=== PATIENT | male | born 1975 | race Caucasian/White ===

== ENCOUNTER 2017-01-02 09:20 | Outpatient (RCR) | payer OTHER ==
[~2017-01-02 09:20] MED LIST changes: -CFTR1PB IV; -TURM538C PO
== END 2017-01-02 16:00 | disposition home or self-care (01) ==
LOC: WOUNDCARE 09:20
PROVIDERS: ATTEND Surgery
DX: E11.621 Type 2 diabetes mellitus with foot ulcer (principal); E11.42 Type 2 diabetes mellitus with diabetic polyneuropathy; E11.65 Type 2 diabetes mellitus with hyperglycemia; L97.512 Non-pressure chronic ulcer of other part of right foot with fat layer exposed
CPT/HCPCS: 11042

== ENCOUNTER → 2017-01-02 | Outpatient (CLI) | payer OTHER ==
[~2017-01-02] MED LIST: BACL10TA PO; BACL20TA PO; CANA300T PO; CFTR1PB IV; CITA20TA7 PO; GLIM4TAB PO; HYDR-3062 PO; HYDR-753 PO; IBUP-2055 PO; LISI10TA2 PO; MULT-406 PO; Prednisone PO; RED600CA2 PO; ROPI3TAB PO; SITA1TAB6 PO; SULF1TAB35 PO; TURM500C7 PO; TURM538C PO
--- NOTE | 2017-01-02 12:35 | Diagnostic Imaging Report ---
CLINICAL INDICATION: Patient has ulcer near fourth metatarsal and on medial aspect of the right foot. BBs are placed near the areas of concern. EXAM: X-ray of the right foot, 3 views. COMPARISON: X-ray of right foot dated 02/21/2015. FINDINGS: There is interval amputation of the previously seen distal and mid phalanges of the third digit which previously demonstrated findings of osteomyelitis. There is soft tissue swelling seen medial to the first MTP joint region in the region of the BB marker with no adjacent bony erosive or destructive changes seen. There is also mild soft tissue swelling seen adjacent to the fourth MTP joint region on the plantar aspect. There is no adjacent bony destructive or erosive process seen. Stable small spurs involving the first MTP joint. The remainder of this exam shows no significant interval change compared to the prior study of comparison. IMPRESSION: 1: There is no radiographic evidence of bony erosive or destructive changes to suggest osteomyelitis on this exam. 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 Dictated by: Dictated on workstation # [id number]
== END ==
LOC: RAD 11:09
PROVIDERS: ATTEND Surgery
DX: M19.071 Primary osteoarthritis, right ankle and foot (principal); Z89.421 Acquired absence of other right toe(s); E11.42 Type 2 diabetes mellitus with diabetic polyneuropathy; E11.65 Type 2 diabetes mellitus with hyperglycemia
CPT/HCPCS: 73630

== ENCOUNTER → 2017-01-09 | Outpatient (CLI) | payer OTHER | LOC: WOUNDCARE 10:13 | PROVIDERS: ATTEND Surgery | DX: E11.621 Type 2 diabetes mellitus with foot ulcer (principal); E11.42 Type 2 diabetes mellitus with diabetic polyneuropathy; L97.512 Non-pressure chronic ulcer of other part of right foot with fat layer exposed | CPT/HCPCS: 11042; 87070; 87075; 87186; 87205 ==

== ENCOUNTER → 2017-01-16 | Outpatient (CLI) | payer OTHER | LOC: WOUNDCARE 15:24 | PROVIDERS: ATTEND Surgery | DX: E11.621 Type 2 diabetes mellitus with foot ulcer (principal); L97.512 Non-pressure chronic ulcer of other part of right foot with fat layer exposed; E11.42 Type 2 diabetes mellitus with diabetic polyneuropathy | CPT/HCPCS: 11042 ==

== ENCOUNTER → 2017-01-30 | Outpatient (CLI) | payer OTHER | LOC: WOUNDCARE 15:28 | PROVIDERS: ATTEND Surgery | DX: E11.621 Type 2 diabetes mellitus with foot ulcer (principal); E11.42 Type 2 diabetes mellitus with diabetic polyneuropathy; L97.512 Non-pressure chronic ulcer of other part of right foot with fat layer exposed | CPT/HCPCS: 11042 ==

== ENCOUNTER → 2017-02-08 | Outpatient (CLI) | payer BC, OTHER ==
[~2017-02-08] MED LIST changes: +CFTR1PB IV; +TURM538C PO
== END ==
LOC: WOUNDCARE 15:29
PROVIDERS: ATTEND Surgery
DX: E11.621 Type 2 diabetes mellitus with foot ulcer (principal); E11.42 Type 2 diabetes mellitus with diabetic polyneuropathy; L97.512 Non-pressure chronic ulcer of other part of right foot with fat layer exposed
CPT/HCPCS: 11042; 87070; 87075; 87077; 87186; 87205

== ENCOUNTER → 2017-02-13 | Outpatient (CLI) | payer OTHER ==
[~2017-02-13] MED LIST changes: -CFTR1PB IV; -TURM538C PO
== END ==
LOC: WOUNDCARE 15:29
PROVIDERS: ATTEND Surgery
DX: E11.621 Type 2 diabetes mellitus with foot ulcer (principal); E11.42 Type 2 diabetes mellitus with diabetic polyneuropathy; L97.512 Non-pressure chronic ulcer of other part of right foot with fat layer exposed
CPT/HCPCS: 11042; 11043

== ENCOUNTER → 2017-02-20 | Outpatient (CLI) | payer BC, OTHER | LOC: WOUNDCARE 15:30 | PROVIDERS: ATTEND Surgery | DX: E11.621 Type 2 diabetes mellitus with foot ulcer (principal); L97.512 Non-pressure chronic ulcer of other part of right foot with fat layer exposed; E11.65 Type 2 diabetes mellitus with hyperglycemia; E11.42 Type 2 diabetes mellitus with diabetic polyneuropathy | CPT/HCPCS: 11042 ==

== ENCOUNTER → 2017-03-06 | Outpatient (CLI) | payer BC | LOC: WOUNDCARE 15:28 | PROVIDERS: ATTEND Surgery | DX: E11.621 Type 2 diabetes mellitus with foot ulcer (principal); L97.513 Non-pressure chronic ulcer of other part of right foot with necrosis of muscle; L97.512 Non-pressure chronic ulcer of other part of right foot with fat layer exposed; E11.42 Type 2 diabetes mellitus with diabetic polyneuropathy; E11.65 Type 2 diabetes mellitus with hyperglycemia | CPT/HCPCS: 11042 ==

== ENCOUNTER 2017-05-10 17:27 | Outpatient (RCR) | payer BC ==
[2017-04-11 12:36] VITALS: BP 127/82
[2017-04-11] MEDS: cefTRIAXone 1 GM/NS 50 ML IVPB IV SCH ×2 (13:00)
[2017-04-12 12:36] VITALS: BP 143/92
[2017-04-12] MEDS: cefTRIAXone 1 GM/NS 50 ML IVPB IV SCH ×2 (12:56)
[2017-04-13] MEDS: cefTRIAXone 1 GM/NS 50 ML IVPB IV SCH ×2 (09:34)
[2017-04-13 10:04] VITALS: BP 142/82
--- NOTE | 2017-04-13 11:10 | Physician Query-Final Dx ---
ALDAIR CHANDLER 04/13/17 1110: Clinic Account Progress/Dx Physician Query: Please give a diagnosis for the Ceftriaxone treatment thank you Date of Service Apr 13, 2017 at 09:27 ARIA GABRIEL MD 04/14/17 1344: Clinic Account Progress/Dx DIAGNOSIS: Diagnosis Osteomyelitis RAMESHALDAIR AGUAYO Apr 13, 2017 11:10 ARIA GABRIEL MD Apr 14, 2017 13:44
[2017-04-14] MEDS: cefTRIAXone 1 GM/NS 50 ML IVPB IV SCH ×2 (10:16)
[2017-04-14 11:04] VITALS: BP 144/100
[2017-04-15 10:30] VITALS: BP 154/89
[2017-04-15] MEDS: cefTRIAXone 1 GM/NS 50 ML IVPB IV SCH ×2 (10:40)
[2017-04-16 11:20] VITALS: BP 147/86
[2017-04-16] MEDS: cefTRIAXone 1 GM/NS 50 ML IVPB IV SCH ×2 (11:20)
[2017-04-17 16:15] VITALS: BP 148/81
[2017-04-17] MEDS: cefTRIAXone 1 GM/NS 50 ML IVPB IV SCH ×2 (16:18)
[2017-04-18 16:15] VITALS: BP 0/0
[2017-04-18] MEDS: cefTRIAXone 1 GM/NS 50 ML IVPB IV SCH ×2 (16:15)
[2017-04-19] MEDS: cefTRIAXone 1 GM/NS 50 ML IVPB IV SCH ×2 (16:40)
[2017-04-19 17:10] VITALS: BP 144/88
[2017-04-20] MEDS: cefTRIAXone 1 GM/NS 50 ML IVPB IV SCH ×2 (16:05)
[2017-04-20 17:00] VITALS: BP 146/89
[2017-04-21 16:10] VITALS: BP 133/80
[2017-04-21] MEDS: cefTRIAXone 1 GM/NS 50 ML IVPB IV SCH ×2 (16:18)
[2017-04-22 09:40] VITALS: BP 123/79
[2017-04-22] MEDS: cefTRIAXone 1 GM/NS 50 ML IVPB IV SCH ×2 (09:45)
[2017-04-23 10:00] VITALS: BP 140/88
[2017-04-23] MEDS: cefTRIAXone 1 GM/NS 50 ML IVPB IV SCH ×2 (10:08)
[2017-04-24] MEDS: cefTRIAXone 1 GM/NS 50 ML IVPB IV SCH ×2 (16:29)
[2017-04-24 17:00] VITALS: BP 134/82
[2017-04-25 17:15] VITALS: BP 0/0
[2017-04-25] MEDS: cefTRIAXone 1 GM/NS 50 ML IVPB IV SCH ×2 (17:55)
[2017-04-26] MEDS: cefTRIAXone 1 GM/NS 50 ML IVPB IV SCH ×2 (11:00)
[2017-04-26 11:42] VITALS: BP 130/80
[2017-04-27 11:20] VITALS: BP 125/81
[2017-04-27] MEDS: cefTRIAXone 1 GM/NS 50 ML IVPB IV SCH ×2 (11:25)
[2017-04-28] MEDS: cefTRIAXone 1 GM/NS 50 ML IVPB IV SCH ×2 (10:13)
[2017-04-28 11:25] VITALS: BP 138/87
[2017-04-29] MEDS: cefTRIAXone 1 GM/NS 50 ML IVPB IV SCH ×2 (09:09)
[2017-04-29 09:10] VITALS: BP 138/87
[2017-04-29 09:23] VITALS: BP 143/89
[2017-04-29 10:21] VITALS: BP 143/89
[2017-04-30 10:00] VITALS: BP 131/87
[2017-04-30] MEDS: cefTRIAXone 1 GM/NS 50 ML IVPB IV SCH ×2 (10:01)
[2017-05-01] MEDS: cefTRIAXone 1 GM/NS 50 ML IVPB IV SCH ×2 (16:29)
[2017-05-01 16:55] VITALS: BP 112/77
[2017-05-02 17:05] VITALS: BP 112/74
[2017-05-03] MEDS: cefTRIAXone 1 GM/NS 50 ML IVPB IV SCH ×2 (16:25)
[2017-05-03 17:05] VITALS: BP 0/0
[2017-05-04] MEDS: cefTRIAXone 1 GM/NS 50 ML IVPB IV SCH ×2 (17:22)
[2017-05-04 18:30] VITALS: BP 132/76
[2017-05-05] MEDS: cefTRIAXone 1 GM/NS 50 ML IVPB IV SCH ×2 (15:03)
[2017-05-05 15:40] VITALS: BP 134/69
[2017-05-06 09:25] VITALS: BP 131/82
[2017-05-06] MEDS: cefTRIAXone 1 GM/NS 50 ML IVPB IV SCH ×2 (09:33)
[2017-05-07] MEDS: cefTRIAXone 1 GM/NS 50 ML IVPB IV SCH ×2 (09:46)
[2017-05-07 10:20] VITALS: BP 128/78
[2017-05-08 16:15] VITALS: BP 121/73
[2017-05-08] MEDS: cefTRIAXone 1 GM/NS 50 ML IVPB IV SCH ×2 (16:15)
[2017-05-09] MEDS: cefTRIAXone 1 GM/NS 50 ML IVPB IV SCH ×2 (16:27)
[2017-05-09 17:00] VITALS: BP 0/0
[~2017-05-10] VITALS: Ht 177.8 cm; Wt 106.3 kg
[~2017-05-10 17:27] MED LIST changes: +CFTR1PB IV; +NS (IVPB) 50 ML ONE; +TURM538C PO; +cefTRIAXone 1 GM (ROCEPHIN) VIAL ONE
[2017-05-10] MEDS ORDERED: cefTRIAXone 1 GM (ROCEPHIN) VIAL ONE (17:28)
[2017-05-10] MEDS ORDERED: NS (IVPB) 50 ML ONE (17:28)
[2017-05-10 17:30] VITALS: BP 128/92
[2017-05-10] MEDS: cefTRIAXone 1 GM/NS 50 ML IVPB IV SCH ×2 (17:30)
== END 2017-07-10 | disposition home or self-care (01) ==
LOC: SDC 17:27
PROVIDERS: ATTEND Family Medicine
DX: L02.611 Cutaneous abscess of right foot (principal); M86.9 Osteomyelitis, unspecified; Z48.01 Encounter for change or removal of surgical wound dressing
CPT/HCPCS: 76937; 96365; 99211; 99212

== ENCOUNTER 2018-02-19 19:51 | Emergency (ER) | payer BC ==
[~2018-02-19] VITALS: Ht 180.3 cm; Wt 108.9 kg
[~2018-02-19 19:51] MED LIST changes: -CITA20TA7 PO; +CITA20TA9 PO; +HYDR-4196 PO; -HYDR-753 PO; -NS (IVPB) 50 ML ONE; -cefTRIAXone 1 GM (ROCEPHIN) VIAL ONE
--- OUTSIDE RECORDS SUMMARY | 2018-02-19 19:56 | XMS REPORT | Clinical Summary ---
Author Author [facility] Organization [facility] Address Unknown Phone Unavailable Care Team Providers Care Customer Advisor Name Role Phone Elfego Nguyen MD Unavailable Ida Sanabria APRN PCP Source Comments Some departments are not documenting in the electronic medical record. If you do not see the information that you expected, contact Release of Information in the Health Information Management department at [phone] for further assistance in locating additional records.[facility] Allergies No Known Allergies Current Medications Prescription Sig. Disp. Refills Start End Date Status Date citalopram (CELEXA) 20 mg Take 20 mg by mouth Active tablet daily. rOPINIRole (REQUIP) 1 mg Take 1 mg by mouth three Active tablet times daily. glimepiride (AMARYL) 4 mg Take 4 mg by mouth daily Active tablet with breakfast. lisinopril (PRINIVIL; Take 10 mg by mouth Active ZESTRIL) 10 mg tablet daily. HYDROcodone/acetaminophen Take 1 Tab by mouth every Active (NORCO; VICODIN) 5-325 mg 4 hours as needed. tablet tadalafil(+) (CIALIS) 5 Take 5 mg by mouth as Active mg tablet Needed. magnesium oxide (MAG-OX) Take 400 mg by mouth Active 400 mg tablet daily. GLUCOSAMINE HCL/CHONDR DSOUZA Take by mouth. Active A NA (OSTEO BI-FLEX PO) pioglitazone (ACTOS) 45 Take 45 mg by mouth Active mg tablet daily. sitagliptin-metformin Take by mouth. Active (JANUMET XR) 50-1,000 mg TM24 RED YEAST RICE PO Take by mouth. Active UBIDECARENONE/VITAMIN E Take by mouth. 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 He has a previous history of slowly decreasing seminal volume. He has a prior SA showing a volume of 1.4cc in 09/2011. Testosterone was 539 in 09/2011 and LH 10.4 L ast Assessment & Plan: Likely a combination of his SSRI use along with very poorly controlled Diabetes Mellitus II leading to retrograde ejaculation vs complete cessation of ejaculation. Although with his long history of SSRI use, it is unlikely that this is the complete reason. He had a near normal semen analysis in 09/2011 - Will obtain labs: LH, FSH, T, Prolactin, Estradiol, and TSH - Also send to [facility] office to obtain a post-climax urine sample to evaluate for presence of semen in urine - RTC in 2 weeks Family History Medical History Relation Name Comments Diabetes Father Cancer Maternal Grandmother Cancer Paternal Grandfather Hypertension Paternal Grandfather Neurologic Disorder Paternal Grandmother Relation Name Status Comments Father Maternal Grandmother Paternal Grandfather Paternal Grandmother Social History Tobacco Use Types Packs/Day Years Used Date Former Smoker Alcohol Use Drinks/Week oz/Week Comments Yes Sex Assigned at Date Recorded Not on file Last Filed Vital Signs Vital Sign Reading Time Taken Blood Pressure 120/60 02/10/2014 10:56 AM CDT Pulse 68 02/10/2014 10:56 AM CDT Temperature - - Respiratory Rate 20 02/10/2014 10:56 AM CDT Oxygen Saturation - - Inhaled Oxygen - - Concentration Weight 112 kg (247 lb) 02/10/2014 10:56 AM CDT Height 177.8 cm (5' 10") 02/10/2014 10:56 AM CDT Body Mass Index 35.44 02/10/2014 10:56 AM CDT Plan of Treatment Health Maintenance Due Date Last Done Comments PHYSICAL (COMPREHENSIVE) 1981 EXAM PERTUSSIS VACCINE 1985 HIV SCREENING 1989 TETANUS VACCINE 11/11/1991 INFLUENZA VACCINE 03/05/2018 Results Not on filefrom Last 3 Months
--- OUTSIDE RECORDS SUMMARY | 2018-02-19 19:59 | XMS REPORT | Continuity of Care Document ---
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 SURGI 04/17/2017 ARIA GABRIEL MD M Ot L02.611 CUTANEOUS ABSCESS OF RIGHT FOOT 04/17/2017 ARIA GABRIEL MD Ot M86.9 OSTEOMYELITIS, UNSPECIFIED 04/17/2017 ARIA GABRIEL MD Ot Z48.01 ENCOUNTER FOR CHANGE OR REMOVAL OF SURGI 04/18/2017 ARIA GABRIEL MD Ot L02.611 CUTANEOUS ABSCESS OF RIGHT FOOT 04/18/2017 ARIA GABRIEL MD Ot M86.9 OSTEOMYELITIS, UNSPECIFIED 04/18/2017 ARIA GABRIEL MD Ot Z48.01 ENCOUNTER FOR CHANGE OR REMOVAL OF SURGI 04/19/2017 ARIA GABRIEL MD M Ot L02.611 CUTANEOUS ABSCESS OF RIGHT FOOT 04/19/2017 ARIA GABRIEL MD Ot M86.9 OSTEOMYELITIS, UNSPECIFIED 04/19/2017 ARIA GABRIEL MD M Ot Z48.01 ENCOUNTER FOR CHANGE OR REMOVAL OF SURGI 04/20/2017 ARIA GABRIEL MD M Ot L02.611 CUTANEOUS ABSCESS OF RIGHT FOOT 04/20/2017 ARIA GABRIEL MD M Ot M86.9 OSTEOMYELITIS, UNSPECIFIED 04/20/2017 ARIA GABRIEL MD M Ot Z48.01 ENCOUNTER FOR CHANGE OR REMOVAL OF SURGI 04/21/2017 ARIA GABRIEL MD M Ot L02.611 CUTANEOUS ABSCESS OF RIGHT FOOT 04/21/2017 ARIA GABRIEL MD Ot M86.9 OSTEOMYELITIS, UNSPECIFIED 04/21/2017 ARIA GABRIEL MD M Ot Z48.01 ENCOUNTER FOR CHANGE OR REMOVAL OF SURGI 04/21/2017 ARIA GABRIEL MD M Ot L02.611 CUTANEOUS ABSCESS OF RIGHT FOOT 04/21/2017 ARIA GABRIEL MD Ot M86.9 OSTEOMYELITIS, UNSPECIFIED 04/21/2017 ARIA GABRIEL MD Ot Z48.01 ENCOUNTER FOR CHANGE OR REMOVAL OF SURGI 04/22/2017 ARIA GABRIEL MD Ot L02.611 CUTANEOUS ABSCESS OF RIGHT FOOT 04/22/2017 ARIA GABRIEL MD, Ot M86.9 OSTEOMYELITIS, UNSPECIFIED 04/22/2017 ARIA GABRIEL MD Ot Z48.01 ENCOUNTER FOR CHANGE OR REMOVAL OF SURGI 04/23/2017 ARIA GABRIEL MD Ot L02.611 CUTANEOUS ABSCESS OF RIGHT FOOT 04/23/2017 ARIA GABRIEL MD, Ot M86.9 OSTEOMYELITIS, UNSPECIFIED 04/23/2017 ARIA GABRIEL MD Ot Z48.01 ENCOUNTER FOR CHANGE OR REMOVAL OF SURGI 04/24/2017 ARIA GABRIEL MD Ot L02.611 CUTANEOUS ABSCESS OF RIGHT FOOT 04/24/2017 ARIA GABRIEL MD Ot M86.9 OSTEOMYELITIS, UNSPECIFIED 04/24/2017 ARIA GABRIEL MD Ot Z48.01 ENCOUNTER FOR CHANGE OR REMOVAL OF SURGI 04/25/2017 P E1142 Type 2 diabetes mellitus with diabetic polyneuropathy 04/25/2017 S [id number] Type 2 diabetes mellitus with foot ulcer 04/25/2017 S R16879 Nicotine dependence, cigarettes, with other nicotine-induced disorders 04/25/2017 S Q28798 Non-pressure chronic ulcer of other part of right foot with necrosis of muscle 04/25/2017 S 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 04/25/2017 S [id number] Disruption of external operation (surgical) wound, not elsewhere classified, initial encounter 04/25/2017 S Z7984 halfway ( current) use of oral hypoglycemic drugs 04/25/2017 ARIA GABRIEL MD Ot L02.611 CUTANEOUS ABSCESS OF RIGHT FOOT 04/25/2017 ARIA GABRIEL MD Ot M86.9 OSTEOMYELITIS, UNSPECIFIED 04/25/2017 ARIA GABRIEL MD Ot Z48.01 ENCOUNTER FOR CHANGE OR REMOVAL OF SURGI 04/26/2017 ARIA GABRIEL MD Ot L02.611 CUTANEOUS ABSCESS OF RIGHT FOOT 04/26/2017 ARIA GABRIEL MD Ot M86.9 OSTEOMYELITIS, UNSPECIFIED 04/26/2017 ARIA GABRIEL MD Ot Z48.01 ENCOUNTER FOR CHANGE OR REMOVAL OF SURGI 04/27/2017 ARIA GABRIEL MD Ot L02.611 CUTANEOUS ABSCESS OF RIGHT FOOT 04/27/2017 ARIA GABRIEL MD Ot M86.9 OSTEOMYELITIS, UNSPECIFIED 04/27/2017 ARIA GABRIEL MD Ot Z48.01 ENCOUNTER FOR CHANGE OR REMOVAL OF SURGI 04/27/2017 ARIA GABRIEL MD Ot L02.611 CUTANEOUS ABSCESS OF RIGHT FOOT 04/27/2017 ARIA GABRIEL MD Ot M86.9 OSTEOMYELITIS, UNSPECIFIED 04/27/2017 ARIA GABRIEL MD Ot Z48.01 ENCOUNTER FOR CHANGE OR REMOVAL OF SURGI 04/28/2017 ARIA GABRIEL MD Ot L02.611 CUTANEOUS ABSCESS OF RIGHT FOOT 04/28/2017 ARIA GABRIEL MD Ot M86.9 OSTEOMYELITIS, UNSPECIFIED 04/28/2017 ARIA GABRIEL MD Ot Z48.01 ENCOUNTER FOR CHANGE OR REMOVAL OF SURGI 04/29/2017 ARIA GABRIEL MD M Ot L02.611 CUTANEOUS ABSCESS OF RIGHT FOOT 04/29/2017 ARIA GABRIEL MD Ot M86.9 OSTEOMYELITIS, UNSPECIFIED 04/29/2017 ARIA GABRIEL MD Ot Z48.01 ENCOUNTER FOR CHANGE OR REMOVAL OF SURGI 04/29/2017 ARIA GABRIEL MD M Ot L02.611 CUTANEOUS ABSCESS OF RIGHT FOOT 04/29/2017 ARIA GABRIEL MD Ot M86.9 OSTEOMYELITIS, UNSPECIFIED 04/29/2017 ARIA GABRIEL MD Ot Z48.01 ENCOUNTER FOR CHANGE OR REMOVAL OF SURGI 04/29/2017 ARIA GABRIEL MD Ot L02.611 CUTANEOUS ABSCESS OF RIGHT FOOT 04/29/2017 ARIA GABRIEL MD Ot M86.9 OSTEOMYELITIS, UNSPECIFIED 04/29/2017 ARIA GABRIEL MD Ot Z48.01 ENCOUNTER FOR CHANGE OR REMOVAL OF SURGI 04/30/2017 ARIA GABRIEL MD Ot L02.611 CUTANEOUS ABSCESS OF RIGHT FOOT 04/30/2017 ARIA GABRIEL MD Ot M86.9 OSTEOMYELITIS, UNSPECIFIED 04/30/2017 ARIA GABRIEL MD Ot Z48.01 ENCOUNTER FOR CHANGE OR REMOVAL OF SURGI 05/01/2017 ARIA GABRIEL MD Ot L02.611 CUTANEOUS ABSCESS OF RIGHT FOOT 05/01/2017 ARIA GABRIEL MD Ot M86.9 OSTEOMYELITIS, UNSPECIFIED 05/01/2017 ARIA GABRIEL MD Ot Z48.01 ENCOUNTER FOR CHANGE OR REMOVAL OF SURGI 05/02/2017 ARIA GABRIEL MD Ot L02.611 CUTANEOUS ABSCESS OF RIGHT FOOT 05/02/2017 ARIA GABRIEL MD Ot M86.9 OSTEOMYELITIS, UNSPECIFIED 05/02/2017 ARIA GABRIEL MD Ot Z48.01 ENCOUNTER FOR CHANGE OR REMOVAL OF SURGI 05/03/2017 ARIA GABRIEL MD Ot L02.611 CUTANEOUS ABSCESS OF RIGHT FOOT 05/03/2017 ARIA GABRIEL MD Ot M86.9 OSTEOMYELITIS, UNSPECIFIED 05/03/2017 ARIA GABRIEL MD Ot Z48.01 ENCOUNTER FOR CHANGE OR REMOVAL OF SURGI 05/04/2017 P E1142 Type 2 diabetes mellitus with diabetic polyneuropathy 05/04/2017 S M46256 Type 2 diabetes mellitus with foot ulcer 05/04/2017 S D16763 Nicotine dependence, cigarettes, uncomplicated 05/04/2017 S C44459 Non-pressure chronic ulcer of other part of right foot limited to breakdown of skin 05/04/2017 S G35026 Non-pressure chronic ulcer of other part of right foot with necrosis of bone 05/04/2017 S Z7984 halfway ( current) use of oral hypoglycemic drugs 05/04/2017 S Z9119 Patient's noncompliance with other medical treatment and regimen 05/04/2017 ARIA GABRIEL MD Ot L02.611 CUTANEOUS ABSCESS OF RIGHT FOOT 05/04/2017 ARIA GABRIEL MD Ot M86.9 OSTEOMYELITIS, UNSPECIFIED 05/04/2017 ARIA GABRIEL MD Ot Z48.01 ENCOUNTER FOR CHANGE OR REMOVAL OF SURGI 05/05/2017 ARIA GABRIEL MD Ot L02.611 CUTANEOUS ABSCESS OF RIGHT FOOT 05/05/2017 ARIA GABRIEL MD Ot M86.9 OSTEOMYELITIS, UNSPECIFIED 05/05/2017 ARIA GABRIEL MD Ot Z48.01 ENCOUNTER FOR CHANGE OR REMOVAL OF SURGI 05/06/2017 ARIA GABRIEL MD Ot L02.611 CUTANEOUS ABSCESS OF RIGHT FOOT 05/06/2017 ARIA GABRIEL MD Ot M86.9 OSTEOMYELITIS, UNSPECIFIED 05/06/2017 ARIA GABRIEL MD Ot Z48.01 ENCOUNTER FOR CHANGE OR REMOVAL OF SURGI 05/07/2017 ARIA GABRIEL MD Ot L02.611 CUTANEOUS ABSCESS OF RIGHT FOOT 05/07/2017 ARIA GABRIEL MD Ot M86.9 OSTEOMYELITIS, UNSPECIFIED 05/07/2017 ARIA GABRIEL MD Ot Z48.01 ENCOUNTER FOR CHANGE OR REMOVAL OF SURGI 05/08/2017 ARIA GABRIEL MD Ot L02.611 CUTANEOUS ABSCESS OF RIGHT FOOT 05/08/2017 ARIA GABRIEL MD Ot M86.9 OSTEOMYELITIS, UNSPECIFIED 05/08/2017 ARIA GABRIEL MD Ot Z48.01 ENCOUNTER FOR CHANGE OR REMOVAL OF SURGI 05/09/2017 SCOOBY MONTGOMERY MD Ot E11.42 TYPE 2 DIABETES MELLITUS WITH DIABETIC P 05/09/2017 SCOOBY MONTGOMERY MD Ot E11.621 TYPE 2 DIABETES MELLITUS WITH FOOT ULCER 05/09/2017 SCOOBY MONTGOMERY MD Ot L97.512 NON-PRS CHRONIC ULCER OTH PRT RIGHT FOOT 05/09/2017 SCOOBY MONTGOMERY MD Ot E11.42 TYPE 2 DIABETES MELLITUS WITH DIABETIC P 05/09/2017 SCOOBY MONTGOMERY MD Ot E11.621 TYPE 2 DIABETES MELLITUS WITH FOOT ULCER 05/09/2017 SCOOBY MONTGOMERY MD Ot L97.512 NON-PRS CHRONIC ULCER OTH PRT RIGHT FOOT 05/09/2017 ARIA GABRIEL MD Ot L02.611 CUTANEOUS ABSCESS OF RIGHT FOOT 05/09/2017 ARIA GABRIEL MD Ot M86.9 OSTEOMYELITIS, UNSPECIFIED 05/09/2017 ARIA GABRIEL MD Ot Z48.01 ENCOUNTER FOR CHANGE OR REMOVAL OF SURGI 05/10/2017 P E1142 Type 2 diabetes mellitus with diabetic polyneuropathy 05/10/2017 S F69644 Type 2 diabetes mellitus with foot ulcer 05/10/2017 S H24007 Nicotine dependence, cigarettes, uncomplicated 05/10/2017 S B92206 Non-pressure chronic ulcer of other part of right foot limited to breakdown of skin 05/10/2017 S M76172 Non-pressure chronic ulcer of other part of right foot with necrosis of bone 05/10/2017 S Z7984 halfway ( current) use of oral hypoglycemic drugs 05/10/2017 S Z9119 Patient's noncompliance with other medical treatment and regimen 05/10/2017 ARIA GABRIEL MD Ot L02.611 CUTANEOUS ABSCESS OF RIGHT FOOT 05/10/2017 ARIA GABRIEL MD Ot M86.9 OSTEOMYELITIS, UNSPECIFIED 05/10/2017 ARIA GABRIEL MD Ot Z48.01 ENCOUNTER FOR CHANGE OR REMOVAL OF SURGI 05/10/2017 ARIA GABRIEL MD Ot L02.611 CUTANEOUS ABSCESS OF RIGHT FOOT 05/10/2017 ARIA GABRIEL MD Ot M86.9 OSTEOMYELITIS, UNSPECIFIED 05/10/2017 ARIA GABRIEL MD Ot Z48.01 ENCOUNTER FOR CHANGE OR REMOVAL OF SURGI 05/18/2017 P E1142 Type 2 diabetes mellitus with diabetic polyneuropathy 05/18/2017 S P96395 Type 2 diabetes mellitus with foot ulcer 05/18/2017 S I05046 Nicotine dependence, cigarettes, uncomplicated 05/18/2017 S P20540 Non-pressure chronic ulcer of other part of right foot with necrosis of bone 05/18/2017 S [id number] Disruption of external operation (surgical) wound, not elsewhere classified, subsequent encounter 05/18/2017 S Z7984 halfway ( current) use of oral hypoglycemic drugs 05/18/2017 S Z9119 Patient's noncompliance with other medical treatment and regimen 05/18/2017 ARIA GABRIEL MD Ot L02.611 CUTANEOUS ABSCESS OF RIGHT FOOT 05/18/2017 ARIA GABRIEL MD Ot M86.9 OSTEOMYELITIS, UNSPECIFIED 05/18/2017 ARIA GABRIEL MD Ot Z48.01 ENCOUNTER FOR CHANGE OR REMOVAL OF SURGI 05/25/2017 P E1142 Type 2 diabetes mellitus with diabetic polyneuropathy 05/25/2017 S J71852 Type 2 diabetes mellitus with foot ulcer 05/25/2017 S A53560 Nicotine dependence, cigarettes, uncomplicated 05/25/2017 S W81990 Non-pressure chronic ulcer of other part of right foot with necrosis of bone 05/25/2017 S 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 05/25/2017 S Z9119 Patient's noncompliance with other medical treatment and regimen 06/07/2017 S E1142 Type 2 diabetes mellitus with diabetic polyneuropathy 06/07/2017 P W55922 Type 2 diabetes mellitus with foot ulcer 06/07/2017 S V98920 Nicotine dependence, cigarettes, uncomplicated 06/07/2017 S Z37260 Non-pressure chronic ulcer of other part of right foot limited to breakdown of skin 06/07/2017 S 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 06/07/2017 S Z9119 Patient's noncompliance with other medical treatment and regimen 07/10/2017 ARIA GABRIEL MD Ot L02.611 CUTANEOUS ABSCESS OF RIGHT FOOT 07/10/2017 ARIA GABRIEL MD, Ot M86.9 OSTEOMYELITIS, UNSPECIFIED 07/10/2017 ARIA GABRIEL MD Ot Z48.01 ENCOUNTER FOR CHANGE OR REMOVAL OF SURGI 07/11/2017 ARIA GABRIEL MD Ot L02.611 CUTANEOUS ABSCESS OF RIGHT FOOT 07/11/2017 ARIA GABRIEL MD, Ot M86.9 OSTEOMYELITIS, UNSPECIFIED 07/11/2017 ARIA GABRIEL MD, Ot Z48.01 ENCOUNTER FOR CHANGE OR REMOVAL OF SURGI 11/13/2017 SCOOBY MONTGOMERY MD Ot E11.42 TYPE 2 DIABETES MELLITUS WITH DIABETIC P 11/13/2017 SCOOBY MONTGOMERY MD Ot E11.621 TYPE 2 DIABETES MELLITUS WITH FOOT ULCER 11/13/2017 SCOOBY MONTGOMERY MD, Ot L97.512 NON-PRS CHRONIC ULCER OTH PRT RIGHT FOOT 11/13/2017 SCOOBY MONTGOMERY MD Ot E11.42 TYPE 2 DIABETES MELLITUS WITH DIABETIC P 11/13/2017 SCOOBY MONTGOMERY MD Ot E11.621 TYPE 2 DIABETES MELLITUS WITH FOOT ULCER 11/13/2017 SCOOBY MONTGOMERY MD, Ot L97.512 NON-PRS CHRONIC ULCER OTH PRT RIGHT FOOT 01/26/2018 RACHEL PANIAGUA APRN Ot E11.42 TYPE 2 DIABETES MELLITUS WITH DIABETIC P 01/26/2018 RACHEL PANIAGUA APRN Ot E11.621 TYPE 2 DIABETES MELLITUS WITH FOOT ULCER 01/26/2018 RACHEL PANIAGUA APRN Ot F17.210 NICOTINE DEPENDENCE, CIGARETTES, UNCOMPL 01/26/2018 RACHEL PANIAGUA APRN Ot L97.519 NON-PRS CHRONIC ULCER OTH PRT RIGHT FOOT 01/26/2018 RACHEL PANIAGUA APRN Ot N28.9 DISORDER OF KIDNEY AND URETER, UNSPECIFI 01/26/2018 RACHEL PANIAGUA APRN Ot Z79.84 TAX PROFESSIONAL (CURRENT) USE OF ORAL HYPOGLYC 01/30/2018 RACHEL PANIAGUA APRN Ot E11.42 TYPE 2 DIABETES MELLITUS WITH DIABETIC P 01/30/2018 RACHEL PANIAGUA APRN Ot E11.621 TYPE 2 DIABETES MELLITUS WITH FOOT ULCER 01/30/2018 RACHEL PANIAGUA APRN Ot F17.210 NICOTINE DEPENDENCE, CIGARETTES, UNCOMPL 01/30/2018 RACHEL PANIAGUA APRN Ot L97.519 NON-PRS CHRONIC ULCER OTH PRT RIGHT FOOT 01/30/2018 RACHEL PANIAGUA APRN Ot N28.9 DISORDER OF KIDNEY AND URETER, UNSPECIFI 01/30/2018 RACHEL PANIAGUA APRN Ot Z79.84 FDC (CURRENT) USE OF ORAL HYPOGLYC Procedures Code Description Performed By Performed On 84.11 TOE AMPUTATION 02/23/2015 [id number] EXCISION OF RIGHT METATARSAL, OPEN APPRO 04/07/2017 [id number] DRAINAGE OF RIGHT FOOT, OPEN APPROACH 04/07/2017 Results Test Result Range Bacteria identification in isolate by anaerobe culture - 01/09/17 10:45 Bacteria identification in isolate by anaerobe culture NOANA NRG Gram stain microscopy - 01/09/17 10:45 Gram stain microscopy Occasional WBC, no bacteria NRG Bacteria identification in wound by culture - 01/09/17 10:45 Bacteria identification in wound by culture [id number] NR FREE TEXT EXTERNAL SENSITIVITY REPORTED 01/11/17 7:50 NRG QUANTITY OF GROWTH Abundant Growth NR Bacterial susceptibility panel - 01/09/17 10:45 Oxacillin susceptibility test by minimum inhibitory concentration > = NRG Gentamicin susceptibility test by minimum inhibitory concentration < = NRG Clindamycin susceptibility test by minimum inhibitory concentration <= NRG Erythromycin susceptibility test by minimum inhibitory concentration >= NRG Trimethoprim/sulfamethoxazole susceptibility test by minimum inhibitoryconcentration 160 NRG Vancomycin susceptibility test by minimum inhibitory concentration 2 NRG Levofloxacin susceptibility test by minimum inhibitory concentration <= NRG Rifampin susceptibility test by minimum inhibitory concentration <= NRG Tetracycline susceptibility test by minimum inhibitory concentration 2 NRG Bacteria identification in isolate by anaerobe culture - 02/08/17 16:48 Bacteria identification in isolate by anaerobe culture NOANA NRG Gram stain microscopy - 02/08/17 16:48 GRAM STAIN RESULT FEW WBC'S, NO BACTERIA OBSERVED NRG Bacteria identification in wound by culture - 02/08/17 16:48 Bacteria identification in wound by culture [id number] NR FREE TEXT EXTERNAL SENSITIVITY REPORTED 02/12 15:25 MONDAY NRG QUANTITY OF GROWTH Scant Growth [facility] Bacterial susceptibility panel - 02/08/17 16:48 Gentamicin susceptibility test by minimum inhibitory concentration < = NRG Trimethoprim/sulfamethoxazole susceptibility test by minimum inhibitoryconcentration <= NRG Ampicillin susceptibility test by minimum inhibitory concentration 8 NRG Tobramycin susceptibility test by minimum inhibitory concentration < = NRG Cefazolin susceptibility test by minimum inhibitory concentration < = NRG Ceftriaxone susceptibility test by minimum inhibitory concentration <= NRG Ampicillin/sulbactam susceptibility test by minimum inhibitory concentration 4 NRG Piperacillin/tazobactam susceptibility test by minimum inhibitory concentration <= NRG Ciprofloxacin susceptibility test by minimum inhibitory concentration <= NRG Meropenem susceptibility test by minimum inhibitory concentration < = NRG Aztreonam susceptibility test by minimum inhibitory concentration < = NRG Extended spectrum beta lactamase (ESBL) producing bacteria susceptibility test by minimum inhibitory concentration - [facility] Bacterial susceptibility panel - 02/08/17 16:48 Gentamicin susceptibility test by minimum inhibitory concentration S NRG Erythromycin susceptibility test by minimum inhibitory concentration 1 NRG Vancomycin susceptibility test by minimum inhibitory concentration 1 NRG Ampicillin susceptibility test by minimum inhibitory concentration < = NRG Linezolid susceptibility test by minimum inhibitory concentration 2 NRG Gram stain microscopy - 04/05/17 15:50 GRAM STAIN RESULT FEW GRAM POSITIVE COCCI NRG Bacteria identification in wound by culture - 04/05/17 15:50 Bacteria identification in wound by culture [id number] NR FREE TEXT EXTERNAL SENSITIVITY REPORTED AT 1751, 04-06-17 NRG QUANTITY OF GROWTH Moderate Growth NRG MRSA AGAR Screening test for MRSA is NEGATIVE (Final to follow) NRG Bacterial susceptibility panel - 04/05/17 15:50 Oxacillin susceptibility test by minimum inhibitory concentration < = NRG Gentamicin susceptibility test by minimum inhibitory concentration < = NRG Clindamycin susceptibility test by minimum inhibitory concentration <= NRG Erythromycin susceptibility test by minimum inhibitory concentration <= NRG Trimethoprim/sulfamethoxazole susceptibility test by minimum inhibitoryconcentration <= NRG Vancomycin susceptibility test by minimum inhibitory concentration < = NRG Levofloxacin susceptibility test by minimum inhibitory concentration <= NRG Rifampin susceptibility test by minimum inhibitory concentration <= NRG Tetracycline susceptibility test by minimum inhibitory concentration <= NRG Bacterial blood culture - 04/05/17 19:35 Bacterial blood culture NG NRG Complete blood count (CBC) with automated white blood cell (WBC) differential - 04/05/17 19:40 Blood leukocytes automated count (number/volume) 12.2 10*3/uL 4.3-11.0 Blood erythrocytes automated count (number/volume) 3.57 10*6/uL 4.35-5.85 Venous blood hemoglobin measurement (mass/volume) 11.0 g/dL 13.3-17.7 Blood hematocrit (volume fraction) 34 % 40-54 Automated erythrocyte mean corpuscular volume 94 [foz_us] 80-99 Automated erythrocyte mean corpuscular hemoglobin (mass per erythrocyte) 31 pg 25-34 Automated erythrocyte mean corpuscular hemoglobin concentration measurement ( mass/volume) 33 g/dL 32-36 Automated erythrocyte distribution width ratio 13.7 % 10.0-14.5 Automated blood platelet count (count/volume) 332 10*3/uL 130-400 Automated blood platelet mean volume measurement 9.6 [foz_us] 7.4-10.4 Automated blood neutrophils/100 leukocytes 80 % 42-75 Automated blood lymphocytes/100 leukocytes 8 % 12-44 Blood monocytes/100 leukocytes 9 % 0-12 Automated blood eosinophils/100 leukocytes 3 % 0-10 Automated blood basophils/100 leukocytes 0 % 0-10 Blood neutrophils automated count (number/volume) 9.8 10*3 1.8-7.8 Blood lymphocytes automated count (number/volume) 1.0 10*3 1.0-4.0 Blood monocytes automated count (number/volume) 1.1 10*3 0.0-1.0 Automated eosinophil count 0.3 10*3/uL 0.0-0.3 Automated blood basophil count (count/volume) 0.0 10*3/uL 0.0-0.1 Blood lactic acid measurement (moles/volume) - 04/05/17 19:40 Blood lactic acid measurement (moles/volume) 0.47 mmol/L 0.50-2.00 Erythrocyte sedimentation rate by westergren method - 04/05/17 19:40 Erythrocyte sedimentation rate by westergren method 127 mm 0-15 Comprehensive metabolic panel - 04/05/17 19:40 Serum or plasma sodium measurement (moles/volume) 136 mmol/L 135-145 Serum or plasma potassium measurement (moles/volume) 3.6 mmol/L 3.6-5.0 Serum or plasma chloride measurement (moles/volume) 99 mmol/L 98-107 Carbon dioxide 23 mmol/L 21-32 Serum or plasma anion gap determination (moles/volume) 14 mmol/L 5-14 Serum or plasma urea nitrogen measurement (mass/volume) 29 mg/dL 7-18 Serum or plasma creatinine measurement (mass/volume) 1.36 mg/dL 0.60-1.30 Serum or plasma urea nitrogen/creatinine mass ratio 21 NRG Serum or plasma creatinine measurement with calculation of estimated glomerular filtration rate 57 NRG Serum or plasma glucose measurement (mass/volume) 135 mg/dL 70-105 Serum or plasma calcium measurement (mass/volume) 9.5 mg/dL 8.5-10.1 Serum or plasma total bilirubin measurement (mass/volume) 0.5 mg/dL 0.1-1.0 Serum or plasma alkaline phosphatase measurement (enzymatic activity/volume) 148 U/L 40-136 Serum or plasma aspartate aminotransferase measurement (enzymatic activity/ volume) 34 U/L 5-34 Serum or plasma alanine aminotransferase measurement (enzymatic activity/volume ) 52 U/L 0-55 Serum or plasma protein measurement (mass/volume) 7.5 g/dL 6.4-8.2 Serum or plasma albumin measurement (mass/volume) 3.7 g/dL 3.2-4.5 Serum or plasma C reactive protein measurement (mass/volume) - 04/05/17 19:40 Serum or plasma C reactive protein measurement (mass/volume) 29.77 mg/dL 0.00-0.50 Hemoglobin A1c - 04/05/17 19:40 Hemoglobin A1c 9.4 % 4.5-6.2 Bacterial blood culture - 04/05/17 19:40 Bacterial blood culture NG NRG Capillary blood glucose measurement by glucometer (mass/volume) - 04/05/17 20: 53 Capillary blood glucose measurement by glucometer (mass/volume) 114 mg/dL 70-110 Capillary blood glucose measurement by glucometer (mass/volume) - 04/06/17 05: 45 Capillary blood glucose measurement by glucometer (mass/volume) 128 mg/dL 70-110 Complete blood count (CBC) with automated white blood cell (WBC) differential - 04/06/17 06:40 Blood leukocytes automated count (number/volume) 14.8 10*3/uL 4.3-11.0 Blood erythrocytes automated count (number/volume) 2.80 10*6/uL 4.35-5.85 Venous blood hemoglobin measurement (mass/volume) 8.7 g/dL 13.3-17.7 Blood hematocrit (volume fraction) 27 % 40-54 Automated erythrocyte mean corpuscular volume 96 [foz_us] 80-99 Automated erythrocyte mean corpuscular hemoglobin (mass per erythrocyte) 31 pg 25-34 Automated erythrocyte mean corpuscular hemoglobin concentration measurement ( mass/volume) 32 g/dL 32-36 Automated erythrocyte distribution width ratio 13.7 % 10.0-14.5 Automated blood platelet count (count/volume) 349 10*3/uL 130-400 Automated blood platelet mean volume measurement 9.5 [foz_us] 7.4-10.4 Automated blood neutrophils/100 leukocytes 78 % 42-75 Automated blood lymphocytes/100 leukocytes 10 % 12-44 Blood monocytes/100 leukocytes 9 % 0-12 Automated blood eosinophils/100 leukocytes 3 % 0-10 Automated blood basophils/100 leukocytes 0 % 0-10 Blood neutrophils automated count (number/volume) 11.5 10*3 1.8-7.8 Blood lymphocytes automated count (number/volume) 1.5 10*3 1.0-4.0 Blood monocytes automated count (number/volume) 1.3 10*3 0.0-1.0 Automated eosinophil count 0.4 10*3/uL 0.0-0.3 Automated blood basophil count (count/volume) 0.0 10*3/uL 0.0-0.1 Comprehensive metabolic panel - 04/06/17 06:40 Serum or plasma sodium measurement (moles/volume) 140 mmol/L 135-145 Serum or plasma potassium measurement (moles/volume) 3.9 mmol/L 3.6-5.0 Serum or plasma chloride measurement (moles/volume) 103 mmol/L 98-107 Carbon dioxide 25 mmol/L 21-32 Serum or plasma anion gap determination (moles/volume) 12 mmol/L 5-14 Serum or plasma urea nitrogen measurement (mass/volume) 32 mg/dL 7-18 Serum or plasma creatinine measurement (mass/volume) 1.23 mg/dL 0.60-1.30 Serum or plasma urea nitrogen/creatinine mass ratio 26 NRG Serum or plasma creatinine measurement with calculation of estimated glomerular filtration rate > NRG Serum or plasma glucose measurement (mass/volume) 125 mg/dL 70-105 Serum or plasma calcium measurement (mass/volume) 9.2 mg/dL 8.5-10.1 Serum or plasma total bilirubin measurement (mass/volume) 0.4 mg/dL 0.1-1.0 Serum or plasma alkaline phosphatase measurement (enzymatic activity/volume) 149 U/L 40-136 Serum or plasma aspartate aminotransferase measurement (enzymatic activity/ volume) 34 U/L 5-34 Serum or plasma alanine aminotransferase measurement (enzymatic activity/volume ) 49 U/L 0-55 Serum or plasma protein measurement (mass/volume) 6.8 g/dL 6.4-8.2 Serum or plasma albumin measurement (mass/volume) 3.2 g/dL 3.2-4.5 Blood manual differential performed detection - 04/06/17 06:40 Blood monocytes/100 leukocytes 7 % NRG Manual blood segmented neutrophils/100 leukocytes 82 % NRG Blood band neutrophils/100 leukocytes 0 % NRG Manual blood lymphocytes/100 leukocytes 7 % NRG Manual eosinophils/100 leukocytes in nose 4 % NRG Manual blood basophils/100 leukocytes 0 % NRG Blood erythrocyte morphology finding identification NORMAL NRG Capillary blood glucose measurement by glucometer (mass/volume) - 04/06/17 11: 59 Capillary blood glucose measurement by glucometer (mass/volume) 108 mg/dL 70-110 Capillary blood glucose measurement by glucometer (mass/volume) - 04/06/17 16: 06 Capillary blood glucose measurement by glucometer (mass/volume) 149 mg/dL 70-110 Methicillin resistant Staphylococcus aureus (MRSA) screening culture - 19:56 Methicillin resistant Staphylococcus aureus (MRSA) screening culture NEG NRG Capillary blood glucose measurement by glucometer (mass/volume) - 04/06/17 20: 44 Capillary blood glucose measurement by glucometer (mass/volume) 81 mg/dL 70-110 Capillary blood glucose measurement by glucometer (mass/volume) - 04/07/17 00: 24 Capillary blood glucose measurement by glucometer (mass/volume) 97 mg/dL 70-110 Capillary blood glucose measurement by glucometer (mass/volume) - 04/07/17 05: 20 Capillary blood glucose measurement by glucometer (mass/volume) 92 mg/dL 70-110 Complete blood count (CBC) with automated white blood cell (WBC) differential - 04/07/17 05:25 Blood leukocytes automated count (number/volume) 11.3 10*3/uL 4.3-11.0 Blood erythrocytes automated count (number/volume) 3.21 10*6/uL 4.35-5.85 Venous blood hemoglobin measurement (mass/volume) 9.8 g/dL 13.3-17.7 Blood hematocrit (volume fraction) 31 % 40-54 Automated erythrocyte mean corpuscular volume 96 [foz_us] 80-99 Automated erythrocyte mean corpuscular hemoglobin (mass per erythrocyte) 31 pg 25-34 Automated erythrocyte mean corpuscular hemoglobin concentration measurement ( mass/volume) 32 g/dL 32-36 Automated erythrocyte distribution width ratio 13.4 % 10.0-14.5 Automated blood platelet count (count/volume) 311 10*3/uL 130-400 Automated blood platelet mean volume measurement 9.0 [foz_us] 7.4-10.4 Automated blood neutrophils/100 leukocytes 81 % 42-75 Automated blood lymphocytes/100 leukocytes 8 % 12-44 Blood monocytes/100 leukocytes 8 % 0-12 Automated blood eosinophils/100 leukocytes 3 % 0-10 Automated blood basophils/100 leukocytes 0 % 0-10 Blood neutrophils automated count (number/volume) 9.1 10*3 1.8-7.8 Blood lymphocytes automated count (number/volume) 1.0 10*3 1.0-4.0 Blood monocytes automated count (number/volume) 0.9 10*3 0.0-1.0 Automated eosinophil count 0.3 10*3/uL 0.0-0.3 Automated blood basophil count (count/volume) 0.0 10*3/uL 0.0-0.1 Comprehensive metabolic panel - 04/07/17 05:25 Serum or plasma sodium measurement (moles/volume) 138 mmol/L 135-145 Serum or plasma potassium measurement (moles/volume) 3.8 mmol/L 3.6-5.0 Serum or plasma chloride measurement (moles/volume) 104 mmol/L 98-107 Carbon dioxide 22 mmol/L 21-32 Serum or plasma anion gap determination (moles/volume) 12 mmol/L 5-14 Serum or plasma urea nitrogen measurement (mass/volume) 15 mg/dL 7-18 Serum or plasma creatinine measurement (mass/volume) 0.91 mg/dL 0.60-1.30 Serum or plasma urea nitrogen/creatinine mass ratio 16 NRG Serum or plasma creatinine measurement with calculation of estimated glomerular filtration rate > NRG Serum or plasma glucose measurement (mass/volume) 92 mg/dL 70-105 Serum or plasma calcium measurement (mass/volume) 9.0 mg/dL 8.5-10.1 Serum or plasma total bilirubin measurement (mass/volume) 0.6 mg/dL 0.1-1.0 Serum or plasma alkaline phosphatase measurement (enzymatic activity/volume) 172 U/L 40-136 Serum or plasma aspartate aminotransferase measurement (enzymatic activity/ volume) 57 U/L 5-34 Serum or plasma alanine aminotransferase measurement (enzymatic activity/volume ) 67 U/L 0-55 Serum or plasma protein measurement (mass/volume) 7.0 g/dL 6.4-8.2 Serum or plasma albumin measurement (mass/volume) 3.3 g/dL 3.2-4.5 Bacteria identification in isolate by anaerobe culture - 04/07/17 08:43 Bacteria identification in isolate by anaerobe culture [facility] Gram stain microscopy - 04/07/17 08:43 GRAM STAIN RESULT FEW GRAM POSITIVE COCCI RESEMBLING STAPH NR Bacteria identification in wound by culture - 04/07/17 08:43 Bacteria identification in wound by culture [id number] [facility] FREE TEXT EXTERNAL SENSITIVITY REPORTED 04/09 06:45 NRG QUANTITY OF GROWTH Abundant Growth [facility] Bacterial susceptibility panel - 04/07/17 08:43 Oxacillin susceptibility test by minimum inhibitory concentration 0.5 NRG Gentamicin susceptibility test by minimum inhibitory concentration < = NRG Clindamycin susceptibility test by minimum inhibitory concentration <= NRG Erythromycin susceptibility test by minimum inhibitory concentration <= NRG Trimethoprim/sulfamethoxazole susceptibility test by minimum inhibitoryconcentration <= NRG Vancomycin susceptibility test by minimum inhibitory concentration 1 NRG Levofloxacin susceptibility test by minimum inhibitory concentration <= NRG Rifampin susceptibility test by minimum inhibitory concentration <= NRG Tetracycline susceptibility test by minimum inhibitory concentration <= NRG Capillary blood glucose measurement by glucometer (mass/volume) - 04/07/17 10: 54 Capillary blood glucose measurement by glucometer (mass/volume) 123 mg/dL 70-110 Capillary blood glucose measurement by glucometer (mass/volume) - 04/07/17 16: 04 Capillary blood glucose measurement by glucometer (mass/volume) 149 mg/dL 70-110 Capillary blood glucose measurement by glucometer (mass/volume) - 04/07/17 21: 26 Capillary blood glucose measurement by glucometer (mass/volume) 213 mg/dL 70-110 Complete blood count (CBC) with automated white blood cell (WBC) differential - 04/08/17 05:43 Blood leukocytes automated count (number/volume) 10.5 10*3/uL 4.3-11.0 Blood erythrocytes automated count (number/volume) 3.17 10*6/uL 4.35-5.85 Venous blood hemoglobin measurement (mass/volume) 9.6 g/dL 13.3-17.7 Blood hematocrit (volume fraction) 31 % 40-54 Automated erythrocyte mean corpuscular volume 97 [foz_us] 80-99 Automated erythrocyte mean corpuscular hemoglobin (mass per erythrocyte) 30 pg 25-34 Automated erythrocyte mean corpuscular hemoglobin concentration measurement ( mass/volume) 31 g/dL 32-36 Automated erythrocyte distribution width ratio 13.6 % 10.0-14.5 Automated blood platelet count (count/volume) 306 10*3/uL 130-400 Automated blood platelet mean volume measurement 9.2 [foz_us] 7.4-10.4 Automated blood neutrophils/100 leukocytes 71 % 42-75 Automated blood lymphocytes/100 leukocytes 15 % 12-44 Blood monocytes/100 leukocytes 9 % 0-12 Automated blood eosinophils/100 leukocytes 5 % 0-10 Automated blood basophils/100 leukocytes 0 % 0-10 Blood neutrophils automated count (number/volume) 7.5 10*3 1.8-7.8 Blood lymphocytes automated count (number/volume) 1.6 10*3 1.0-4.0 Blood monocytes automated count (number/volume) 0.9 10*3 0.0-1.0 Automated eosinophil count 0.5 10*3/uL 0.0-0.3 Automated blood basophil count (count/volume) 0.0 10*3/uL 0.0-0.1 Comprehensive metabolic panel - 04/08/17 05:43 Serum or plasma sodium measurement (moles/volume) 139 mmol/L 135-145 Serum or plasma potassium measurement (moles/volume) 4.2 mmol/L 3.6-5.0 Serum or plasma chloride measurement (moles/volume) 105 mmol/L 98-107 Carbon dioxide 26 mmol/L 21-32 Serum or plasma anion gap determination (moles/volume) 8 mmol/L 5-14 Serum or plasma urea nitrogen measurement (mass/volume) 13 mg/dL 7-18 Serum or plasma creatinine measurement (mass/volume) 0.91 mg/dL 0.60-1.30 Serum or plasma urea nitrogen/creatinine mass ratio 14 NRG Serum or plasma creatinine measurement with calculation of estimated glomerular filtration rate > NRG Serum or plasma glucose measurement (mass/volume) 107 mg/dL 70-105 Serum or plasma calcium measurement (mass/volume) 9.2 mg/dL 8.5-10.1 Serum or plasma total bilirubin measurement (mass/volume) 0.4 mg/dL 0.1-1.0 Serum or plasma alkaline phosphatase measurement (enzymatic activity/volume) 172 U/L 40-136 Serum or plasma aspartate aminotransferase measurement (enzymatic activity/ volume) 40 U/L 5-34 Serum or plasma alanine aminotransferase measurement (enzymatic activity/volume ) 54 U/L 0-55 Serum or plasma protein measurement (mass/volume) 6.7 g/dL 6.4-8.2 Serum or plasma albumin measurement (mass/volume) 3.2 g/dL 3.2-4.5 Capillary blood glucose measurement by glucometer (mass/volume) - 04/08/17 10: 54 Capillary blood glucose measurement by glucometer (mass/volume) 97 mg/dL 70-110 Capillary blood glucose measurement by glucometer (mass/volume) - 04/08/17 17: 31 Capillary blood glucose measurement by glucometer (mass/volume) 102 mg/dL 70-110 Capillary blood glucose measurement by glucometer (mass/volume) - 04/08/17 19: 49 Capillary blood glucose measurement by glucometer (mass/volume) 108 mg/dL 70-110 Capillary blood glucose measurement by glucometer (mass/volume) - 04/09/17 02: 45 Capillary blood glucose measurement by glucometer (mass/volume) 93 mg/dL 70-110 Capillary blood glucose measurement by glucometer (mass/volume) - 04/09/17 05: 31 Capillary blood glucose measurement by glucometer (mass/volume) 92 mg/dL 70-110 Complete blood count (CBC) with automated white blood cell (WBC) differential - 04/09/17 05:45 Blood leukocytes automated count (number/volume) 7.8 10*3/uL 4.3-11.0 Blood erythrocytes automated count (number/volume) 3.02 10*6/uL 4.35-5.85 Venous blood hemoglobin measurement (mass/volume) 9.1 g/dL 13.3-17.7 Blood hematocrit (volume fraction) 30 % 40-54 Automated erythrocyte mean corpuscular volume 98 [foz_us] 80-99 Automated erythrocyte mean corpuscular hemoglobin (mass per erythrocyte) 30 pg 25-34 Automated erythrocyte mean corpuscular hemoglobin concentration measurement ( mass/volume) 31 g/dL 32-36 Automated erythrocyte distribution width ratio 13.3 % 10.0-14.5 Automated blood platelet count (count/volume) 306 10*3/uL 130-400 Automated blood platelet mean volume measurement 9.0 [foz_us] 7.4-10.4 Automated blood neutrophils/100 leukocytes 68 % 42-75 Automated blood lymphocytes/100 leukocytes 17 % 12-44 Blood monocytes/100 leukocytes 8 % 0-12 Automated blood eosinophils/100 leukocytes 8 % 0-10 Automated blood basophils/100 leukocytes 1 % 0-10 Blood neutrophils automated count (number/volume) 5.2 10*3 1.8-7.8 Blood lymphocytes automated count (number/volume) 1.3 10*3 1.0-4.0 Blood monocytes automated count (number/volume) 0.6 10*3 0.0-1.0 Automated eosinophil count 0.6 10*3/uL 0.0-0.3 Automated blood basophil count (count/volume) 0.0 10*3/uL 0.0-0.1 Comprehensive metabolic panel - 04/09/17 05:45 Serum or plasma sodium measurement (moles/volume) 142 mmol/L 135-145 Serum or plasma potassium measurement (moles/volume) 3.9 mmol/L 3.6-5.0 Serum or plasma chloride measurement (moles/volume) 110 mmol/L 98-107 Carbon dioxide 23 mmol/L 21-32 Serum or plasma anion gap determination (moles/volume) 9 mmol/L 5-14 Serum or plasma urea nitrogen measurement (mass/volume) 14 mg/dL 7-18 Serum or plasma creatinine measurement (mass/volume) 0.81 mg/dL 0.60-1.30 Serum or plasma urea nitrogen/creatinine mass ratio 17 NRG Serum or plasma creatinine measurement with calculation of estimated glomerular filtration rate > NRG Serum or plasma glucose measurement (mass/volume) 77 mg/dL 70-105 Serum or plasma calcium measurement (mass/volume) 8.8 mg/dL 8.5-10.1 Serum or plasma total bilirubin measurement (mass/volume) 0.2 mg/dL 0.1-1.0 Serum or plasma alkaline phosphatase measurement (enzymatic activity/volume) 159 U/L 40-136 Serum or plasma aspartate aminotransferase measurement (enzymatic activity/ volume) 40 U/L 5-34 Serum or plasma alanine aminotransferase measurement (enzymatic activity/volume ) 52 U/L 0-55 Serum or plasma protein measurement (mass/volume) 6.2 g/dL 6.4-8.2 Serum or plasma albumin measurement (mass/volume) 2.8 g/dL 3.2-4.5 Capillary blood glucose measurement by glucometer (mass/volume) - 04/09/17 11: 11 Capillary blood glucose measurement by glucometer (mass/volume) 69 mg/dL 70-110 Capillary blood glucose measurement by glucometer (mass/volume) - 04/09/17 15: 33 Capillary blood glucose measurement by glucometer (mass/volume) 181 mg/dL 70-110 Capillary blood glucose measurement by glucometer (mass/volume) - 04/09/17 21: 05 Capillary blood glucose measurement by glucometer (mass/volume) 177 mg/dL 70-110 Capillary blood glucose measurement by glucometer (mass/volume) - 04/10/17 06: 02 Capillary blood glucose measurement by glucometer (mass/volume) 85 mg/dL 70-110 Complete blood count (CBC) with automated white blood cell (WBC) differential - 04/10/17 06:15 Blood leukocytes automated count (number/volume) 6.2 10*3/uL 4.3-11.0 Blood erythrocytes automated count (number/volume) 2.87 10*6/uL 4.35-5.85 Venous blood hemoglobin measurement (mass/volume) 9.0 g/dL 13.3-17.7 Blood hematocrit (volume fraction) 29 % 40-54 Automated erythrocyte mean corpuscular volume 102 [foz_us] 80-99 Automated erythrocyte mean corpuscular hemoglobin (mass per erythrocyte) 31 pg 25-34 Automated erythrocyte mean corpuscular hemoglobin concentration measurement ( mass/volume) 31 g/dL 32-36 Automated erythrocyte distribution width ratio 13.5 % 10.0-14.5 Automated blood platelet count (count/volume) 279 10*3/uL 130-400 Automated blood platelet mean volume measurement 9.4 [foz_us] 7.4-10.4 Automated blood neutrophils/100 leukocytes 66 % 42-75 Automated blood lymphocytes/100 leukocytes 20 % 12-44 Blood monocytes/100 leukocytes 6 % 0-12 Automated blood eosinophils/100 leukocytes 6 % 0-10 Automated blood basophils/100 leukocytes 1 % 0-10 Blood neutrophils automated count (number/volume) 4.1 10*3 1.8-7.8 Blood lymphocytes automated count (number/volume) 1.3 10*3 1.0-4.0 Blood monocytes automated count (number/volume) 0.4 10*3 0.0-1.0 Automated eosinophil count 0.4 10*3/uL 0.0-0.3 Automated blood basophil count (count/volume) 0.1 10*3/uL 0.0-0.1 Comprehensive metabolic panel - 04/10/17 06:15 Serum or plasma sodium measurement (moles/volume) 141 mmol/L 135-145 Serum or plasma potassium measurement (moles/volume) 4.1 mmol/L 3.6-5.0 Serum or plasma chloride measurement (moles/volume) 110 mmol/L 98-107 Carbon dioxide 22 mmol/L 21-32 Serum or plasma anion gap determination (moles/volume) 9 mmol/L 5-14 Serum or plasma urea nitrogen measurement (mass/volume) 11 mg/dL 7-18 Serum or plasma creatinine measurement (mass/volume) 0.77 mg/dL 0.60-1.30 Serum or plasma urea nitrogen/creatinine mass ratio 14 NRG Serum or plasma creatinine measurement with calculation of estimated glomerular filtration rate > NRG Serum or plasma glucose measurement (mass/volume) 83 mg/dL 70-105 Serum or plasma calcium measurement (mass/volume) 8.5 mg/dL 8.5-10.1 Serum or plasma total bilirubin measurement (mass/volume) 0.2 mg/dL 0.1-1.0 Serum or plasma alkaline phosphatase measurement (enzymatic activity/volume) 139 U/L 40-136 Serum or plasma aspartate aminotransferase measurement (enzymatic activity/ volume) 37 U/L 5-34 Serum or plasma alanine aminotransferase measurement (enzymatic activity/volume ) 45 U/L 0-55 Serum or plasma protein measurement (mass/volume) 5.9 g/dL 6.4-8.2 Serum or plasma albumin measurement (mass/volume) 2.7 g/dL 3.2-4.5 Capillary blood glucose measurement by glucometer (mass/volume) - 04/10/17 11: 06 Capillary blood glucose measurement by glucometer (mass/volume) 171 mg/dL 70-110 Capillary blood glucose measurement by glucometer (mass/volume) - 04/10/17 14: 38 Capillary blood glucose measurement by glucometer (mass/volume) 68 mg/dL 70-110 Complete blood count (CBC) with automated white blood cell (WBC) differential - 01/26/18 21:30 Blood leukocytes automated count (number/volume) 7.7 10*3/uL 4.3-11.0 Blood erythrocytes automated count (number/volume) 4.00 10*6/uL 4.35-5.85 Venous blood hemoglobin measurement (mass/volume) 12.8 g/dL 13.3-17.7 Blood hematocrit (volume fraction) 37 % 40-54 Automated erythrocyte mean corpuscular volume 92 [foz_us] 80-99 Automated erythrocyte mean corpuscular hemoglobin (mass per erythrocyte) 32 pg 25-34 Automated erythrocyte mean corpuscular hemoglobin concentration measurement ( mass/volume) 35 g/dL 32-36 Automated erythrocyte distribution width ratio 12.9 % 10.0-14.5 Automated blood platelet count (count/volume) 312 10*3/uL 130-400 Automated blood platelet mean volume measurement 9.9 [foz_us] 7.4-10.4 Automated blood neutrophils/100 leukocytes 66 % 42-75 Automated blood lymphocytes/100 leukocytes 21 % 12-44 Blood monocytes/100 leukocytes 7 % 0-12 Automated blood eosinophils/100 leukocytes 5 % 0-10 Automated blood basophils/100 leukocytes 1 % 0-10 Blood neutrophils automated count (number/volume) 5.1 10*3 1.8-7.8 Blood lymphocytes automated count (number/volume) 1.6 10*3 1.0-4.0 Blood monocytes automated count (number/volume) 0.5 10*3 0.0-1.0 Automated eosinophil count 0.4 10*3/uL 0.0-0.3 Automated blood basophil count (count/volume) 0.0 10*3/uL 0.0-0.1 Comprehensive metabolic panel - 01/26/18 21:30 Serum or plasma sodium measurement (moles/volume) 134 mmol/L 135-145 Serum or plasma potassium measurement (moles/volume) 4.0 mmol/L 3.6-5.0 Serum or plasma chloride measurement (moles/volume) 98 mmol/L 98-107 Carbon dioxide 25 mmol/L 21-32 Serum or plasma anion gap determination (moles/volume) 11 mmol/L 5-14 Serum or plasma urea nitrogen measurement (mass/volume) 20 mg/dL 7-18 Serum or plasma creatinine measurement (mass/volume) 1.33 mg/dL 0.60-1.30 Serum or plasma urea nitrogen/creatinine mass ratio 15 NRG Serum or plasma creatinine measurement with calculation of estimated glomerular filtration rate 59 NRG Serum or plasma glucose measurement (mass/volume) 375 mg/dL 70-105 Serum or plasma calcium measurement (mass/volume) 9.4 mg/dL 8.5-10.1 Serum or plasma total bilirubin measurement (mass/volume) 0.4 mg/dL 0.1-1.0 Serum or plasma alkaline phosphatase measurement (enzymatic activity/volume) 96 U/L 40-136 Serum or plasma aspartate aminotransferase measurement (enzymatic activity/ volume) 13 U/L 5-34 Serum or plasma alanine aminotransferase measurement (enzymatic activity/volume ) 11 U/L 0-55 Serum or plasma protein measurement (mass/volume) 7.2 g/dL 6.4-8.2 Serum or plasma albumin measurement (mass/volume) 4.1 g/dL 3.2-4.5 CALCIUM CORRECTED 9.3 mg/dL 8.5-10.1 Erythrocyte sedimentation rate by westergren method - 01/26/18 21:30 Erythrocyte sedimentation rate by westergren method 29 mm 0-15 Gram stain microscopy - 01/26/18 21:30 Gram stain microscopy Many Gram positive cocci in pairs and chains NRG Bacteria identification in wound by culture - 01/26/18 21:30 Bacteria identification in wound by culture SEE COMMEN NRG FREE TEXT EXTERNAL MANY NRG QUANTITY OF GROWTH . NRG Encounters ACCT No. Visit Date/Time Discharge Status Pt. Type Provider Facility Loc./Unit Complaint [id number] 01/26/2018 20:52:00 01/26/2018 22:42:00 DIS Emergency RACHEL PANIAGUA APRN [facility] ER WOUND POSS INFECTED [id number] 07/11/2017 00:18:00 07/11/2017 23:59:59 CLS Preadmit ARIA GABRIEL MD [facility] WOUND RIGHT LOWER LEG [id number] 05/10/2017 17:27:00 07/10/2017 00:01:00 DIS Outpatient ARIA GABRIEL MD [facility] WOUND RIGHT LOWER LEG [id number] 04/05/2017 18:31:00 04/10/2017 14:51:00 DIS Inpatient JOHN TUCKER DO [facility] 4TH ABCESS RIGHT FOOT [id number] 03/06/2017 15:28:00 03/06/2017 23:59:59 CLS Outpatient SCOOBY MONTGOMERY MD [facility] WOUNDCARE [id number] 02/20/2017 15:30:00 02/20/2017 23:59:59 CLS Outpatient SCOOBY MONTGOMERY MD [id number] 02/13/2017 15:29:00 02/13/2017 23:59:59 CLS Outpatient SCOOBY MONTGOMERY MD [facility] WOUNDCARE [id number] 02/08/2017 15:29:00 02/08/2017 23:59:59 CLS Outpatient SCOOBY MONTGOMERY MD [facility] WOUNDCARE [id number] 01/30/2017 15:28:00 01/30/2017 23:59:59 CLS Outpatient SCOOBY MONTGOMERY MD [facility] WOUNDCARE [id number] 01/16/2017 15:24:00 01/16/2017 23:59:59 CLS Outpatient SCOOBY MONTGOMERY MD [facility] WOUNDCARE [id number] 01/09/2017 10:13:00 01/09/2017 23:59:59 CLS Outpatient SCOOBY MONTGOMERY MD [facility] WOUNDCARE [id number] 01/02/2017 11:09:00 01/02/2017 23:59:59 CLS Outpatient SCOOBY MONTGOMERY MD [facility] RAD E11.621 [id number] 01/02/2017 09:20:00 01/02/2017 16:00:00 DIS Outpatient SCOOBY MONTGOMERY MD [facility] WOUNDCARE [id number] 12/11/2015 11:49:00 12/11/2015 23:59:59 CLS Outpatient LUIS FELIPE HAY [facility] RAD RIB PAIN [id number] 02/22/2015 00:02:00 02/23/2015 18:00:00 DIS Inpatient RASHAD HAY DO [facility] SURGICAL SEPSIS,RENAL INSUFFICIENCY,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 [id number] 02/06/2015 17:21:00 02/06/2015 18:15:00 DIS Emergency RACHEL PANIAGUA APRN [facility] ER R FOOT/TOE INFECTION/INJ [id number] 01/07/2015 23:21:00 01/08/2015 00:58:00 DIS Emergency BON DAVILA, JUAN JOSE Smith [facility] ER NECK PAIN [id number] 11/21/2014 07:43:00 11/21/2014 08:56:00 DIS Outpatient KD HELM MD [facility] CARD CERVICAL SPINAL STENOSIS [id number] 10/20/2014 13:23:00 10/20/2014 23:59:59 CLS Outpatient SCOOBY MORSE MD [facility] RAD C-6 RADICULOPATHY [id number] 07/31/2014 09:49:00 09/03/2014 12:02:00 DIS Outpatient HENRIETTA ALICEA [employer] [facility] REHAB S/P R SHOULDER SCOPE AND OPEN RCR [id number] 07/15/2014 09:48:00 07/15/2014 23:59:59 CLS Outpatient ALICEA, HENRIETTA D [employer] [facility] REHAB S/P R SHOULDER SCOPE AND OPEN RCR [id number] 03/27/2014 16:21:00 03/27/2014 23:59:59 CLS Outpatient SCOOBY MORSE MD [facility] RAD RTC [id number] 10/11/2013 09:10:00 10/11/2013 23:59:59 CLS Outpatient LUIS FELIPE HAY [employer] [facility] RAD + CERVICAL EMG, RADICULOPATHY,NECK/SHOUL PAIN [id number] 12/28/2012 10:34:00 12/28/2012 23:59:59 CLS Outpatient RASHAD HAY DO [facility] RAD RIB PAIN [id number] 02/19/2018 19:52:00 ACT Emergency HANNY GUZMAN MD [facility] ER TOE INFECTED RT FOOT [id number] 07/31/2012 11:53:00 Document Registration [id number] 06/07/2017 15:28:00 Document Registration [id number] 05/25/2017 08:28:00 Document Registration [id number] 05/18/2017 14:53:00 Document Registration [id number] 05/10/2017 15:44:00 Document Registration [id number] 05/04/2017 15:41:00 Document Registration [id number] 04/25/2017 15:35:00 Document Registration [id number] 04/05/2017 15:34:00 Document Registration [id number] 03/28/2017 15:40:00 Document Registration [id number] 03/16/2017 15:30:00 Document Registration
--- NOTE | 2018-02-19 22:01 | ED General ---
General Chief Complaint: Lower Extremity Stated Complaint: TOE INFECTED RT FOOT Nursing Triage Note: pt states approx 1 yr ago injury rt instep. states since area open/closed. now open x1 week, draining, denies pain. Nursing Sepsis Screen: No Definite Risk Source of Information: Patient Exam Limitations: No Limitations History of Present Illness Date Seen by Provider: Feb 19, 2018 Time Seen by Provider: 21:40 Initial Comments Here with report of wound to the MTP of the first toe on the right that has been going on for several weeks. Seen here about 3 weeks ago for the same and started on antibiotic. That did help for about a week and then started to get worse when antibiotics are completed. Returns for concerns about the wound. Has a point with his DrRosalba on Monday but was concerned due to the leakage of the wound. Currently not on antibiotics. States blood sugars are not doing well since his insurance won't pay for the meds that did work. The oral agents that is using now he states are not working well. Has previously been in wound care in [place] with Dr. Valentine. Timing/Duration: Getting Worse Severity: Mild, Moderate Associated Systoms: No Fever/Chills, No Nausea/Vomiting, No Shortness of Air, No Weakness Allergies and Home Medications Allergies Coded Allergies: No Known Drug Allergies (Unverified , 01/07/15) Home Medications Canagliflozin 300 Mg Tablet, 300 MG PO DAILY, (Reported) Ceftriaxone Sod 1 Gm/Vial Soln, 1 GM IV DAILY Prescribed by: ARIA GABRIEL on 04/10/17 1021 Citalopram Hydrobromide 20 Mg Tablet, 20 MG PO DAILY, (Reported) Glimepiride 4 Mg Tablet, 4 MG PO BID, (Reported) Hydrocodone/Acetaminophen 1 Each Tablet, 0.5-1 TAB PO Q4H PRN for PAIN-MILD TO MODERATE, (Reported) Ibuprofen 200 Mg Tablet, 800 MG PO Q8H PRN for PAIN-MILD, (Reported) TAKES 4 (200MG) TABLETS Lisinopril 10 Mg Tablet, 10 MG PO BID, (Reported) Multivitamin with Minerals 1 Each Tablet, 1 TAB PO DAILY, (Reported) Red Yeast Rice 600 Mg Capsule, 600 MG PO BID, (Reported) Ropinirole HCl 3 Mg Tablet, 3 MG PO HS, (Reported) Sitagliptin Phos/Metformin HCl 1 Each Tablet, 1 TAB PO BID, (Reported) Sulfamethoxazole/Trimethoprim 1 Each Tablet, 1 EACH PO BID Prescribed by: RACHEL PANIAGUA on 01/26/18 4398 Patient Home Medication List Home Medication List Reviewed: Yes Review of Systems Review of Systems Constitutional: No chills, No fever EENTM: no symptoms reported Respiratory: no symptoms reported Cardiovascular: no symptoms reported Gastrointestinal: no symptoms reported Musculoskeletal: see HPI, joint pain, muscle pain Skin: change in color, lesions Psychiatric/Neurological: No Symptoms Reported All Other Systems Reviewed Negative Unless Noted: Yes Past Etjhvfl-Tmhjpz-Beqdva Hx Past Med/Social Hx: Reviewed Nursing Past Med/Soc Hx Patient Social History Alcohol Use: Denies Use Recreational Drug Use: No Smoking Status: Current Everyday Smoker Type Used: Cigarettes Recent Foreign Travel: No Contact w/Someone Who Travel: No Recent Infectious Disease Expo: No Recent Hopitalizations: No Immunizations Up To Date Tetanus Booster (TDap): Less than 5yrs Seasonal Allergies Seasonal Allergies: No Past Medical History Surgeries: Yes Orthopedic Respiratory: No Cardiac: No Neurological: Yes Neuropathy Reproductive Disorders: No Sexually Transmitted Disease: No HIV/AIDS: No Genitourinary: No Gastrointestinal: No Musculoskeletal: No Endocrine: Yes Diabetes, Non-Insulin dep HEENT: No Cancer: No Psychosocial: No Integumentary: Yes Recent Skin Changes Blood Disorders: No Family Medical History Reviewed Nursing Family Hx No Pertinent Family Hx Physical Exam Vital Signs Vital Signs - First Documented 02/19/18 20:33 Temp 98.7 Pulse 107 Resp 18 Pulse Ox 98 O2 Delivery Room Air Capillary Refill : Less Than 3 Seconds Height, Weight, BMI Height: 5'11.00" Weight: 240lbs. 0oz. [id number]; 33.6 BMI Method:Stated General Appearance: No Apparent Distress, WD/WN Neck: Non Tender, Supple Respiratory: Lungs Clear, Normal Breath Sounds Cardiovascular: Regular Rate, Rhythm, No Murmur Gastrointestinal: Non Tender, Soft Extremity: Normal Range of Motion, Non Tender Neurologic/Psychiatric: Alert, Oriented x3 Skin: Warm/Dry, Other (1.5 cm ulcerated wound to the lateral aspect of the right MTP. Also has wound to the plantar surface at the area of the fifth MtP that is dry on top. Wound to the first is moist and has small amount of purulent drainage.) Progress/Results/Core Measures Suspected Sepsis Recent Fever Within 48 Hours: No Infection Criteria Present: None New/Unexplained Altered Menta: No Sepsis Screen: No Definite Risk SIRS Temperature:98.7 Pulse: 107 Respiratory Rate: 18 Laboratory Tests 02/19/18 22:10: White Blood Count 9.3 Blood Pressure / Mean: Laboratory Tests 02/19/18 22:10: Creatinine 1.12, Platelet Count 327, Total Bilirubin 0.3 Results/Orders Lab Results Laboratory Tests Test 02/19/18 22:10 Range/Units White Blood Count 9.3 4.3-11.0 10^3/uL Red Blood Count 3.63 L 4.35-5.85 10^6/uL Hemoglobin 11.6 L 13.3-17.7 G/DL Hematocrit 34 L 40-54 % Mean Corpuscular Volume 93 80-99 FL Mean Corpuscular Hemoglobin 32 25-34 PG Mean Corpuscular Hemoglobin Concent 35 32-36 G/DL Red Cell Distribution Width 13.0 10.0-14.5 % Platelet Count 327 130-400 10^3/uL Mean Platelet Volume 10.3 7.4-10.4 FL Neutrophils (%) (Auto) 69 42-75 % Lymphocytes (%) (Auto) 17 12-44 % Monocytes (%) (Auto) 8 0-12 % Eosinophils (%) (Auto) 6 0-10 % Basophils (%) (Auto) 0 0-10 % Neutrophils # (Auto) 6.4 1.8-7.8 X 10^3 Lymphocytes # (Auto) 1.6 1.0-4.0 X 10^3 Monocytes # (Auto) 0.7 0.0-1.0 X 10^3 Eosinophils # (Auto) 0.6 H 0.0-0.3 10^3/uL Basophils # (Auto) 0.0 0.0-0.1 10^3/uL Sodium Level 135 135-145 MMOL/L Potassium Level 3.6 3.6-5.0 MMOL/L Chloride Level 99 98-107 MMOL/L Carbon Dioxide Level 22 21-32 MMOL/L Anion Gap 14 5-14 MMOL/L Blood Urea Nitrogen 14 7-18 MG/DL Creatinine 1.12 0.60-1.30 MG/DL Estimat Glomerular Filtration Rate > 60 BUN/Creatinine Ratio 13 Glucose Level 368 H 70-105 MG/DL Calcium Level 9.6 8.5-10.1 MG/DL Corrected Calcium 9.8 8.5-10.1 MG/DL Total Bilirubin 0.3 0.1-1.0 MG/DL Aspartate Amino Transf (AST/SGOT) 12 5-34 U/L Alanine Aminotransferase (ALT/SGPT) 14 0-55 U/L Alkaline Phosphatase 91 40-136 U/L C-Reactive Protein High Sensitivity 6.19 H 0.00-0.50 MG/DL Total Protein 6.9 6.4-8.2 GM/DL Albumin 3.7 3.2-4.5 GM/DL My Orders Orders - HANNY GUZMAN MD Cbc With Automated Diff (02/19/18 21:58) Comprehensive Metabolic Panel (02/19/18 21:58) Hs C Reactive Protein (02/19/18 21:58) Wound Culture (02/19/18 21:58) Saline Lock/Iv-Start (02/19/18 21:58) Sulfamethoxazole/Trimet Ds Tab (Bactrim (02/19/18 22:45) Vital Signs/I&O 02/19/18 20:33 Temp 98.7 Pulse 107 Resp 18 B/P (MAP) Pulse Ox 98 O2 Delivery Room Air Capillary Refill : Less Than 3 Seconds Progress Note : Progress Note Seen and evaluated. IV, labs, wound culture ordered. Bactrim DS one tab by mouth given. Monitor patient. 2320: Discharge home with return precautions. Patient verbalize understanding instructions and agreement with plan. His sugars are elevated which is a known state for him. He will work with his DrRosalba on Monday regarding his blood sugars. Departure Impression Primary Impression: Abscess of right foot Disposition: HOME, SELF-CARE Condition: Stable Departure-Patient Inst. Decision time for Depature: 23:22 Referrals: RASHAD HAY DO (PCP) Primary Care Physician LUIS FELIPE HAY DNP (Family) Primary Care Physician Patient Instructions: Diabetic Foot Ulcer (DC) Add. Discharge Instructions: All discharge instructions reviewed with patient and/or family. Voiced understanding. Avoid sweets. It is very important that he follow-up with your DrRosalba on Monday for recheck and further evaluation and to discuss her blood sugars. You need to follow-up with wound care regarding the ulcerative wound on her foot. Take medications as directed. Return for worse pain, fever, vomiting, weakness, breathing problems, increasing redness, red streaks up the foot, foul- smelling drainage or other concerns as needed. Scripts Sulfamethoxazole/Trimethoprim (Sulfamethoxazole-Tmp Ds Tablet) 1 Each Tablet 1 EACH PO BID, #20 TAB 0 Refills Prov: HANNY GUZMAN MD 02/19/18 Copy Copies To 1: RASHAD HAY TIMOTHY D MD Feb 19, 2018 22:01
[2018-02-19 22:38] LABS: BASOPHILS % (AUTO) 0 % (0-10); EOSINOPHILS # (AUTO) 0.6 10^3/uL (0.0-0.3); EOSINOPHILS % (AUTO) 6 % (0-10); HEMATOCRIT 34 % (40-54); HEMOGLOBIN 11.6 G/DL (13.3-17.7); LYMPHOCYTES # (AUTO) 1.6 X 10^3 (1.0-4.0); LYMPHOCYTES % (AUTO) 17 % (12-44); MEAN CORPUSCULAR HEMOGLOBIN 32 PG (25-34); MEAN CORPUSCULAR HGB CONC 35 G/DL (32-36); MEAN CORPUSCULAR VOLUME 93 FL (80-99); MEAN PLATELET VOLUME 10.3 FL (7.4-10.4); MONOCYTES # (AUTO) 0.7 X 10^3 (0.0-1.0); MONOCYTES % (AUTO) 8 % (0-12); NEUTROPHILS # (AUTO) 6.4 X 10^3 (1.8-7.8); NEUTROPHILS % (AUTO) 69 % (42-75); PLATELET COUNT 327 10^3/uL (130-400); RED BLOOD COUNT 3.63 10^6/uL (4.35-5.85); WHITE BLOOD COUNT 9.3 10^3/uL (4.3-11.0)
[2018-02-19] MEDS ORDERED: TRIM/SULFAMETH 160/800 (SEPTRA DS) TAB PO STA (22:45)
[2018-02-19 22:59] LABS: ALANINE AMINOTRANSFERASE 14 U/L (0-55); ALBUMIN 3.7 GM/DL (3.2-4.5); ALKALINE PHOSPHATASE 91 U/L (40-136); BILIRUBIN,TOTAL 0.3 MG/DL (0.1-1.0); BUN/CREATININE RATIO 13; CALCIUM 9.6 MG/DL (8.5-10.1); CARBON DIOXIDE 22 MMOL/L (21-32); CHLORIDE 99 MMOL/L (98-107); CREATININE SERUM 1.12 MG/DL (0.60-1.30); GFR ESTIMATED > 60; GLUCOSE 368 MG/DL (70-105); POTASSIUM 3.6 MMOL/L (3.6-5.0); SODIUM 135 MMOL/L (135-145); TOTAL PROTEIN 6.9 GM/DL (6.4-8.2)
[2018-02-19] MEDS ORDERED: SULF-222 PO (23:24)
[2018-02-19 23:29] VITALS: BP 107/65
== END 2018-02-19 23:29 | disposition home or self-care (01) ==
LOC: EDUNIT# 19:51 → ER 19:52
DX: L02.611 Cutaneous abscess of right foot (principal); E11.9 Type 2 diabetes mellitus without complications; F17.210 Nicotine dependence, cigarettes, uncomplicated; Z79.84 Long term (current) use of oral hypoglycemic drugs
CPT/HCPCS: 36415; 80053; 85025; 86141; 87070; 87077; 87205

== ENCOUNTER 2018-03-08 16:30 | Inpatient (IN) | payer BC ==
[~2018-03-08] VITALS: Ht 180.3 cm; Wt 113.2 kg
[2018-03-08] VITALS (13 sets, daily range): BP systolic 81–112; BP diastolic 42–87
[~2018-03-08 16:30] MED LIST changes: +SULF-222 PO
[2018-03-08 17:19] LABS: BASOPHILS % (AUTO) 0 % (0-10); EOSINOPHILS # (AUTO) 0.1 10^3/uL (0.0-0.3); EOSINOPHILS % (AUTO) 1 % (0-10); HEMATOCRIT 32 % (40-54); HEMOGLOBIN 10.4 G/DL (13.3-17.7); LYMPHOCYTES # (AUTO) 0.4 X 10^3 (1.0-4.0); LYMPHOCYTES % (AUTO) 3 % (12-44); MEAN CORPUSCULAR HGB CONC 32 G/DL (32-36); MEAN CORPUSCULAR VOLUME 94 FL (80-99); MEAN PLATELET VOLUME 8.9 FL (7.4-10.4); MONOCYTES # (AUTO) 0.9 X 10^3 (0.0-1.0); MONOCYTES % (AUTO) 6 % (0-12); NEUTROPHILS # (AUTO) 13.7 X 10^3 (1.8-7.8); NEUTROPHILS % (AUTO) 91 % (42-75); PLATELET COUNT 473 10^3/uL (130-400); RED BLOOD COUNT 3.41 10^6/uL (4.35-5.85); RED CELL DISTRIBUTION WIDTH 13.1 % (10.0-14.5); WHITE BLOOD COUNT 15.2 10^3/uL (4.3-11.0)
[2018-03-08 17:20] LABS: MEAN CORPUSCULAR HEMOGLOBIN 30 PG (25-34)
--- NOTE | 2018-03-08 17:25 | ED Integumentary General ---
General Chief Complaint: Skin/Wound Problems Stated Complaint: R FOOT INFECTION,DEHYDRATED,SHAKY, N/V Source: patient History of Present Illness Date Seen by Provider: Mar 08, 2018 Time Seen by Provider: 17:20 Initial Comments The patient is a 42-year-old white male who has been seen multiple he at this institution. He has insulin-dependent diabetes mellitus. His troubles began in 2014 when he apparently dropped a transmission on his right foot causing injury to the third toe that toe ultimately developed osteomyelitis and he had a partial amputation. Over the past year he has had trouble at the right great toe it developed osteomyelitis and he has drainage from the area of the first IP joint on the right foot. He is seen in a [place] wound care program by Dr. Dorothea Valentine. 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 He began to feel so ill and driving home today that he felt that he must seek care. Timing/Duration: getting worse Location: feet Allergies and Home Medications Allergies Coded Allergies: No Known Drug Allergies (Unverified , 01/07/15) Home Medications Canagliflozin 300 Mg Tablet, 300 MG PO DAILY, (Reported) Ceftriaxone Sod 1 Gm/Vial Soln, 1 GM IV DAILY Prescribed by: ARIA GABRIEL on 04/10/17 1021 Citalopram Hydrobromide 20 Mg Tablet, 20 MG PO DAILY, (Reported) Glimepiride 4 Mg Tablet, 4 MG PO BID, (Reported) Hydrocodone/Acetaminophen 1 Each Tablet, 0.5-1 TAB PO Q4H PRN for PAIN-MILD TO MODERATE, (Reported) Ibuprofen 200 Mg Tablet, 800 MG PO Q8H PRN for PAIN-MILD, (Reported) TAKES 4 (200MG) TABLETS Lisinopril 10 Mg Tablet, 10 MG PO BID, (Reported) Multivitamin with Minerals 1 Each Tablet, 1 TAB PO DAILY, (Reported) Red Yeast Rice 600 Mg Capsule, 600 MG PO BID, (Reported) Ropinirole HCl 3 Mg Tablet, 3 MG PO HS, (Reported) Sitagliptin Phos/Metformin HCl 1 Each Tablet, 1 TAB PO BID, (Reported) Sulfamethoxazole/Trimethoprim 1 Each Tablet, 1 EACH PO BID Prescribed by: RACHEL PANIAGUA on 01/26/182205 Sulfamethoxazole/Trimethoprim 1 Each Tablet, 1 EACH PO BID Prescribed by: HANNY GUZMAN on 02/19/18 2324 Patient Home Medication List Home Medication List Reviewed: Yes Review of Systems Review of Systems Constitutional: see HPI EENTM: no symptoms reported Respiratory: no symptoms reported Cardiovascular: no symptoms reported Gastrointestinal: nausea Genitourinary: no symptoms reported Musculoskeletal: see HPI Skin: see HPI Endocrine: No Symptoms Reported Hematologic/Lymphatic: No Symptoms Reported Past Uzdkkcw-Fqytwh-Wotdho Hx Patient Social History Type Used: Cigarettes Recent Foreign Travel: No Contact w/Someone Who Travel: No Recent Hopitalizations: No Immunizations Up To Date Tetanus Booster (TDap): Less than 5yrs Seasonal Allergies Seasonal Allergies: No Past Medical History Surgeries: Yes Orthopedic Respiratory: No Cardiac: No Neurological: Yes Neuropathy Reproductive Disorders: No Sexually Transmitted Disease: No HIV/AIDS: No Genitourinary: No Gastrointestinal: No Musculoskeletal: No Endocrine: Yes Diabetes, Non-Insulin dep HEENT: No Cancer: No Psychosocial: No Integumentary: Yes Recent Skin Changes Blood Disorders: No Family Medical History No Pertinent Family Hx Physical Exam Vital Signs Vital Signs - First Documented 03/08/18 16:33 Temp 100.3 Pulse 139 Resp 20 B/P (MAP) 135/115 (122) Pulse Ox 97 O2 Delivery Room Air Capillary Refill : General Appearance: mild distress HEENT: normal ENT inspection Neck: full range of motion Cardiovascular: normal peripheral pulses, regular rate, rhythm, no edema, no gallop, no JVD, no murmur Respiratory: chest non-tender, lungs clear, normal breath sounds, no respiratory distress, no accessory muscle use Gastrointestinal: normal bowel sounds, non tender, soft, no organomegaly, no pulsatile mass Back: normal inspection Neurologic/Psychiatric: manager body II-XII nml as tested, no motor/sensory deficits, alert, normal mood/affect, oriented x 3, EOM palsy, depressed affect Skin: normal color, warm/dry Comments The right great toe is swollen without redness. A dressing is in place. There is tenderness over the medial aspect of the first MP joint. There is no erythema extending up over the foot. The patient is febrile with tachycardia. Progress/Results/Core Measures Results/Orders Lab Results Laboratory Tests Test 03/08/18 17:05 03/08/18 17:24 Range/Units White Blood Count 15.2 H 4.3-11.0 10^3/uL Red Blood Count 3.41 L 4.35-5.85 10^6/uL Hemoglobin 10.4 L 13.3-17.7 G/DL Hematocrit 32 L 40-54 % Mean Corpuscular Volume 94 80-99 FL Mean Corpuscular Hemoglobin 30 25-34 PG Mean Corpuscular Hemoglobin Concent 32 32-36 G/DL Red Cell Distribution Width 13.1 10.0-14.5 % Platelet Count 473 H 130-400 10^3/uL Mean Platelet Volume 8.9 7.4-10.4 FL Neutrophils (%) (Auto) 91 H 42-75 % Lymphocytes (%) (Auto) 3 L 12-44 % Monocytes (%) (Auto) 6 0-12 % Eosinophils (%) (Auto) 1 0-10 % Basophils (%) (Auto) 0 0-10 % Neutrophils # (Auto) 13.7 H 1.8-7.8 X 10^3 Lymphocytes # (Auto) 0.4 L 1.0-4.0 X 10^3 Monocytes # (Auto) 0.9 0.0-1.0 X 10^3 Eosinophils # (Auto) 0.1 0.0-0.3 10^3/uL Basophils # (Auto) 0.0 0.0-0.1 10^3/uL Neutrophils % (Manual) 74 % Lymphocytes % (Manual) 2 % Monocytes % (Manual) 3 % Eosinophils % (Manual) 2 % Basophils % (Manual) 0 % Band Neutrophils 19 % Blood Morphology Comment NORMAL Sodium Level 134 L 135-145 MMOL/L Potassium Level 3.9 3.6-5.0 MMOL/L Chloride Level 97 L 98-107 MMOL/L Carbon Dioxide Level 21 21-32 MMOL/L Anion Gap 16 H 5-14 MMOL/L Blood Urea Nitrogen 21 H 7-18 MG/DL Creatinine 1.29 0.60-1.30 MG/DL Estimat Glomerular Filtration Rate > 60 BUN/Creatinine Ratio 16 Glucose Level 158 H 70-105 MG/DL Lactic Acid Level 0.84 0.50-2.00 MMOL/L Calcium Level 9.7 8.5-10.1 MG/DL Corrected Calcium 9.9 8.5-10.1 MG/DL Total Bilirubin 0.6 0.1-1.0 MG/DL Aspartate Amino Transf (AST/SGOT) 9 5-34 U/L Alanine Aminotransferase (ALT/SGPT) 13 0-55 U/L Alkaline Phosphatase 63 40-136 U/L Total Protein 7.7 6.4-8.2 GM/DL Albumin 3.7 3.2-4.5 GM/DL Urine Color YELLOW Urine Clarity CLEAR Urine pH 5 5-9 Urine Specific [place] 1.015 L 1.016-1.022 Urine Protein 2+ H NEGATIVE Urine Glucose (UA) 4+ H NEGATIVE Urine Ketones 3+ H NEGATIVE Urine Nitrite NEGATIVE NEGATIVE Urine Bilirubin NEGATIVE NEGATIVE Urine Urobilinogen NORMAL NORMAL MG/DL Urine Leukocyte Esterase NEGATIVE NEGATIVE Urine RBC (Auto) NEGATIVE NEGATIVE Urine RBC NONE /HPF Urine WBC 0-2 /HPF Urine Squamous Epithelial Cells RARE /HPF Urine Crystals NONE /LPF Urine Bacteria NONE /HPF Urine Casts NONE /LPF Urine Mucus NEGATIVE /LPF Urine Culture Indicated NO My Orders Orders - YAYO MCMULLEN MD Cbc With Automated Diff (03/08/18 17:11) Comprehensive Metabolic Panel (03/08/18 17:11) Ua Culture If Indicated (03/08/18 17:11) Manual Differential (03/08/18 17:05) Blood Culture (03/08/18 17:25) Lactic Acid Analyzer (03/08/18 17:25) Lactated Ringers (Lr 1000 Ml Iv Solution (03/08/18 17:30) Wound Culture (03/08/18 17:25) Vital Signs/I&O 03/08/18 16:33 Temp 100.3 Pulse 139 Resp 20 B/P (MAP) 135/115 (122) Pulse Ox 97 O2 Delivery Room Air Departure Communication (Admissions) 1755: Spoke to Dr. Dodd hospitalist. The patient will be admitted for IV fluids and antibiotics. Impression Primary Impression: sepsis Additional Impression: osteomyelitis right great toe Disposition: ADMITTED INPATIENT Condition: Stable/Unchanged Admissions Decision to Admit Reason: Admit from ER (General) Decision to Admit/Date: Mar 08, 2018 Time/Decision to Admit Time: 17:56 Departure-Patient Inst. Referrals: RASHAD HAY DO (PCP) Primary Care Physician LUIS FELIPE HAY, DNP (Family) Primary Care Physician YAYO MCMULLEN MD Mar 08, 2018 17:25
[2018-03-08] MEDS ORDERED: LACTATED RINGERS 1,000 ML IV SCH (17:30)
[2018-03-08 17:37] LABS: ALANINE AMINOTRANSFERASE 13 U/L (0-55); ALBUMIN 3.7 GM/DL (3.2-4.5); ALKALINE PHOSPHATASE 63 U/L (40-136); BILIRUBIN,TOTAL 0.6 MG/DL (0.1-1.0); BUN/CREATININE RATIO 16; CALCIUM 9.7 MG/DL (8.5-10.1); CARBON DIOXIDE 21 MMOL/L (21-32); CHLORIDE 97 MMOL/L (98-107); CREATININE SERUM 1.29 MG/DL (0.60-1.30); GFR ESTIMATED > 60; GLUCOSE 158 MG/DL (70-105); POTASSIUM 3.9 MMOL/L (3.6-5.0); SODIUM 134 MMOL/L (135-145); TOTAL PROTEIN 7.7 GM/DL (6.4-8.2)
[2018-03-08 17:39] LABS: BILIRUBIN,URINE NEGATIVE (NEGATIVE); CLARITY,URINE CLEAR; COLOR,URINE YELLOW; GLUCOSE, URINE (UA) 4+ (NEGATIVE); KETONES,URINE 3+ (NEGATIVE); LEUKOCYTE ESTERASE ,URINE NEGATIVE (NEGATIVE); NITRITE,URINE NEGATIVE (NEGATIVE); PH,URINE 5 (5-9); PROTEIN,URINE 2+ (NEGATIVE); UROBILINOGEN,URINE NORMAL (NORMAL)
[2018-03-08 17:43] LABS: SQUAMOUS EPITHELIAL CELL,UR RARE /HPF; WBC,URINE 0-2 /HPF
[2018-03-08 17:43] LABS: BAND NEUTROPHILS 19 %; BASOPHILS % (MANUAL) 0 %; EOSINOPHILS % (MANUAL) 2 %; LYMPHOCYTES % (MANUAL) 2 %; MONOCYTES % (MANUAL) 3 %; NEUTROPHILS % (MANUAL) 74 %
[2018-03-08 17:44] LABS: RBC MORPH NORMAL
--- OUTSIDE RECORDS SUMMARY | 2018-03-08 18:09 | XMS REPORT | Clinical Summary ---
Author Author [facility] Organization [facility] Address Unknown Phone Unavailable Care Team Providers Care Ceo Na Name Role Phone Elfego Nguyen MD Unavailable Ida Sanabria APRN PCP Source Comments Some departments are not documenting in the electronic medical record. If you do not see the information that you expected, contact Release of Information in the Health Information Management department at [phone] for further assistance in locating additional records.[facility] Allergies No Known Allergies Current Medications Prescription [...] Estradiol, and TSH - Also send to [facility] office to obtain a post-climax [...] SCREENING 1989 TETANUS VACCINE 11/11/1991 INFLUENZA VACCINE 01/03/2018 Results Not on filefrom Last 3 Months
--- OUTSIDE RECORDS SUMMARY | 2018-03-08 18:10 | XMS REPORT | Continuity of Care Document ---
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 [id number] 07/11/2017 00:18:00 07/11/2017 23:59:59 CLS Preadmit ARIA GABRIEL MD [facility] WOUND RIGHT LOWER LEG [id number] 05/10/2017 17:27:00 07/10/2017 00:01:00 DIS Outpatient ARIA GABRIEL MD [facility] WOUND RIGHT LOWER LEG [id number] 04/05/2017 18:31:00 04/10/2017 14:51:00 DIS Inpatient JOHN TUCKER DO [facility] 4TH ABCESS RIGHT FOOT [id number] 03/06/2017 15:28:00 03/06/2017 23:59:59 CLS Outpatient SCOOBY MONTGOMERY MD [facility] WOUNDCARE [id number] 02/20/2017 15:30:00 02/20/2017 23:59:59 CLS Outpatient SCOOBY MONTGOMERY MD [facility] WOUNDCARE [id number] 02/13/2017 15:29:00 02/13/2017 23:59:59 CLS Outpatient SCOOBY MONTGOMERY MD [facility] WOUNDCARE [id number] 02/08/2017 15:29:00 02/08/2017 23:59:59 CLS Outpatient SCOOBY MONTGOMERY MD [facility] WOUNDCARE [id number] 01/30/2017 15:28:00 01/30/2017 23:59:59 CLS Outpatient SCOOBY MONTGOMERY MD [facility] WOUNDCARE [id number] 01/16/2017 15:24:00 01/16/2017 23:59:59 CLS Outpatient SCOOBY MONTGOMERY MD [facility] WOUNDCARE [id number] 01/09/2017 10:13:00 01/09/2017 23:59:59 CLS Outpatient SCOOBY MONTGOMERY MD [facility] WOUNDCARE [id number] 01/02/2017 11:09:00 01/02/2017 23:59:59 CLS Outpatient SCOOBY MONTGOMERY MD [facility] RAD E11.621 [id number] 01/02/2017 09:20:00 01/02/2017 16:00:00 DIS Outpatient SCOOBY MONTGOMERY MD [facility] WOUNDCARE [id number] 12/11/2015 11:49:00 12/11/2015 23:59:59 CLS Outpatient LUIS FELIPE HAY [facility] RAD RIB PAIN [id number] 02/22/2015 00:02:00 02/23/2015 18:00:00 DIS Inpatient RASHAD HAY DO [facility] SURGICAL SEPSIS,RENAL INSUFFICIENCY,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 [id number] 02/06/2015 17:21:00 02/06/2015 18:15:00 DIS Emergency RACHEL PANIAGUA APRN [facility] ER R FOOT/TOE INFECTION/INJ [id number] 01/07/2015 23:21:00 01/08/2015 00:58:00 DIS Emergency JUAN JOSE CROCKETT MD [facility] ER NECK PAIN [id number] 11/21/2014 07:43:00 11/21/2014 08:56:00 DIS Outpatient KD HELM MD [facility] CARD CERVICAL SPINAL STENOSIS [id number] 10/20/2014 13:23:00 10/20/2014 23:59:59 CLS Outpatient SCOOBY MORSE MD [facility] RAD C-6 RADICULOPATHY [id number] 07/31/2014 09:49:00 09/03/2014 12:02:00 DIS Outpatient HENRIETTA ALICEA [employer] CLERK [facility] REHAB S/P R SHOULDER SCOPE AND OPEN RCR [id number] 07/15/2014 09:48:00 07/15/2014 23:59:59 CLS Outpatient HENRIETTA ALICEA [employer]ERK [facility] REHAB S/P R SHOULDER SCOPE AND OPEN RCR [id number] 03/27/2014 16:21:00 03/27/2014 23:59:59 CLS Outpatient SCOOBY MORSE MD [facility] RAD RTC [id number] 10/11/2013 09:10:00 10/11/2013 23:59:59 CLS Outpatient LUIS FELIPE HAY [employer] CLERK [facility] RAD + CERVICAL EMG, RADICULOPATHY,NECK/SHOUL PAIN [id number] 12/28/2012 10:34:00 12/28/2012 23:59:59 CLS Outpatient RASHAD HAY DO [facility] RAD RIB PAIN [id number] 03/08/2018 17:21:00 Document Registration [id number] 07/31/2012 11:53:00 Document Registration [id number] 06/07/2017 15:28:00 Document Registration [id number] 05/25/2017 08:28:00 Document Registration [id number] 05/18/2017 14:53:00 Document Registration [id number] 05/10/2017 15:44:00 Document Registration [id number] 05/04/2017 15:41:00 Document Registration [id number] 04/25/2017 15:35:00 Document Registration [id number] 04/05/2017 15:34:00 Document Registration [id number] 03/28/2017 15:40:00 Document Registration [id number] 03/16/2017 15:30:00 Document Registration
[2018-03-08] MEDS ORDERED: PIPERACILLIN SODIUM/TAZOBACTAM 4.5 GM in NS (IVPB) 100 ML IV SCH (18:15)
--- OUTSIDE RECORDS SUMMARY | 2018-03-08 18:46 | XMS REPORT | Clinical Summary ---
Author Author [facility] Address Unknown Phone Unavailable Care Team Providers Care Director [employer] Name Role Phone Elfego Nguyen MD Unavailable Ida Sanabria APRN PCP Source Comments Some departments are not documenting in the electronic medical record. If you do not see the information that you expected, contact Release of Information in the Health Information Management department at [phone] for further assistance in locating additional records.[facility] Allergies No Known Allergies Current Medications Prescription [...] Estradiol, and TSH - Also send to [facility] office to obtain a post-climax urine sample [...]
--- OUTSIDE RECORDS SUMMARY | 2018-03-08 18:49 | XMS REPORT | Continuity of Care Document ---
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 23:59:59 CLS Outpatient RASHAD HAY DO [facility] RAD RIB PAIN [id number] 03/08/2018 17:21:00 Document Registration [id number] 07/31/2012 11:53:00 Document Registration [id number] 06/07/2017 15:28:00 Document Registration [id number] 05/25/2017 08:28:00 Document Registration [id number] 05/18/2017 14:53:00 Document Registration [id number] 05/10/2017 15:44:00 Document Registration [id number] 05/04/2017 15:41:00 Document Registration [id number] 04/25/2017 15:35:00 Document Registration [id number] 04/05/2017 15:34:00 Document Registration [id number] 03/28/2017 15:40:00 Document Registration [id number] 03/16/2017 15:30:00 Document Registration
[2018-03-08] MEDS ORDERED: VANCOMYCIN 2000 MG/NS 500 ML IVPB IV NR ×2 (19:45)
[2018-03-08] MEDS ORDERED: MELATONIN 3 MG TABLET PO PRN (20:15)
[2018-03-08] MEDS: HYDROcodone/APAP 5 MG/325 MG (LORTAB) TAB PO PRN (20:31)
[2018-03-08] MEDS: NS IV 1000 ML 1,000 ML IV SCH (20:31)
[2018-03-08] MEDS ORDERED: rOPINIRole 1 MG (REQUIP) TABLET PO SCH (21:00)
[2018-03-08] MEDS ORDERED: NS IV 1000 ML 1,000 ML IV ONE (21:15)
[2018-03-08] MEDS: lisINopril 10 MG (PRINIVIL) TABLET PO SCH (21:26)
[2018-03-08 21:57] LABS: ABG OXYGEN SATURATION 96 % (94-100); ABG PCO2 37 MMHG (35-45); ABG PH 7.43 (7.37-7.43); ABG PO2 69 MMHG (79-93); ABG TCO2 26.3 MMOL/L (21.0-31.0)
[2018-03-08 21:58] LABS: ALLENS TEST POSITIVE; INSPIRED O2 ROOM AIR; PATIENT TEMP 96.3; VENTILATOR NO
[2018-03-08] MEDS ORDERED: NOREPINEPHRINE 4 MG in NS (IVPB) 250 ML IV SCH (22:54)
[2018-03-08] MEDS ORDERED: NS IV ONE (23:00)
[2018-03-08 23:29] LABS: BASOPHILS % (AUTO) 0 % (0-10); EOSINOPHILS # (AUTO) 0.2 10^3/uL (0.0-0.3); EOSINOPHILS % (AUTO) 1 % (0-10); HEMATOCRIT 26 % (40-54); HEMOGLOBIN 8.6 G/DL (13.3-17.7); LYMPHOCYTES % (AUTO) 8 % (12-44); MEAN CORPUSCULAR HEMOGLOBIN 31 PG (25-34); MEAN CORPUSCULAR HGB CONC 33 G/DL (32-36); MEAN CORPUSCULAR VOLUME 94 FL (80-99); MEAN PLATELET VOLUME 8.8 FL (7.4-10.4); MONOCYTES % (AUTO) 7 % (0-12); NEUTROPHILS # (AUTO) 11.3 X 10^3 (1.8-7.8); NEUTROPHILS % (AUTO) 84 % (42-75); PLATELET COUNT 379 10^3/uL (130-400); RED BLOOD COUNT 2.76 10^6/uL (4.35-5.85); RED CELL DISTRIBUTION WIDTH 12.9 % (10.0-14.5); WHITE BLOOD COUNT 13.5 10^3/uL (4.3-11.0)
--- NOTE | 2018-03-08 23:56 | Consultation ---
History of Present Illness History of Present Illness Patient Consulted On(alyce/time) 03/08/18 23:49 Time Seen by Provider: 23:32 History of Present Illness Surgery asked to consult regarding diabetic foot ulcer, r/o gangrene; possible sepsis. HPI per ED: The patient is a 42-year-old white male who has been seen multiple he at this institution. He has insulin-dependent diabetes mellitus. His troubles began in 2014 when he apparently dropped a transmission on his right foot causing injury to the third toe that toe ultimately developed osteomyelitis and he had a partial amputation. Over the past year he has had trouble at the right great toe it developed osteomyelitis and he has drainage from the area of the first IP joint on the right foot. He is seen in a [place] wound care program by Dr. Dorothea Valentine. 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 He began to feel so ill and driving home today that he felt that he must seek care. When I spoke to pt he stated he is not sure why his BP dropped, but states his heart does occasionally beat fast. He has almost no pain in right foot, but thinks it is not really improving. He states he has been dealing with this for a year; had healed up, but then opened up again 2 months ago. He denies any red streaks going up his leg. Allergies and Home Medications Allergies Coded Allergies: No Known Drug Allergies (Unverified , 01/07/15) Home Medications Canagliflozin 300 Mg Tablet, 300 MG PO DAILY, (Reported) Ceftriaxone Sod 1 Gm/Vial Soln, 1 GM IV DAILY Prescribed by: ARIA GABRIEL on 04/10/17 1021 Citalopram Hydrobromide 20 Mg Tablet, 20 MG PO DAILY, (Reported) Glimepiride 4 Mg Tablet, 4 MG PO BID, (Reported) Hydrocodone/Acetaminophen 1 Each Tablet, 0.5-1 TAB PO Q4H PRN for PAIN-MILD TO MODERATE, (Reported) Ibuprofen 200 Mg Tablet, 800 MG PO Q8H PRN for PAIN-MILD, (Reported) TAKES 4 (200MG) TABLETS Lisinopril 10 Mg Tablet, 10 MG PO BID, (Reported) Multivitamin with Minerals 1 Each Tablet, 1 TAB PO DAILY, (Reported) Red Yeast Rice 600 Mg Capsule, 600 MG PO BID, (Reported) Ropinirole HCl 3 Mg Tablet, 3 MG PO HS, (Reported) Sitagliptin Phos/Metformin HCl 1 Each Tablet, 1 TAB PO BID, (Reported) Sulfamethoxazole/Trimethoprim 1 Each Tablet, 1 EACH PO BID Prescribed by: RACHEL PANIAGUA on 01/26/186 Sulfamethoxazole/Trimethoprim 1 Each Tablet, 1 EACH PO BID Prescribed by: HANNY GUZMAN on 02/19/18 2324 Patient Home Medication List Home Medication List Reviewed: Yes Past Ailtopo-Xhjmom-Uqmoft Hx Patient Social History Alcohol Use: Denies Use Recreational Drug Use: No Smoking Status: Current Everyday Smoker Type Used: Cigarettes 2nd Hand Smoke Exposure: Yes Recent Foreign Travel: No Contact w/Someone Who Travel: No Recent Infectious Disease Expo: No Recent Hopitalizations: No Immunizations Up To Date Tetanus Booster (TDap): Less than 5yrs Seasonal Allergies Seasonal Allergies: No Surgeries History of Surgeries: Yes Surgeries: Orthopedic Respiratory History of Respiratory Disorde: No Cardiovascular History of Cardiac Disorders: No Neurological History of Neurological Disord: Yes Neurological Disorders: Neuropathy Reproductive System Hx Reproductive Disorders: No Sexually Transmitted Disease: No HIV/AIDS: No Genitourinary History of Genitourinary Disor: No Gastrointestinal History of Gastrointestinal Di: No Musculoskeletal History of Musculoskeletal Dis: No Endocrine History of Endocrine Disorders: Yes Endocrine Disorders: Diabetes, Non-Insulin dep HEENT History of HEENT Disorders: No Cancer History of Cancer: No Psychosocial History of Psychiatric Problem: No Integumentary History of Skin or Integumenta: Yes Skin/Integumentary Disorders: Recent Skin Changes Blood Transfusions History of Blood Disorders: No Family Medical History Significant Family History: No Pertinent Family Hx, Cancer (uncle, but he is unsure what type), Diabetes ("all throughout my family") Review of Systems-General Constitutional: No chills, No diaphoresis; weakness EENTM: No blurred vision, No eye pain, No mouth pain, No mouth swelling, No epistaxis Respiratory: No cough, No dyspnea on exertion Cardiovascular: No chest pain, No edema Gastrointestinal: No abdominal pain, No constipation, No diarrhea, No hematemesis Genitourinary: No dysuria, No frequency, No hematuria Musculoskeletal: joint pain, joint swelling, muscle stiffness Skin: other (see HPI, nothing anywhere else) Psychiatric/Neurological: Denies Anxiety, Denies Depressed, Denies Seizure, Denies Tingling Other pt denies any abnormal bruising or bleeding Physical Exam-General Problems Physical Exam Vital Signs Vital Signs - First Documented 03/08/18 16:33 Temp 100.3 Pulse 139 Resp 20 B/P (MAP) 135/115 (122) Pulse Ox 97 O2 Delivery Room Air Capillary Refill : Less Than 3 Seconds General Appearance: WD/WN, no apparent distress Eyes: Bilateral Eye PERRL, Bilateral Eye EOMI HEENT: pharynx normal; No scleral icterus (R), No scleral icterus (L) Neck: non-tender, full range of motion, supple, normal inspection Respiratory: chest non-tender, lungs clear, normal breath sounds, no respiratory distress, no accessory muscle use Cardiovascular: no edema, no murmur, tachycardia Gastrointestinal: normal bowel sounds, non tender, soft, no organomegaly, no pulsatile mass Back: no CVA tenderness, no vertebral tenderness Extremities: no pedal edema (on left foot), no calf tenderness, slow capillary refill (right) Neurologic/Psychiatric: icebox man II-XII nml as tested, alert, normal mood/affect, oriented x 3 Skin: normal color, warm/dry Lymphatic: no adenopathy (neck, axilla or groin) Data Review Labs Laboratory Tests 03/08/18 17:05: White Blood Count 15.2H, Red Blood Count 3.41L, Hemoglobin 10.4L, Hematocrit 32L , Mean Corpuscular Volume 94, Mean Corpuscular Hemoglobin 30, Mean Corpuscular Hemoglobin Concent 32, Red Cell Distribution Width 13.1, Platelet Count 473H, Mean Platelet Volume 8.9, Neutrophils (%) (Auto) 91H, Lymphocytes (%) (Auto) 3L , Monocytes (%) (Auto) 6, Eosinophils (%) (Auto) 1, Basophils (%) (Auto) 0, Neutrophils # (Auto) 13.7H, Lymphocytes # (Auto) 0.4L, Monocytes # (Auto) 0.9, Eosinophils # (Auto) 0.1, Basophils # (Auto) 0.0, Neutrophils % (Manual) 74, Lymphocytes % (Manual) 2, Monocytes % (Manual) 3, Eosinophils % (Manual) 2, Basophils % (Manual) 0, Band Neutrophils 19, Blood Morphology Comment NORMAL, Sodium Level 134L, Potassium Level 3.9, Chloride Level 97L, Carbon Dioxide Level 21, Anion Gap 16H, Blood Urea Nitrogen 21H, Creatinine 1.29, Estimat Glomerular Filtration Rate > 60, BUN/Creatinine Ratio 16, Glucose Level 158H, Lactic Acid Level 0.84, Calcium Level 9.7, Corrected Calcium 9.9, Total Bilirubin 0.6, Aspartate Amino Transf (AST/SGOT) 9, Alanine Aminotransferase ( ALT/SGPT) 13, Alkaline Phosphatase 63, Total Protein 7.7, Albumin 3.7 03/08/18 17:24: Urine Color YELLOW, Urine Clarity CLEAR, Urine pH 5, Urine Specific [place] 1.015L, Urine Protein 2+H, Urine Glucose (UA) 4+H, Urine Ketones 3+H, Urine Nitrite NEGATIVE, Urine Bilirubin NEGATIVE, Urine Urobilinogen NORMAL, Urine Leukocyte Esterase NEGATIVE, Urine RBC (Auto) NEGATIVE, Urine RBC NONE, Urine WBC 0-2, Urine Squamous Epithelial Cells RARE, Urine Crystals NONE, Urine Bacteria NONE, Urine Casts NONE, Urine Mucus NEGATIVE, Urine Culture Indicated NO 03/08/18 20:48: Glucometer 157H 03/08/18 21:47: Blood Gas Puncture Site RIGHT RADIAL, Blood Gas Patient Temperature 96.3, Arterial Blood pH 7.43, Arterial Blood Partial Pressure CO2 37, Arterial Blood Partial Pressure O2 69L, Arterial Blood HCO3 25, Arterial Blood Total CO2 26.3, Arterial Blood Oxygen Saturation 96, Arterial Blood Base Excess 1.0, Jasen Test POSITIVE, Blood Gas Ventilator Setting NO, Blood Gas Inspired Oxygen ROOM AIR 03/08/18 23:20: White Blood Count 13.5H, Red Blood Count 2.76L, Hemoglobin 8.6L, Hematocrit 26L , Mean Corpuscular Volume 94, Mean Corpuscular Hemoglobin 31, Mean Corpuscular Hemoglobin Concent 33, Red Cell Distribution Width 12.9, Platelet Count 379, Mean Platelet Volume 8.8, Neutrophils (%) (Auto) 84H, Lymphocytes (%) (Auto) 8L , Monocytes (%) (Auto) 7, Eosinophils (%) (Auto) 1, Basophils (%) (Auto) 0, Neutrophils # (Auto) 11.3H, Lymphocytes # (Auto) 1.0, Monocytes # (Auto) 1.0, Eosinophils # (Auto) 0.2, Basophils # (Auto) 0.0 Assessment/Plan Assessment/Plan Assessment/Plan Right Diabetic Foot ulcer - non healing Hypotension R/O sepsis Hx of Osteomyeltis R/O gangrene Pt appears to be responding to IV crystalloids, would continue IV ABX and wound care. At this point if pt has looked into vascular causes or delay of healing ( either arterial or venous) and nothing seems to be helping; then unfortunately he may benefit (be heading towards) a forefoot amputation. He must also get his DM under strict control. I will follow along and recheck tomorrow, pt may need CT of foot to rule out gangrene. JAIRO HALL DO Mar 08, 2018 23:56
[2018-03-09] VITALS (14 sets, daily range): BP systolic 95–140; BP diastolic 60–83
[2018-03-09 00:01] LABS: ALANINE AMINOTRANSFERASE 10 U/L (0-55); ALKALINE PHOSPHATASE 57 U/L (40-136); BILIRUBIN,TOTAL 0.5 MG/DL (0.1-1.0); BUN/CREATININE RATIO 18; CALCIUM 8.7 MG/DL (8.5-10.1); CARBON DIOXIDE 22 MMOL/L (21-32); CHLORIDE 103 MMOL/L (98-107); CREATININE SERUM 1.08 MG/DL (0.60-1.30); GFR ESTIMATED > 60; GLUCOSE 146 MG/DL (70-105); POTASSIUM 3.5 MMOL/L (3.6-5.0); SODIUM 137 MMOL/L (135-145); TOTAL PROTEIN 6.2 GM/DL (6.4-8.2)
[2018-03-09] MEDS: NS IV 1000 ML 1,000 ML IV SCH ×7 (02:51→21:34)
[2018-03-09] MEDS: PIPERACILLIN/TAZO 4.5 GM/NS 100 ML IV SCH ×6 (02:51→17:16)
[2018-03-09 03:25] LABS: BASOPHILS % (AUTO) 0 % (0-10); EOSINOPHILS # (AUTO) 0.4 10^3/uL (0.0-0.3); EOSINOPHILS % (AUTO) 3 % (0-10); HEMATOCRIT 29 % (40-54); HEMOGLOBIN 9.2 G/DL (13.3-17.7); LYMPHOCYTES # (AUTO) 1.1 X 10^3 (1.0-4.0); LYMPHOCYTES % (AUTO) 9 % (12-44); MEAN CORPUSCULAR HEMOGLOBIN 30 PG (25-34); MEAN CORPUSCULAR HGB CONC 32 G/DL (32-36); MEAN CORPUSCULAR VOLUME 95 FL (80-99); MEAN PLATELET VOLUME 8.9 FL (7.4-10.4); MONOCYTES # (AUTO) 0.9 X 10^3 (0.0-1.0); MONOCYTES % (AUTO) 7 % (0-12); NEUTROPHILS # (AUTO) 10.2 X 10^3 (1.8-7.8); NEUTROPHILS % (AUTO) 81 % (42-75); PLATELET COUNT 406 10^3/uL (130-400); RED BLOOD COUNT 3.03 10^6/uL (4.35-5.85); RED CELL DISTRIBUTION WIDTH 13.2 % (10.0-14.5); WHITE BLOOD COUNT 12.6 10^3/uL (4.3-11.0)
[2018-03-09] MEDS: HYDROcodone/APAP 5 MG/325 MG (LORTAB) TAB PO PRN ×2 (03:36→17:03)
[2018-03-09 03:45] LABS: BUN/CREATININE RATIO 18; CALCIUM 8.8 MG/DL (8.5-10.1); CARBON DIOXIDE 22 MMOL/L (21-32); CHLORIDE 106 MMOL/L (98-107); CREATININE SERUM 0.93 MG/DL (0.60-1.30); GFR ESTIMATED > 60; GLUCOSE 119 MG/DL (70-105); MAGNESIUM 1.6 MG/DL (1.8-2.4); PHOSPHORUS 2.7 MG/DL (2.3-4.7); POTASSIUM 3.8 MMOL/L (3.6-5.0); SODIUM 139 MMOL/L (135-145)
[2018-03-09] MEDS ORDERED: MAGNESIUM 1 GM/100 ML IVPB 100 ML IV SCH (06:00)
[2018-03-09] MEDS ORDERED: POTASSIUM CL 10MEQ/50ML IVPB 50 ML IV SCH (06:00)
[2018-03-09] MEDS ORDERED: KCL 20 MEQ TAB (K-DUR) PO SCH (06:00)
[2018-03-09] MEDS: ONDANSETRON 4 MG/2 ML (SDV) Z0FRAN IVP PRN (06:10)
--- NOTE | 2018-03-09 07:06 | Diagnostic Imaging Report ---
INDICATION: Dyspnea COMPARISON: None FINDINGS: Single frontal view of the chest demonstrates normal heart size and pulmonary vascularity. The lungs show low inspiratory volumes, but are otherwise clear. No large pleural effusion or pneumothorax is seen. The visualized osseous structures show no acute abnormalities. IMPRESSION: 1. No acute cardiopulmonary process. Dictated by: Dictated on workstation # [id number]
[2018-03-09] MEDS: MAGNESIUM 1 GM/100 ML IVPB 100 ML IV SCH ×2 (07:27→08:24)
[2018-03-09] MEDS ORDERED: FLU QUADRIvalent (5+ YOA) 2018-2019 (AFLURIA) 0.5 ML IM ONE (07:30)
[2018-03-09] MEDS: lisINopril 10 MG (PRINIVIL) TABLET PO SCH ×3 (08:23→20:18)
[2018-03-09] MEDS: GLIMEPIRIDE 4 MG (AMARYL) TAB PO SCH ×2 (08:23→17:13)
[2018-03-09] MEDS: VANCOMYCIN 1250 MG/NS 250 ML IVPB IV SCH ×4 (08:24→20:18)
[2018-03-09] MEDS ORDERED: SEMA0.25 SQ (09:17)
[2018-03-09] MEDS ORDERED: BACL10TA PO (09:17)
[2018-03-09] MEDS ORDERED: ROPI4TAB5 PO (09:17)
[2018-03-09] MEDS ORDERED: DOXY25TA50 PO (09:21)
--- NOTE | 2018-03-09 10:38 | History & Physical-Hospitalist ---
CYNTHIA TUCKER DO 03/09/18 1038: History of Present Illness HPI/Chief Complaint CC: Right foot infection HPI: This is a 42yoWM clinic patient of DR Sanabria who I have seen before for the same ulcer on his right foot who presents to the ER w/drainage from his right great toe ulcer and felt badly enough he came to the ER before he passed out he stated. Pt was placed on board spectrum abx and fluids and was admitted to the floor but then had a hypotensive episode that required transfer to ICU. Pt was placed on aggressive IVF and now he is doing very well. Dr Lassiter will see the patient in consultation. Source: patient, RN/MD Exam Limitations: no limitations Date Seen 03/09/18 Time Seen by a Provider: 10:45 Attending Physician Cynthia Tucker DO PCP Saeed Sanabria DO Referring Physician Date of Admission Mar 08, 2018 at 18:25 Home Medications & Allergies Home Medications Reviewed patient Home Medication Reconciliation performed by pharmacy medication reconciliations product safety technician and/or nursing. Patients Allergies have been reviewed. Allergies Allergies Coded Allergies No Known Drug Allergies (Unverified01/07/15) Past Iznzzea-Qctuno-Ksmggb Hx Past Med/Social Hx: Reviewed Nursing Past Med/Soc Hx, Reviewed and Corrections made Patient Social History Marrital Status: Employed/Student: employed ([employer] ([employer] Alcohol Use: Denies Use Recreational Drug Use: No Smoking Status: Current Everyday Smoker Type Used: Cigarettes 2nd Hand Smoke Exposure: Yes Physical Abuse Screen: No Sexual Abuse: No Recent Foreign Travel: No Contact w/other who traveled: No Recent Hopitalizations: No Recent Infectious Disease Expo: No Immunizations Up To Date Tetanus Booster (TDap): Less than 5yrs Seasonal Allergies Seasonal Allergies: No Past Medical History Surgeries: Orthopedic Cardiac: Hypertension Neurological: Neuropathy Reproductive: No Sexually Transmitted Disease: No HIV/AIDS: No Endocrine: Diabetes, Non-Insulin dep Are Your Blood Sugars Over 250: No Psychosocial: Depression Skin/Integumentary: Recent Skin Changes History of Blood Disorders: No Adverse Reaction to Blood Lester: No Family History No Pertinent Family Hx, Cancer (uncle, but he is unsure what type), Diabetes ( "all throughout my family") Review of Systems Constitutional: see HPI, chills, diaphoresis, dizziness, malaise EENTM: no symptoms reported Respiratory: no symptoms reported Cardiovascular: no symptoms reported Gastrointestinal: no symptoms reported Genitourinary: no symptoms reported Musculoskeletal: other (right foot pain) Psychiatric/Neurological: See HPI All Other Systems Reviewed Negative Unless Noted: Yes Physical Exam Physical Exam Vital Signs Vital Signs - First Documented 03/08/18 16:33 Temp 100.3 Pulse 139 Resp 20 B/P (MAP) 135/115 (122) Pulse Ox 97 O2 Delivery Room Air Capillary Refill : Less Than 3 Seconds Height, Weight, BMI Height: 5'11.00" Weight: 230lbs. 0.0oz. [id number]; 31.4 BMI Method:Stated General Appearance: No Apparent Distress, WD/WN, Chronically ill Eyes: Bilateral Eye Normal Inspection, Bilateral Eye PERRL HEENT: PERRL/EOMI, TMs Normal, Normal ENT Inspection, Pharynx Normal Neck: Full Range of Motion, Normal Inspection, Non Tender, Supple, Carotid Bruit Respiratory: Chest Non Tender, Lungs Clear, Normal Breath Sounds, No Accessory Muscle Use, No Respiratory Distress Cardiovascular: Regular Rate, Rhythm, No Edema, No Gallop, No JVD, No Murmur, Normal Peripheral Pulses Gastrointestinal: Normal Bowel Sounds, No Organomegaly, No Pulsatile Mass, Non Tender, Soft Back: Normal Inspection, No CVA Tenderness, No Vertebral Tenderness Extremity: Normal Capillary Refill, Normal Inspection, Normal Range of Motion, Non Tender, No Calf Tenderness, No Pedal Edema, Other (R foot not inspected due to dressing; sensation intact on toes, odor noted) Neurologic/Psychiatric: Alert, Oriented x3, No Motor/Sensory Deficits, Normal Mood/Affect Skin: Normal Color, Warm/Dry Lymphatic: No Adenopathy Results Results/Procedures Labs Laboratory Tests 03/08/18 17:05 03/08/18 23:20 03/09/18 03:15 Patient resulted labs reviewed. 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 Diabetes mellitus complication status: with unspecified complications Qualified Codes: E11.8 - Type 2 diabetes mellitus with unspecified complications (4) Osteomyelitis due to secondary diabetes Status: Chronic (5) Cellulitis of right foot Status: Acute (6) Neuropathy Status: Chronic (7) Depression Status: Chronic (8) Non-healing ulcer Status: Chronic (9) Smoker Status: Chronic Clinical Quality Measures DVT/VTE Risk/Contraindication: Risk Factor Score Per Nursin RFS Level Per Nursing on Admit: 3=High NEDA MACIAS MEDICAL STUDENT 03/09/18 1054: History of Present Illness HPI/Chief Complaint CC: Chills/Diabetic foot ulcer PCP: Dr. Sanabria Wound Care: Dr. Valentine Pt is 42 yo WM who presented to the ED following a week of vomiting, fever and chills. The patient has a hx of T2DM with diabetic right foot ulcer and osteomyelitis requiring partial 3rd/4th toe amputations, which first became an issue for him 1 year ago. Recently he has developed infection of the right 1st IP joint, requiring ED visits in January and February for oral abx. He has been managed by Dr. Valentine for wound care, and had an appointment scheduled for 03/09 , but due to his condition worsening he opted to visit the ED on 03/08. In the ED the patient met criteria for sepsis, as well as having a concerning episode of hypotension. He was admitted to ICU for medical management and possibly additional surgery. Currently he is using 4x oral therapy to control his BS, and remarks that his sugars have been good. He has some diabetic neuropathy. Source: patient, family ( at bedside) Time Seen by a Provider: 10:50 Home Medications & Allergies Home Medications Active Scripts Medications Dose Route/Sig Max Daily Dose Days Date Category Dose Instructions Sleep Aid (Doxylamine Succinate) 25 Mg Tablet 25 Mg PO HS 03/09/18 Reported Ozempic (Semaglutide) 0.25 Mg/0.2 Ml Pen.injctr SQ MO 03/09/18 Reported Baclofen 10 Mg Tablet 10 Mg PO TID PRN 03/09/18 Reported Ropinirole HCl 4 Mg Tablet 4 Mg PO HS 03/09/18 Reported Red Yeast Rice 600 Mg Capsule 600 Mg PO BID 02/23/15 Reported Men's One Daily (Multivitamin with Minerals) 1 Each Tablet 1 Tab PO DAILY 02/23/15 Reported Janumet 50-1,000 mg Tablet (Sitagliptin Phos/Metformin HCl) 1 Each Tablet 1 Tab PO BID 02/22/15 Reported Citalopram HBr (Citalopram Hydrobromide) 20 Mg Tablet 20 Mg PO DAILY 02/22/15 Reported Lisinopril 10 Mg Tablet 10 Mg PO BID 02/22/15 Reported LAST FILLED #180 5-15-18 Glimepiride 4 Mg Tablet 4 Mg PO BID 02/22/15 Reported LAST FILLED #180 5-15-18 Past Bnnmqcu-Hlelxx-Mlfovf Hx Past Med/Social Hx: Reviewed Nursing Past Med/Soc Hx Patient Social History Marrital Status: Employed/Student: employed ([employer] Alcohol Use: Denies Use Recreational Drug Use: No Smoking Status: Current Everyday Smoker Type Used: Cigarettes 2nd Hand Smoke Exposure: Yes Physical Abuse Screen: No Sexual Abuse: No Recent Foreign Travel: No Contact w/other who traveled: No Recent Hopitalizations: No Recent Infectious Disease Expo: No Immunizations Up To Date Tetanus Booster (TDap): Less than 5yrs Past Medical History Surgeries: Orthopedic (Partial toe amputation 2ndary to osteo) Cardiac: Hypertension Neurological: Neuropathy Endocrine: Diabetes, Non-Insulin dep Are Your Blood Sugars Over 250: No Psychosocial: Depression Family History Cancer (uncle, but he is unsure what type), Diabetes ("all throughout my family ") Review of Systems Constitutional: chills; No fever EENTM: No throat pain Respiratory: No cough, No short of breath Cardiovascular: No chest pain Gastrointestinal: No abdominal pain, No constipation, No diarrhea; nausea; No vomiting Skin: No change in color (from baseline), No rash Psychiatric/Neurological: Tingling (diabetic neuropathy) Physical Exam Physical Exam General Appearance: No Apparent Distress, WD/WN HEENT: PERRL/EOMI, TMs Normal, Normal ENT Inspection, Pharynx Normal Neck: Full Range of Motion, Normal Inspection Respiratory: Chest Non Tender, Lungs Clear, Normal Breath Sounds, No Accessory Muscle Use, No Respiratory Distress Cardiovascular: Regular Rate, Rhythm, No Edema, No Gallop, No JVD, No Murmur, Normal Peripheral Pulses Gastrointestinal: No Organomegaly, Non Tender, Soft Back: Normal Inspection Extremity: Normal Capillary Refill, No Calf Tenderness, No Pedal Edema, Other ( R foot not inspected due to dressing; sensation intact on toes) Neurologic/Psychiatric: Alert, Oriented x3, Normal Mood/Affect Skin: Normal Color, Warm/Dry Results Results/Procedures Imaging: Reviewed Imaging Report Assessment/Plan Admission Diagnosis 1. Osteomyelitis 2. Sepsis 3. Hypotensive episode 4. T2DM 5. Depression 6. RLS Admission Status: Inpatient Order (span 2 midnights) Reason for Inpatient Admission: Osteomyelitis Sepsis T2DM Assessment and Plan 1. Osteomyelitis WBC improving X-ray today Consult wound control & podiatry Plan to admit over weekend, surgery Monday 2. Sepsis Vancomycin & Pip/Tazo 3. Hypotensive episode Hold lisinopril Rapid fluid resuscitation 4. T2DM Continue current management 5. Depression Continue current management 6. RLS Continue current management CYNTHIA TUCKER DO Mar 09, 2018 10:38 NEDA MACIAS MEDICAL STUDENT Mar 09, 2018 10:54
--- NOTE | 2018-03-09 10:59 | Diagnostic Imaging Report ---
INDICATION: Right foot ulcer AP and lateral views of the right foot are obtained. COMPARISON: 01/26/2018 FINDINGS: Absence of the distal aspect of the fourth metatarsal is again noted without change compared to the prior study. Absence of the third, middle and distal phalanges also noted, without change compared to the prior study. There is soft tissue swelling over the medial portion of the foot. There is some apparent soft tissue gas in the first MTP joint. There is some lucency in the distal aspect of the first metatarsal which was not present on the prior study may represent early osteomyelitis. IMPRESSION: Chronic changes in third digit and fourth metatarsal as above. Soft tissue gas is noted over the medial portion of the foot with some ill-defined lucency over the distal aspect of the first metatarsal which was not seen on the prior study. Early osteomyelitis cannot be excluded. Consider MRI, as clinically warranted. Dictated by: Dictated on workstation # [id number]
--- NOTE | 2018-03-09 11:22 | Progress Note ---
Subjective Time Seen by a Provider: 09:15 Subjective/Events-last exam Pt seen and examined, states he has no new complaints; foot not really bothering him. Nurse states he had no more episodes of hypotension overnight. Review of Systems General: No Chills, No Night Sweats Pulmonary: No Dyspnea, No Cough Cardiovascular: No: Chest Pain, Palpitations Gastrointestinal: No: Nausea, Vomiting, Abdominal Pain Focused Exam Lactate Level 03/08/18 17:05: Lactic Acid Level 0.84 03/08/18 23:20: Lactic Acid Level 0.39L Objective Exam Vital Signs Date Time Temp Pulse Resp B/P (MAP) Pulse Ox O2 Delivery O2 Flow Rate FiO2 03/09/18 09:00 92 19 114/73 (87) 98 Room Air 03/09/18 08:00 93 13 95/66 (76) 96 Room Air 03/09/18 08:00 97.8 03/09/18 08:00 99 Room Air 03/09/18 07:00 95 03/09/18 07:00 95 17 125/68 (87) 95 Room Air 03/09/18 06:00 108 12 140/83 (102) 97 Room Air 03/09/18 05:00 99 20 113/67 (82) 94 Room Air 03/09/18 04:00 98 23 109/63 (78) 97 Room Air 03/09/18 04:00 98.1 03/09/18 04:00 97 Room Air 03/09/18 03:00 100 19 113/66 (82) 98 Room Air 03/09/18 02:00 100 18 115/60 (78) 92 Room Air 03/09/18 01:00 100 03/09/18 01:00 101 25 110/65 (80) 95 Room Air 03/09/18 00:00 97 Room Air 03/09/18 00:00 98 24 108/63 (78) 93 Room Air 03/09/18 00:00 97.6 03/08/18 23:00 100 22 112/59 (76) 93 Room Air 03/08/18 22:45 98 20 103/63 (76) 95 Room Air 03/08/18 22:30 101 25 109/61 (77) 93 Room Air 03/08/18 22:15 100 25 103/60 (74) 94 Room Air 03/08/18 21:52 96.5 103 19 109/62 (78) 94 Room Air 03/08/18 21:48 103 03/08/18 21:42 96.5 104/56 (72) 03/08/18 21:30 101 81/42 (55) 03/08/18 21:30 81/45 (57) 03/08/18 21:15 108 93/52 (66) 03/08/18 21:00 98/58 (71) 03/08/18 21:00 101 101/58 (72) 03/08/18 20:45 107 98/57 (71) 03/08/18 20:30 111 101/55 (70) 03/08/18 20:23 107 105/55 (72) 03/08/18 19:33 98.2 116 18 102/52 (69) 96 Room Air 03/08/18 19:26 100.3 118 20 118/63 (122) 99 Room Air 03/08/18 16:33 100.3 139 20 135/115 (122) 97 Room Air I & O 03/09/18 07:00 Intake Total 1200 ml Output Total 1300 ml Balance -100 ml Capillary Refill : Less Than 3 Seconds General Appearance: No Apparent Distress, WD/WN HEENT: PERRL/EOMI, Pharynx Normal Respiratory: Chest Non Tender, Lungs Clear, Normal Breath Sounds, No Accessory Muscle Use, No Respiratory Distress Cardiovascular: Regular Rate, Rhythm, No Edema, Normal Peripheral Pulses Gastrointestinal: normal bowel sounds, non tender, soft, no organomegaly, no pulsatile mass Extremity: No Calf Tenderness, No Pedal Edema, Other (right foot had necrotic fat and small hard mass in open wound, foul odor. 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 Norm as Tested Skin: Normal Color, Warm/Dry Results Lab Laboratory Tests 03/08/18 17:05: White Blood Count 15.2H, Red Blood Count 3.41L, Hemoglobin 10.4L, Hematocrit 32L , Mean Corpuscular Volume 94, Mean Corpuscular Hemoglobin 30, Mean Corpuscular Hemoglobin Concent 32, Red Cell Distribution Width 13.1, Platelet Count 473H, Mean Platelet Volume 8.9, Neutrophils (%) (Auto) 91H, Lymphocytes (%) (Auto) 3L , Monocytes (%) (Auto) 6, Eosinophils (%) (Auto) 1, Basophils (%) (Auto) 0, Neutrophils # (Auto) 13.7H, Lymphocytes # (Auto) 0.4L, Monocytes # (Auto) 0.9, Eosinophils # (Auto) 0.1, Basophils # (Auto) 0.0, Neutrophils % (Manual) 74, Lymphocytes % (Manual) 2, Monocytes % (Manual) 3, Eosinophils % (Manual) 2, Basophils % (Manual) 0, Band Neutrophils 19, Blood Morphology Comment NORMAL, Sodium Level 134L, Potassium Level 3.9, Chloride Level 97L, Carbon Dioxide Level 21, Anion Gap 16H, Blood Urea Nitrogen 21H, Creatinine 1.29, Estimat Glomerular Filtration Rate > 60, BUN/Creatinine Ratio 16, Glucose Level 158H, Lactic Acid Level 0.84, Calcium Level 9.7, Corrected Calcium 9.9, Total Bilirubin 0.6, Aspartate Amino Transf (AST/SGOT) 9, Alanine Aminotransferase ( ALT/SGPT) 13, Alkaline Phosphatase 63, Total Protein 7.7, Albumin 3.7 03/08/18 17:24: Urine Color YELLOW, Urine Clarity CLEAR, Urine pH 5, Urine Specific Tad 1.015L, Urine Protein 2+H, Urine Glucose (UA) 4+H, Urine Ketones 3+H, Urine Nitrite NEGATIVE, Urine Bilirubin NEGATIVE, Urine Urobilinogen NORMAL, Urine Leukocyte Esterase NEGATIVE, Urine RBC (Auto) NEGATIVE, Urine RBC NONE, Urine WBC 0-2, Urine Squamous Epithelial Cells RARE, Urine Crystals NONE, Urine Bacteria NONE, Urine Casts NONE, Urine Mucus NEGATIVE, Urine Culture Indicated NO 03/08/18 20:48: Glucometer 157H 03/08/18 21:47: Blood Gas Puncture Site RIGHT RADIAL, Blood Gas Patient Temperature 96.3, Arterial Blood pH 7.43, Arterial Blood Partial Pressure CO2 37, Arterial Blood Partial Pressure O2 69L, Arterial Blood HCO3 25, Arterial Blood Total CO2 26.3, Arterial Blood Oxygen Saturation 96, Arterial Blood Base Excess 1.0, Jasen Test POSITIVE, Blood Gas Ventilator Setting NO, Blood Gas Inspired Oxygen ROOM AIR 03/08/18 23:20: White Blood Count 13.5H, Red Blood Count 2.76L, Hemoglobin 8.6L, Hematocrit 26L , Mean Corpuscular Volume 94, Mean Corpuscular Hemoglobin 31, Mean Corpuscular Hemoglobin Concent 33, Red Cell Distribution Width 12.9, Platelet Count 379, Mean Platelet Volume 8.8, Neutrophils (%) (Auto) 84H, Lymphocytes (%) (Auto) 8L , Monocytes (%) (Auto) 7, Eosinophils (%) (Auto) 1, Basophils (%) (Auto) 0, Neutrophils # (Auto) 11.3H, Lymphocytes # (Auto) 1.0, Monocytes # (Auto) 1.0, Eosinophils # (Auto) 0.2, Basophils # (Auto) 0.0, Sodium Level 137, Potassium Level 3.5L, Chloride Level 103, Carbon Dioxide Level 22, Anion Gap 12, Blood Urea Nitrogen 19H, Creatinine 1.08, Estimat Glomerular Filtration Rate > 60, BUN /Creatinine Ratio 18, Glucose Level 146H, Lactic Acid Level 0.39L, Calcium Level 8.7, Corrected Calcium 9.5, Total Bilirubin 0.5, Aspartate Amino Transf ( AST/SGOT) 11, Alanine Aminotransferase (ALT/SGPT) 10, Alkaline Phosphatase 57, Total Protein 6.2L, Albumin 3.0L 03/09/18 03:15: White Blood Count 12.6H, Red Blood Count 3.03L, Hemoglobin 9.2L, Hematocrit 29L , Mean Corpuscular Volume 95, Mean Corpuscular Hemoglobin 30, Mean Corpuscular Hemoglobin Concent 32, Red Cell Distribution Width 13.2, Platelet Count 406H, Mean Platelet Volume 8.9, Neutrophils (%) (Auto) 81H, Lymphocytes (%) (Auto) 9L , Monocytes (%) (Auto) 7, Eosinophils (%) (Auto) 3, Basophils (%) (Auto) 0, Neutrophils # (Auto) 10.2H, Lymphocytes # (Auto) 1.1, Monocytes # (Auto) 0.9, Eosinophils # (Auto) 0.4H, Basophils # (Auto) 0.0, Sodium Level 139, Potassium Level 3.8, Chloride Level 106, Carbon Dioxide Level 22, Anion Gap 11, Blood Urea Nitrogen 17, Creatinine 0.93, Estimat Glomerular Filtration Rate > 60, BUN/ Creatinine Ratio 18, Glucose Level 119H, Calcium Level 8.8, Phosphorus Level 2.7 , Magnesium Level 1.6L Assessment/Plan Assessment/Plan Assessment/Plan Right Diabetic Foot ulcer - non healing Hypotension R/O sepsis Hx of 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 My concern is if this is not taken care of he may wind up with BKA. I spoke with Dr. Dodd and recommended getting Podiatry involved to do this debridement; this is their area of speciality. Clinical Quality Measures DVT/VTE Risk/Contraindication: Risk Factor Score Per Nursin RFS Level Per Nursing on Admit: 3=High JAIRO HALL DO Mar 09, 2018 11:22
[2018-03-09] MEDS: ENOXAPARIN 40 MG/0.4 ML (LOVENOX) SYR SC SCH (11:48)
[2018-03-09] MEDS: fentaNYL INJECTION 100 MCG/2 ML AMP IVP PRN (11:52)
--- NOTE | 2018-03-09 12:39 | Diagnostic Imaging Report ---
PATIENT HISTORY: PICC placement. TECHNIQUE: Single frontal view of the chest COMPARISON: 03/09/2018 FINDINGS: Lung volumes are low. No focal consolidation is seen. The cardiac silhouette and the perihilar vasculature appears mildly prominent, but likely due to the low lung volume. There is no pleural effusion or pneumothorax. The left-sided PICC line tip is curved, and is thought to be in the azygos vein, but otherwise overlies the SVC. IMPRESSION: 1. The tip of the left PICC appears curved, likely in the azygos vein. 2. Low lung volumes. Dictated by: Dictated on workstation # [id number]
--- NOTE | 2018-03-09 15:39 | Diagnostic Imaging Report ---
INDICATION: PICC line reposition. TIME OF EXAM: 3:01 p.m. COMPARISON: Correlation is made with prior study earlier the same day. FINDINGS: The heart size is normal. PICC line continues to be somewhat curved with the tip slightly directed cephalad and again likely in the azygos vein. The lungs are clear. There is no effusion or pneumothorax. IMPRESSION: PICC line continues to be malpositioned, likely within the azygos vein. Dictated by: Dictated on workstation # [id number]
[2018-03-09] MEDS ORDERED: LORazepam INJ 2 MG/ML (ATIVAN) VIAL IVP ONE (17:15)
--- NOTE | 2018-03-09 17:20 | Diagnostic Imaging Report ---
INDICATION: PICC line reposition. COMPARISON: 03/09/2018 at 3:01 p.m. EXAMINATION: Single view of the chest was obtained. FINDINGS: Interval placement of the left entering PICC line within the SVC. There is no pneumothorax. Aeration is stable. IMPRESSION: Newly well-positioned PICC line. Dictated by: Dictated on workstation # [id number]
[2018-03-09] MEDS ORDERED: LORazepam INJ 2 MG/ML (ATIVAN) VIAL IVP NR (17:45)
[2018-03-09] MEDS ORDERED: GADOBUTROL 10 MMOL/10 ML (GADAVIST) VIAL IV ONE (18:15)
--- NOTE | 2018-03-09 18:52 | Diagnostic Imaging Report ---
PROCEDURE: MR imaging right lower extremity with and without contrast. TECHNIQUE: Multiplanar, multisequence pre and post contrast-enhanced MR imaging of the right lower extremity was accomplished. INDICATION: Foot pain and swelling. COMPARISON: None available. FINDINGS: There is a large dermal wound along the plantar and medial aspect of the forefoot at the level of the first metatarsal head. There is underlying T1 hypointense marrow replacement throughout the entire first metatarsal indicative of osteomyelitis. Osteomyelitis also involves the base of the great toe proximal phalanx. There is a plantar ulcer along the head of the fourth metatarsal. There has been partial amputation of the fourth ray. The base of the fourth ray does have osteomyelitis within it. There are also changes within the fourth toe that suggest osteomyelitis as well. Remainder of the osseous structures show no features of osteomyelitis. Fatty atrophy of the intrinsic muscular foot is compatible with diabetes. IMPRESSION: 1. MRI confirms osteomyelitis involving the entire first metatarsal and base of the first proximal phalanx. 2. Hypointense marrow signal throughout the residual base of the fourth metatarsal is concerning for osteomyelitis as well. Dictated by: Dictated on workstation # [id number]
[2018-03-09] MEDS: JANUMET PO SCH (19:50)
[2018-03-09] MEDS ORDERED: ACETAMINOPHEN 325 MG TABLET PO PRN (20:00)
[2018-03-09] MEDS: rOPINIRole 1 MG (REQUIP) TABLET PO SCH (20:18)
[2018-03-09] MEDS ORDERED: GLIMEPIRIDE 4 MG (AMARYL) TAB PO SCH (21:00)
[2018-03-09] MEDS ORDERED: lisINopril 10 MG (PRINIVIL) TABLET PO SCH (21:00)
[2018-03-10] VITALS (7 sets, daily range): BP systolic 116–143; BP diastolic 62–78
[2018-03-10] MEDS: PIPERACILLIN/TAZO 4.5 GM/NS 100 ML IV SCH ×6 (01:08→17:14)
[2018-03-10] MEDS: NS IV 1000 ML 1,000 ML IV SCH ×3 (02:14→17:12)
[2018-03-10] MEDS: HYDROcodone/APAP 5 MG/325 MG (LORTAB) TAB PO PRN ×5 (02:14→22:32)
[2018-03-10] MEDS: fentaNYL INJECTION 100 MCG/2 ML AMP IVP PRN ×2 (05:24→20:26)
[2018-03-10 07:00] LABS: BASOPHILS % (AUTO) 0 % (0-10); EOSINOPHILS # (AUTO) 0.2 10^3/uL (0.0-0.3); EOSINOPHILS % (AUTO) 2 % (0-10); HEMATOCRIT 25 % (40-54); HEMOGLOBIN 8.1 G/DL (13.3-17.7); LYMPHOCYTES # (AUTO) 1.4 X 10^3 (1.0-4.0); LYMPHOCYTES % (AUTO) 14 % (12-44); MEAN CORPUSCULAR HEMOGLOBIN 31 PG (25-34); MEAN CORPUSCULAR HGB CONC 32 G/DL (32-36); MEAN CORPUSCULAR VOLUME 96 FL (80-99); MEAN PLATELET VOLUME 8.8 FL (7.4-10.4); MONOCYTES # (AUTO) 0.8 X 10^3 (0.0-1.0); MONOCYTES % (AUTO) 8 % (0-12); NEUTROPHILS # (AUTO) 7.3 X 10^3 (1.8-7.8); NEUTROPHILS % (AUTO) 75 % (42-75); PLATELET COUNT 367 10^3/uL (130-400); RED BLOOD COUNT 2.62 10^6/uL (4.35-5.85); RED CELL DISTRIBUTION WIDTH 12.8 % (10.0-14.5); WHITE BLOOD COUNT 9.7 10^3/uL (4.3-11.0)
[2018-03-10] MEDS ORDERED: TROUGH ORDER-PHARMACY XX NR (07:00)
[2018-03-10 07:21] LABS: BUN/CREATININE RATIO 9; CALCIUM 8.4 MG/DL (8.5-10.1); CARBON DIOXIDE 21 MMOL/L (21-32); CHLORIDE 108 MMOL/L (98-107); CREATININE SERUM 0.75 MG/DL (0.60-1.30); GFR ESTIMATED > 60; POTASSIUM 3.5 MMOL/L (3.6-5.0); SODIUM 140 MMOL/L (135-145)
[2018-03-10 07:38] LABS: GLUCOSE 58 MG/DL (70-105)
[2018-03-10] MEDS: MULTIVIT W/MINERALS TAB (THERAGRAN M) PO SCH (07:48)
[2018-03-10] MEDS: VANCOMYCIN 1500 MG/NS 500 ML IVPB IV SCH ×4 (08:26→20:14)
[2018-03-10] MEDS: ONDANSETRON 4 MG/2 ML (SDV) Z0FRAN IVP PRN (08:26)
[2018-03-10] MEDS: lisINopril 10 MG (PRINIVIL) TABLET PO SCH ×2 (08:35→20:16)
[2018-03-10] MEDS: GLIMEPIRIDE 4 MG (AMARYL) TAB PO SCH ×2 (08:39→17:13)
[2018-03-10] MEDS: JANUMET PO SCH ×2 (08:39→17:13)
[2018-03-10] MEDS: ENOXAPARIN 40 MG/0.4 ML (LOVENOX) SYR SC SCH (10:13)
--- NOTE | 2018-03-10 12:13 | Progress Note ---
Subjective Date Seen by a Provider: Mar 10, 2018 Time Seen by a Provider: 12:07 Subjective/Events-last exam Patient still with some pain in the right foot. MRI demonstrating osteomyelitis. He does have some drainage from it. He states that he had the ulcer for about a year where he underwent wound care and the outer portion had healed but this reopened and he's been having some difficulties with his blood sugars. MRI demonstrating osteomyelitis of the entire first metatarsal and base of the first proximal phalanx. Focused Exam Lactate Level 03/08/18 17:05: Lactic Acid Level 0.84 03/08/18 23:20: Lactic Acid Level 0.39L Objective Exam Vital Signs Date Time Temp Pulse Resp B/P (MAP) Pulse Ox O2 Delivery O2 Flow Rate FiO2 03/10/18 09:16 Room Air 03/10/18 08:00 91 Room Air 03/10/18 08:00 97.9 97 22 138/74 (95) 94 Room Air 03/10/18 04:00 99.5 104 20 116/62 (80) 91 Room Air 03/10/18 00:00 99.3 110 20 118/64 (82) 91 Room Air 03/09/18 20:20 95 Room Air 03/09/18 20:10 99.5 115 20 128/62 (84) 95 Room Air 03/09/18 16:35 100.0 115 16 138/78 (98) 96 Room Air I & O 03/10/18 07:00 Intake Total 3342.5 ml Balance 3342.5 ml Capillary Refill : Less Than 3 Seconds General Appearance: No Apparent Distress, WD/WN, Chronically ill HEENT: PERRL/EOMI, Normal ENT Inspection, Pharynx Normal Neck: Full Range of Motion, Normal Inspection, Non Tender, Supple, Carotid Bruit Respiratory: Chest Non Tender, Lungs Clear, Normal Breath Sounds, No Accessory Muscle Use, No Respiratory Distress Cardiovascular: Regular Rate, Rhythm, Normal Peripheral Pulses Gastrointestinal: normal bowel sounds, non tender, soft, no organomegaly, no pulsatile mass Extremity: Normal Capillary Refill, Normal Inspection, Normal Range of Motion, Non Tender, No Calf Tenderness, No Pedal Edema, Other (Right foot with medial aspect quarter size wound that has some drainage that is slightly serous/ purulent, tender to touch plantar surface of right foot small superficial ulceration) Neurologic/Psychiatric: Alert, Oriented x3, No Motor/Sensory Deficits, Normal Mood/Affect Skin: Normal Color, Warm/Dry Lymphatic: No Adenopathy Results Lab Laboratory Tests 03/09/18 14:20: Glucometer 125H 03/09/18 16:37: Glucometer 129H 03/09/18 20:11: Glucometer 71 03/10/18 06:31: Glucometer 64L 03/10/18 06:54: White Blood Count 9.7, Red Blood Count 2.62L, Hemoglobin 8.1L, Hematocrit 25L, Mean Corpuscular Volume 96, Mean Corpuscular Hemoglobin 31, Mean Corpuscular Hemoglobin Concent 32, Red Cell Distribution Width 12.8, Platelet Count 367, Mean Platelet Volume 8.8, Neutrophils (%) (Auto) 75, Lymphocytes (%) (Auto) 14, Monocytes (%) (Auto) 8, Eosinophils (%) (Auto) 2, Basophils (%) (Auto) 0, Neutrophils # (Auto) 7.3, Lymphocytes # (Auto) 1.4, Monocytes # (Auto) 0.8, Eosinophils # (Auto) 0.2, Basophils # (Auto) 0.0, Sodium Level 140, Potassium Level 3.5L, Chloride Level 108H, Carbon Dioxide Level 21, Anion Gap 11, Blood Urea Nitrogen 7, Creatinine 0.75, Estimat Glomerular Filtration Rate > 60, BUN/ Creatinine Ratio 9, Glucose Level 58*L, Calcium Level 8.4L, Vancomycin Level Trough 9.3L 03/10/18 08:40: Glucometer 114H 03/10/18 11:29: Glucometer 125H Microbiology 03/08/18 Blood Culture - Preliminary, Resulted No growth 03/08/18 Gram Stain - Final, Resulted 03/08/18 Wound Culture - Preliminary, Resulted Assessment/Plan Assessment/Plan Assessment/Plan Right Diabetic Foot ulcer - non healing Hypotension R/O sepsis Osteomyeltis right first metatarsal and proximal phalanx Right foot looks like it needs surgical debridement of necrotic tissue, possible wound VAC. Nothing by mouth after midnight Consent for debridement of right foot wound all other indicated procedures Patient understands risk and benefits and wishes to proceed and understands he may need further surgical intervention. Clinical Quality Measures DVT/VTE Risk/Contraindication: Risk Factor Score Per Nursin RFS Level Per Nursing on Admit: 3=High LEORA HANEY DO Mar 10, 2018 12:13
--- NOTE | 2018-03-10 12:35 | Progress Note-Hospitalist ---
Progress Note Progress Notes/Assess & Plan Date Seen 03/10/18 Time Seen by Provider: 12:32 Assessment & Plan The patient is familiar to me as I had examined and admitted him from the emergency room on Monday. Later Monday night he became hypotensive and went to the ICU. Blood cultures have remained negative. The nurses report that the chronic wound at the right first IP joint is now draining a brownish material which is odiferous. Physical exam: He is sitting up and looks much better than he did Monday. Lungs are clear to auscultation. CV is regular without murmur. Abdomen is soft. Impression: Chronic infection right great toe/osteomyelitis. 2.diabetes mellitus. Plan: It is planned that Dr. Lewis is going to take him to the OR tomorrow for debride months of the toe. There is reason to be concerned about the viability of this toe. Blood sugars have been excellent on his present regimen. Focused Exam Lactate Level 03/08/18 17:05: Lactic Acid Level 0.84 03/08/18 23:20: Lactic Acid Level 0.39L YAYO MCMULLEN MD Mar 10, 2018 12:35
[2018-03-10] MEDS: LORazepam 1 MG (ATIVAN) TAB PO PRN ×2 (14:58→22:32)
[2018-03-10] MEDS: EQUATE SLEEP AID PO SCH ×2 (17:11→21:00)
[2018-03-10] MEDS: RED YEAST RICE PO SCH ×2 (17:11→20:17)
[2018-03-10] MEDS: rOPINIRole 1 MG (REQUIP) TABLET PO SCH (20:15)
[2018-03-11] VITALS: BP 123/73
[2018-03-11] MEDS: NS IV 1000 ML 1,000 ML IV SCH ×4 (01:09→21:46)
[2018-03-11] MEDS: PIPERACILLIN/TAZO 4.5 GM/NS 100 ML IV SCH ×6 (01:09→17:03)
[2018-03-11 04:00] VITALS: BP 135/81
[2018-03-11 05:19] LABS: BASOPHILS % (AUTO) 0 % (0-10); EOSINOPHILS # (AUTO) 0.2 10^3/uL (0.0-0.3); EOSINOPHILS % (AUTO) 2 % (0-10); HEMATOCRIT 25 % (40-54); HEMOGLOBIN 8.1 G/DL (13.3-17.7); LYMPHOCYTES % (AUTO) 10 % (12-44); MEAN CORPUSCULAR HEMOGLOBIN 31 PG (25-34); MEAN CORPUSCULAR HGB CONC 32 G/DL (32-36); MEAN CORPUSCULAR VOLUME 96 FL (80-99); MEAN PLATELET VOLUME 8.7 FL (7.4-10.4); MONOCYTES # (AUTO) 0.8 X 10^3 (0.0-1.0); MONOCYTES % (AUTO) 7 % (0-12); NEUTROPHILS # (AUTO) 8.4 X 10^3 (1.8-7.8); NEUTROPHILS % (AUTO) 81 % (42-75); PLATELET COUNT 374 10^3/uL (130-400); RED BLOOD COUNT 2.64 10^6/uL (4.35-5.85); RED CELL DISTRIBUTION WIDTH 12.8 % (10.0-14.5); WHITE BLOOD COUNT 10.4 10^3/uL (4.3-11.0)
[2018-03-11 05:35] LABS: BUN/CREATININE RATIO 7; CALCIUM 8.5 MG/DL (8.5-10.1); CARBON DIOXIDE 23 MMOL/L (21-32); CHLORIDE 108 MMOL/L (98-107); CREATININE SERUM 0.81 MG/DL (0.60-1.30); GFR ESTIMATED > 60; GLUCOSE 110 MG/DL (70-105); POTASSIUM 3.7 MMOL/L (3.6-5.0); SODIUM 139 MMOL/L (135-145)
[2018-03-11] MEDS: JANUMET PO SCH ×2 (07:06→17:03)
[2018-03-11] MEDS: GLIMEPIRIDE 4 MG (AMARYL) TAB PO SCH ×2 (07:06→17:03)
[2018-03-11] MEDS: MULTIVIT W/MINERALS TAB (THERAGRAN M) PO SCH (07:06)
[2018-03-11] MEDS ORDERED: ONDANSETRON 4 MG/2 ML (SDV) Z0FRAN ONE (07:18)
[2018-03-11] MEDS ORDERED: LIDOCAINE PF 2% 2 ML (XYLOCAINE) VIAL ONE ×2 (07:18→07:22)
[2018-03-11] MEDS ORDERED: proPOfol 200 MG/20 ML (DIPRIVAN) VIAL IV ONE (07:18)
[2018-03-11] MEDS ORDERED: MIDAZOLAM 2 MG/2 ML (VERSED) VIAL ONE (07:19)
[2018-03-11] MEDS ORDERED: fentaNYL INJECTION 100 MCG/2 ML AMP ONE (07:19)
[2018-03-11] MEDS ORDERED: SEVOFLURANE (ULTANE) 15 ML INHAL SOLN ONE ×5 (07:22→08:59)
[2018-03-11] MEDS: VANCOMYCIN 1500 MG/NS 500 ML IVPB IV SCH ×4 (07:27→20:01)
[2018-03-11] MEDS ORDERED: LACTATED RINGERS 1,000 ML IV PRN (08:00)
--- NOTE | 2018-03-11 08:03 | Progress Note-Pre Operative ---
Pre-Operative Progress Note H&P Reviewed The H&P was reviewed, patient examined and no changes noted. Date Seen by Provider: Mar 11, 2018 Time Seen by Provider: 07:49 Date H&P Reviewed: Mar 11, 2018 Time H&P Reviewed: 07:49 Pre-Operative Diagnosis: right foot wound LEORA HANEY DO Mar 11, 2018 08:03
[2018-03-11] MEDS ORDERED: morphine INJ 10 MG/ML 1ML (SYR OR VIAL) ONE (08:15)
[2018-03-11] MEDS ORDERED: PHENYLEPHRINE 100 MCG/ML 10 ML (ANESTHESIA) SYR ONE (08:39)
[2018-03-11] MEDS ORDERED: VANCOMYCIN 1000 MG/VIAL ONE (08:40)
[2018-03-11] MEDS ORDERED: morphine INJ 10 MG/ML 1ML (SYR OR VIAL) IVP ONE (09:45)
[2018-03-11] MEDS ORDERED: ONDANSETRON 4 MG/2 ML (SDV) Z0FRAN IVP PRN (09:45)
[2018-03-11] MEDS ORDERED: HYDROmorphone 2 MG/ML VIAL (DILAUDID) IV ONE (09:45)
[2018-03-11] MEDS ORDERED: MEPERIDINE (DEMEROL) INJ 50 MG/ML IVP ONE (09:45)
[2018-03-11] MEDS: RED YEAST RICE PO SCH ×2 (10:21→20:03)
[2018-03-11] MEDS: lisINopril 10 MG (PRINIVIL) TABLET PO SCH ×2 (10:22→20:02)
[2018-03-11] MEDS: ENOXAPARIN 40 MG/0.4 ML (LOVENOX) SYR SC SCH (10:22)
[2018-03-11] MEDS: HYDROcodone/APAP 5 MG/325 MG (LORTAB) TAB PO PRN ×3 (10:34→20:02)
[2018-03-11] MEDS: LORazepam 1 MG (ATIVAN) TAB PO PRN ×2 (10:34→21:51)
[2018-03-11] MEDS: BACLOFEN 10 MG (LIORESAL) TAB PO PRN ×2 (10:34→21:51)
--- NOTE | 2018-03-11 11:18 | Progress Note-Hospitalist ---
Progress Note Progress Notes/Assess & Plan Date Seen 03/11/18 Time Seen by Provider: 11:15 Assessment & Plan The patient had just returned to his room after debridement of his wound on the right great toe. He has no complaints but is rather groggy. Physical exam: Lungs are clear to auscultation. CV is regular without murmur. Abdomen is soft. The right foot has a fresh clean dressing. Impression: Severe sepsis, resolved. 2.osteomyelitis right great toe. 3.status post debridement of number 2. 4.diabetes mellitus Plan: Await findings and cultures from debridement specimen Focused Exam Lactate Level 03/08/18 17:05: Lactic Acid Level 0.84 03/08/18 23:20: Lactic Acid Level 0.39L YAYO MCMULLEN MD Mar 11, 2018 11:18
[2018-03-11 12:00] VITALS: BP 128/72
--- NOTE | 2018-03-11 13:10 | Progress Note-Post Operative ---
Post-Operative Progess Note Surgeon (s)/Housekeeping Assistant (s) Surgeon LEORA HANEY DO Housekeeping Assistant: Dr. Lassiter Pre-Operative Diagnosis right foot wound with osteomyelitis Post-Operative Diagnosis right foot wound, osteomyelitis Procedure & Operative Findings Date of Procedure 03/11/18 Procedure Performed/Findings debridement of right foot wound 5x3.5 cm removal of 1st metatarsal head placement of bone void filler removal of sesamoid bone Anesthesia Type general Estimated Blood Loss Estimated blood loss (mL): min Specimens/Packing Specimens Removed culture of wound, right 1st metatarsal head, right sesamoid bone Packing: LEORA Donnelly DO Mar 11, 2018 13:10
[2018-03-11] MEDS: fentaNYL INJECTION 100 MCG/2 ML AMP IVP PRN (14:29)
--- NOTE | 2018-03-11 15:07 | OPERATIVE REPORT ---
DATE OF SERVICE: 03/11/2018 PREOPERATIVE DIAGNOSIS: Right foot wound with osteomyelitis. POSTOPERATIVE DIAGNOSIS: Right foot wound with osteomyelitis. PROCEDURES: Debridement of right foot wound 5 x 3.5 cm, removal of the first metatarsal head, placement of bone void filler, removal of sesamoid bone. SURGEON: Hipolito Lewis DO MICROCOMPUTER SUPPORT SPECIALIST: Dr. Lassiter to assist in retraction, dissection and further decision making for other stage surgeries. ANESTHESIA: General. ESTIMATED BLOOD LOSS: Minimal. COMPLICATIONS: None. INDICATIONS: The patient is a 42-year-old male with right foot wound with MRI suggesting osteomyelitis. The patient has drainage from the wound and it was discussed need for the procedure above. The patient understands that will likely need further surgeries depending upon findings. He understands risks and benefits and wished to proceed. Consent signed and on the chart. DESCRIPTION OF PROCEDURE: The patient was taken to the operating suite. He was prepped and draped in sterile fashion. Surgical pause was performed. The wound of the medial aspect of the right foot along the medial aspect of the right first metatarsal was debrided and opened all the way down to the first metatarsal. There was some purulent material within this area. Cultures were obtained. The first metatarsal head was encountered and very soft bone present, which fractured just with touching the first metatarsal head. A McGlamry elevator was used to dissect around it and remove the first metatarsal head. There was some slight fragmentation, which a rongeur was used to take off the sharp edges. The first metatarsal had significant bone void present as well. The sesamoid bones were inspected. The medial sesamoid bone was soft, which then dissection both sharp and blunt dissection was used to get around the sesamoid bone until it was removed as well. Distally, there was evidence of some bone damage there, but however, this was firm at this time. Further pockets were encountered of purulent material. Copious amounts of irrigation was used to irrigate the wound. The overall wound size was 5 x 3.5 cm. The bone void was filled with Stimulan and the wound was also packed with Stimulan as well. A total of 5 mL was used. The surrounding tissues were then washed and dried and a sterile bandage was applied. The patient will need further surgical intervention. Job ID: [id number] DocumentID: [id number] Dictated Date: 03/11/2018 13:18:02 Shingle Bolt Cutter Date: 03/11/2018 15:06:04 Dictated By: DO ASAD SAMAYOA
[2018-03-11 15:30] VITALS: BP 136/75
[2018-03-11 19:35] VITALS: BP 136/84
[2018-03-11] MEDS: rOPINIRole 1 MG (REQUIP) TABLET PO SCH (20:01)
[2018-03-11] MEDS: ONDANSETRON 4 MG/2 ML (SDV) Z0FRAN IVP PRN (20:01)
[2018-03-11] MEDS: EQUATE SLEEP AID PO SCH (20:03)
[2018-03-12] MEDS: NS IV 1000 ML 1,000 ML IV SCH ×3 (00:18→18:30)
[2018-03-12] MEDS: PIPERACILLIN/TAZO 4.5 GM/NS 100 ML IV SCH ×6 (00:19→18:31)
[2018-03-12 00:52] VITALS: BP 126/70
[2018-03-12] MEDS: HYDROcodone/APAP 5 MG/325 MG (LORTAB) TAB PO PRN ×3 (04:12→20:45)
[2018-03-12 04:42] VITALS: BP 143/82
[2018-03-12] MEDS: MULTIVIT W/MINERALS TAB (THERAGRAN M) PO SCH (06:18)
[2018-03-12 06:40] LABS: BASOPHILS % (AUTO) 0 % (0-10); EOSINOPHILS # (AUTO) 0.3 10^3/uL (0.0-0.3); EOSINOPHILS % (AUTO) 3 % (0-10); HEMATOCRIT 24 % (40-54); HEMOGLOBIN 7.5 G/DL (13.3-17.7); LYMPHOCYTES % (AUTO) 12 % (12-44); MEAN CORPUSCULAR HEMOGLOBIN 31 PG (25-34); MEAN CORPUSCULAR HGB CONC 32 G/DL (32-36); MEAN CORPUSCULAR VOLUME 97 FL (80-99); MEAN PLATELET VOLUME 8.8 FL (7.4-10.4); MONOCYTES # (AUTO) 0.6 X 10^3 (0.0-1.0); MONOCYTES % (AUTO) 7 % (0-12); NEUTROPHILS # (AUTO) 6.8 X 10^3 (1.8-7.8); NEUTROPHILS % (AUTO) 78 % (42-75); PLATELET COUNT 363 10^3/uL (130-400); RED BLOOD COUNT 2.43 10^6/uL (4.35-5.85); RED CELL DISTRIBUTION WIDTH 12.9 % (10.0-14.5); WHITE BLOOD COUNT 8.7 10^3/uL (4.3-11.0)
[2018-03-12 06:57] LABS: BUN/CREATININE RATIO 7; CALCIUM 8.3 MG/DL (8.5-10.1); CARBON DIOXIDE 23 MMOL/L (21-32); CHLORIDE 108 MMOL/L (98-107); GFR ESTIMATED > 60; GLUCOSE 61 MG/DL (70-105); POTASSIUM 3.5 MMOL/L (3.6-5.0); SODIUM 140 MMOL/L (135-145)
[2018-03-12] MEDS ORDERED: TROUGH ORDER-PHARMACY XX NR (07:00)
[2018-03-12 08:00] VITALS: BP 131/74
[2018-03-12] MEDS: lisINopril 10 MG (PRINIVIL) TABLET PO SCH ×2 (09:22→19:40)
[2018-03-12] MEDS: ONDANSETRON 4 MG/2 ML (SDV) Z0FRAN IVP PRN (09:22)
[2018-03-12] MEDS: VANCOMYCIN 1500 MG/NS 500 ML IVPB IV SCH ×4 (09:23→19:40)
[2018-03-12] MEDS: fentaNYL INJECTION 100 MCG/2 ML AMP IVP PRN ×3 (09:33→21:30)
--- NOTE | 2018-03-12 09:35 | Anesthesia-General Post-Op ---
General Patient Condition Mental Status/LOC: Same as Preop Cardiovascular: Satisfactory Nausea/Vomiting: Absent Respiratory: Satisfactory Pain: Controlled Complications: Absent Post Op Complications Complications None Follow Up Care/Instructions Patient Instructions None needed. Anesthesia/Patient Condition Patient Condition Patient is doing well, no complaints, stable vital signs, no apparent adverse anesthesia problems. No complications reported per nursing. AMY GILMORE CRNA Mar 12, 2018 09:35
[2018-03-12] MEDS: RED YEAST RICE PO SCH ×2 (09:42→19:41)
[2018-03-12] MEDS: GLIMEPIRIDE 4 MG (AMARYL) TAB PO SCH ×2 (09:43→17:00)
[2018-03-12] MEDS: JANUMET PO SCH ×2 (09:44→17:00)
--- NOTE | 2018-03-12 10:43 | Progress Note-Hospitalist ---
Subjective HPI/CC On Admission Date Seen by Provider: Mar 12, 2018 Time Seen by Provider: 10:37 CC: Right foot infection Subjective/Events-last exam Pt reports feeling well and he is ready to go home. He does admit that he's not eating well either. Objective Exam Vital Signs Vital Signs Date Time Temp Pulse Resp B/P (MAP) Pulse Ox O2 Delivery O2 Flow Rate FiO2 03/12/18 08:00 97.1 91 20 131/74 (93) 95 Room Air Capillary Refill : Less Than 3 Seconds General Appearance: No Apparent Distress, Chronically ill Respiratory: Lungs Clear, No Respiratory Distress Cardiovascular: Regular Rate, Rhythm, No Murmur Extremity: Other (right foot wrapped in surgical dressing) Neurologic/Psychiatric: Alert, Oriented x3 Results/Procedures Lab Laboratory Tests 03/12/18 06:30 Patient resulted labs reviewed. 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 Status: Chronic Assessment & Plan: Abx as above Discussed with Dr Lewis and Dr Lassiter Plan for OR on Monday If cultures back before then may be able to DC home with IV abx until surgery (3) Diabetes mellitus Status: Chronic Assessment & Plan: ON and Amaryl Will hold for now Qualifiers: Diabetes mellitus type: type 2 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
[2018-03-12] MEDS: ENOXAPARIN 40 MG/0.4 ML (LOVENOX) SYR SC SCH (13:31)
--- NOTE | 2018-03-12 16:15 | Podiatry Progress Note ---
Standard Progress Note Progress Notes/Assess & Plan Date Seen by a Provider: Mar 12, 2018 Time Seen by a Provider: 16:10 Progress/Assessment & Plan Consult dictated. I&D performed yesterday. The patient is doing well. White count has dropped. Awaiting bone culture results to determine specifics for antibiotic therapy. Plan on final right foot procedure on Monday the . He will possibly be able to be treated outpatient at that point depending on antibiotic needs. Final Diagnosis Osteomyelitis right 1st metatarsal, Diabetic Neuropathy, Chronic Ulceration right foot STEFANY SANTORO DPM Mar 12, 2018 16:15
[2018-03-12 16:44] VITALS: BP 146/83
--- NOTE | 2018-03-12 17:13 | CONSULTATION REPORT ---
DATE OF SERVICE: 03/12/2018 REASON FOR CONSULTATION: Diabetic foot ulceration, right foot with osteomyelitis. HISTORY OF PRESENT ILLNESS: This 42-year-old was admitted through the ER with drainage of right great toe joint ulcer. The patient indicated he had systemic findings of fever, chills and generalized malaise. The patient was subsequently placed on broad spectrum antibiotics and fluid, and was admitted to the floor for hypotensive episode. The patient indicated that he was feeling much better after the IV antibiotics. Yesterday, the patient was taken to the OR where Dr. Lewis assisted by myself performed an incision and drainage to the right first metatarsophalangeal joint. The head of the first metatarsal was removed as the bone quality was extremely poor posterior to the head. This allowed access to the cancellous portion of the remaining first metatarsal, which was packed with antibiotic beads. Bone cultures were taken to dictate definitive antibiotic treatment for this patient. He remains nonweightbearing on the right lower extremity with a sterile dressing applied. He denies any significant discomfort at this time with the exception of frustration and not being able to get outside and move around. He denies any current fever, chills, nausea or vomiting. 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 He also has a history of hypertension. SOCIAL HISTORY: The patient is a current every day smoker with the exception of the last four days, as he has been admitted he has not utilized tobacco and has a desire to quit. 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 CURRENT MEDICATIONS: Listed on the patient's chart. ALLERGIES: He has no known drug allergies. PHYSICAL EXAMINATION: LOWER EXTREMITIES: Right lower extremity, he has 3/4 posterior tibial pulse on the right, 1/4 dorsalis pedis pulse on the right. Edema is noted, increase in calor, but significantly improved since yesterday. The patient has diminished light touch and sharp dull sensation on the right lower extremity. DERMATOLOGIC: The patient has an open wound to the medial aspect of the first metatarsal head area with the incision that extends distally and proximally approximately 2 cm in both directions. There is no active drainage. There is serosanguineous drainage to the dressing, which was moderate. No proximal streaking, no bogginess, no malodor noted. The patient has a partial thickness wound approximately 1 cm in diameter to the plantar aspect of the right fifth metatarsal head. There is a dorsal dislocated fourth digit on the right lower extremity. 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 MRI results indicate that there is osteomyelitis of the entire first metatarsal on the right lower extremity. ASSESSMENT: Sepsis, improved; type 2 diabetes with chronic ulceration; neuropathy, right foot; and osteomyelitis, right first metatarsal. PLAN: The patient is to be nonweightbearing right lower extremity as much as possible. Encouraged the patient to continue with his desire to be tobacco free. We are awaiting the definitive results on the cultures taken of the bone from yesterday's I and D. We anticipate that on next few days we should be able to go in and perform a more definitive procedure for the patient, which will be either a resection of the first ray or a transmetatarsal amputation. The risks and benefits of both procedures were discussed at length with the patient. He will continue with IV antibiotics in the meantime. Job ID: [id number] DocumentID: [id number] Dictated Date: 03/12/2018 16:25:16 Car Carder Date: 03/12/2018 17:12:31 Dictated By: LEANNE CLEMENTS
[2018-03-12] MEDS: rOPINIRole 1 MG (REQUIP) TABLET PO SCH (19:40)
[2018-03-12] MEDS: BACLOFEN 10 MG (LIORESAL) TAB PO PRN (19:44)
[2018-03-12] MEDS: LORazepam 1 MG (ATIVAN) TAB PO PRN (19:47)
[2018-03-12] MEDS: EQUATE SLEEP AID PO SCH (19:49)
--- NOTE | 2018-03-12 21:26 | Progress Note ---
Subjective Date Seen by a Provider: Mar 12, 2018 Time Seen by a Provider: 08:20 Subjective/Events-last exam Patient states having some nausea. His right foot is feeling somewhat better. He has pain that he expects. He has no new complaints. He denies any vomiting fever sweats chills shortness of breath or chest pain. Objective Exam Vital Signs Date Time Temp Pulse Resp B/P (MAP) Pulse Ox O2 Delivery O2 Flow Rate FiO2 03/12/18 20:22 Room Air 03/12/18 16:44 98.0 83 20 146/83 (104) 91 Room Air 03/12/18 08:00 97.1 91 20 131/74 (93) 95 Room Air 03/12/18 04:42 98.5 96 17 143/82 (102) 93 Room Air 03/12/18 00:52 98.5 97 17 126/70 (88) 95 Room Air I & O 03/12/18 07:00 Intake Total 3890 ml Balance 3890 ml Capillary Refill : Less Than 3 Seconds General Appearance: No Apparent Distress HEENT: PERRL/EOMI, Normal ENT Inspection, Pharynx Normal Neck: Full Range of Motion, Normal Inspection, Non Tender, Supple, Carotid Bruit Respiratory: Lungs Clear, No Respiratory Distress Cardiovascular: Regular Rate, Rhythm, No Murmur Gastrointestinal: normal bowel sounds, non tender, soft, no organomegaly, no pulsatile mass Extremity: Other (Regular extremities less edema. No malodor slight serosanguineous drainage) Neurologic/Psychiatric: Alert, Oriented x3 Skin: Normal Color, Warm/Dry Lymphatic: No Adenopathy Results Lab Laboratory Tests 03/12/18 05:32: Glucometer 90 03/12/18 06:30: White Blood Count 8.7, Red Blood Count 2.43L, Hemoglobin 7.5L, Hematocrit 24L, Mean Corpuscular Volume 97, Mean Corpuscular Hemoglobin 31, Mean Corpuscular Hemoglobin Concent 32, Red Cell Distribution Width 12.9, Platelet Count 363, Mean Platelet Volume 8.8, Neutrophils (%) (Auto) 78H, Lymphocytes (%) (Auto) 12 , Monocytes (%) (Auto) 7, Eosinophils (%) (Auto) 3, Basophils (%) (Auto) 0, Neutrophils # (Auto) 6.8, Lymphocytes # (Auto) 1.0, Monocytes # (Auto) 0.6, Eosinophils # (Auto) 0.3, Basophils # (Auto) 0.0, Sodium Level 140, Potassium Level 3.5L, Chloride Level 108H, Carbon Dioxide Level 23, Anion Gap 9, Blood Urea Nitrogen 5L, Creatinine 0.70, Estimat Glomerular Filtration Rate > 60, BUN/ Creatinine Ratio 7, Glucose Level 61L, Calcium Level 8.3L, Vancomycin Level Trough 11.6 03/12/18 09:19: Glucometer 58*L 03/12/18 10:49: Glucometer 93 03/12/18 16:48: Glucometer 114H 03/12/18 20:30: Glucometer 100 Microbiology 03/08/18 Blood Culture - Preliminary, Resulted Coryneform bacteria 03/11/18 Gram Stain - Final, Resulted 03/11/18 Anaerobic Culture, Resulted Pending 03/11/18 Surgical Culture - Preliminary, Resulted Culture In Progress Assessment/Plan Assessment/Plan Assessment/Plan Right Diabetic Foot ulcer - non healing Hypotension R/O sepsis Osteomyeltis right first metatarsal and proximal phalanx Status post debridement and removal of right first metatarsal head and sesamoid bone and packing of bone void with stimulon Patient activity is nonweightbearing to the right lower extremity as possible. Patient has Stimulon within wound. Patient to continue on IV antibiotics as well. Patient to have more definitive procedure likely Monday. Clinical Quality Measures DVT/VTE Risk/Contraindication: Risk Factor Score Per Nursin RFS Level Per Nursing on Admit: 3=High LEORA HANEY DO Mar 12, 2018 21:26
[2018-03-12] MEDS ORDERED: morphine INJ 10 MG/ML 1ML (SYR OR VIAL) IVP ONE (21:45)
[2018-03-13] MEDS: NS IV 1000 ML 1,000 ML IV SCH ×4 (00:24→23:52)
[2018-03-13] MEDS: PIPERACILLIN/TAZO 4.5 GM/NS 100 ML IV SCH ×6 (00:24→17:12)
[2018-03-13 00:55] VITALS: BP 137/81
[2018-03-13] MEDS: HYDROcodone/APAP 5 MG/325 MG (LORTAB) TAB PO PRN ×2 (04:24→10:02)
[2018-03-13] MEDS: fentaNYL INJECTION 100 MCG/2 ML AMP IVP PRN ×5 (05:40→23:59)
[2018-03-13 05:46] LABS: BASOPHILS % (AUTO) 0 % (0-10); EOSINOPHILS # (AUTO) 0.4 10^3/uL (0.0-0.3); EOSINOPHILS % (AUTO) 5 % (0-10); HEMATOCRIT 25 % (40-54); HEMOGLOBIN 7.7 G/DL (13.3-17.7); LYMPHOCYTES % (AUTO) 13 % (12-44); MEAN CORPUSCULAR HEMOGLOBIN 30 PG (25-34); MEAN CORPUSCULAR HGB CONC 31 G/DL (32-36); MEAN CORPUSCULAR VOLUME 97 FL (80-99); MEAN PLATELET VOLUME 8.7 FL (7.4-10.4); MONOCYTES # (AUTO) 0.6 X 10^3 (0.0-1.0); MONOCYTES % (AUTO) 7 % (0-12); NEUTROPHILS % (AUTO) 74 % (42-75); PLATELET COUNT 392 10^3/uL (130-400); RED BLOOD COUNT 2.57 10^6/uL (4.35-5.85); RED CELL DISTRIBUTION WIDTH 13.1 % (10.0-14.5)
[2018-03-13] MEDS: MULTIVIT W/MINERALS TAB (THERAGRAN M) PO SCH (05:48)
[2018-03-13] MEDS: GLIMEPIRIDE 4 MG (AMARYL) TAB PO SCH ×2 (05:49→17:12)
[2018-03-13] MEDS: JANUMET PO SCH ×2 (05:49→17:13)
[2018-03-13 06:11] LABS: BUN/CREATININE RATIO 8; CALCIUM 8.7 MG/DL (8.5-10.1); CARBON DIOXIDE 23 MMOL/L (21-32); CHLORIDE 108 MMOL/L (98-107); CREATININE SERUM 0.73 MG/DL (0.60-1.30); GFR ESTIMATED > 60; GLUCOSE 105 MG/DL (70-105); POTASSIUM 3.6 MMOL/L (3.6-5.0); SODIUM 140 MMOL/L (135-145)
[2018-03-13] MEDS: VANCOMYCIN 1500 MG/NS 500 ML IVPB IV SCH ×4 (07:47→20:44)
[2018-03-13] MEDS ORDERED: SEMAGLUTIDE 2 MG/1.5 ML SQ SCH (07:59)
[2018-03-13] MEDS: RED YEAST RICE PO SCH ×2 (07:59→20:47)
[2018-03-13] MEDS: lisINopril 10 MG (PRINIVIL) TABLET PO SCH ×2 (07:59→20:45)
[2018-03-13 08:00] VITALS: BP 138/77
[2018-03-13] MEDS: BACLOFEN 10 MG (LIORESAL) TAB PO PRN (10:02)
[2018-03-13] MEDS: ENOXAPARIN 40 MG/0.4 ML (LOVENOX) SYR SC SCH (10:03)
--- NOTE | 2018-03-13 11:16 | Progress Note-Hospitalist ---
Subjective HPI/CC On Admission Date Seen by Provider: Mar 13, 2018 Time Seen by Provider: 11:11 CC: Right foot infection Subjective/Events-last exam Pt reports feeling okay but having pain. Fentanyl helps but does not last long enough. Objective Exam Vital Signs Vital Signs Date Time Temp Pulse Resp B/P (MAP) Pulse Ox O2 Delivery O2 Flow Rate FiO2 03/14/18 08:00 97.6 69 18 140/81 (100) 94 Room Air Capillary Refill : Less Than 3 Seconds General Appearance: No Apparent Distress, Chronically ill Respiratory: Lungs Clear, No Respiratory Distress Cardiovascular: Regular Rate, Rhythm, No Murmur Gastrointestinal: Normal Bowel Sounds, Non Tender, Soft Neurologic/Psychiatric: Alert, Oriented x3 Results/Procedures Lab Patient resulted labs reviewed. Imaging: Reviewed Imaging Report Assessment/Plan Assessment and Plan Assess & Plan/Chief Complaint Severe Sepsis Diagnosis/Problems Diagnosis/Problems (1) Sepsis Status: Resolved Assessment & Plan: Now resolved Continue on Vanc and Zosyn Await cultures from OR still in progress Qualifiers: Sepsis type: sepsis due to unspecified organism Qualified Codes: A41.9 - Sepsis, unspecified organism (2) Osteomyelitis due to secondary diabetes Status: Chronic Assessment & Plan: Abx as above Discussed with Dr Lewis and Dr Lassiter Plan for OR on Monday Will likely not be able to DC before surgery as prelim ID not back yet on culture (3) Diabetes mellitus Status: Chronic Assessment & Plan: ON and Amaryl Will hold for now as running low Add sliding scale Qualifiers: Diabetes mellitus type: type 2 Diabetes mellitus terminologist insulin use: without usp use Diabetes mellitus complication status: with unspecified complications Qualified Codes: E11.8 - Type 2 diabetes mellitus with unspecified complications (4) Normocytic anemia Assessment & Plan: Hgb 7.7 Will check on May need transfusion preop Clinical Quality Measures DVT/VTE Risk/Contraindication: Risk Factor Score Per Nursin RFS Level Per Nursing on Admit: 3=ARIA Miller MD Mar 13, 2018 11:16 am
[2018-03-13] MEDS: HYDROcodone/APAP 10 MG/325 MG (LORTAB) TAB PO PRN ×2 (12:12→20:45)
[2018-03-13 16:00] VITALS: BP 149/81
--- NOTE | 2018-03-13 16:05 | Progress Note ---
Subjective Date Seen by a Provider: Mar 13, 2018 Time Seen by a Provider: 16:01 Subjective/Events-last exam patient doing okay. pain tolerable. no new issues. denies n/v fever sweats chills shortness of breath or chest pain. Objective Exam Vital Signs Date Time Temp Pulse Resp B/P (MAP) Pulse Ox O2 Delivery O2 Flow Rate FiO2 03/13/18 08:00 96.9 81 20 138/77 (97) 90 Room Air 03/13/18 00:55 97.7 78 18 137/81 (99) 96 Room Air 03/12/18 20:22 Room Air 03/12/18 16:44 98.0 83 20 146/83 (104) 91 Room Air I & O 03/13/18 07:00 Intake Total 3932.5 ml Balance 3932.5 ml Capillary Refill : Less Than 3 Seconds General Appearance: No Apparent Distress HEENT: PERRL/EOMI, Normal ENT Inspection, Pharynx Normal Neck: Full Range of Motion, Normal Inspection, Non Tender, Supple, Carotid Bruit Respiratory: Lungs Clear, No Respiratory Distress Cardiovascular: Regular Rate, Rhythm, No Murmur Gastrointestinal: normal bowel sounds, non tender, soft, no organomegaly, no pulsatile mass Extremity: Other (Regular extremities less edema. No malodor slight serosanguineous drainage, no surrounding erythema, beads in place) Neurologic/Psychiatric: Alert, Oriented x3 Skin: Normal Color, Warm/Dry Lymphatic: No Adenopathy Results Lab Laboratory Tests 03/12/18 16:48: Glucometer 114H 03/12/18 20:30: Glucometer 100 03/13/18 05:37: White Blood Count 8.0, Red Blood Count 2.57L, Hemoglobin 7.7L, Hematocrit 25L, Mean Corpuscular Volume 97, Mean Corpuscular Hemoglobin 30, Mean Corpuscular Hemoglobin Concent 31L, Red Cell Distribution Width 13.1, Platelet Count 392, Mean Platelet Volume 8.7, Neutrophils (%) (Auto) 74, Lymphocytes (%) (Auto) 13, Monocytes (%) (Auto) 7, Eosinophils (%) (Auto) 5, Basophils (%) (Auto) 0, Neutrophils # (Auto) 6.0, Lymphocytes # (Auto) 1.0, Monocytes # (Auto) 0.6, Eosinophils # (Auto) 0.4H, Basophils # (Auto) 0.0, Sodium Level 140, Potassium Level 3.6, Chloride Level 108H, Carbon Dioxide Level 23, Anion Gap 9, Blood Urea Nitrogen 6L, Creatinine 0.73, Estimat Glomerular Filtration Rate > 60, BUN/ Creatinine Ratio 8, Glucose Level 105, Calcium Level 8.7 03/13/18 05:39: Glucometer 107 03/13/18 10:59: Glucometer 150H 03/13/18 13:26: Glucometer 154H 03/13/18 15:39: Glucometer 144H Microbiology 03/08/18 Blood Culture - Preliminary, Resulted Coryneform bacteria 03/11/18 Gram Stain - Final, Resulted 03/11/18 Anaerobic Culture - Preliminary, Resulted No anaerobes isolated 03/11/18 Surgical Culture - Preliminary, Resulted See Comments Assessment/Plan Assessment/Plan Assessment/Plan Right Diabetic Foot ulcer - non healing Hypotension R/O sepsis Osteomyeltis right first metatarsal and proximal phalanx Status post debridement and removal of right first metatarsal head and sesamoid bone and packing of bone void with stimulon Patient activity is nonweightbearing to the right lower extremity as much as possible. Patient has Stimulon within wound. Patient to continue on IV antibiotics as well. Patient to have more definitive procedure likely Monday. Clinical Quality Measures DVT/VTE Risk/Contraindication: Risk Factor Score Per Nursin RFS Level Per Nursing on Admit: 3=High LEORA HANEY DO Mar 13, 2018 16:05
[2018-03-13] MEDS ORDERED: CALCIUM CARBONATE 500 MG (TUMS) TAB.CHEW PO PRN (18:30)
[2018-03-13] MEDS: LORazepam 1 MG (ATIVAN) TAB PO PRN (20:45)
[2018-03-13] MEDS: rOPINIRole 1 MG (REQUIP) TABLET PO SCH (20:45)
[2018-03-13] MEDS: EQUATE SLEEP AID PO SCH (20:46)
[2018-03-14] MEDS: PIPERACILLIN/TAZO 4.5 GM/NS 100 ML IV SCH ×6 (00:16→16:52)
[2018-03-14 00:31] VITALS: BP 147/86
[2018-03-14] MEDS: fentaNYL INJECTION 100 MCG/2 ML AMP IVP PRN ×3 (04:19→09:56)
[2018-03-14] MEDS: HYDROcodone/APAP 10 MG/325 MG (LORTAB) TAB PO PRN ×2 (04:19→09:55)
[2018-03-14] MEDS: NS IV 1000 ML 1,000 ML IV SCH (06:47)
[2018-03-14] MEDS: MULTIVIT W/MINERALS TAB (THERAGRAN M) PO SCH (06:47)
[2018-03-14] MEDS: GLIMEPIRIDE 4 MG (AMARYL) TAB PO SCH ×2 (06:47→16:52)
[2018-03-14] MEDS: JANUMET PO SCH ×2 (06:48→16:52)
[2018-03-14] MEDS: VANCOMYCIN 1500 MG/NS 500 ML IVPB IV SCH ×4 (07:28→19:49)
[2018-03-14] MEDS: lisINopril 10 MG (PRINIVIL) TABLET PO SCH ×2 (07:59→21:10)
[2018-03-14] MEDS: RED YEAST RICE PO SCH ×2 (07:59→21:12)
[2018-03-14 08:00] VITALS: BP 140/81
--- NOTE | 2018-03-14 08:01 | Podiatry Progress Note ---
Standard Progress Note Progress Notes/Assess & Plan Date Seen by a Provider: Mar 14, 2018 Time Seen by a Provider: 07:52 Progress/Assessment & Plan Post op I&D right foot, POD #3. The patient reports no pain to the right foot. He denies F/C/N/V. Normal skin germania noted in Bone Cultures. He should be able to transition to oral antibiotics very easily after definitive foot procedure. He has elected to have a resection of the right 1st ray vs a transmetatarsal amputation. A/P: Osteomyelitis right foot. He is scheduled for the procedure 03-16-18 in the afternoon. Continue IV antibiotics. Final Diagnosis Osteomyelitis right foot STEFANY SANTORO DPM Mar 14, 2018 08:01
[2018-03-14] MEDS: ENOXAPARIN 40 MG/0.4 ML (LOVENOX) SYR SC SCH (09:57)
--- NOTE | 2018-03-14 11:21 | Progress Note ---
Subjective Date Seen by a Provider: Mar 14, 2018 Time Seen by a Provider: 17:03 Subjective/Events-last exam Pt feeling fine, no fever, N/V, abd pain, no foot pain. Dr Lassiter will take pt to OR tomorrow. Objective Exam Vital Signs Date Time Temp Pulse Resp B/P (MAP) Pulse Ox O2 Delivery O2 Flow Rate FiO2 03/14/18 08:00 97.6 69 18 140/81 (100) 94 Room Air 03/14/18 00:31 97.6 71 17 147/86 (106) 94 Room Air 03/13/18 16:00 97.5 79 20 149/81 (103) 92 Room Air I & O 03/14/18 07:00 Intake Total 4910 ml Balance 4910 ml Capillary Refill : Less Than 3 Seconds General Appearance: No Apparent Distress HEENT: PERRL/EOMI, Normal ENT Inspection, Pharynx Normal Neck: Full Range of Motion, Normal Inspection, Non Tender, Supple, Carotid Bruit Respiratory: Lungs Clear, No Respiratory Distress Cardiovascular: Regular Rate, Rhythm, No Murmur Gastrointestinal: normal bowel sounds, non tender, soft, no organomegaly, no pulsatile mass Extremity: Other (Regular extremities mild edema. No malodor slight serosanguineous drainage, no surrounding erythema, beads in place) Neurologic/Psychiatric: Alert, Oriented x3 Skin: Normal Color, Warm/Dry Lymphatic: No Adenopathy Results Lab Laboratory Tests 03/13/18 13:26: Glucometer 154H 03/13/18 15:39: Glucometer 144H 03/13/18 20:27: Glucometer 108 03/14/18 05:20: Glucometer 87 Microbiology 03/08/18 Blood Culture - Final, Complete Coryneform bacteria 03/11/18 Gram Stain - Final, Resulted 03/11/18 Anaerobic Culture - Preliminary, Resulted No anaerobes isolated 03/11/18 Surgical Culture - Preliminary, Resulted See Comments Assessment/Plan Assessment/Plan Assessment/Plan Right Diabetic Foot ulcer - non healing Osteomyeltis right first metatarsal and proximal phalanx Status post debridement and removal of right first metatarsal head and sesamoid bone and packing of bone void with stimulon Pt continuing on IV antibiotics, Pt is going to OR tomorrow for surgery with Dr. Lassiter. Pt to continue to be nonweightbearing on RLE as much as possible. Stimulon is within wound. Clinical Quality Measures DVT/VTE Risk/Contraindication: Risk Factor Score Per Nursin RFS Level Per Nursing on Admit: 3=High Physician Assessment Physician Assessment Scribed by Aashish Sen MS3 for SCOOBY Quiñones MEDICAL STUDENT Mar 14, 2018 11:21 LEORA HANEY DO Mar 14, 2018 21:45
--- NOTE | 2018-03-14 11:49 | Progress Note-Hospitalist ---
Subjective HPI/CC On Admission Date Seen by Provider: Mar 14, 2018 Time Seen by Provider: 11:49 CC: Right foot infection Subjective/Events-last exam Pt reports pain improved but still not controlled. No other concerns. Plan for OR tomorrow per patient. Objective Exam Vital Signs Vital Signs Date Time Temp Pulse Resp B/P (MAP) Pulse Ox O2 Delivery O2 Flow Rate FiO2 03/14/18 08:00 97.6 69 18 140/81 (100) 94 Room Air Capillary Refill : Less Than 3 Seconds General Appearance: No Apparent Distress, WD/WN Respiratory: Lungs Clear, No Respiratory Distress Cardiovascular: Regular Rate, Rhythm, No Murmur Gastrointestinal: Normal Bowel Sounds, Soft Neurologic/Psychiatric: Alert, Oriented x3 Results/Procedures Lab Patient resulted labs reviewed. 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: Chronic Assessment & Plan: Abx as above Discussed with Dr Lewis and Dr Lassiter Plan for OR tomorrow (3) Diabetes mellitus Status: Chronic Assessment & Plan: ON and Am Qualifiers: Diabetes mellitus type: type 2 Diabetes mellitus half-way insulin use: without half-way use Diabetes mellitus complication status: with unspecified complications Qualified Codes: E11.8 - Type 2 diabetes mellitus with unspecified complications (4) Normocytic anemia Assessment & Plan: Hgb 7.7 Check this afternoon and if less than 8 will transfuse for OR tomorrow Clinical Quality Measures DVT/VTE Risk/Contraindication: Risk Factor Score Per Nursin RFS Level Per Nursing on Admit: 3=High ARIA GABRIEL MD Mar 14, 2018 11:49 am
[2018-03-14] MEDS ORDERED: ONDANSETRON 4 MG/2 ML (SDV) Z0FRAN IVP PRN (12:00)
[2018-03-14] MEDS: oxyCODONE/APAP 5/325MG (PERCOCET 5) TABLET PO PRN ×3 (12:29→22:31)
[2018-03-14] MEDS ORDERED: NS IV 500 ML 500 ML IV SCH ×2 (15:30→19:44)
[2018-03-14 15:53] LABS: BASOPHILS # (AUTO) 0.1 10^3/uL (0.0-0.1); BASOPHILS % (AUTO) 1 % (0-10); EOSINOPHILS # (AUTO) 0.5 10^3/uL (0.0-0.3); EOSINOPHILS % (AUTO) 6 % (0-10); HEMATOCRIT 27 % (40-54); HEMOGLOBIN 8.3 G/DL (13.3-17.7); LYMPHOCYTES # (AUTO) 1.6 X 10^3 (1.0-4.0); LYMPHOCYTES % (AUTO) 19 % (12-44); MEAN CORPUSCULAR HEMOGLOBIN 30 PG (25-34); MEAN CORPUSCULAR HGB CONC 31 G/DL (32-36); MEAN CORPUSCULAR VOLUME 97 FL (80-99); MEAN PLATELET VOLUME 8.8 FL (7.4-10.4); MONOCYTES # (AUTO) 0.5 X 10^3 (0.0-1.0); MONOCYTES % (AUTO) 6 % (0-12); NEUTROPHILS # (AUTO) 5.8 X 10^3 (1.8-7.8); NEUTROPHILS % (AUTO) 69 % (42-75); PLATELET COUNT 463 10^3/uL (130-400); RED BLOOD COUNT 2.75 10^6/uL (4.35-5.85); WHITE BLOOD COUNT 8.5 10^3/uL (4.3-11.0)
[2018-03-14 16:00] VITALS: BP 168/79
[2018-03-14] MEDS: rOPINIRole 1 MG (REQUIP) TABLET PO SCH (21:10)
[2018-03-14] MEDS: morphine INJ 4 MG/ML 1 ML (VIAL/SYRINGE) IVP PRN (21:10)
[2018-03-14] MEDS: LORazepam 1 MG (ATIVAN) TAB PO PRN (21:11)
[2018-03-14] MEDS: BACLOFEN 10 MG (LIORESAL) TAB PO PRN (21:11)
[2018-03-14] MEDS: EQUATE SLEEP AID PO SCH (21:12)
[2018-03-14 22:03] VITALS: BP 148/67
[2018-03-14 22:21] VITALS: BP 143/81
[2018-03-15 00:26] VITALS: BP 138/87
[2018-03-15] MEDS: PIPERACILLIN/TAZO 4.5 GM/NS 100 ML IV SCH ×6 (00:28→17:52)
[2018-03-15] MEDS: oxyCODONE/APAP 5/325MG (PERCOCET 5) TABLET PO PRN ×2 (05:51→19:51)
[2018-03-15] MEDS: GLIMEPIRIDE 4 MG (AMARYL) TAB PO SCH ×2 (06:24→16:47)
[2018-03-15] MEDS: MULTIVIT W/MINERALS TAB (THERAGRAN M) PO SCH (06:24)
[2018-03-15] MEDS: JANUMET PO SCH ×2 (06:24→16:48)
[2018-03-15] MEDS ORDERED: LACTATED RINGERS 1,000 ML IV PRN ×2 (06:50→10:42)
--- NOTE | 2018-03-15 07:37 | Progress Note ---
Subjective Date Seen by a Provider: Mar 15, 2018 Time Seen by a Provider: 06:51 Subjective/Events-last exam Pt states he doing fine. Pt signed consent yesterday. Pt has been NPO since midnight. No complaints at this time. No N/V/D, fever, CP, SOB Objective Exam Vital Signs Date Time Temp Pulse Resp B/P (MAP) Pulse Ox O2 Delivery O2 Flow Rate FiO2 03/15/18 00:26 97.9 75 18 138/87 92 Room Air 03/15/18 00:26 97.9 75 18 138/87 (104) 92 Room Air 03/14/18 22:21 98.7 77 18 143/81 93 Room Air 03/14/18 22:03 97.9 73 18 148/67 93 03/14/18 19:55 Room Air 03/14/18 16:00 97.9 81 16 168/79 (108) 95 Room Air 03/14/18 08:00 97.6 69 18 140/81 (100) 94 Room Air I & O 03/15/18 07:00 Intake Total 2895 ml Balance 2895 ml Capillary Refill : Less Than 3 Seconds General Appearance: No Apparent Distress HEENT: PERRL/EOMI, Normal ENT Inspection, Pharynx Normal Neck: Full Range of Motion, Normal Inspection, Non Tender, Supple, Carotid Bruit Respiratory: Lungs Clear, No Respiratory Distress Cardiovascular: Regular Rate, Rhythm, No Murmur Gastrointestinal: normal bowel sounds, non tender, soft, no organomegaly, no pulsatile mass Extremity: Other (Regular extremities mild edema. No malodor slight serosanguineous drainage, no surrounding erythema, beads in place) Neurologic/Psychiatric: Alert, Oriented x3 Skin: Normal Color, Warm/Dry Lymphatic: No Adenopathy Results Lab Laboratory Tests 03/14/18 11:41: Glucometer 99 03/14/18 15:45: White Blood Count 8.5, Red Blood Count 2.75L, Hemoglobin 8.3L, Hematocrit 27L, Mean Corpuscular Volume 97, Mean Corpuscular Hemoglobin 30, Mean Corpuscular Hemoglobin Concent 31L, Red Cell Distribution Width 13.0, Platelet Count 463H, Mean Platelet Volume 8.8, Neutrophils (%) (Auto) 69, Lymphocytes (%) (Auto) 19, Monocytes (%) (Auto) 6, Eosinophils (%) (Auto) 6, Basophils (%) (Auto) 1, Neutrophils # (Auto) 5.8, Lymphocytes # (Auto) 1.6, Monocytes # (Auto) 0.5, Eosinophils # (Auto) 0.5H, Basophils # (Auto) 0.1 03/14/18 16:25: Glucometer 80 03/14/18 17:29: Glucometer 117H 03/14/18 19:49: Glucometer 112H 03/15/18 05:47: Glucometer 114H Microbiology 03/08/18 Blood Culture - Final, Complete Coryneform bacteria 03/11/18 Gram Stain - Final, Resulted 03/11/18 Anaerobic Culture - Preliminary, Resulted No anaerobes isolated 03/11/18 Surgical Culture - Final, Resulted See Comments Assessment/Plan Assessment/Plan Assessment/Plan Right Diabetic Foot ulcer - non healing Osteomyeltis right first metatarsal and proximal phalanx Status post debridement and removal of right first metatarsal head and sesamoid bone and packing of bone void with stimulon Pt continuing on IV antibiotics, Pt to go to surgery today with Dr. Lassiter. Will sign off call if needed. Clinical Quality Measures DVT/VTE Risk/Contraindication: Risk Factor Score Per Nursin RFS Level Per Nursing on Admit: 3=High Physician Assessment Physician Assessment Scribed by Aashish Sen MS3 for SCOOBY Quiñones MEDICAL STUDENT Mar 15, 2018 07:37 LEORA HANEY DO Mar 16, 2018 16:40
[2018-03-15 08:00] VITALS: BP 155/88
[2018-03-15] MEDS: VANCOMYCIN 1500 MG/NS 500 ML IVPB IV SCH ×4 (08:56→19:51)
[2018-03-15] MEDS: RED YEAST RICE PO SCH ×2 (08:56→21:07)
[2018-03-15] MEDS: lisINopril 10 MG (PRINIVIL) TABLET PO SCH ×2 (08:57→21:06)
[2018-03-15] MEDS ORDERED: fentaNYL INJECTION 100 MCG/2 ML AMP ONE (09:26)
[2018-03-15] MEDS ORDERED: MIDAZOLAM 2 MG/2 ML (VERSED) VIAL ONE (09:26)
[2018-03-15] MEDS ORDERED: ONDANSETRON 4 MG/2 ML (SDV) Z0FRAN ONE (09:45)
[2018-03-15] MEDS ORDERED: proPOfol 200 MG/20 ML (DIPRIVAN) VIAL IV ONE ×3 (09:45→09:46)
[2018-03-15] MEDS ORDERED: LIDOCAINE PF 2% 5 ML (XYLOCAINE) VIAL ONE (09:45)
[2018-03-15] MEDS ORDERED: BUPIVACAINE 0.5% 30 ML (SENSORCAINE) VIAL ONE (09:55)
--- NOTE | 2018-03-15 10:12 | Progress Note-Hospitalist ---
Subjective HPI/CC On Admission Date Seen by Provider: Mar 15, 2018 Time Seen by Provider: 09:30 CC: Right foot infection Subjective/Events-last exam Pt reports feeling well. Ready for surgery. No concerns at this time. Objective Exam Vital Signs Vital Signs Date Time Temp Pulse Resp B/P (MAP) Pulse Ox O2 Delivery O2 Flow Rate FiO2 03/15/18 08:00 Room Air 03/15/18 08:00 97.5 75 16 155/88 (110) 94 Capillary Refill : Less Than 3 Seconds General Appearance: No Apparent Distress, Chronically ill Respiratory: Lungs Clear, No Respiratory Distress Cardiovascular: Regular Rate, Rhythm Gastrointestinal: Normal Bowel Sounds, Soft Neurologic/Psychiatric: Alert, Oriented x3 Results/Procedures Lab Laboratory Tests 03/14/18 15:45 Patient resulted labs reviewed. 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: Chronic Assessment & Plan: Abx as above Discussed with Dr Lewis and Dr Lassiter Plan for OR today (3) Diabetes mellitus Status: Chronic Assessment & Plan: On Janumet and Amaryl Qualifiers: Diabetes mellitus type: type 2 Diabetes mellitus shelter insulin use: without intermediate school teacher use Diabetes mellitus complication status: with unspecified complications Qualified Codes: E11.8 - Type 2 diabetes mellitus with unspecified complications (4) Normocytic anemia Assessment & Plan: Hgb 8.3 Received 1 unit pRBCs Clinical Quality Measures DVT/VTE Risk/Contraindication: Risk Factor Score Per Nursin RFS Level Per Nursing on Admit: 3=High ARIA GABRIEL MD Mar 15, 2018 10:12 am
[2018-03-15] MEDS: ENOXAPARIN 40 MG/0.4 ML (LOVENOX) SYR SC SCH (10:32)
[2018-03-15] MEDS ORDERED: ONDANSETRON 4 MG/2 ML (SDV) Z0FRAN IVP PRN (10:45)
[2018-03-15] MEDS ORDERED: MEPERIDINE (DEMEROL) INJ 50 MG/ML IVP ONE (10:45)
[2018-03-15] MEDS ORDERED: morphine INJ 10 MG/ML 1ML (SYR OR VIAL) IVP ONE ×2 (10:45→12:30)
--- NOTE | 2018-03-15 10:47 | Progress Note-Pre Operative ---
Pre-Operative Progress Note H&P Reviewed The H&P was reviewed, patient examined and no changes noted. Date Seen by Provider: Mar 15, 2018 Time Seen by Provider: 10:46 Date H&P Reviewed: Mar 11, 2018 Time H&P Reviewed: 10:46 Pre-Operative Diagnosis: Osteomyelitis right 1st metatarsal and hallux STEFANY SANTORO DPM Mar 15, 2018 10:47 am
[2018-03-15] MEDS ORDERED: SEVOFLURANE (ULTANE) 15 ML INHAL SOLN ONE ×5 (11:15→12:11)
--- NOTE | 2018-03-15 12:29 | Progress Note-Post Operative ---
Post-Operative Progess Note Surgeon (s)/Lens Silverer (s) Surgeon STEFANY SANTORO DPM Lens Silverer: Dr. Santoro Pre-Operative Diagnosis Osteomyelitis right 1st metatarsal and hallux Post-Operative Diagnosis Same Procedure & Operative Findings Date of Procedure 03/15/18 Procedure Performed/Findings Amputation or the right 1st metatarsal and hallux, Tendoachilles Lengthening, right Anesthesia Type General Estimated Blood Loss Estimated blood loss (mL): Minimal Specimens/Packing Specimens Removed right hallux and 1st metatarsal Packing: STEFANY Mayes DPM Mar 15, 2018 12:29
--- NOTE | 2018-03-15 13:10 | OPERATIVE REPORT ---
DATE OF SERVICE: 03/15/2018 SURGEON: Demi Santoro DPM PREOPERATIVE DIAGNOSIS: Osteomyelitis, right first ray. POSTOPERATIVE DIAGNOSIS: Osteomyelitis, right first ray with the equinus. PROCEDURES: 1. Amputation of the right first metatarsal and hallux. 2. Tendo Achilles lengthening, all right foot. WOUND CLASS: Contaminated. ANESTHESIA: General. HEMOSTASIS: Pneumatic thigh tourniquet at 300 mmHg. INDICATION: This is a 42-year-old male, who presents with a chronic ulceration to the right first metatarsophalangeal joint area. MRI indicated osteomyelitis of the entire diaphysis of the right hallux involving the sesamoids as well as the proximal phalanx of the right hallux. The patient has undergone an incision and drainage previously, which seemed to reduce a lot of his local erythema and calor. The patient is agreeable to surgical intervention after risks and complications were discussed at length. We discussed a transmetatarsal amputation versus a first ray amputation. The patient was eager to preserve as much of the foot as possible. He understands that with ambulation without protection of the foot with a custom orthotic, he is more likely to break down. Now that the first ray has been amputated, he is willing to proceed. DESCRIPTION OF PROCEDURE: The patient was brought back to the operating table, placed in secure supine position. A general anesthetic was then induced. Appropriate time out was performed. Pneumatic thigh tourniquet was placed on the right lower extremity over several layers of padding. The right foot was then prepped and draped in normal sterile manner. The right foot was then elevated and allowed to exsanguinate after which the tourniquet was inflated to 300 mmHg. Attention was then directed to the medial aspect of the first metatarsophalangeal joint area where a 10 cm longitudinal curvilinear incision was created. The incision was deepened from the base of the first metatarsal along the medial shaft to the previous ulceration site, then circumferential around the right hallux. The hallux was then disarticulated and sent for gross and microscopic evaluation. The first metatarsal was then dissected sharply and utilizing a power sagittal saw, the proximal diaphysis base juncture was utilized for the osteotomy. The cortical bone was without pathology, grossly visualized at this time. The specimen was sent for gross and microscopic evaluation. The proximal portion of the amputated first metatarsal was also cut and removing approximately 5 mm of bone. This was sent separately for verification of this proximal portion being devoid of any osteomyelitis. Next, the soft tissue was inspected. The extensor and flexor tendons were removed. The lateral sesamoid was also removed. There was no obvious necrotic tissue; however, there was some soft tissue around the previous ulceration site and had a mucoid type appearance and all this was removed in toto. Power irrigation was then employed with 3000 mL infused with vancomycin. After this, irrigation was done. A swab culture was taken to confirm a relatively sterile environment. Next, closure was then performed after a stab incision was made to the plantar medial aspect of the amputation site. A Patrick-Caceres drain was introduced. The tourniquet was released noting minimal active bleeders, which were cauterized. The incision was then closed utilizing simple interrupted type stitch with 4-0 Prolene. Excellent apposition under minimal tension was appreciated at this time. Cap refill time is appropriate to all the remaining digits of the right foot as well as the plantar and dorsal flaps to the amputation site. Postoperative injection consisted of 6 mL of 0.5% Marcaine injected in a local infusion to the amputation site followed by Betadine soaked Adaptic, sterile 4 x 4 and sterile Kerlix. Attention was then directed to the posterior aspect of the right foot where a stab incision was created to the distal medial aspect of the Achilles tendon with an 11 blade and a portion of the Achilles tendon was then incised. A second incision to the medial aspect of the Achilles tendon approximately 3 cm proximal was then incised in a similar manner. A third incision was made to the lateral aspect of the Achilles tendon splitting the difference between the 2 previous incisions creating a Z slide lengthening type of procedure. The foot was then forcibly dorsiflexed releasing the tension to the Achilles tendon. Postoperative injection in this area included 5 mL of 0.5% Marcaine plain. Postoperative dressing consisted of Betadine soaked Adaptic, sterile Kerlix, soft roll and a posterior splint was then applied followed by two Keny wraps. The patient tolerated the anesthesia and procedure well and was transported from the operating room to the recovery area with vital signs stable and vascular status intact to the right foot. He is to be nonweightbearing on the right lower extremity. We anticipate that he will remain nonweightbearing until his foot is completely healed. He will continue with IV antibiotics. Job ID: [id number] DocumentID: [id number] Dictated Date: 03/15/2018 12:42:21 Continuous Process Coffee Roaster Date: 03/15/2018 13:10:09 Dictated By: DEMI SANTORO DPM
--- NOTE | 2018-03-15 13:12 | Anesthesia-General Post-Op ---
General Patient Condition Mental Status/LOC: Same as Preop Cardiovascular: Satisfactory Nausea/Vomiting: Absent Respiratory: Satisfactory Pain: Controlled Complications: Absent Post Op Complications Complications None Follow Up Care/Instructions Patient Instructions None needed. Anesthesia/Patient Condition Patient Condition Patient is doing well, no complaints, stable vital signs, no apparent adverse anesthesia problems. No complications reported per nursing. EILEEN BELLO CRNA Mar 15, 2018 13:12
[2018-03-15 14:00] VITALS: BP 159/87
[2018-03-15] MEDS: morphine INJ 4 MG/ML 1 ML (VIAL/SYRINGE) IVP PRN ×4 (14:07→22:18)
[2018-03-15 15:55] VITALS: BP 162/77
[2018-03-15] MEDS: LORazepam 1 MG (ATIVAN) TAB PO PRN (21:06)
[2018-03-15] MEDS: rOPINIRole 1 MG (REQUIP) TABLET PO SCH (21:07)
[2018-03-15] MEDS: EQUATE SLEEP AID PO SCH (22:17)
[2018-03-15] MEDS: BACLOFEN 10 MG (LIORESAL) TAB PO PRN (22:18)
[2018-03-16 00:08] VITALS: BP 157/77
[2018-03-16] MEDS ORDERED: PIPERACILLIN/TAZO 4.5 GM VIAL (ZOSYN) IV ONE ×2 (01:05→09:18)
[2018-03-16] MEDS ORDERED: NS (IVPB) 100 ML ONE ×2 (01:06→09:18)
[2018-03-16] MEDS: PIPERACILLIN/TAZO 4.5 GM/NS 100 ML IV SCH ×8 (01:24→23:36)
[2018-03-16] MEDS: oxyCODONE/APAP 5/325MG (PERCOCET 5) TABLET PO PRN ×4 (01:50→23:18)
[2018-03-16] MEDS: GLIMEPIRIDE 4 MG (AMARYL) TAB PO SCH ×2 (06:07→17:30)
[2018-03-16] MEDS: MULTIVIT W/MINERALS TAB (THERAGRAN M) PO SCH (06:07)
[2018-03-16] MEDS: JANUMET PO SCH ×2 (06:07→17:31)
[2018-03-16] MEDS: morphine INJ 4 MG/ML 1 ML (VIAL/SYRINGE) IVP PRN ×5 (06:15→23:17)
[2018-03-16] MEDS: VANCOMYCIN 1500 MG/NS 500 ML IVPB IV SCH ×4 (07:53→21:31)
[2018-03-16 08:00] VITALS: BP 156/79
[2018-03-16] MEDS: lisINopril 10 MG (PRINIVIL) TABLET PO SCH ×2 (08:18→21:31)
[2018-03-16] MEDS: RED YEAST RICE PO SCH ×2 (08:19→21:34)
[2018-03-16] MEDS: ENOXAPARIN 40 MG/0.4 ML (LOVENOX) SYR SC SCH (10:27)
--- NOTE | 2018-03-16 12:00 | Progress Note-Hospitalist ---
Subjective HPI/CC On Admission Date Seen by Provider: Mar 16, 2018 Time Seen by Provider: 11:47 CC: Right foot infection Subjective/Events-last exam Pt is laying in bed complaining of pain. States just received pain medication though. Discussed plan for drain and follow up with Dr Lassiter. Objective Exam Vital Signs Vital Signs Date Time Temp Pulse Resp B/P (MAP) Pulse Ox O2 Delivery O2 Flow Rate FiO2 03/16/18 08:00 98.6 83 18 156/79 (104) 93 Room Air Capillary Refill : Less Than 3 Seconds General Appearance: No Apparent Distress, WD/WN Respiratory: Lungs Clear, No Respiratory Distress Cardiovascular: Regular Rate, Rhythm, No Murmur Extremity: Other (foot in surgical dressing, drain with serosanguinous fluid) Neurologic/Psychiatric: Alert, Oriented x3 Results/Procedures Lab Patient resulted labs reviewed. 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: Chronic Assessment & Plan: Abx as above Discussed with Dr Lewis and Dr Lassiter POD #[address] When drain output decrease plan for DC- pending Dr Lassiter's assessment (3) Diabetes mellitus Status: Chronic Assessment & Plan: On Janumet and Amaryl Qualifiers: Diabetes mellitus type: type 2 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
[2018-03-16] MEDS: IBUPROFEN TABLET 200 MG TAB PO PRN (14:35)
[2018-03-16] MEDS: BACLOFEN 10 MG (LIORESAL) TAB PO PRN (14:35)
--- NOTE | 2018-03-16 15:03 | Physical Therapy Evaluation ---
PT Evaluation-General Medical Diagnosis Admission Date Mar 08, 2018 at 18:25 Medical Diagnosis: osteomyelitis Onset Date: Mar 08, 2018 Therapy Diagnosis Therapy Diagnosis: impaired mobility and endurance Height/Weight Height (Feet): 5 Height (Inches): 11.00 Weight (Pounds): 249 Weight (Ounces): 6.0 Precautions Precautions/Isolations: Fall Prevention, Standard Precautions Weight Bear Status Right Lower Extremity: Right Non Weight Bearing Left Lower Extremity: Left Weight Bearing/Tolerated Referral Physician: Chinmay Reason for Referral: Evaluation/Treatment Medical History Pertinent Medical History: DM, HTN, Neuropathy, Smoking Current History ER w/drainage from his right great toe ulcer, osteomyelitis in R great toe Reviewed History: Yes Social History Home: Multilevel Current Living Status: Spouse Entry Into Home: Stairs Without Railing PT Steps Into Home: 10 PT Steps Inside Home: 7 Prior/Core FIM Prior Level of Function Functional Broughton Measure 0=Not Assessed/NA 4=Minimal Assistance 1=Total Assistance 5=Supervision or Setup 2=Maximal Assistance 6=Modified Broughton 3=Moderate Assistance 7=Complete Broughton Bed Mobility: 7 Transfers (B,C,W/C) (FIM): 7 Gait: 7 PT Evaluation-Current Subjective pt in bed pre tx agrees to PT, pain 5/10 R great toe Pt/Family Goals to be independent at home Objective Patient Orientation: Normal For Age Attachments: Drains drain for R great toe ROM/Strength ROM Lower Extremities WFL Strength Lower Extremities 5/5 bilaterally Neuromuscular (Tone, Coordination, Reflexes) NT Sensory Vision: Functional Hearing: Functional Sensation Right Lower Extremit: Intact Sensation Left Lower Extremity: Intact Transfers Functional Broughton Measure 0=Not Assessed/NA 4=Minimal Assistance 1=Total Assistance 5=Supervision or Setup 2=Maximal Assistance 6=Modified Broughton 3=Moderate Assistance 7=Complete Broughton Transfers (B, C, W/C) (FIM): 7 Scootin Rollin Supine to/from Sit: 7 Sit to/from Stand: 7 independent w/ all transfers Gait Mode of Locomotion: Walk Anticipated Mode of Locomotion: Walk Gait (FIM): 5 Distance: 200' Gait Level of Assist: 5 Gait Persons Needed: 1 Gait Assistive Device: FWW Comments/Gait Description pt ambulates using FWW, NWB RLE, swing-to pattern, pt moves well w/ little difficulty using walker, pt fatigues w/ slight unsteadiness nearing 200' Balance Sitting Static: Normal Sitting Dynamic: Normal Standing Static: Normal Standing Dynamic: Normal Treatment seated ex: hip flexion, LAQs, AP (LLE only) x15 Assessment/Needs impaired mobility and endurance, pt is independent w/ transfers and SBA for gait , pt shows fatigue after 200' of ambulation and would benefit from continued endurance training Rehab Potential: Fair PT Short Term Goals Short Term Goals Time Frame: Mar 23, 2018 Transfers (B,C,W/C) (FIM): 7 Gait (FIM): 6 Gait Distance Comment: 400' Gait Level of Assist: 6 Gait Assistive Device: FWW, Crutches PT Plan Problem List Problem List: Activity Tolerance, Functional Strength, Safety, Balance, Gait Treatment/Plan Treatment Plan: Continue Plan of Care Treatment Plan: Bed Mobility, Education, Functional Activity Mauricio, Functional Strength, Gait, Safety, Therapeutic Exercise, Transfers Treatment Duration: Mar 23, 2018 Frequency: 6 times per week Estimated Hrs Per Day: .25 hour per day (15-30') Patient and/or Family Agrees t: Yes Safety Risks/Education Patient Education: Gait Training, Transfer Techniques, Correct Positioning, Safety Issues Teaching Recipient: Patient Teaching Methods: Demonstration, Discussion Response to Teaching: Verbalize Understanding, Return Demonstration Discharge Recommendations Therapy D/C Recommendations: Home w/ Family Support Time/GCodes Time In: 1435 Time Out: 1455 Total Billed Treatment Time: 20 Total Billed Treatment 1 visit ZANDRA 20' JETHRO EDMONDS PT Mar 16, 2018 15:02
[2018-03-16 15:30] VITALS: BP 132/69
[2018-03-16] MEDS: rOPINIRole 1 MG (REQUIP) TABLET PO SCH (21:31)
[2018-03-16] MEDS: EQUATE SLEEP AID PO SCH (21:34)
[2018-03-16] MEDS: LORazepam 1 MG (ATIVAN) TAB PO PRN (23:17)
[2018-03-17] VITALS: BP 138/82
[2018-03-17] MEDS: morphine INJ 4 MG/ML 1 ML (VIAL/SYRINGE) IVP PRN ×3 (03:51→12:52)
[2018-03-17] MEDS: IBUPROFEN TABLET 200 MG TAB PO PRN (03:51)
[2018-03-17] MEDS: JANUMET PO SCH (06:45)
[2018-03-17] MEDS: MULTIVIT W/MINERALS TAB (THERAGRAN M) PO SCH (06:45)
[2018-03-17] MEDS: GLIMEPIRIDE 4 MG (AMARYL) TAB PO SCH (06:46)
[2018-03-17] MEDS ORDERED: TROUGH ORDER-PHARMACY XX NR (07:00)
[2018-03-17 08:00] VITALS: BP 137/77
[2018-03-17] MEDS: lisINopril 10 MG (PRINIVIL) TABLET PO SCH (08:46)
[2018-03-17] MEDS: RED YEAST RICE PO SCH (08:47)
[2018-03-17] MEDS: PIPERACILLIN/TAZO 4.5 GM/NS 100 ML IV SCH ×2 (08:48)
[2018-03-17] MEDS: oxyCODONE/APAP 5/325MG (PERCOCET 5) TABLET PO PRN (08:56)
[2018-03-17] MEDS ORDERED: AMOX-358 PO (09:22)
[2018-03-17] MEDS ORDERED: OXYC1TAB87 PO (09:22)
--- NOTE | 2018-03-17 09:26 | Discharge Inst-Simple/Standard ---
Discharge Inst-Standard Discharge Medications New, Converted or Re-Newed RX: Transmitted to Pharmacy Patient Instructions/Follow Up Plan of Care/Instructions/FU: Please continue to take your medications as written. Please finish your antibiotic even if you begin to feel better. Please follow up with Dr Lassiter in 10 days to follow up on your surgery. You are to remain non-weight bearing on your right foot until you are seen by him for further direction. Please take a probiotic with your antibiotic to help prevent diarrhea. These are available over the counter. Activity as Tolerated: Yes Discharge Diet: ADA Diet Return to The Hospital For: Fevers, worsening pain, redness, drainage, or if you feel you are getting worse. Planned Outpatient Orders/Ref. Pneu Vac Indicated: Yes ARIA GABRIEL MD Mar 17, 2018 9:26 am
--- NOTE | 2018-03-17 09:27 | Discharge Summary-Hospitalist ---
Diagnosis/Chief Complaint Date of Admission Mar 08, 2018 at 6:25 pm Date of Discharge Discharge Date: Mar 17, 2018 Admission Diagnosis 1. Osteomyelitis 2. Sepsis 3. Hypotensive episode 4. T2DM 5. Depression 6. 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: Chronic Assessment & Plan: Abx as above Discussed with Dr Lewis and Dr Lassiter POD #[address] When drain output decrease plan for DC- pending Dr Lassiter's assessment (3) Diabetes mellitus Status: Chronic Assessment & Plan: On Janumet and Amaryl (4) Normocytic anemia Assessment & Plan: Hgb 8.3 Received 1 unit pRBCs this admission Discharge Summary Discharge Physical Exam Allergies: Coded Allergies: No Known Drug Allergies (Unverified , 01/07/15) Vitals & I&Os General Appearance: No Apparent Distress, WD/WN Cardiovascular: Regular Rate, Rhythm, No Murmur Neurologic/Psychiatric: Alert, Oriented x3 Hospital Course Pt was admitted with severe sepsis from osteomyelitis. He received broad spectrum IV abx and underwent operative management by both Dr Lewis and Dr Lassiter with significant improvement. He was seen by PT as well and was no weightbearing on his affected foot. He was discharged home in stable condition to follow up with Dr Lassiter. Labs (last 24 hrs) Microbiology 03/08/18 Blood Culture - Final, Complete Coryneform bacteria 03/15/18 Gram Stain - Final, Complete 03/15/18 Anaerobic Culture - Final, Complete No anaerobes isolated 03/15/18 Surgical Culture - Final, Complete Corynebacterium striatum Patient resulted labs reviewed. Pending Labs Imaging: Reviewed Imaging Report Discussion & Recommendations Discharge Planning: >30 minutes discharge planning Discharge Home Medications: Active Scripts Active Augmentin 875-125 Tablet (Amoxicillin/Potassium Clav) 1 Each Tablet 1 Each PO BID Percocet 5-325 mg Tablet (Oxycodone HCl/Acetaminophen) 1 Each Tablet 1-2 Tab PO Q6HR PRN Reported Sleep Aid (Doxylamine Succinate) 25 Mg Tablet 25 Mg PO HS Ozempic (Semaglutide) 0.25 Mg/0.2 Ml Pen.injctr 0.5 Mg SQ MO Baclofen 10 Mg Tablet 10 Mg PO TID PRN Ropinirole HCl 4 Mg Tablet 4 Mg PO HS Red Yeast Rice 600 Mg Capsule 600 Mg PO BID Men's One Daily (Multivitamin with Minerals) 1 Each Tablet 1 Tab PO DAILY Janumet 50-1,000 mg Tablet (Sitagliptin Phos/Metformin HCl) 1 Each Tablet 1 Tab PO BID Citalopram HBr (Citalopram Hydrobromide) 20 Mg Tablet 20 Mg PO DAILY Lisinopril 10 Mg Tablet 10 Mg PO BID LAST FILLED #180 5-15-18 Glimepiride 4 Mg Tablet 4 Mg PO BID LAST FILLED #180 5-15-18 Instructions to patient/family Please see electronic discharge instructions given to patient. Clinical Quality Measures DVT/VTE Risk/Contraindication: Risk Factor Score Per Nursin RFS Level Per Nursing on Admit: 3=High Problem Qualifiers (1) Sepsis: Sepsis type: sepsis due to unspecified organism Qualified Codes: A41.9 - Sepsis, unspecified organism (2) Diabetes mellitus: Diabetes mellitus type: type 2 Diabetes mellitus eye specialist insulin use: without skilled nursing use Diabetes mellitus complication status: with unspecified complications Qualified Codes: E11.8 - Type 2 diabetes mellitus with unspecified complications ARIA GABRIEL MD Mar 17, 2018 09:27
[2018-03-17] MEDS: ENOXAPARIN 40 MG/0.4 ML (LOVENOX) SYR SC SCH (10:16)
--- NOTE | 2018-03-17 10:53 | Physical Therapy Progress Note ---
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 Pt reports Dr Moy has seen pt and advised pt will probably discharge today. Dr Lassiter will check pt before discharge. BOTTOMING MACHINE OPERATOR & pt discuss continuing Ex at home and ways to increase resistance for strengthening. Pt resting in bed with all needs met. 1, FA (8m) [id number] OLESYA REESE BOTTOMING MACHINE OPERATOR Mar 17, 2018 10:52
--- NOTE | 2018-03-17 12:54 | Podiatry Progress Note ---
Standard Progress Note Progress Notes/Assess & Plan Date Seen by a Provider: Mar 17, 2018 Time Seen by a Provider: 12:46 Progress/Assessment & Plan Post op amputation of the right 1st metatarsal and hallux, POD #2. The patient reports minimal pain to the right foot. He denies F/C/N/V. He is anxious to go home. The dressing is intact to the right foot with minimal drainage over the last shift. The skin is well coapted with sutures intact, right. There is a partial thickness wound to the right 5th metatarsal head area which is healing well, no signs of infection. Normal skin germania noted in Bone Cultures. He should be able to transition to oral antibiotics upon discharge. A/P: Osteomyelitis right foot. S/P amputation of the right foot 1st metatarsal and hallux. He is to be discharged today. The drain was pulled and a new sterile dressing applied. He is to be non-weight bearing on the right foot, keep the dressing dry, clean and intact. He will follow up in my office March 29. Final Diagnosis Osteomyelitis, right foot. S/P amputation of the right 1st metatarsal and hallux. STEFANY SANTORO DPM Mar 17, 2018 12:54
[2018-03-17 14:05] VITALS: BP 137/77
== END 2018-03-17 14:05 | disposition home or self-care (01) | DRG 854 ==
LOC: EDUNIT# 16:30 → ER 16:31 → 4TH 18:25 → ICU 21:40 → 4TH 03-09 12:01
PROVIDERS: ADMIT Internal Medicine; ATTEND Internal Medicine
PROC: 0QU Lower Bones, Supplement (ICD-10-PCS; 2018-03-11)
PROC: 0QBN0ZZ Excision of Right Metatarsal, Open Approach (ICD-10-PCS; principal; 2018-03-11 07:52)
PROC: 0Y6M0Z4 Detachment at Right Foot, Complete 1st Ray, Open Approach (ICD-10-PCS; 2018-03-15)
PROC: 0L8N0ZZ Division of Right Lower Leg Tendon, Open Approach (ICD-10-PCS; 2018-03-15)
DX: A41.9 Sepsis, unspecified organism (principal); E11.69 Type 2 diabetes mellitus with other specified complication; M86.671 Other chronic osteomyelitis, right ankle and foot; E11.621 Type 2 diabetes mellitus with foot ulcer; L97.516 Non-pressure chronic ulcer of other part of right foot with bone involvement without evidence of necrosis; L03.031 Cellulitis of right toe; E11.40 Type 2 diabetes mellitus with diabetic neuropathy, unspecified; I95.9 Hypotension, unspecified; Z23 Encounter for immunization; F32.9 Major depressive disorder, single episode, unspecified; G25.81 Restless legs syndrome; F17.210 Nicotine dependence, cigarettes, uncomplicated; I10 Essential (primary) hypertension; D64.9 Anemia, unspecified; Z89.421 Acquired absence of other right toe(s); Z79.84 Long term (current) use of oral hypoglycemic drugs
CPT/HCPCS: 36415; 36569; 36600; 71045; 73620; 73720; 76937; 80048; 80053; 80202; 81000; 82805; 82962; 83605; 83735; 84100; 85007; 85025; 85027; 86850; 86900; 86901; 86920; 87040; 87070; 87075; 87077; 87205; 88304; 88305; 88311; 90686; 96361; 96365

== ENCOUNTER 2018-11-01 23:34 | Emergency (ER) | payer BC, OTHER ==
[~2018-11-01] VITALS: Ht 177.8 cm; Wt 106.6 kg
[~2018-11-01 23:34] MED LIST changes: +AMOX-358 PO; +DOXY25TA50 PO; +OXYC1TAB87 PO; +ROPI4TAB5 PO; +SEMA0.25 SQ
[2018-11-02] MEDS ORDERED: KETOROLAC 30 MG/ML VIAL IVP STA (01:42)
[2018-11-02] MEDS ORDERED: PIPERACILLIN SODIUM/TAZOBACTAM 4.5 GM in NS (IVPB) 100 ML IV ONE (01:45)
[2018-11-02] MEDS ORDERED: VANCOMYCIN INJECTION 1,000 MG in NS (IVPB) 250 ML IV ONE (01:45)
[2018-11-02 02:00] LABS: BASOPHILS % (AUTO) 0 % (0-10); EOSINOPHILS # (AUTO) 0.3 10^3/uL (0.0-0.3); EOSINOPHILS % (AUTO) 3 % (0-10); HEMATOCRIT 33 % (40-54); LYMPHOCYTES # (AUTO) 0.9 X 10^3 (1.0-4.0); LYMPHOCYTES % (AUTO) 8 % (12-44); MEAN CORPUSCULAR HEMOGLOBIN 30 PG (25-34); MEAN CORPUSCULAR HGB CONC 33 G/DL (32-36); MEAN CORPUSCULAR VOLUME 91 FL (80-99); MEAN PLATELET VOLUME 9.3 FL (7.4-10.4); MONOCYTES # (AUTO) 0.7 X 10^3 (0.0-1.0); MONOCYTES % (AUTO) 5 % (0-12); NEUTROPHILS # (AUTO) 10.2 X 10^3 (1.8-7.8); NEUTROPHILS % (AUTO) 84 % (42-75); PLATELET COUNT 359 10^3/uL (130-400); RED CELL DISTRIBUTION WIDTH 14.3 % (10.0-14.5); WHITE BLOOD COUNT 12.2 10^3/uL (4.3-11.0)
[2018-11-02 02:24] LABS: ALBUMIN 3.5 GM/DL (3.2-4.5); BILIRUBIN,TOTAL 0.3 MG/DL (0.1-1.0); CALCIUM 9.3 MG/DL (8.5-10.1); CREATININE SERUM 2.25 MG/DL (0.60-1.30); POTASSIUM 4.4 MMOL/L (3.6-5.0); TOTAL PROTEIN 7.2 GM/DL (6.4-8.2)
[2018-11-02] MEDS ORDERED: NS IV 1000 ML 1,000 ML IV ONE (02:40)
[2018-11-02] MEDS ORDERED: inSUlin (REGULAR) HUMAN 1 UNIT/0.01 ML (CHARGE PER UNIT) IV ONE (03:15)
[2018-11-02] MEDS ORDERED: NS IV 1000 ML 3,197.82 ML IV ONE (03:15)
--- NOTE | 2018-11-02 03:33 | ED Lower Extremity ---
General Chief Complaint: Skin/Wound Problems Stated Complaint: RT FOOT INJURY Nursing Triage Note: right foot wound. Nursing Sepsis Screen: No Definite Risk Source: patient History of Present Illness Date Seen by Provider: November 02, 2018 Time Seen by Provider: 01:10 Initial Comments PT ARRIVES VIA POV FROM HOME STATES HE HAS HAD AN "ABSCESS" ON HIS RIGHT FOOT FOR A MONTH HAS BEEN SEEING DR. SANTORO, BUSINESS DEVELOPMENT ENGINEER, FOR IT--LAST VISIT WAS 1 WEEK AGO, PT HAS BEEN ON UNKNOWN ANTIBIOTIC, AND FINISHED IT TODAY. PT STATES HE HAS BEEN ON VACATION IN [place] AND 3 DAYS AGO HE SLIPPED IN THE SHOWER AND IT "BROKE OPEN", AND HAS BEEN HAVING BLOODY AND PURULENT DRAINAGE FROM IT SINCE THEN PT STATES HE THINKS THE BONE IS VISIBLE AT THE BASE OF THE WOUND PT FLEW HOME FROM [place] TODAY ( IS STILL IN [place] ) --STATES HE DID NOT WANT TO GO TO HOSPITAL IN ANOTHER COUNTRY, WITH SOCIALIZED MEDICINE. PT HAS HAD MULTIPLE PREVIOUS RIGHT FOOT SURGERIES FOR DIABETIC FOOT WOUNDS/OSTEOMYELITIS--HAS HAD AMPUTATION OF GREAT TOE AND PART OF FIRST METATARSAL 03/2018--WAS HOSPITALIZED WITH SEPSIS AND OSTEOMYELITIS AT THAT TIME--, PARTIAL AMPUTATION OF 3RD TOE AND PARTIAL REMOVAL OF 4TH METATARSAL. PT DENIES ANY FEVER/SWEATS/CHILLS PT IS NON-INSULIN DEPENDENT DIABETIC PT HAS PERIPHERAL NEUROPATHY WITH MINIMAL SENSATION TO FEET, BUT TAKES MICHELLE PENTIN AND HYDROCODONE ON A REGULAR BASIS FOR "PHANTOM PAIN" TO FOOT--STATES PAIN IS 8/10 NOW. HAS NOT HAD EVENING DOSES OF MEDICATIONS. STATES HE LEFT HIS DAILY MEDICATIONS IN [place] WITH HIS . PCP: YANNA DE JESUS AT DR. AHY'S OFFICE BUSINESS DEVELOPMENT ENGINEER: DR. SANTORO Allergies and Home Medications Allergies Coded Allergies: No Known Drug Allergies (Unverified , 01/07/15) Home Medications Amoxicillin/Potassium Clav 1 Each Tablet, 1 EACH PO BID Prescribed by: ARIA GABRIEL on 03/17/18 0922 Baclofen 10 Mg Tablet, 10 MG PO TID PRN for MUSCLE SPASMS, (Reported) Citalopram Hydrobromide 20 Mg Tablet, 20 MG PO DAILY, (Reported) Doxylamine Succinate 25 Mg Tablet, 25 MG PO HS, (Reported) Glimepiride 4 Mg Tablet, 4 MG PO BID, (Reported) LAST FILLED #180 5-15-18 Lisinopril 10 Mg Tablet, 10 MG PO BID, (Reported) LAST FILLED #180 18 Multivitamin with Minerals 1 Each Tablet, 1 TAB PO DAILY, (Reported) Oxycodone HCl/Acetaminophen 1 Each Tablet, 1-2 TAB PO Q6HR PRN for PAIN-MODERATE Prescribed by: ARIA GABRIEL on 03/17/18 0922 Red Yeast Rice 600 Mg Capsule, 600 MG PO BID, (Reported) Ropinirole HCl 4 Mg Tablet, 4 MG PO HS, (Reported) Semaglutide 0.25 Mg/0.2 Ml Pen.injctr, 0.5 MG SQ Mo, (Reported) Sitagliptin Phos/Metformin HCl 1 Each Tablet, 1 TAB PO BID, (Reported) Patient Home Medication List Home Medication List Reviewed: Yes Review of Systems Constitutional: no symptoms reported; No chills, No diaphoresis, No dizziness, No fever, No malaise, No weakness Respiratory: no symptoms reported Cardiovascular: no symptoms reported Gastrointestinal: no symptoms reported Genitourinary: no symptoms reported Musculoskeletal: see HPI Skin: see HPI Psychiatric/Neurological: See HPI, Pre-Existing Deficit Past Daesmtd-Ifefzb-Kwvnuj Hx Patient Social History Alcohol Use: Denies Use Recreational Drug Use: No Smoking Status: Current Everyday Smoker Type Used: Cigarettes 2nd Hand Smoke Exposure: Yes Recent Foreign Travel: No Contact w/Someone Who Travel: No Recent Infectious Disease Expo: No Recent Hopitalizations: No Immunizations Up To Date Tetanus Booster (TDap): Less than 5yrs Seasonal Allergies Seasonal Allergies: No Past Medical History Surgeries: Yes (AMPUTATION RIGHT GREAT TOE AND PART OF METATARSAL 03/2018; PARTIAL AMPUTATION OF RIGHT 3RD TOE 2014; PARTIAL AMPUTATION OF RIGHT 4TH METATARSAL. RIGHT ROTATOR CUFF REPAIR X 2 IN 2013; RIGHT CARPAL TUNNEL RELEASE ) Amputation, Orthopedic Respiratory: No Cardiac: Yes Hypertension Neurological: Yes (DIABETIC PERIPHERAL NEUROPATHY, ALSO "PHANTOM PAINS" FROM FOOT/TOE AMPUTATIONS; RESTLESS LEG SYNDROME) Neuropathy Reproductive Disorders: No Sexually Transmitted Disease: No HIV/AIDS: No Genitourinary: No Gastrointestinal: No Musculoskeletal: Yes (DIABETIC FOOT ULCERS WITH OSTEOMYELITIS AND AMPUTATIONS; CHRONIC NECK AND SHOULDER PAIN; RIGHT ROTATOR CUFF REPAIR X 2; RIGHT CARPAL TUNNEL RELEASE) Degenerate Disk Disease Endocrine: Yes Diabetes, Non-Insulin dep HEENT: No Cancer: No Psychosocial: Yes Depression Integumentary: Yes (DIABETIC FOOT ULCERS WITH CELLULITIS AND OSTEOMYELITIS) Blood Disorders: Yes (ANEMIA) Adverse Reaction/Blood Tranf: No Family Medical History Cancer, Diabetes Physical Exam Vital Signs Vital Signs - First Documented 11/02/18 00:40 Temp 97.8 Pulse 91 Resp 16 B/P (MAP) 115/69 (84) Pulse Ox 97 O2 Delivery Room Air Capillary Refill : Less Than 3 Seconds Height, Weight, BMI Height: 5'10.00" Weight: 235lbs. 0oz. 106.533508sr; 31.4 BMI Method:Stated General Appearance: WD/WN, no apparent distress Cardiovascular: regular rate, rhythm, no murmur Respiratory: normal breath sounds Ankles: bilateral ankle other (2+ EDEMA OF RIGHT ANKLE AND FOOT, TRACE TO 1+ EDEMA TO LEFT FOOT AND ANKLE) Feet: right foot other (MODERATE SWELLING TO ENTIRE RIGHT FOOT. LARGE NECROTIC, AT LEAST STAGE 4 ULCER TO LATERAL ASPECT OF RIGHT FOOT, WITH EXPOSED BONE, SMALL AMOUNT OF BLOODY DRAINAGE. SMALLER SCABBED WOUND TO ANTERIOR ASPECT OF RIGHT ANKLE, VERY MILD SURROUNDING ERYTHEMA. NO DRAINAGE. 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, alert, normal mood/affect, oriented x 3 Skin: normal color, warm/dry, other ( ABOVE) Progress/Results/Core Measures Results/Orders Lab Results Laboratory Tests Test 11/02/18 01:45 Range/Units White Blood Count 12.2 H 4.3-11.0 10^3/uL Red Blood Count 3.65 L 4.35-5.85 10^6/uL Hemoglobin 11.0 L 13.3-17.7 G/DL Hematocrit 33 L 40-54 % Mean Corpuscular Volume 91 80-99 FL Mean Corpuscular Hemoglobin 30 25-34 PG Mean Corpuscular Hemoglobin Concent 33 32-36 G/DL Red Cell Distribution Width 14.3 10.0-14.5 % Platelet Count 359 130-400 10^3/uL Mean Platelet Volume 9.3 7.4-10.4 FL Neutrophils (%) (Auto) 84 H 42-75 % Lymphocytes (%) (Auto) 8 L 12-44 % Monocytes (%) (Auto) 5 0-12 % Eosinophils (%) (Auto) 3 0-10 % Basophils (%) (Auto) 0 0-10 % Neutrophils # (Auto) 10.2 H 1.8-7.8 X 10^3 Lymphocytes # (Auto) 0.9 L 1.0-4.0 X 10^3 Monocytes # (Auto) 0.7 0.0-1.0 X 10^3 Eosinophils # (Auto) 0.3 0.0-0.3 10^3/uL Basophils # (Auto) 0.0 0.0-0.1 10^3/uL Prothrombin Time 13.0 12.2-14.7 SEC INR Comment 1.0 0.8-1.4 Activated Partial Thromboplast Time 40 H 24-35 SEC Sodium Level 132 L 135-145 MMOL/L Potassium Level 4.4 3.6-5.0 MMOL/L Chloride Level 98 98-107 MMOL/L Carbon Dioxide Level 22 21-32 MMOL/L Anion Gap 12 5-14 MMOL/L Blood Urea Nitrogen 44 H 7-18 MG/DL Creatinine 2.25 H 0.60-1.30 MG/DL Estimat Glomerular Filtration Rate 32 BUN/Creatinine Ratio 20 Glucose Level 307 H 70-105 MG/DL Lactic Acid Level 0.68 0.50-2.00 MMOL/L Calcium Level 9.3 8.5-10.1 MG/DL Corrected Calcium 9.7 8.5-10.1 MG/DL Magnesium Level 2.0 1.8-2.4 MG/DL Total Bilirubin 0.3 0.1-1.0 MG/DL Aspartate Amino Transf (AST/SGOT) 12 5-34 U/L Alanine Aminotransferase (ALT/SGPT) 9 0-55 U/L Alkaline Phosphatase 95 40-136 U/L C-Reactive Protein High Sensitivity 7.52 H 0.00-0.50 MG/DL Total Protein 7.2 6.4-8.2 GM/DL Albumin 3.5 3.2-4.5 GM/DL My Orders Orders - DILSHAD MCCOY DO Foot, Right, 3 View (11/02/18 01:10) Ed Iv/Invasive Line Start (11/02/18 01:42) Cbc With Automated Diff (11/02/18 01:42) Comprehensive Metabolic Panel (11/02/18 01:42) Lactic Acid Analyzer (11/02/18 01:42) Magnesium (11/02/18 01:42) Protime With Inr (11/02/18 01:42) Partial Thromboplastin Time (11/02/18 01:42) Blood Culture (11/02/18 01:42) Wound Culture (11/02/18 01:42) Ketorolac Injection (Toradol Injection) (11/02/18 01:42) Piperacillin Sodium/Tazobactam (Zosyn Vi (11/02/18 01:45) Vancomycin Injection (Vancomycin Injecti (11/02/18 01:45) Wound Dressing-Ed (11/02/18 01:42) Ed Iv/Invasive Line Start (11/02/18 02:40) Ns Iv 1000 Ml (Sodium Chloride 0.9%) (11/02/18 02:40) Insulin (Regular) Human (Humulin R (Per (11/02/18 03:15) Ed Iv/Invasive Line Start (11/02/18 03:12) Vital Signs Adult Sepsis Patie Q15M (11/02/18 03:12) Remove Rings In Anticipation O (11/02/18 03:12) Ns Iv 1000 Ml (Sodium Chloride 0.9%) (11/02/18 03:15) Hs C Reactive Protein (11/02/18 04:01) Erythrocyte Sedimentation Rate (11/02/18 04:01) Accucheck Stat ONCE (11/02/18 04:02) Medications Given in ED Current Medications Medications Dose Ordered Sig/Nohemy Route Start Time Stop Time Status Last Admin Dose Admin Insulin Human Regular 20 unit ONCE ONCE IV 11/02/18 03:15 11/02/18 03:16 DC 11/02/18 03:16 20 UNIT Piperacillin Sod/ Tazobactam Sod 4.5 gm/Sodium Chloride 100 ml @ 200 mls/hr ONCE ONCE IV 11/02/18 01:45 11/02/18 02:14 DC 11/02/18 02:11 200 MLS/HR Sodium Chloride 1,000 ml @ 0 mls/hr Q0M ONCE IV 11/02/18 02:40 11/02/18 02:41 DC 11/02/18 02:46 0 MLS/HR Sodium Chloride 3,197.82 ml @ 3,197.82 mls/hr ONCE ONCE IV 11/02/18 03:15 11/02/18 04:14 DC 11/02/18 03:21 3,197.82 MLS/HR Vancomycin HCl 1000 mg/Sodium Chloride 250 ml @ 250 mls/hr ONCE ONCE IV 11/02/18 01:45 11/02/18 02:44 DC 11/02/18 02:46 250 MLS/HR Vital Signs/I&O 11/02/18 00:40 Temp 97.8 Pulse 91 Resp 16 B/P (MAP) 115/69 (84) Pulse Ox 97 O2 Delivery Room Air Blood Pressure Mean: 84 Progress Progress Note : Progress Note BP UP TO >100 SYSTOLIC WITH FIRST LITER OF FLUIDS HEART RATE REMAINED IN 80'S NO FEVER DURING ER STAY PAIN EASED WITH TORADOL GIVEN ZOSYN AND VANCOMYCIN GIVEN INSULIN--REPEAT ACCUCHECK 104 PT'S BUN WAS 6 AND CREATININE WAS 0.7 03/2018 Diagnostic Imaging Comments XRAYS RIGHT FOOT--EXTENSIVE POST SURGICAL CHANGES AND DEGENERATIVE CHANGES, 5TH METATARSAL DOES APPEAR SUBLUXED AT MTP JOINT, WITH PROTRUSION OF DISTAL HEAD OF 5TH METATARSAL THROUGH SKIN. PENDING RADIOLOGIST REVIEW Reviewed: Reviewed by Me Departure Communication (Admissions) NO ICU BEDS AVAILABLE HERE 0250--CALLED [facility], NO ICU/CRITICAL CARE BEDS AVAILABLE THERE 0252--SPOKE WITH ESSIE LEE HOSPITALIST AND ORTHOPEDIC SURGEON. 0300--SPOKE WITH DR. DUONG, BEE TENDER, AND DR. WILLAMS, ORTHOPEDIC SURGEON-HE DEFERS TO GENERAL SURGEON. ESSIE ROBIN 0305--DR. ROBIN ON PHONE AND WILL SEE PT IN CONSULT AND DR. DUONG ACCEPTS PT FOR ADMIT/TRANSFER Impression Primary Impression: Severe sepsis Additional Impressions: RIGHT FOOT DIABETIC FOOT ULCER WITH EXPOSED BONE NIDDM Peripheral neuropathy Acute renal failure SUSPECTED OSTEOMYELITIS RIGHT FOOT Disposition: XFER SHT-TRM HOSP Condition: Improved Transfer Transfer Facility: [facility] Method of Transfer: EMS (P) Departure-Patient Inst. Referrals: RASHAD HAY DO (PCP) Primary Care Physician LUIS FELIPE HAY, CHASITY (Family) Primary Care Physician DILSHAD MCCOY DO November 02, 2018 03:33
--- NOTE | 2018-11-02 03:45 | NUR ---
shift capt. called for patient transfer.
--- NOTE | 2018-11-02 04:00 | NUR ---
dispatch called for patient transfer.
[2018-11-02 04:55] VITALS: BP 118/71
--- NOTE | 2018-11-02 07:34 | Diagnostic Imaging Report ---
EXAMINATION: Right foot radiographs, 3 views. COMPARISON: March 09, 2018. HISTORY: 42-year-old male, fall. Right foot pain. FINDINGS: There is postoperative related change and absence of the mid to distal aspect of the first metatarsal and absence of the first digit phalanges. There is absence of the distal aspect of the fourth metatarsal. There is a deformity of the distal aspect of the second metatarsal which may relate to a comminuted displaced fracture. There also is a obliquely oriented fracture involving the third metatarsal head. The fifth metatarsal head projects beyond the expected lateral skin contour. Recommend correlation with physical exam. There is absence of the second digit middle and distal phalanges. There is dislocation at the second metatarsophalangeal joint. The fifth proximal phalanx is medially subluxed relative to the fifth metatarsal head. There is question of fracture deformity of the bases of the second and third metatarsals. There is an os trigonum. There are vascular calcifications. IMPRESSION: 1. Deformity of the second metatarsal at its distal aspect which is new since comparison exam and may relate to a comminuted fracture. There is dislocation at the second metatarsophalangeal joint. 2. Obliquely oriented mildly displaced fracture involving the third metatarsal head. 3. Potential fracture deformities of the bases of the second and third metatarsals. This would be much better evaluated with dedicated CT right foot. 4. Loss of normal alignment of the fifth metatarsal phalangeal joint with the fifth metatarsal head projecting beyond the expected lateral skin contour. Recommend correlation with physical exam. Report was called/faxed to Dr. Ang by ney at 7:35 am. LOIS Brumfield, was also notified. Dictated by: Dictated on workstation # [id number]
== END 2018-11-02 04:57 | disposition short-term general hospital (02) ==
LOC: EDUNIT# 23:34 → ER 23:36
DX: A41.9 Sepsis, unspecified organism (principal); R65.20 Severe sepsis without septic shock; E11.621 Type 2 diabetes mellitus with foot ulcer; L97.516 Non-pressure chronic ulcer of other part of right foot with bone involvement without evidence of necrosis; N17.9 Acute kidney failure, unspecified; I10 Essential (primary) hypertension; E11.40 Type 2 diabetes mellitus with diabetic neuropathy, unspecified; G25.81 Restless legs syndrome; G56.01 Carpal tunnel syndrome, right upper limb; F32.9 Major depressive disorder, single episode, unspecified; D64.9 Anemia, unspecified; Z89.421 Acquired absence of other right toe(s); Z79.4 Long term (current) use of insulin; Z98.890 Other specified postprocedural states
CPT/HCPCS: 36415; 73630; 80053; 82962; 83605; 83735; 85025; 85610; 85652; 85730; 86141; 87040; 87070; 87077; 87186; 87205; 96361; 96365; 96367; 96375

== ENCOUNTER → 2018-11-09 | Outpatient (CLI) | payer OTHER | LOC: WOUNDCARE 09:27 | PROVIDERS: ATTEND Surgery | DX: E11.621 Type 2 diabetes mellitus with foot ulcer (principal); E11.42 Type 2 diabetes mellitus with diabetic polyneuropathy; L97.513 Non-pressure chronic ulcer of other part of right foot with necrosis of muscle; I70.235 Atherosclerosis of native arteries of right leg with ulceration of other part of foot; M86.471 Chronic osteomyelitis with draining sinus, right ankle and foot; Z89.421 Acquired absence of other right toe(s) | CPT/HCPCS: 11042 ==

== ENCOUNTER → 2018-11-12 | Outpatient (CLI) | payer OTHER ==
--- NOTE | 2018-11-12 11:06 | Diagnostic Imaging Report ---
Right foot at 1042 hours. INDICATION: Foot pain. Three views were obtained. FINDINGS: The prior exam of 11/02/2018 noted extensive postsurgical and posttraumatic changes involving the foot. There also appeared to be comminuted fractures involving the distal second metatarsal and the base of the third metatarsal. Those fractures are again evident on this study and have not changed significantly. In the interval since the prior exam, however, the phalanges of the fifth digit and the distal two-thirds of the fifth metatarsal have been amputated. The overall appearance of the foot is otherwise no different. The soft tissues are unremarkable. IMPRESSION: There has been an interval amputation of a portion of the fifth ray. The overall appearance of the foot is otherwise stable in appearance. No new abnormality has developed. Dictated by: Dictated on workstation # [id number]
== END ==
LOC: RAD 10:28
PROVIDERS: ATTEND Surgery
DX: E11.621 Type 2 diabetes mellitus with foot ulcer (principal); L97.513 Non-pressure chronic ulcer of other part of right foot with necrosis of muscle; Z89.431 Acquired absence of right foot
CPT/HCPCS: 36415; 73630; 83036

== ENCOUNTER → 2018-11-16 | Outpatient (CLI) | payer OTHER | LOC: WOUNDCARE 09:46 | PROVIDERS: ATTEND Surgery | DX: E11.621 Type 2 diabetes mellitus with foot ulcer (principal); E11.42 Type 2 diabetes mellitus with diabetic polyneuropathy; L97.513 Non-pressure chronic ulcer of other part of right foot with necrosis of muscle; M86.471 Chronic osteomyelitis with draining sinus, right ankle and foot; Z89.421 Acquired absence of other right toe(s) | CPT/HCPCS: 11044 ==

== ENCOUNTER → 2018-11-30 | Outpatient (CLI) | payer OTHER | LOC: WOUNDCARE 09:46 | PROVIDERS: ATTEND Surgery | DX: E11.621 Type 2 diabetes mellitus with foot ulcer (principal); L97.512 Non-pressure chronic ulcer of other part of right foot with fat layer exposed; E11.42 Type 2 diabetes mellitus with diabetic polyneuropathy; E11.69 Type 2 diabetes mellitus with other specified complication; M86.471 Chronic osteomyelitis with draining sinus, right ankle and foot; Z89.421 Acquired absence of other right toe(s) | CPT/HCPCS: 11042 ==

== ENCOUNTER → 2018-12-07 | Outpatient (CLI) | payer OTHER | LOC: WOUNDCARE 09:36 | PROVIDERS: ATTEND Surgery | DX: E11.621 Type 2 diabetes mellitus with foot ulcer (principal); L97.519 Non-pressure chronic ulcer of other part of right foot with unspecified severity; E11.52 Type 2 diabetes mellitus with diabetic peripheral angiopathy with gangrene; I96 Gangrene, not elsewhere classified | CPT/HCPCS: 11043 ==

== ENCOUNTER 2019-03-19 21:13 | Emergency (ER) | payer BC, OTHER ==
[~2019-03-19] VITALS: Ht 177.8 cm; Wt 109.1 kg
[2019-03-19] MEDS ORDERED: NS IV 1000 ML 1,000 ML IV ONE (21:44)
--- NOTE | 2019-03-19 21:50 | ED General ---
General Chief Complaint: Skin/Wound Problems Stated Complaint: OPEN WOUND ON RT FOOT Nursing Triage Note: Pt amb to room #7 with c/o diabetic ulcer to rt lateral foot. Pt reports amputation of Rt pinky toe in October 2018. Pt reports wound was opened by wound care apprx 3wks ago and treated with antibiotics. Pt reports pain to medial rt foot radiating to medial Rt thigh. Pt arrives with boot, drsg, and packing to Rt foot. Denies fever or chills. Nursing Sepsis Screen: No Definite Risk Source of Information: Patient (ANANYA BARAJAS STUDENT) History of Present Illness Date Seen by Provider: Mar 19, 2019 Time Seen by Provider: 21:30 Initial Comments Patient presents today with an open wound on the lateral side of the right foot that has not healed in over two weeks. He has been seen previously with an infection in the same wound. He is concerned that it is becoming infected again, and the wound is draining purulent discharge. The patient is complaining that he is feeling an itchy/burning sensation on the medial side of that foot and up into the right thigh. The patient is a moderately controlled diabetic. Timing/Duration: Other (2 1/2 weeks) Severity: Severe Modifying Factors: improves with Other (nothing improves the symptoms) Associated Systoms: Denies Symptoms (ANANYA BARAJAS STUDENT) Initial Comments Here with concern about wound to the right foot. He has had significant infection there previous multiple partial amputations to the right foot. Noted purulent drainage. He had had that healed up and then it suddenly worsened. 2 weeks ago that was opened and drained. He was started on antibiotics and things get better but is worse tonight. He does feel a burning itching sensation on the medial aspect which is new. He states his blood sugar was in the 130s this morning. He admits that he doesn't check it as often as he needs to. He was hopeful that we will be able to evaluate and send him home as he does not want to stay in the hospital. Timing/Duration: Other (2 1/2 weeks) Modifying Factors: improves with Other (nothing improves the symptoms) Associated Systoms: No Fever/Chills, No Nausea/Vomiting, No Shortness of Air, N o Weakness (HANNY GUZMAN MD) Allergies and Home Medications Allergies Coded Allergies: No Known Drug Allergies (Unverified , 01/07/15) Home Medications Amoxicillin/Potassium Clav 1 Each Tablet, 1 EACH PO BID Prescribed by: ARIA Romero HARVEY on 03/17/18921 Baclofen 10 Mg Tablet, 10 MG PO TID PRN for MUSCLE SPASMS, (Reported) Citalopram Hydrobromide 20 Mg Tablet, 20 MG PO DAILY, (Reported) Doxylamine Succinate 25 Mg Tablet, 25 MG PO HS, (Reported) Glimepiride 4 Mg Tablet, 4 MG PO BID, (Reported) LAST FILLED #180 18 Lisinopril 10 Mg Tablet, 10 MG PO BID, (Reported) LAST FILLED #180 18 Multivitamin with Minerals 1 Each Tablet, 1 TAB PO DAILY, (Reported) Oxycodone HCl/Acetaminophen 1 Each Tablet, 1-2 TAB PO Q6HR PRN for PAIN-MODERATE Prescribed by: ARIANATY GABRIEL on 03/17/18921 Red Yeast Rice 600 Mg Capsule, 600 MG PO BID, (Reported) Ropinirole HCl 4 Mg Tablet, 4 MG PO HS, (Reported) Semaglutide 0.25 Mg/0.2 Ml Pen.injctr, 0.5 MG SQ Mo, (Reported) Sitagliptin Phos/Metformin HCl 1 Each Tablet, 1 TAB PO BID, (Reported) Patient Home Medication List Home Medication List Reviewed: Yes (HANNY GUZMAN MD) Review of Systems Review of Systems Constitutional: no symptoms reported EENTM: no symptoms reported Respiratory: no symptoms reported Cardiovascular: no symptoms reported Gastrointestinal: no symptoms reported Genitourinary: no symptoms reported Skin: see HPI, dryness Psychiatric/Neurological: No Symptoms Reported Hematologic/Lymphatic: No Symptoms Reported Immunological/Allergic: no symptoms reported (ANANYA BARAJAS PA STUDENT) Respiratory: no symptoms reported Cardiovascular: no symptoms reported Musculoskeletal: joint pain, muscle pain Skin: see HPI, change in color, lesions Psychiatric/Neurological: Paresthesia (HANNY GUZMAN MD) All Other Systems Reviewed Negative Unless Noted: Yes (HANNY GUZMAN MD) Past Kzqjwmv-Uxcoma-Vzeazx Hx Past Med/Social Hx: Reviewed Nursing Past Med/Soc Hx (HANNY GUZMAN MD) Patient Social History Type Used: Cigarettes 2nd Hand Smoke Exposure: Yes Recent Foreign Travel: No Contact w/Someone Who Travel: No Recent Infectious Disease Expo: No Recent Hopitalizations: No (ANANYA BARAJAS) Immunizations Up To Date Tetanus Booster (TDap): Less than 5yrs (ANANYA BARAJAS) Seasonal Allergies Seasonal Allergies: No (ANANYA BARAJAS) Past Medical History Surgeries: Yes Amputation, Orthopedic Respiratory: No Cardiac: Yes Hypertension Neurological: Yes Neuropathy Reproductive Disorders: No Sexually Transmitted Disease: No HIV/AIDS: No Genitourinary: No Gastrointestinal: No Musculoskeletal: Yes Degenerate Disk Disease Endocrine: Yes Diabetes, Non-Insulin dep HEENT: No Cancer: No Psychosocial: Yes Depression Integumentary: Yes (DIABETIC FOOT ULCERS WITH CELLULITIS AND OSTEOMYELITIS) Blood Disorders: Yes (ANEMIA) Adverse Reaction/Blood Tranf: No (ANANYA BARAJAS) Family Medical History Reviewed Nursing Family Hx (HANNY GUZMAN MD) Cancer, Diabetes (ANANYA BARAJAS) Physical Exam-Suspected Sepsis Physical Exam Vital Signs Vital Signs - First Documented 03/19/19 21:24 Temp 36.8 Pulse 115 Resp 17 B/P (MAP) 142/89 (106) Pulse Ox 100 O2 Delivery Room Air (HANNY GUZMAN MD) Vital Signs Capillary Refill : Less Than 3 Seconds (ANANYA BARAJAS) Blood Pressure Mean: 106 Height, Weight, BMI Height: 5'10.00" Weight: 235lbs. 0.0oz. [id number]; 34.00 BMI Method:Stated General Appearance: No Apparent Distress Eyes: Bilateral Eye PERRL Respiratory: Chest Non Tender, Lungs Clear, Normal Breath Sounds, No Accessory Muscle Use, No Respiratory Distress Cardiovascular: No Edema, No Gallop, No JVD, No Murmur, Normal Peripheral Pulses, Tachycardia Gastrointestinal: Normal Bowel Sounds, No Organomegaly, No Pulsatile Mass, Non Tender, Soft Back: Normal Inspection Extremity: Normal Range of Motion, Non Tender, No Calf Tenderness, Inflammation (right foot at the location of wound), Slow Capillary Refill Neurologic/Psychiatric: Alert, Oriented x3, No Motor/Sensory Deficits, Normal Mood/Affect Skin: warm/dry Lymphatic: No Adenopathy (ANANYA BARAJAS) General Appearance: No Apparent Distress, WD/WN HEENT: PERRL/EOMI, Pharynx Normal Neck: Normal Inspection, Non Tender, Supple Respiratory: Lungs Clear, Normal Breath Sounds Cardiovascular: No Murmur, Tachycardia Gastrointestinal: Non Tender, Soft Back: Normal Inspection, No CVA Tenderness, No Vertebral Tenderness Extremity: Non Tender, Inflammation (right foot at the location of wound), Swelling Neurologic/Psychiatric: Alert, Oriented x3 Skin: warm/dry, ulcerations (lateral aspect right foot with diabetic ulcer draining purulent drainage), other (erythema noted to the right foot) (HANNY GUZMAN MD) Focused Exam Lactate Level 03/19/19 22:09: Lactic Acid Level 0.60 (HANNY GUZMAN MD) Lactic Acid Level Laboratory Tests Test 03/19/19 22:09 Lactic Acid Level 0.60 MMOL/L (0.50-2.00) (HANNY GUZMAN MD) Progress/Results/Core Measures Suspected Sepsis Recent Fever Within 48 Hours: No Infection Criteria Present: Suspected New Infection New/Unexplained Altered Menta: No Sepsis Screen: No Definite Risk SIRS Temperature: Pulse: 115 Respiratory Rate: 17 Laboratory Tests 03/19/19 22:09: Blood Pressure 142 /89 Mean: 106 03/19/19 22:09: Laboratory Tests 03/19/19 22:09: (ANANYA BARAJAS STUDENT) SIRS Laboratory Tests 03/19/19 22:09: White Blood Count 12.5H 03/19/19 22:09: Lactic Acid Level 0.60 Laboratory Tests 03/19/19 22:09: Creatinine 1.38H, Platelet Count 291, Total Bilirubin 0.3 (HANNY GUZMAN MD) Results/Orders Lab Results Laboratory Tests Test 03/19/19 22:09 Range/Units White Blood Count 12.5 H 4.3-11.0 10^3/uL Red Blood Count 4.63 4.35-5.85 10^6/uL Hemoglobin 13.4 13.3-17.7 G/DL Hematocrit 41 40-54 % Mean Corpuscular Volume 89 80-99 FL Mean Corpuscular Hemoglobin 29 25-34 PG Mean Corpuscular Hemoglobin Concent 33 32-36 G/DL Red Cell Distribution Width 14.3 10.0-14.5 % Platelet Count 291 130-400 10^3/uL Mean Platelet Volume 10.4 7.4-10.4 FL Neutrophils (%) (Auto) 79 H 42-75 % Lymphocytes (%) (Auto) 12 12-44 % Monocytes (%) (Auto) 6 0-12 % Eosinophils (%) (Auto) 2 0-10 % Basophils (%) (Auto) 0 0-10 % Neutrophils # (Auto) 9.9 H 1.8-7.8 X 10^3 Lymphocytes # (Auto) 1.5 1.0-4.0 X 10^3 Monocytes # (Auto) 0.8 0.0-1.0 X 10^3 Eosinophils # (Auto) 0.3 0.0-0.3 10^3/uL Basophils # (Auto) 0.1 0.0-0.1 10^3/uL Sodium Level 136 135-145 MMOL/L Potassium Level 4.0 3.6-5.0 MMOL/L Chloride Level 96 L 98-107 MMOL/L Carbon Dioxide Level 26 21-32 MMOL/L Anion Gap 14 5-14 MMOL/L Blood Urea Nitrogen 26 H 7-18 MG/DL Creatinine 1.38 H 0.60-1.30 MG/DL Estimat Glomerular Filtration Rate 56 BUN/Creatinine Ratio 19 Glucose Level 193 H 70-105 MG/DL Lactic Acid Level 0.60 0.50-2.00 MMOL/L Calcium Level 10.4 H 8.5-10.1 MG/DL Corrected Calcium 10.2 H 8.5-10.1 MG/DL Total Bilirubin 0.3 0.1-1.0 MG/DL Aspartate Amino Transf (AST/SGOT) 15 5-34 U/L Alanine Aminotransferase (ALT/SGPT) 16 0-55 U/L Alkaline Phosphatase 89 40-136 U/L C-Reactive Protein High Sensitivity 5.00 H 0.00-0.50 MG/DL Total Protein 8.0 6.4-8.2 GM/DL Albumin 4.2 3.2-4.5 GM/DL (HANNY GUZMAN MD) My Orders Orders - HANNY GUZMAN MD Foot, Right, 3 View (03/19/19 21:44) Cbc With Automated Diff (03/19/19 21:44) Comprehensive Metabolic Panel (03/19/19 21:44) Hs C Reactive Protein (03/19/19 21:44) Lactic Acid Analyzer (03/19/19 21:44) Blood Culture (03/19/19 21:44) Wound Culture (03/19/19 21:44) Ed Iv/Invasive Line Start (03/19/19 21:44) Ns Iv 1000 Ml (Sodium Chloride 0.9%) (03/19/19 21:44) Ceftriaxone For Iv Use (Rocephin For I (03/19/19 23:00) (HANNY GUZMAN MD) Medications Given in ED Current Medications Medications Dose Ordered Sig/Nohemy Route Start Time Stop Time Status Last Admin Dose Admin Ceftriaxone Sodium 1000 mg/ Sterile Water 10 ml @ 200 mls/hr ONCE ONCE IV 03/19/19 23:00 03/19/19 23:02 DC 03/19/19 23:10 200 MLS/HR Sodium Chloride 1,000 ml @ 0 mls/hr Q0M ONCE IV 03/19/19 21:44 03/19/19 21:47 DC 03/19/19 22:09 0 MLS/HR (HANNY GUZMAN MD) Vital Signs/I&O 03/19/19 21:24 Temp 36.8 Pulse 115 Resp 17 B/P (MAP) 142/89 (106) Pulse Ox 100 O2 Delivery Room Air (HANNY GUZMAN MD) Vital Signs/I&O Capillary Refill : Less Than 3 Seconds (ANANYA BARAJAS PA STUDENT) Blood Pressure Mean: 106 Progress Note : Progress Note Seen and evaluated the patient and agree with above except as indicated. I have directed the plan of care. Patient is adamant that he would not want to stay in the hospital. We will go ahead and get blood cultures, wound culture, labs and lactic acid. Normal saline 1 L bolus ordered. I have verified that he was previously on doxycycline and previous culture shows MSSA. Also had mixed germania. X-ray right foot ordered. Monitor patient. 2315: Labs reviewed. Patient still does not want to stay. It's reasonable to try outpatient antibiotics. We will initiate Rocephin 1 g IV now and continue outpatient doxycycline. Antibiotics chosen based on wound culture from previous event in October. This may be changed related to current wound culture and patient was informed of this. He will fol low-up with Dr. Santoro later this week. I will send a copy of the chart that his office. Discharged home with return precautions. Patient verbalize understanding instructions and agreement with plan. (HANNY GUZMAN MD) Diagnostic Imaging Diagonstic Imaging: Xray Plain Films/CT/US/NM/MRI: other Comments Right foot shows previous surgical amputations. The fifth metatarsal is short of than on previous x-ray of the patient reports that he had debridement done at wound care including increasing the amount of bone removed. No obvious findings of osteomyelitis. Reviewed: Reviewed by Me (HANNY GUZMAN MD) Departure Impression Primary Impression: Diabetic ulcer of right foot Qualified Codes: E11.621 - Type 2 diabetes mellitus with foot ulcer; L97.415 - Non-pressure chronic ulcer of right heel and midfoot with muscle involvement without evidence of necrosis Disposition: HOME, SELF-CARE Condition: Stable Departure-Patient Inst. Decision time for Depature: 23:19 (HANNY GUZMAN MD) Referrals: RASHAD HAY DO (PCP) Primary Care Physician LUIS FELIPE HAY DNP (Family) Primary Care Physician Patient Instructions: Wound Care (DC), Foot Care for Diabetics Add. Discharge Instructions: All discharge instructions reviewed with patient and/or family. Voiced understanding. Take medications as directed. Call Dr. Santoro's office in the morning for [facility] appointments but otherwise keep follow-up as scheduled on . Return for worse pain, fever, chills, red streaks up the foot or leg, increasing foul- smelling drainage or other concerns as needed. Continue wound care as you have been doing. Scripts Doxycycline Hyclate (Doxycycline Hyclate) 100 Mg Tablet 100 MG PO BID, #20 TAB 0 Refills Prov: HANNY GUZMAN MD 03/19/19 Copy Copies To 1: STEFANY SANTORO DPM, BRODIE PA STUDENT Mar 19, 2019 21:50 HANNY GUZMAN MD Mar 19, 2019 22:24
[2019-03-19 22:27] LABS: BASOPHILS # (AUTO) 0.1 10^3/uL (0.0-0.1); BASOPHILS % (AUTO) 0 % (0-10); EOSINOPHILS # (AUTO) 0.3 10^3/uL (0.0-0.3); EOSINOPHILS % (AUTO) 2 % (0-10); HEMATOCRIT 41 % (40-54); HEMOGLOBIN 13.4 G/DL (13.3-17.7); LYMPHOCYTES # (AUTO) 1.5 X 10^3 (1.0-4.0); LYMPHOCYTES % (AUTO) 12 % (12-44); MEAN CORPUSCULAR HEMOGLOBIN 29 PG (25-34); MEAN CORPUSCULAR HGB CONC 33 G/DL (32-36); MEAN CORPUSCULAR VOLUME 89 FL (80-99); MEAN PLATELET VOLUME 10.4 FL (7.4-10.4); MONOCYTES # (AUTO) 0.8 X 10^3 (0.0-1.0); MONOCYTES % (AUTO) 6 % (0-12); NEUTROPHILS # (AUTO) 9.9 X 10^3 (1.8-7.8); NEUTROPHILS % (AUTO) 79 % (42-75); PLATELET COUNT 291 10^3/uL (130-400); RED CELL DISTRIBUTION WIDTH 14.3 % (10.0-14.5); WHITE BLOOD COUNT 12.5 10^3/uL (4.3-11.0)
[2019-03-19 22:41] LABS: ALBUMIN 4.2 GM/DL (3.2-4.5); BILIRUBIN,TOTAL 0.3 MG/DL (0.1-1.0); CALCIUM 10.4 MG/DL (8.5-10.1); CREATININE SERUM 1.38 MG/DL (0.60-1.30)
[2019-03-19] MEDS ORDERED: cefTRIAXone FOR IV USE 1,000 MG in WATER (STERILE) FOR INJECTION 10 ML IV ONE (23:00)
[2019-03-19] MEDS ORDERED: DOXY100T2 PO (23:18)
[2019-03-19 23:35] VITALS: BP 111/65
--- NOTE | 2019-03-20 06:52 | Diagnostic Imaging Report ---
EXAMINATION: Right foot 3 views INDICATION: Diabetic ulcer. Comparison is 11/12/2018. FINDINGS: There has been transmetatarsal amputation of the 1st and 5th proximal metatarsals. There is chronic destruction of the right 2nd and 4th distal metatarsals which appears unchanged. There are mild erosions of the residual right 5th metatarsal which appear new from prior exam. IMPRESSION: 1. Increased erosive changes of the right 5th metatarsal at the cut edge of a transmetatarsal amputation concerning for osteomyelitis. Dictated by: Dictated on workstation # [id number]
== END 2019-03-19 23:35 | disposition home or self-care (01) ==
LOC: EDUNIT# 21:13 → ER 21:15
DX: E11.621 Type 2 diabetes mellitus with foot ulcer (principal); L97.519 Non-pressure chronic ulcer of other part of right foot with unspecified severity; I10 Essential (primary) hypertension; E11.40 Type 2 diabetes mellitus with diabetic neuropathy, unspecified; F32.9 Major depressive disorder, single episode, unspecified; D64.9 Anemia, unspecified; Z79.84 Long term (current) use of oral hypoglycemic drugs; Z77.22 Contact with and (suspected) exposure to environmental tobacco smoke (acute) (chronic)
CPT/HCPCS: 36415; 73630; 80053; 83605; 85025; 86141; 87040; 87070; 87077; 87186; 87205

== ENCOUNTER → 2019-03-28 | Outpatient (CLI) | payer BC, OTHER ==
[~2019-03-28] MED LIST changes: +DOXY100T2 PO; +HYDR-3812 PO; +INSU100I32 SQ; +PAMI30VI8 SQ
--- NOTE | 2019-03-28 16:27 | Diagnostic Imaging Report ---
PROCEDURE: MRI right lower extremity without contrast. TECHNIQUE: Multiplanar, multisequence non contrast-enhanced MRI of the right lower extremity was accomplished. INDICATION: Diabetes, ulceration at the lateral right foot. COMPARISON: 03/09/2018. Radiographs from 03/19/2019. FINDINGS: There is a soft tissue ulceration at the lateral aspect of the right foot, with a marker in place. There is a small heterogeneous fluid collection underlying the ulceration measuring approximately 2.5 x 0.9 x 0.8 cm in size (image 10, series 6). This abuts the stump of the fifth metatarsal, which demonstrates cortical erosion and T1-weighted marrow replacement consistent with osteomyelitis. There is also bone marrow edema and T1-weighted marrow replacement in the 4th metatarsal stump, and the lateral aspect of the cuboid concerning for osteomyelitis. Bone marrow edema and T1-weighted marrow replacement at the fourth proximal phalanx is concerning for osteomyelitis as well. There is increased T2 signal and decreased T1 signal in the 3rd metatarsal head and base, throughout the second metatarsal, in the intermediate and lateral cuneiforms and the second proximal phalanx. There are severe degenerative changes and destruction at the second and third tarsometatarsal joints as well as the second metatarsophalangeal joint. The Lisfranc ligament appears intact. There is generalized muscular atrophy. IMPRESSION: 1. Findings consistent with osteomyelitis of the base of the right fifth metatarsal, with small adjacent soft tissue abscess. 2. Abnormal signal seen in the second through fourth metatarsals, the second and fourth proximal phalanges, the intermediate and lateral cuneiforms, and the cuboid. This may be due to osteomyelitis as well, particularly at the cuboid, fourth metatarsal and fourth proximal phalanx. However, a neuropathic arthropathy can have a similar appearance. Dictated by: Dictated on workstation # [id number]
== END ==
LOC: RAD 14:49
PROVIDERS: ATTEND Podiatrist Foot & Ankle Surgery
DX: E11.621 Type 2 diabetes mellitus with foot ulcer (principal); L97.519 Non-pressure chronic ulcer of other part of right foot with unspecified severity; L02.611 Cutaneous abscess of right foot; Z86.19 Personal history of other infectious and parasitic diseases

== ENCOUNTER → 2019-04-16 | Outpatient (CLI) | payer BC ==
[~2019-04-16] MED LIST changes: +VANCOMYCIN 2000 MG/NS 500 ML IVPB IV ONE; +cefTRIAXone 2,000 MG/SWFI 20 ML IV PUSH IV NR
[2019-04-16 15:00] VITALS: BP 141/83
[2019-04-16 16:08] LABS: BASOPHILS % (AUTO) 0 % (0-10); EOSINOPHILS # (AUTO) 0.2 10^3/uL (0.0-0.3); EOSINOPHILS % (AUTO) 3 % (0-10); HEMATOCRIT 35 % (40-54); HEMOGLOBIN 11.3 G/DL (13.3-17.7); LYMPHOCYTES # (AUTO) 0.8 X 10^3 (1.0-4.0); LYMPHOCYTES % (AUTO) 10 % (12-44); MEAN CORPUSCULAR HEMOGLOBIN 30 PG (25-34); MEAN CORPUSCULAR HGB CONC 32 G/DL (32-36); MEAN CORPUSCULAR VOLUME 91 FL (80-99); MEAN PLATELET VOLUME 9.6 FL (7.4-10.4); MONOCYTES # (AUTO) 0.7 X 10^3 (0.0-1.0); MONOCYTES % (AUTO) 8 % (0-12); NEUTROPHILS # (AUTO) 6.6 X 10^3 (1.8-7.8); NEUTROPHILS % (AUTO) 80 % (42-75); PLATELET COUNT 308 10^3/uL (130-400); RED CELL DISTRIBUTION WIDTH 14.4 % (10.0-14.5); WHITE BLOOD COUNT 8.3 10^3/uL (4.3-11.0)
[2019-04-16 16:25] LABS: ALANINE AMINOTRANSFERASE 11 U/L (0-55); ALBUMIN 3.7 GM/DL (3.2-4.5); ALKALINE PHOSPHATASE 71 U/L (40-136); BILIRUBIN,TOTAL 0.4 MG/DL (0.1-1.0); BUN/CREATININE RATIO 21; CALCIUM 9.8 MG/DL (8.5-10.1); CARBON DIOXIDE 26 MMOL/L (21-32); CHLORIDE 100 MMOL/L (98-107); CREATININE SERUM 1.12 MG/DL (0.60-1.30); GFR ESTIMATED > 60; GLUCOSE 216 MG/DL (70-105); SODIUM 137 MMOL/L (135-145); TOTAL PROTEIN 7.2 GM/DL (6.4-8.2)
[2019-04-16 16:41] LABS: EOSINOPHILS % (MANUAL) 1 %; LYMPHOCYTES % (MANUAL) 12 %; MONOCYTES % (MANUAL) 5 %; NEUTROPHILS % (MANUAL) 82 %; RBC MORPH NORMAL
[2019-04-16 17:16] LABS: ERYTHROCYTE SEDIMENTATION RATE 106 MM/HR (0-15)
--- NOTE | 2019-04-16 18:15 | NUR ---
VANCOMYCIN INFUSION COMPLETED, PICC FLUSHED WITH 20 ML NS AND SITE SECURED WITH TUBULAR ELASTIC STRETCH NET. DENIES COMPLAINTS. VERBALIZED UNDERSTANDING TO RETURN FOR VANCO TROUGH ON 04/18/19. DISMISSED AMB.
== END ==
LOC: SDC 14:53
PROVIDERS: ATTEND Internal Medicine Infectious Disease
DX: M86.671 Other chronic osteomyelitis, right ankle and foot (principal); E11.9 Type 2 diabetes mellitus without complications
CPT/HCPCS: 36415; 36569; 76937; 80053; 85007; 85027; 85652; 96375

== ENCOUNTER 2019-05-27 06:23 | Outpatient (RCR) | payer BC ==
[2019-04-22 06:00] VITALS: BP 135/74
--- NOTE | 2019-04-22 09:15 | NUR ---
spoke with amaya at dr. bardales office and informed no cbc was drawn and she informed would speak with karis and see if he wants to come back in to draw or else will just draw next monday.
[2019-04-22 09:38] LABS: ALANINE AMINOTRANSFERASE 12 U/L (0-55); ALBUMIN 3.7 GM/DL (3.2-4.5); ALKALINE PHOSPHATASE 71 U/L (40-136); BILIRUBIN,TOTAL 0.2 MG/DL (0.1-1.0); BUN/CREATININE RATIO 14; CARBON DIOXIDE 25 MMOL/L (21-32); CHLORIDE 101 MMOL/L (98-107); CREATININE SERUM 1.02 MG/DL (0.60-1.30); GFR ESTIMATED > 60; GLUCOSE 208 MG/DL (70-105); POTASSIUM 4.1 MMOL/L (3.6-5.0); SODIUM 140 MMOL/L (135-145); TOTAL PROTEIN 7.3 GM/DL (6.4-8.2)
[2019-04-29 06:15] VITALS: BP 122/77
[2019-04-29 06:38] LABS: BASOPHILS % (AUTO) 0 % (0-10); EOSINOPHILS # (AUTO) 0.2 10^3/uL (0.0-0.3); EOSINOPHILS % (AUTO) 2 % (0-10); HEMATOCRIT 40 % (40-54); HEMOGLOBIN 12.7 G/DL (13.3-17.7); LYMPHOCYTES # (AUTO) 0.8 X 10^3 (1.0-4.0); LYMPHOCYTES % (AUTO) 11 % (12-44); MEAN CORPUSCULAR HEMOGLOBIN 29 PG (25-34); MEAN CORPUSCULAR HGB CONC 32 G/DL (32-36); MEAN CORPUSCULAR VOLUME 91 FL (80-99); MONOCYTES # (AUTO) 0.7 X 10^3 (0.0-1.0); MONOCYTES % (AUTO) 9 % (0-12); NEUTROPHILS # (AUTO) 5.8 X 10^3 (1.8-7.8); NEUTROPHILS % (AUTO) 78 % (42-75); PLATELET COUNT 403 10^3/uL (130-400); RED CELL DISTRIBUTION WIDTH 15.1 % (10.0-14.5); WHITE BLOOD COUNT 7.5 10^3/uL (4.3-11.0)
[2019-04-29 07:01] LABS: ALANINE AMINOTRANSFERASE 18 U/L (0-55); ALKALINE PHOSPHATASE 80 U/L (40-136); BILIRUBIN,TOTAL 0.3 MG/DL (0.1-1.0); BUN/CREATININE RATIO 23; CALCIUM 9.6 MG/DL (8.5-10.1); CARBON DIOXIDE 25 MMOL/L (21-32); CHLORIDE 98 MMOL/L (98-107); CREATININE SERUM 1.22 MG/DL (0.60-1.30); GFR ESTIMATED > 60; GLUCOSE 262 MG/DL (70-105); POTASSIUM 4.3 MMOL/L (3.6-5.0); SODIUM 136 MMOL/L (135-145); TOTAL PROTEIN 7.7 GM/DL (6.4-8.2)
[2019-04-29 07:06] LABS: ERYTHROCYTE SEDIMENTATION RATE 74 MM/HR (0-15)
[2019-04-29 07:07] LABS: VANCOMYCIN,TROUGH 19.5 UG/ML (10.0-20.0)
[2019-05-01 06:15] VITALS: BP 129/75
[2019-05-06 06:19] VITALS: BP 126/72
[2019-05-09 16:59] LABS: BASOPHILS # (AUTO) 0.1 10^3/uL (0.0-0.1); BASOPHILS % (AUTO) 1 % (0-10); EOSINOPHILS # (AUTO) 0.3 10^3/uL (0.0-0.3); EOSINOPHILS % (AUTO) 4 % (0-10); HEMATOCRIT 40 % (40-54); LYMPHOCYTES # (AUTO) 1.7 X 10^3 (1.0-4.0); LYMPHOCYTES % (AUTO) 24 % (12-44); MEAN CORPUSCULAR HEMOGLOBIN 30 PG (25-34); MEAN CORPUSCULAR HGB CONC 32 G/DL (32-36); MEAN CORPUSCULAR VOLUME 91 FL (80-99); MEAN PLATELET VOLUME 10.3 FL (7.4-10.4); MONOCYTES # (AUTO) 0.5 X 10^3 (0.0-1.0); MONOCYTES % (AUTO) 8 % (0-12); NEUTROPHILS # (AUTO) 4.5 X 10^3 (1.8-7.8); NEUTROPHILS % (AUTO) 64 % (42-75); PLATELET COUNT 288 10^3/uL (130-400); RED CELL DISTRIBUTION WIDTH 15.3 % (10.0-14.5); WHITE BLOOD COUNT 7.1 10^3/uL (4.3-11.0)
[2019-05-09 17:23] LABS: ALANINE AMINOTRANSFERASE 31 U/L (0-55); ALBUMIN 4.3 GM/DL (3.2-4.5); ALKALINE PHOSPHATASE 104 U/L (40-136); BILIRUBIN,TOTAL 0.3 MG/DL (0.1-1.0); BUN/CREATININE RATIO 17; CALCIUM 9.9 MG/DL (8.5-10.1); CARBON DIOXIDE 26 MMOL/L (21-32); CHLORIDE 95 MMOL/L (98-107); CREATININE SERUM 1.28 MG/DL (0.60-1.30); GFR ESTIMATED > 60; GLUCOSE 327 MG/DL (70-105); SODIUM 135 MMOL/L (135-145); TOTAL PROTEIN 7.8 GM/DL (6.4-8.2)
[2019-05-09 17:46] LABS: ERYTHROCYTE SEDIMENTATION RATE 37 MM/HR (0-15)
[2019-05-13 06:45] VITALS: BP 122/74
[2019-05-13 06:54] LABS: BASOPHILS # (AUTO) 0.1 10^3/uL (0.0-0.1); BASOPHILS % (AUTO) 1 % (0-10); EOSINOPHILS # (AUTO) 0.4 10^3/uL (0.0-0.3); EOSINOPHILS % (AUTO) 8 % (0-10); HEMATOCRIT 40 % (40-54); LYMPHOCYTES # (AUTO) 1.2 X 10^3 (1.0-4.0); LYMPHOCYTES % (AUTO) 24 % (12-44); MEAN CORPUSCULAR HEMOGLOBIN 30 PG (25-34); MEAN CORPUSCULAR HGB CONC 33 G/DL (32-36); MEAN CORPUSCULAR VOLUME 90 FL (80-99); MEAN PLATELET VOLUME 9.6 FL (7.4-10.4); MONOCYTES # (AUTO) 0.4 X 10^3 (0.0-1.0); MONOCYTES % (AUTO) 8 % (0-12); NEUTROPHILS # (AUTO) 2.9 X 10^3 (1.8-7.8); NEUTROPHILS % (AUTO) 59 % (42-75); PLATELET COUNT 219 10^3/uL (130-400); RED CELL DISTRIBUTION WIDTH 15.4 % (10.0-14.5)
[2019-05-13 07:24] LABS: ALANINE AMINOTRANSFERASE 20 U/L (0-55); ALKALINE PHOSPHATASE 95 U/L (40-136); BILIRUBIN,TOTAL 0.4 MG/DL (0.1-1.0); BUN/CREATININE RATIO 19; CALCIUM 9.2 MG/DL (8.5-10.1); CARBON DIOXIDE 25 MMOL/L (21-32); CHLORIDE 100 MMOL/L (98-107); CREATININE SERUM 1.13 MG/DL (0.60-1.30); GFR ESTIMATED > 60; GLUCOSE 226 MG/DL (70-105); POTASSIUM 4.1 MMOL/L (3.6-5.0); SODIUM 135 MMOL/L (135-145); TOTAL PROTEIN 7.1 GM/DL (6.4-8.2)
[2019-05-13 07:44] LABS: ERYTHROCYTE SEDIMENTATION RATE 42 MM/HR (0-15)
[2019-05-20 07:00] VITALS: BP 132/77
[2019-05-20 07:09] LABS: BASOPHILS # (AUTO) 0.1 10^3/uL (0.0-0.1); BASOPHILS % (AUTO) 1 % (0-10); EOSINOPHILS # (AUTO) 0.4 10^3/uL (0.0-0.3); EOSINOPHILS % (AUTO) 7 % (0-10); HEMATOCRIT 42 % (40-54); HEMOGLOBIN 14.1 G/DL (13.3-17.7); LYMPHOCYTES # (AUTO) 1.3 X 10^3 (1.0-4.0); LYMPHOCYTES % (AUTO) 22 % (12-44); MEAN CORPUSCULAR HEMOGLOBIN 31 PG (25-34); MEAN CORPUSCULAR HGB CONC 34 G/DL (32-36); MEAN CORPUSCULAR VOLUME 91 FL (80-99); MONOCYTES # (AUTO) 0.4 X 10^3 (0.0-1.0); MONOCYTES % (AUTO) 7 % (0-12); NEUTROPHILS # (AUTO) 3.7 X 10^3 (1.8-7.8); NEUTROPHILS % (AUTO) 63 % (42-75); PLATELET COUNT 226 10^3/uL (130-400); RED CELL DISTRIBUTION WIDTH 15.2 % (10.0-14.5); WHITE BLOOD COUNT 5.8 10^3/uL (4.3-11.0)
[2019-05-20 07:30] LABS: ALANINE AMINOTRANSFERASE 19 U/L (0-55); ALBUMIN 4.3 GM/DL (3.2-4.5); ALKALINE PHOSPHATASE 113 U/L (40-136); BILIRUBIN,TOTAL 0.4 MG/DL (0.1-1.0); BUN/CREATININE RATIO 20; CALCIUM 9.9 MG/DL (8.5-10.1); CARBON DIOXIDE 25 MMOL/L (21-32); CHLORIDE 97 MMOL/L (98-107); CREATININE SERUM 1.27 MG/DL (0.60-1.30); GFR ESTIMATED > 60; GLUCOSE 290 MG/DL (70-105); POTASSIUM 3.9 MMOL/L (3.6-5.0); SODIUM 135 MMOL/L (135-145); TOTAL PROTEIN 7.9 GM/DL (6.4-8.2)
[2019-05-20 07:36] LABS: VANCOMYCIN,TROUGH 19.6 UG/ML (10.0-20.0)
[2019-05-20 07:58] LABS: ERYTHROCYTE SEDIMENTATION RATE 29 MM/HR (0-15)
[~2019-05-27] VITALS: Ht 182.9 cm; Wt 109.1 kg
[~2019-05-27 06:23] MED LIST changes: -VANCOMYCIN 2000 MG/NS 500 ML IVPB IV ONE; -cefTRIAXone 2,000 MG/SWFI 20 ML IV PUSH IV NR
[2019-05-27 06:35] VITALS: BP 129/92
[2019-05-27 06:50] LABS: BASOPHILS % (AUTO) 1 % (0-10); EOSINOPHILS # (AUTO) 0.5 10^3/uL (0.0-0.3); EOSINOPHILS % (AUTO) 10 % (0-10); HEMATOCRIT 42 % (40-54); HEMOGLOBIN 13.9 G/DL (13.3-17.7); LYMPHOCYTES # (AUTO) 1.4 X 10^3 (1.0-4.0); LYMPHOCYTES % (AUTO) 28 % (12-44); MEAN CORPUSCULAR HEMOGLOBIN 30 PG (25-34); MEAN CORPUSCULAR HGB CONC 33 G/DL (32-36); MEAN CORPUSCULAR VOLUME 91 FL (80-99); MONOCYTES # (AUTO) 0.4 X 10^3 (0.0-1.0); MONOCYTES % (AUTO) 8 % (0-12); NEUTROPHILS # (AUTO) 2.7 X 10^3 (1.8-7.8); NEUTROPHILS % (AUTO) 54 % (42-75); PLATELET COUNT 233 10^3/uL (130-400)
[2019-05-27 07:06] LABS: ALANINE AMINOTRANSFERASE 15 U/L (0-55); ALBUMIN 4.1 GM/DL (3.2-4.5); ALKALINE PHOSPHATASE 92 U/L (40-136); BILIRUBIN,TOTAL 0.4 MG/DL (0.1-1.0); BUN/CREATININE RATIO 20; CALCIUM 9.7 MG/DL (8.5-10.1); CARBON DIOXIDE 25 MMOL/L (21-32); CHLORIDE 100 MMOL/L (98-107); CREATININE SERUM 1.15 MG/DL (0.60-1.30); GFR ESTIMATED > 60; GLUCOSE 285 MG/DL (70-105); POTASSIUM 4.8 MMOL/L (3.6-5.0); SODIUM 137 MMOL/L (135-145); TOTAL PROTEIN 7.4 GM/DL (6.4-8.2)
[2019-05-27 07:35] LABS: BAND NEUTROPHILS 2 %; BASOPHILS % (MANUAL) 0 %; EOSINOPHILS % (MANUAL) 8 %; ERYTHROCYTE SEDIMENTATION RATE 37 MM/HR (0-15); LYMPHOCYTES % (MANUAL) 30 %; MONOCYTES % (MANUAL) 8 %; NEUTROPHILS % (MANUAL) 52 %; RBC MORPH NORMAL
[2019-05-28 10:00] VITALS: BP 125/82
== END 2019-05-28 10:00 | disposition home or self-care (01) ==
LOC: SDC 06:23
PROVIDERS: ATTEND Internal Medicine Infectious Disease
DX: M86.671 Other chronic osteomyelitis, right ankle and foot (principal); E11.65 Type 2 diabetes mellitus with hyperglycemia
CPT/HCPCS: 36415; 80053; 80202; 85007; 85025; 85027; 85652; 99211

== ENCOUNTER 2019-06-15 14:21 | Inpatient (IN) | payer BC ==
[~2019-06-15] VITALS: Ht 180.3 cm; Wt 104.5 kg
[~2019-06-15 14:21] MED LIST changes: -GLIM4TAB PO; +GLIM4TAB3 PO; -IBUP-2055 PO; +IBUP-2473 PO
--- NOTE | 2019-06-15 14:52 | ED General ---
General Chief Complaint: Lower Extremity Stated Complaint: R FOOT PAIN Nursing Triage Note: PT AMBULATE TO TRIAGE WITH C/O RIGHT FOOT PAIN. PT REPORTS PREVIOUS AMPUTATION OF TOE ON RIGHT FOOT AND HX OF INFECTIONS TO RIGHT FOOT. PT STATES HE THINKS HE HAS AN INFECTION AGAIN. Nursing Sepsis Screen: No Definite Risk Source of Information: Patient, Spouse Exam Limitations: No Limitations History of Present Illness Date Seen by Provider: Jun 15, 2019 Time Seen by Provider: 14:40 Initial Comments 43-year-old male patient presents with complaints of right foot pain, redness, and chills. Patient is unsure if he has had a fever. Patient has had several previous debridements and toe amputations to the right foot over the last 2-3 years. Most recent I&D was performed by Dr. Lassiter in March. Patient was treated with IV vancomycin for several weeks. reports contacting Dr. Lassiter today and was told to take patient to the emergency department for evaluation. Timing/Duration: 2-3 Days, Getting Worse Modifying Factors: worse with Movement Allergies and Home Medications Allergies Coded Allergies: No Known Drug Allergies (Unverified , 04/02/19) Home Medications Baclofen 10 Mg Tablet, 10 MG PO TID PRN for MUSCLE SPASMS, (Reported) Canagliflozin 300 Mg Tablet, 300 MG PO DAILY, (Reported) Citalopram Hydrobromide 20 Mg Tablet, 20 MG PO DAILY, (Reported) Glimepiride 4 Mg Tablet, 4 MG PO BID, (Reported) LAST FILLED #180 5-15-18 Hydrocodone/Acetaminophen 1 Each Tablet, 1 TAB PO Q4-6HR, (Reported) Insulin Degludec 100 Unit/1 Ml Insuln.pen, 15 UNIT SQ HS, (Reported) Insulin Lispro 100 Unit/1 Ml Cartridge, 547 UNIT SQ TIDAC, (Reported) Ropinirole HCl 4 Mg Tablet, 4 MG PO HS, (Reported) Sitagliptin Phos/Metformin HCl 1 Each Tablet, 1 TAB PO BID, (Reported) Patient Home Medication List Home Medication List Reviewed: Yes Review of Systems Review of Systems Constitutional: see HPI, chills; No diaphoresis, No dizziness, No fever (unknown); malaise EENTM: No ear pain, No hoarseness, No nose congestion, No throat pain Respiratory: No cough, No orthopnea, No phlegm, No short of breath, No stridor, No wheezing Cardiovascular: No chest pain, No palpitations Gastrointestinal: No abdominal pain, No constipation, No diarrhea, No jaundice; loss of appetite (reports loss of appetite since being on vancomycin due to loss of taste); No melena, No nausea, No vomiting Genitourinary: No decreased output, No dysuria, No frequency, No pain Musculoskeletal: see HPI; No back pain; joint pain (right foot pain), joint swelling (right foot); No neck pain Skin: change in color (redness to the right foot) Psychiatric/Neurological: Denies Headache All Other Systems Reviewed Negative Unless Noted: Yes (Negative excepted noted.) Past Meccakb-Ihgsyn-Ddorgm Hx Past Med/Social Hx: Reviewed Nursing Past Med/Soc Hx Patient Social History Alcohol Use: Past History Recreational Drug Use: No Smoking Status: Current Everyday Smoker Type Used: Cigarettes 2nd Hand Smoke Exposure: Yes Recent Foreign Travel: No Contact w/Someone Who Travel: No Recent Infectious Disease Expo: No Recent Hopitalizations: No Physical Abuse: No Sexual Abuse: No Mistreated: No Fear: No Immunizations Up To Date Tetanus Booster (TDap): Less than 5yrs Date of Influenza Vaccine: Mar 11, 2019 Seasonal Allergies Seasonal Allergies: No Past Medical History Surgeries: Yes (TOE AMUPTATION, RIGHT ROTATOR CUFF X2, CTR RIGHT) Amputation, Orthopedic Respiratory: No Cardiac: Yes High Cholesterol, Hypertension Neurological: Yes Neuropathy Reproductive Disorders: No Sexually Transmitted Disease: No HIV/AIDS: No Genitourinary: No Gastrointestinal: No Musculoskeletal: Yes Amputee, Degenerate Disk Disease Endocrine: Yes Diabetes, Insulin dep HEENT: No (GLASSES/CONTACTS) Loss of Vision: Denies Hearing Impairment: Denies Cancer: No Psychosocial: Yes Depression Integumentary: Yes (DIABETIC FOOT ULCERS WITH CELLULITIS AND OSTEOMYELITIS) Recent Skin Changes Blood Disorders: Yes (ANEMIA) Adverse Reaction/Blood Tranf: No (N/A) Family Medical History Reviewed Nursing Family Hx No Pertinent Family Hx, Cancer, Diabetes Physical Exam Vital Signs Vital Signs - First Documented 06/15/19 06/15/19 14:25 17:25 Temp 36.8 Pulse 120 Resp 20 B/P (MAP) 168/82 (110) Pulse Ox 92 O2 Delivery Room Air Capillary Refill : Less Than 3 Seconds Height, Weight, BMI Height: 5'10.00" Weight: 235lbs. 0.0oz. 106.605009nt; 32.00 BMI Method:Stated General Appearance: No Apparent Distress, WD/WN HEENT: PERRL/EOMI, Pharynx Normal Neck: Normal Inspection, Non Tender, Supple Respiratory: Lungs Clear, Normal Breath Sounds, No Accessory Muscle Use, No Respiratory Distress Cardiovascular: No Gallop, No JVD, No Murmur, Tachycardia Gastrointestinal: Normal Bowel Sounds, No Organomegaly, Non Tender, Soft; No Distended Back: Normal Inspection Extremity: Normal Capillary Refill, Pedal Edema, Swelling (rt foot), Other (large area of erythema, warmth, swelling, and TTP to the rt foot. Fluctuance noted to the right lateral foot at the most recent incision site. Incision well-healed. Erythema marked with a skin marker. well healed incisions to the rt foot consistent with previous surgery sites.) Neurologic/Psychiatric: Alert, Oriented x3, Normal Mood/Affect Skin: Normal Color (with the exception of erythema to the right foot. ), Warm/Dry, Other (large area of erythema, warmth, swelling, and TTP to the rt foot. Fluctuance noted to the right lateral foot at the most recent incision site. Incision well-healed. Erythema marked with a skin marker. well healed incisions to the rt foot consistent with previous surgery sites.) Focused Exam Lactate Level 06/15/19 14:45: Lactic Acid Level 1.09 Time of Focused Exam: 16:15 Respiratory: Lungs Clear, Normal Breath Sounds, No Accessory Muscle Use, No Respiratory Distress Cardiovascular: Regular Rate, Rhythm, No Gallop, No Murmur Capillary Refill: Less Than 3 Seconds Skin: normal color (with the exception of erythema and warmth to the right foot.), warm/dry Lactic Acid Level Progress/Results/Core Measures Suspected Sepsis Recent Fever Within 48 Hours: No Infection Criteria Present: None New/Unexplained Altered Menta: No Sepsis Screen: No Definite Risk SIRS Temperature: Pulse: 120 Respiratory Rate: 20 Laboratory Tests 06/15/19 14:45: White Blood Count 10.4 Blood Pressure 168 /82 Mean: 110 06/15/19 14:45: Lactic Acid Level 1.09 Laboratory Tests 06/15/19 14:45: Creatinine 1.50H, Platelet Count 441H, Total Bilirubin 0.3 06/15/19 15:22: INR Comment 1.0 Results/Orders Lab Results Laboratory Tests Test 1/11/20 14:38 06/15/19 14:45 06/15/19 15:22 06/15/19 21:15 Range/Units Urine Color YELLOW Urine Clarity CLEAR Urine pH 5.5 5-9 Urine Specific [place] 1.020 1.016-1.022 Urine Protein 2+ H NEGATIVE Urine Glucose (UA) 2+ H NEGATIVE Urine Ketones 3+ H NEGATIVE Urine Nitrite NEGATIVE NEGATIVE Urine Bilirubin 1+ H NEGATIVE Urine Urobilinogen 0.2 < = 1.0 MG/DL Urine Leukocyte Esterase NEGATIVE NEGATIVE Urine RBC (Auto) 1+ H NEGATIVE Urine RBC NONE /HPF Urine WBC NONE /HPF Urine Squamous Epithelial Cells RARE /HPF Urine Crystals NONE /LPF Urine Bacteria NEGATIVE /HPF Urine Casts NONE /LPF Urine Mucus NEGATIVE /LPF Urine Culture Indicated NO White Blood Count 10.4 4.3-11.0 10^3/uL Red Blood Count 3.85 L 4.35-5.85 10^6/uL Hemoglobin 11.3 L 13.3-17.7 G/DL Hematocrit 36 L 40-54 % Mean Corpuscular Volume 94 80-99 FL Mean Corpuscular Hemoglobin 29 25-34 PG Mean Corpuscular Hemoglobin Concent 31 L 32-36 G/DL Red Cell Distribution Width 15.7 H 10.0-14.5 % Platelet Count 441 H 130-400 10^3/uL Mean Platelet Volume 9.2 7.4-10.4 FL Neutrophils (%) (Auto) 84 H 42-75 % Lymphocytes (%) (Auto) 8 L 12-44 % Monocytes (%) (Auto) 6 0-12 % Eosinophils (%) (Auto) 2 0-10 % Basophils (%) (Auto) 0 0-10 % Neutrophils # (Auto) 8.7 H 1.8-7.8 X 10^3 Lymphocytes # (Auto) 0.8 L 1.0-4.0 X 10^3 Monocytes # (Auto) 0.7 0.0-1.0 X 10^3 Eosinophils # (Auto) 0.2 0.0-0.3 10^3/uL Basophils # (Auto) 0.0 0.0-0.1 10^3/uL Sodium Level 141 135-145 MMOL/L Potassium Level 3.7 3.6-5.0 MMOL/L Chloride Level 101 98-107 MMOL/L Carbon Dioxide Level 19 L 21-32 MMOL/L Anion Gap 21 H 5-14 MMOL/L Blood Urea Nitrogen 14 7-18 MG/DL Creatinine 1.50 H 0.60-1.30 MG/DL Estimat Glomerular Filtration Rate 51 BUN/Creatinine Ratio 9 Glucose Level 117 H 70-105 MG/DL Lactic Acid Level 1.09 0.50-2.00 MMOL/L Calcium Level 10.6 H 8.5-10.1 MG/DL Corrected Calcium 10.9 H 8.5-10.1 MG/DL Total Bilirubin 0.3 0.1-1.0 MG/DL Aspartate Amino Transf (AST/SGOT) 45 H 5-34 U/L Alanine Aminotransferase (ALT/SGPT) 37 0-55 U/L Alkaline Phosphatase 244 H 40-136 U/L Total Protein 8.1 6.4-8.2 GM/DL Albumin 3.6 3.2-4.5 GM/DL Prothrombin Time 13.4 12.2-14.7 SEC INR Comment 1.0 0.8-1.4 Activated Partial Thromboplast Time 42 H 24-35 SEC Glucometer 180 H 70-110 MG/DL Micro Results Microbiology 06/15/19 Influenza Types A,B Antigen (LILIBETH) - Final, Complete My Orders Orders - ALEXIS WOODY Cbc With Automated Diff (06/15/19 14:46) Comprehensive Metabolic Panel (06/15/19 14:46) Blood Culture (06/15/19 14:46) Sputum Culture (06/15/19 14:46) Urinalysis (06/15/19 14:46) Urine Culture (06/15/19 14:46) Protime With Inr (06/15/19 14:46) Partial Thromboplastin Time (06/15/19 14:46) Chest 1 View, Ap/Pa Only (06/15/19 14:46) Acetaminophen Tablet (Tylenol Tablet) (06/15/19 15:00) Ed Iv/Invasive Line Start (06/15/19 14:46) Remove Rings In Anticipation O (06/15/19 14:46) Lactic Acid Analyzer (06/15/19 14:46) Ns Iv 1000 Ml (Sodium Chloride 0.9%) (06/15/19 15:00) Cefepime Injection (Maxipime Injection) (06/15/19 15:00) Foot, Right, 3 View (06/15/19 14:51) Influenza A And B Antigens (06/15/19 15:05) Medications Given in ED Current Medications Medications Dose Ordered Sig/Nohemy Route Start Time Stop Time Status Last Admin Dose Admin Acetaminophen 1,000 mg ONCE PRN PO 06/15/19 15:00 06/15/19 15:00 DC 06/15/19 14:54 1,000 MG Cefepime HCl 1000 mg/Sterile Water 10 ml @ 200 mls/hr ONCE ONCE IV 06/15/19 15:00 06/15/19 15:03 DC 06/15/19 15:35 200 MLS/HR Sodium Chloride 3,197.82 ml @ 3,197.82 mls/hr ONCE ONCE IV 06/15/19 15:00 06/15/19 15:59 DC 06/15/19 14:57 3,197.82 MLS/HR Vital Signs/I&O 06/15/19 06/15/19 06/15/19 06/15/19 14:25 17:25 17:36 17:51 Temp 36.8 36.8 37.4 Pulse 120 111 97 Resp 20 20 18 B/P (MAP) 168/82 (110) 161/80 (110) 127/70 Pulse Ox 92 98 O2 Delivery Room Air Room Air Room Air Room Air 06/15/19 06/15/19 19:50 19:57 Temp 37.4 37.8 Pulse 100 Resp 20 B/P (MAP) 106/59 (75) Pulse Ox 94 O2 Delivery Room Air Capillary Refill : Less Than 3 Seconds Blood Pressure Mean: 110 Diagnostic Imaging Diagonstic Imaging: Xray Plain Films/CT/US/NM/MRI: chest Comments Date of Exam:06/15/19 CHEST 1 VIEW, AP/PA ONLY INDICATION: Right foot pain. History of foot infection. TECHNIQUE: Single view chest 3:07 p.m. CORRELATION STUDY: 11/08/2018 FINDINGS: Heart size is stable. Vasculature appears slightly more prominent. The lungs are clear with no consolidating infiltrate. There is no significant effusion or pneumothorax. IMPRESSION: 1. Stable heart size with vasculature appearing slightly increased from prior study. Dictated on workstation # [id number] Reviewed: Reviewed by Me (radiology report reviewed by me) Diagonstic Imaging: Xray Plain Films/CT/US/NM/MRI: other (foot) Comments FOOT, RIGHT, 3 VIEW EXAMINATION: Right foot radiographs, 3 views. COMPARISON: March 19, 2019. HISTORY: 43-year-old male, right foot pain. Concern for infection. FINDINGS: There is absence of the mid and distal aspect of the first metatarsal as well as absence of the first digit phalanges. There is absence of the distal aspects of the fourth and fifth metatarsals and absence of the fifth digit phalanges. There are chronic appearing bone deformities of the metatarsals. There is absence of the third digit middle and distal phalanges. There is subluxation of the second proximal phalanx, laterally, relative to the remaining portions of the second metatarsal. There are midfoot erosions and joint space loss. There is no identified interval and acute appearing bone destruction. There is no identified radiopaque foreign body. There is prominent soft tissue swelling at the level of the foot. There are vascular calcifications. IMPRESSION: 1. Extensive bone deformities, as above, without significant interval change since March 19, 2019. 2. No radiographic evidence of active aggressive osteomyelitis. 3. No identified radiopaque foreign body. Di ctated on workstation # [id number] Reviewed: Reviewed by Me (radiology report reviewed by me) Departure Communication (Admissions) Time/Spoke to Admitting Phy: 16:30 Dr. Moy graciously accepts patient to her service for IV fluids, IV antibiotics, and further evaluation/management. requests dr. lassiter consult. Time/Spoke to Consulting Phy: 16:35 Dr. Lassiter notified of consult. patient seen and evaluated. sepsis workup obtained. patient given NS at 30ml/kg. all laboratory and diagnostic findings d/w the patient and . patient reports feeling better with medications. plan for admission d/w the patient. patient verbalizes understanding and agrees with the treatment plan. pt case d/w dr. rodriguez, he agrees with the plan of care. Impression Primary Impression: extensive cellulitis of right foot Additional Impressions: Acute renal failure (ARF) Qualified Codes: N17.9 - Acute kidney failure, unspecified Volume depletion Diabetes mellitus type II, uncontrolled Qualified Codes: E11.65 - Type 2 diabetes mellitus with hyperglycemia Disposition: ADMITTED INPATIENT Condition: Stable Admissions Decision to Admit Reason: Admit from ER (General) Decision to Admit/Date: Jun 15, 2019 Time/Decision to Admit Time: 16:30 Departure-Patient Inst. Referrals: RASHAD HAY DO (PCP) Primary Care Physician LUIS FELIPE HAY, CHASITY (Family) Primary Care Physician ALEXIS WOODY Jun 15, 2019 14:52
[2019-06-15 14:58] LABS: BASOPHILS % (AUTO) 0 % (0-10); EOSINOPHILS # (AUTO) 0.2 10^3/uL (0.0-0.3); EOSINOPHILS % (AUTO) 2 % (0-10); HEMATOCRIT 36 % (40-54); HEMOGLOBIN 11.3 G/DL (13.3-17.7); LYMPHOCYTES # (AUTO) 0.8 X 10^3 (1.0-4.0); LYMPHOCYTES % (AUTO) 8 % (12-44); MEAN CORPUSCULAR HEMOGLOBIN 29 PG (25-34); MEAN CORPUSCULAR HGB CONC 31 G/DL (32-36); MEAN CORPUSCULAR VOLUME 94 FL (80-99); MEAN PLATELET VOLUME 9.2 FL (7.4-10.4); MONOCYTES # (AUTO) 0.7 X 10^3 (0.0-1.0); MONOCYTES % (AUTO) 6 % (0-12); NEUTROPHILS # (AUTO) 8.7 X 10^3 (1.8-7.8); NEUTROPHILS % (AUTO) 84 % (42-75); PLATELET COUNT 441 10^3/uL (130-400); RED CELL DISTRIBUTION WIDTH 15.7 % (10.0-14.5); WHITE BLOOD COUNT 10.4 10^3/uL (4.3-11.0)
[2019-06-15 15:00] LABS: BILIRUBIN,URINE 1+ (NEGATIVE); CLARITY,URINE CLEAR; COLOR,URINE YELLOW; GLUCOSE, URINE (UA) 2+ (NEGATIVE); KETONES,URINE 3+ (NEGATIVE); LEUKOCYTE ESTERASE ,URINE NEGATIVE (NEGATIVE); NITRITE,URINE NEGATIVE (NEGATIVE); PH,URINE 5.5 (5-9); PROTEIN,URINE 2+ (NEGATIVE)
[2019-06-15] MEDS ORDERED: NS IV 1000 ML 3,197.82 ML IV ONE (15:00)
[2019-06-15] MEDS ORDERED: ACETAMINOPHEN 500 MG TAB (TYLENOL) PO PRN ×2 (15:00→18:00)
[2019-06-15] MEDS ORDERED: CEFEPIME INJECTION 1,000 MG in WATER (STERILE) FOR INJECTION 10 ML IV ONE (15:00)
[2019-06-15 15:10] LABS: BACTERIA,URINE NEGATIVE /HPF; SQUAMOUS EPITHELIAL CELL,UR RARE /HPF
[2019-06-15 15:20] LABS: ALBUMIN 3.6 GM/DL (3.2-4.5); BILIRUBIN,TOTAL 0.3 MG/DL (0.1-1.0); CALCIUM 10.6 MG/DL (8.5-10.1); CREATININE SERUM 1.5 MG/DL (0.60-1.30); POTASSIUM 3.7 MMOL/L (3.6-5.0); TOTAL PROTEIN 8.1 GM/DL (6.4-8.2)
--- NOTE | 2019-06-15 15:25 | Diagnostic Imaging Report ---
INDICATION: Right foot pain. History of foot infection. TECHNIQUE: Single view chest 3:07 p.m. CORRELATION STUDY: 11/08/2018 FINDINGS: Heart size is stable. Vasculature appears slightly more prominent. The lungs are clear with no consolidating infiltrate. There is no significant effusion or pneumothorax. IMPRESSION: 1. Stable heart size with vasculature appearing slightly increased from prior study. Dictated by: Dictated on workstation # [id number]
--- NOTE | 2019-06-15 15:42 | Diagnostic Imaging Report ---
EXAMINATION: Right foot radiographs, 3 views. COMPARISON: March 19, 2019. HISTORY: 43-year-old male, right foot pain. Concern for infection. FINDINGS: There is absence of the mid and distal aspect of the first metatarsal as well as absence of the first digit phalanges. There is absence of the distal aspects of the fourth and fifth metatarsals and absence of the fifth digit phalanges. There are chronic appearing bone deformities of the metatarsals. There is absence of the third digit middle and distal phalanges. There is subluxation of the second proximal phalanx, laterally, relative to the remaining portions of the second metatarsal. There are midfoot erosions and joint space loss. There is no identified interval and acute appearing bone destruction. There is no identified radiopaque foreign body. There is prominent soft tissue swelling at the level of the foot. There are vascular calcifications. IMPRESSION: 1. Extensive bone deformities, as above, without significant interval change since March 19, 2019. 2. No radiographic evidence of active aggressive osteomyelitis. 3. No identified radiopaque foreign body. Dictated by: Dictated on workstation # [id number]
[2019-06-15 15:45] LABS: PROTHROMBIN TIME PATIENT 13.4 SEC (12.2-14.7)
[2019-06-15 17:36] VITALS: BP 127/70
[2019-06-15] MEDS ORDERED: VANCOMYCIN INJECTION 1,000 MG in NS (IVPB) 250 ML IV SCH (18:00)
[2019-06-15] MEDS: NS IV 1000 ML 1,000 ML IV SCH ×2 (18:45→23:54)
[2019-06-15] MEDS ORDERED: CEFEPIME 2 GM (MAXIPIME) VIAL ONE (19:34)
[2019-06-15] MEDS: ONDANSETRON 4 MG/2 ML (SDV) Z0FRAN IVP PRN (19:41)
[2019-06-15] MEDS: HYDROcodone/APAP 5 MG/325 MG (LORTAB) TAB PO PRN ×2 (19:42→23:51)
[2019-06-15] MEDS: rOPINIRole 5 MG TAB (REQUIP) PO SCH (19:42)
[2019-06-15] MEDS: fentaNYL INJECTION 100 MCG/2 ML AMP IVP PRN ×2 (19:50→23:53)
[2019-06-15 19:57] VITALS: BP 106/59
--- NOTE | 2019-06-15 20:16 | Podiatry Progress Note ---
Standard Progress Note Progress Notes/Assess & Plan Date Seen by a Provider: Jun 15, 2019 Time Seen by a Provider: 20:14 Progress/Assessment & Plan Abscess/Celluitis right foot. - Will have an Incision and Drainage procedure tomorrow morning. Final Diagnosis Abscess/Celluitis right foot, Diabetic Neuropathy, Recent history of right foot osteomyelitis STEFANY SANTOROM Jun 15, 2019 20:16
[2019-06-15] MEDS ORDERED: VANCOMYCIN 1 GM/NS 250 ML IVPB IV SCH ×2 (21:00)
[2019-06-15 23:40] VITALS: BP 154/77
[2019-06-15] MEDS: CEFEPIME INJECTION 1,000 MG in WATER (STERILE) FOR INJECTION 10 ML IV SCH (23:58)
[2019-06-16] VITALS (11 sets, daily range): BP systolic 104–146; BP diastolic 62–88
--- NOTE | 2019-06-16 00:05 | CONSULTATION REPORT ---
DATE OF SERVICE: 06/15/2019 REASON FOR CONSULTATION: Continuation of foot care. HISTORY OF PRESENT ILLNESS: The patient was admitted through the emergency room after discovering today that he had some redness and bogginess to the outside of the right foot. He has had a recent history of osteomyelitis involving the fifth metatarsal. The patient was treated for long-term IV antibiotics per infectious disease from [facility]. The patient reports that his chills have improved since being admitted with IV antibiotics and fluids. PAST MEDICAL HISTORY: Type 2 diabetes, hypercholesterolemia, hypertension, neuropathy, degenerative disk disease. SOCIAL HISTORY: The patient is an every day smoker. He denies alcohol or illicit drug use. CURRENT MEDICATIONS: Listed on the patient's chart. ALLERGIES: He has no known drug allergies. LOWER EXTREMITY EXAMINATION: The patient has palpable dorsalis pedis pulse, palpable posterior tibial pulse on the right. Cap refill time is less than 3 seconds. He has absent protective sensation per 10 gram monofilament wire examination bilaterally. DERMATOLOGIC: The patient has some erythema demarcated earlier by the Emergency Department to the lateral aspect of the foot extending from the previous incision and drainage area of the right fifth metatarsal area. He has several amputations specifically to the first and fifth metatarsals and partial amputations to the toes. LABORATORY DATA: X-rays were reviewed that were taken today do not demonstrate any significant change to the fifth metatarsal compared to previous x-rays taken in my office and also here at the [facility]. ASSESSMENT: 1. Abscess with cellulitis, right foot. 2. Recent history of osteomyelitis, right fifth metatarsal. 3. Diabetic neuropathy 4. Multiple amputations, right foot. 5. Tobaccoism. PLAN: Various treatment options were discussed with the patient today. We discussed conservative and surgical options. The patient has opted to have an incision and drainage procedure to the right foot tomorrow morning. Informed consent will be presented to the patient. Perioperative course was discussed. We even discussed the additional procedures, especially if the fifth metatarsal has to be taken which would reduce the peroneal tendon function and most likely will result in an inverted fourth 4 foot deformity. The rebalancing would have to be performed sometime in the future for the foot. We even discussed a below the knee amputation for better functionality for the patient. Job ID: [id number] DocumentID: [id number] Dictated Date: 06/15/2019 20:23:40 Manager Programs Date: 06/16/2019 00:04:54 Dictated By: STEFANY SANTORO DPM
[2019-06-16] MEDS: fentaNYL INJECTION 100 MCG/2 ML AMP IVP PRN ×5 (03:50→22:02)
--- NOTE | 2019-06-16 05:44 | NUR ---
pt has been npo since 2399. consent signed family and pt aware of pending procedure.
[2019-06-16] MEDS: CEFEPIME INJECTION 1,000 MG in WATER (STERILE) FOR INJECTION 10 ML IV SCH ×3 (05:54→23:07)
[2019-06-16] MEDS: NS IV 1000 ML 1,000 ML IV SCH (05:55)
[2019-06-16 06:41] LABS: BASOPHILS % (AUTO) 0 % (0-10); EOSINOPHILS # (AUTO) 0.2 10^3/uL (0.0-0.3); EOSINOPHILS % (AUTO) 2 % (0-10); HEMATOCRIT 29 % (40-54); HEMOGLOBIN 8.8 G/DL (13.3-17.7); LYMPHOCYTES # (AUTO) 0.8 X 10^3 (1.0-4.0); LYMPHOCYTES % (AUTO) 9 % (12-44); MEAN CORPUSCULAR HEMOGLOBIN 29 PG (25-34); MEAN CORPUSCULAR HGB CONC 30 G/DL (32-36); MEAN CORPUSCULAR VOLUME 95 FL (80-99); MEAN PLATELET VOLUME 9.2 FL (7.4-10.4); MONOCYTES # (AUTO) 0.6 X 10^3 (0.0-1.0); MONOCYTES % (AUTO) 7 % (0-12); NEUTROPHILS # (AUTO) 7.2 X 10^3 (1.8-7.8); NEUTROPHILS % (AUTO) 82 % (42-75); PLATELET COUNT 386 10^3/uL (130-400); RED CELL DISTRIBUTION WIDTH 15.9 % (10.0-14.5); WHITE BLOOD COUNT 8.8 10^3/uL (4.3-11.0)
[2019-06-16 07:04] LABS: ALBUMIN 2.8 GM/DL (3.2-4.5); BILIRUBIN,TOTAL 0.2 MG/DL (0.1-1.0); CALCIUM 9.1 MG/DL (8.5-10.1); CREATININE SERUM 1.35 MG/DL (0.60-1.30); POTASSIUM 3.4 MMOL/L (3.6-5.0); TOTAL PROTEIN 6.4 GM/DL (6.4-8.2)
[2019-06-16] MEDS ORDERED: fentaNYL INJECTION 100 MCG/2 ML AMP ONE (07:30)
[2019-06-16] MEDS ORDERED: proPOfol 200 MG/20 ML (DIPRIVAN) VIAL IV ONE (07:30)
[2019-06-16] MEDS ORDERED: VANCOMYCIN 1000 MG/VIAL ONE (07:30)
[2019-06-16] MEDS ORDERED: LIDOCAINE PF 2% 5 ML (XYLOCAINE) VIAL ONE (07:30)
[2019-06-16] MEDS ORDERED: ONDANSETRON 4 MG/2 ML (SDV) Z0FRAN ONE (07:30)
[2019-06-16] MEDS ORDERED: SEVOFLURANE (ULTANE) 15 ML INHAL SOLN ONE ×3 (07:31→08:31)
[2019-06-16] MEDS ORDERED: MIDAZOLAM 2 MG/2 ML (VERSED) VIAL ONE (07:31)
[2019-06-16] MEDS: LACTATED RINGERS 1,000 ML IV PRN ×2 (07:45→08:35)
--- NOTE | 2019-06-16 07:50 | NUR ---
OFF FLOOR TO OR.
[2019-06-16] MEDS ORDERED: morphine INJ 10 MG/ML 1ML (SYR OR VIAL) ONE (08:42)
--- NOTE | 2019-06-16 08:43 | Progress Note-Pre Operative ---
Pre-Operative Progress Note H&P Reviewed The H&P was reviewed, patient examined and no changes noted. Date Seen by Provider: Jun 16, 2019 Time Seen by Provider: 07:50 Date H&P Reviewed: Jun 15, 2019 Time H&P Reviewed: 20:00 Pre-Operative Diagnosis: Abscess, osteomyelitis right foot STEFANY SANTORO DPM Jun 16, 2019 08:43
--- NOTE | 2019-06-16 08:45 | Progress Note-Post Operative ---
Post-Operative Progess Note Surgeon (s)/Devops Architect (s) Surgeon STEFANY SANTORO DPM Devops Architect: none Pre-Operative Diagnosis Abscess, osteomyelitis right foot Post-Operative Diagnosis Same Procedure & Operative Findings Date of Procedure 06/16/19 Procedure Performed/Findings Incision and Drainage, Amputation of 5th metatarsal, right foot Anesthesia Type General Estimated Blood Loss Estimated blood loss (mL): Minimal Specimens/Packing Specimens Removed Right 5th Metatarsal Base Packing: Iodoform, Bella 1/2" STEFANY SANTORO DPM Jun 16, 2019 08:45
[2019-06-16] MEDS ORDERED: morphine INJ 10 MG/ML 1ML (SYR OR VIAL) IVP ONE (09:00)
[2019-06-16] MEDS ORDERED: ONDANSETRON 4 MG/2 ML (SDV) Z0FRAN IVP PRN (09:00)
--- NOTE | 2019-06-16 09:50 | NUR ---
RETURNED FROM [facility], REPORT RECEIVED FROM HIMA COLE RN.
[2019-06-16] MEDS: VANCOMYCIN 1500 MG/NS 500 ML IVPB IV SCH ×4 (11:29→20:13)
[2019-06-16] MEDS: LACTATED RINGERS 1,000 ML IV SCH ×3 (11:33→23:09)
--- NOTE | 2019-06-16 12:12 | History & Physical-Hospitalist ---
History of Present Illness HPI/Chief Complaint Pt is a 43yoCM with a PMH of IDDMII, osteomyelitis and toe amputations who presented to the ER not feeling well and right foot pain. He is still quite drowsy from the OR so does not provide much history and all history is obtained from significant other at bedside and notes. Reported he felt warm but did not check his temperature to know if he had a fever. He has a history of similar presentation with osteomyelitis and has had multiple debridement and even amputations in the past. He follows with Dr Lassiter who last debrided his foot in March. He required IV Vanc for MRSA int he past as well. Per ER PA he did not look well but did not meet sepsis criteria so he was admitted for IV antibiotics and podiatric consultation. Dr Lassiter saw the patient and took him to the OR for debridement again. Exam Limitations: clinical condition Date Seen 06/16/19 Time Seen by a Provider: 11:45 Attending Physician Aria Moy MD PCP Saeed Sanabria DO Referring Physician Date of Admission Jun 15, 2019 at 16:43 Home Medications & Allergies Home Medications Reviewed patient Home Medication Reconciliation performed by pharmacy medication reconciliations electrical equipment technician and/or nursing. Patients Allergies have been reviewed. Allergies Allergies Coded Allergies No Known Drug Allergies ([id number]/29/19) Past Cgdtryi-Dmyttk-Jbnekk Hx Past Med/Social Hx: Reviewed Nursing Past Med/Soc Hx Patient Social History Alcohol Use: Past History Recreational Drug Use: No Smoking Status: Current Everyday Smoker Type Used: Cigarettes 2nd Hand Smoke Exposure: Yes Recent Foreign Travel: No Contact w/other who traveled: No Recent Hopitalizations: No Recent Infectious Disease Expo: No Immunizations Up To Date Tetanus Booster (TDap): Less than 5yrs Date of Influenza Vaccine: Feb 14, 2020 Seasonal Allergies Seasonal Allergies: No Past Medical History Surgeries: Amputation, Orthopedic Currently Using CPAP: No Currently Using BIPAP: No Cardiac: High Cholesterol, Hypertension Neurological: Neuropathy Reproductive: No Sexually Transmitted Disease: No HIV/AIDS: No CKD Musculoskeletal: Amputee, Degenerate Disk Disease Endocrine: Diabetes, Insulin dep Loss of Vision: Denies Hearing Impairment: Denies Psychosocial: Depression Skin/Integumentary: Recent Skin Changes History of Blood Disorders: Yes (ANEMIA) Adverse Reaction to Blood Lester: No (N/A) Family History Reviewed Nursing Family Hx No Pertinent Family Hx, Cancer, Diabetes Review of Systems ROS-Unable to Obtain: somnolent from surgery Constitutional: see HPI Physical Exam Physical Exam Vital Signs Vital Signs - First Documented 06/15/19 06/15/19 14:25 17:25 Temp 36.8 Pulse 120 Resp 20 B/P (MAP) 168/82 (110) Pulse Ox 92 O2 Delivery Room Air Capillary Refill : Less Than 3 SecondsLess Than 3 Seconds Height, Weight, BMI Height: 5'10.00" Weight: 235lbs. 0.0oz. 106.724058rs; 15.13 BMI Method:Stated General Appearance: No Apparent Distress, WD/WN, Other (sleeping soundly, arouses to verbal stimuli but quickly falls back asleep) Respiratory: Lungs Clear, No Accessory Muscle Use, No Respiratory Distress Cardiovascular: Regular Rate, Rhythm, No Murmur Gastrointestinal: Normal Bowel Sounds, Non Tender, Soft Extremity: Other (right foot in surgical dressing, dressing with scant blood on edge) Neurologic/Psychiatric: Other (easily arousable but somnolent from surgery) Results Results/Procedures Labs Laboratory Tests 06/15/19 14:45 06/16/19 05:45 Patient resulted labs reviewed. Imaging: Reviewed Imaging Report Imaging Date of Exam:06/15/19 FOOT, RIGHT, 3 VIEW EXAMINATION: Right foot radiographs, 3 views. COMPARISON: March 19, 2019. HISTORY: 43-year-old male, right foot pain. Concern for infection. FINDINGS: There is absence of the mid and distal aspect of the first metatarsal as well as absence of the first digit phalanges. There is absence of the distal aspects of the fourth and fifth metatarsals and absence of the fifth digit phalanges. There are chronic appearing bone deformities of the metatarsals. There is absence of the third digit middle and distal phalanges. There is subluxation of the second proximal phalanx, laterally, relative to the remaining portions of the second metatarsal. There are midfoot erosions and joint space loss. There is no identified interval and acute appearing bone destruction. There is no identified radiopaque foreign body. There is prominent soft tissue swelling at the level of the foot. There are vascular calcifications. IMPRESSION: 1. Extensive bone deformities, as above, without significant interval change since March 19, 2019. 2. No radiographic evidence of active aggressive osteomyelitis. 3. No identified radiopaque foreign body. Date of Exam:06/15/19 CHEST 1 VIEW, AP/PA ONLY INDICATION: Right foot pain. History of foot infection. TECHNIQUE: Single view chest 3:07 p.m. CORRELATION STUDY: 11/08/2018 FINDINGS: Heart size is stable. Vasculature appears slightly more prominent. The lungs are clear with no consolidating infiltrate. There is no significant effusion or pneumothorax. IMPRESSION: 1. Stable heart size with vasculature appearing slightly increased from prior study. Assessment/Plan Admission Diagnosis Osteomyelitis Admission Status: Inpatient Order (span 2 midnights) Reason for Inpatient Admission: IV abx, operative debridement Assessment and Plan Osteomyelitis of right 5ht metatarsal Abscess Continue on Vanc and Cefepime POD #0 s/p I&D and amputation of 5th metatarsal Appreciate podiatry assistance IDDMII Continue home insulin and oral medications a1c pending CKD Baseline creatine around 1.2 Currently at 1.3, trend Continue IVF Anemia Hgb 8.8 today, new onset Some is likely dilutional FOBT Diagnosis/Problems Diagnosis/Problems (1) Cellulitis of right foot Status: Acute (2) Acute renal failure (ARF) Status: Acute Qualifiers: Acute renal failure type: unspecified Qualified Codes: N17.9 - Acute kidney failure, unspecified (3) Diabetes mellitus type II, uncontrolled Status: Acute Qualifiers: Glycemic state: with hyperglycemia Qualified Codes: E11.65 - Type 2 diabetes mellitus with hyperglycemia (4) Osteomyelitis of right foot Status: Acute Qualifiers: Osteomyelitis type: other acute Qualified Codes: M86.171 - Other acute osteomyelitis, right ankle and foot (5) 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
[2019-06-16] MEDS ORDERED: KCL 20 MEQ TAB (K-DUR) PO ONE (12:30)
--- NOTE | 2019-06-16 13:00 | OPERATIVE REPORT ---
DATE OF SERVICE: 06/16/2019 SURGEON: Demi Santoro DPM. PREOPERATIVE DIAGNOSIS: Abscess, right foot osteomyelitis, fifth metatarsal. POSTOPERATIVE DIAGNOSIS: Abscess, right foot osteomyelitis, fifth metatarsal. PROCEDURE: Incision and drainage, right foot with amputation of the right fifth metatarsal base. WOUND CLASS: Contaminated. ANESTHESIA: General. HEMOSTASIS: Pneumatic thigh tourniquet at 250 mmHg. INDICATIONS: This is a 43-year-old male presents with a history of multiple ulcerations of the right foot with amputations associated with the first and fifth rays. He was most recently diagnosed with osteomyelitis of the right 5th metatarsal base, was treated with IV antibiotics. The patient developed a red swollen foot a couple of days ago, was admitted to the ER and was treated with IV antibiotics and fluids. Risks and complications associated with the incision and drainage and possible amputation were discussed at length prior to the procedure. No guarantees were extended to the patient and he is willing to proceed. DESCRIPTION OF PROCEDURE: The patient was brought back to the operating table, placed in secure supine position. General anesthetic was then induced. Appropriate timeout was performed. Pneumatic thigh tourniquet was placed on the right lower extremity over several layers of padding. The right foot was then prepped and draped in normal sterile manner. The right foot was then elevated and the tourniquet was inflated to 250 mmHg. Attention was then directed to the lateral aspect of the remaining right fifth metatarsal area where a 5 cm longitudinal linear incision was created, copious amounts of purulent discharge was noted. Suction was applied visualizing several sinus tracts going proximally to the superior and inferior aspect of the remaining fifth metatarsal base. Palpation of the bone had a soft cortical feel to it. Since the sinus tracts went superior and inferior to the fifth metatarsal base and there is a tilted signs of continued osteomyelitis of the fifth metatarsal. It was then decided that the fifth metatarsal base should be removed. It was excised in toto and sent for gross and microscopic evaluation. A deep culture swab culture was performed through the sinus tracts. All necrotic tissue was excised. All active bleeding was cauterized. The wound was then thoroughly irrigated with pulse lavage with 3 liters of normal saline infused with 1 gram of vancomycin. Once the area was lavaged the tourniquet were released and any active bleeders were then electronically cauterized. A stab incision was created to the plantar and lateral aspect of the foot allowing a [place] drain to be applied. The remainder of the cavity was filled with half inch iodoform packing. The wound was then dressed with sterile 4 x 4's, ABDs, Kerlix and Coban wrap. The patient tolerated the anesthesia and procedure well. He was transferred to recovery and received to the fourth floor for complete recovery. He is to be nonweightbearing on the right lower extremity. We will continue with his IV antibiotics and wound care as instructed. Job ID: [id number] DocumentID: [id number] Dictated Date: 06/16/2019 08:58:23 Jewel Stripper Date: 06/16/2019 12:59:49 Dictated By: DEMI SANTORO DPM
[2019-06-16] MEDS: inSUlin ASPART (NovoLOG) 1 UNIT/0.01 ML (CHARGE PER UNIT) SC SCH ×2 (16:03→22:03)
[2019-06-16] MEDS: LINAGLIPTIN (TRADJENTA) 5 MG TABLET PO SCH (16:12)
[2019-06-16] MEDS: metFORMIN 500 MG (GLUCOPHAGE) TAB PO SCH (16:12)
[2019-06-16] MEDS: HYDROcodone/APAP 5 MG/325 MG (LORTAB) TAB PO PRN ×2 (16:14→20:20)
[2019-06-16] MEDS: GLIMEPIRIDE 4 MG (AMARYL) TAB PO SCH (16:16)
[2019-06-16] MEDS: rOPINIRole 1 MG (REQUIP) TABLET PO SCH (20:13)
[2019-06-16] MEDS: rOPINIRole 5 MG TAB (REQUIP) PO SCH (20:13)
[2019-06-16] MEDS: BACLOFEN 10 MG (LIORESAL) TAB PO PRN (20:20)
[2019-06-16] MEDS ORDERED: sitaGLIPtin/METFORMIN 50/1000 MG (JANUMET) NON FORM PO SCH (21:00)
[2019-06-17] MEDS: fentaNYL INJECTION 100 MCG/2 ML AMP IVP PRN ×6 (03:15→21:55)
[2019-06-17 04:48] VITALS: BP 134/72
[2019-06-17 05:33] LABS: HEMOGLOBIN 8.4 G/DL (13.3-17.7); MEAN PLATELET VOLUME 8.9 FL (7.4-10.4); RED CELL DISTRIBUTION WIDTH 15.7 % (10.0-14.5); WHITE BLOOD COUNT 7.4 10^3/uL (4.3-11.0)
[2019-06-17 05:45] LABS: ALBUMIN 2.7 GM/DL (3.2-4.5); BILIRUBIN,TOTAL 0.2 MG/DL (0.1-1.0); CALCIUM 9.2 MG/DL (8.5-10.1); CREATININE SERUM 1.37 MG/DL (0.60-1.30); POTASSIUM 3.2 MMOL/L (3.6-5.0); TOTAL PROTEIN 6.3 GM/DL (6.4-8.2)
[2019-06-17] MEDS: LACTATED RINGERS 1,000 ML IV SCH ×2 (06:00→14:59)
[2019-06-17] MEDS: inSUlin ASPART (NovoLOG) 1 UNIT/0.01 ML (CHARGE PER UNIT) SC SCH ×4 (06:05→21:11)
[2019-06-17] MEDS: HYDROcodone/APAP 5 MG/325 MG (LORTAB) TAB PO PRN ×5 (06:07→21:08)
[2019-06-17] MEDS: CEFEPIME INJECTION 1,000 MG in WATER (STERILE) FOR INJECTION 10 ML IV SCH ×3 (06:07→21:10)
[2019-06-17] MEDS: LINAGLIPTIN (TRADJENTA) 5 MG TABLET PO SCH ×2 (06:07→16:19)
[2019-06-17] MEDS: metFORMIN 500 MG (GLUCOPHAGE) TAB PO SCH (06:07)
[2019-06-17] MEDS: GLIMEPIRIDE 4 MG (AMARYL) TAB PO SCH ×2 (06:07→16:19)
[2019-06-17 07:23] VITALS: BP 135/74
[2019-06-17] MEDS: VANCOMYCIN 1500 MG/NS 500 ML IVPB IV SCH ×2 (07:57)
--- NOTE | 2019-06-17 08:20 | Anesthesia-General Post-Op ---
General Patient Condition Mental Status/LOC: Same as Preop Cardiovascular: Satisfactory Nausea/Vomiting: Absent Respiratory: Satisfactory Pain: Controlled Complications: Absent Post Op Complications Complications None Follow Up Care/Instructions Patient Instructions None needed. Anesthesia/Patient Condition Patient Condition Patient is doing well, no complaints, stable vital signs, no apparent adverse anesthesia problems. No complications reported per nursing. JULIET BONILLA CRNA Jun 17, 2019 08:20
[2019-06-17] MEDS ORDERED: NON-FORMULARY MEDICATION 1 EA EA (Canagliflozin (Invokana) 300 MG) PO SCH (09:00)
--- NOTE | 2019-06-17 11:08 | NUR ---
Voodoo and declines sacraments.
[2019-06-17] MEDS ORDERED: INSU100I23 SC (11:17)
[2019-06-17] MEDS ORDERED: HYDR-3820 PO (11:17)
[2019-06-17] MEDS ORDERED: GABA-488 PO (11:17)
--- NOTE | 2019-06-17 11:18 | Progress Note - Hospitalist ---
Subjective HPI/CC On Admission Date Seen by Provider: Jun 17, 2019 Time Seen by Provider: 11:14 Pt is a 43yoCM with a PMH of IDDMII, osteomyelitis and toe amputations who presented to the ER not feeling well and right foot pain. He is still quite drowsy from the OR so does not provide much history and all history is obtained from significant other at bedside and notes. Reported he felt warm but did not check his temperature to know if he had a fever. He has a history of similar presentation with osteomyelitis and has had multiple debridement and even amputations in the past. He follows with Dr Lassiter who last debrided his foot in March. He required IV Vanc for MRSA int he past as well. Per ER PA he did not look well but did not meet sepsis criteria so he was admitted for IV antibiotics and podiatric consultation. Dr Lassiter saw the patient and took him to the OR for debridement again. Subjective/Events-last exam Pt reports feeling poorly. Pain in feet. Not much appetite. Overall feels better but still not well. Micro called this mroning and 3/4 blood cultures positive for coag neg staph. Focused Exam Lactate Level 06/15/19 14:45: Lactic Acid Level 1.09 Time of Focused Exam: 16:15 Objective Exam Vital Signs Vital Signs Date Time Temp Pulse Resp B/P (MAP) Pulse Ox O2 Delivery O2 Flow Rate FiO2 06/17/19 07:23 37.0 93 18 135/74 (94) 95 Room Air 06/16/19 09:20 2 Capillary Refill : Less Than 3 SecondsLess Than 3 Seconds General Appearance: No Apparent Distress, WD/WN Cardiovascular: Regular Rate, Rhythm, No Murmur Gastrointestinal: Normal Bowel Sounds, Non Tender, Soft Neurologic/Psychiatric: Alert, Oriented x3 Skin: Tattoos/Piercings Results/Procedures Lab Laboratory Tests 06/17/19 05:03 Patient resulted labs reviewed. Imaging: Reviewed Imaging Report Assessment/Plan Assessment and Plan Assess & Plan/Chief Complaint Osteomyelitis of right 5th metatarsal Abscess Continue on Vanc and Cefepime POD #1 s/p I&D and amputation of 5th metatarsal Appreciate podiatry assistance Blood cultures positive- await sensitivities Await cultures from OR as well IDDMII Continue home insulin and oral medications a1c pending CKD Baseline creatine around 1.2 Currently at 1.3 and stable Continue IVF Anemia Hgb 8.8 today, new onset Some is likely dilutional FOBT Diagnosis/Problems Diagnosis/Problems (1) Cellulitis of right foot Status: Acute (2) Acute renal failure (ARF) Status: Acute Qualifiers: Acute renal failure type: unspecified Qualified Codes: N17.9 - Acute kidney failure, unspecified (3) Diabetes mellitus type II, uncontrolled Status: Acute Qualifiers: Glycemic state: with hyperglycemia Qualified Codes: E11.65 - Type 2 diabetes mellitus with hyperglycemia (4) Osteomyelitis of right foot Status: Acute Qualifiers: Osteomyelitis type: other acute Qualified Codes: M86.171 - Other acute osteomyelitis, right ankle and foot (5) 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
[2019-06-17] MEDS ORDERED: IBUP-30 PO (11:20)
[2019-06-17 11:48] VITALS: BP 138/72
[2019-06-17] MEDS ORDERED: SITA1TBM7 PO (11:55)
--- NOTE | 2019-06-17 11:55 | NUR ---
WENT OVER THE EXT MED HX WITH THE PATIENT AND HE VERIFIED HOW HE TAKES THEM. HE TAKES SEVERAL OF THEM NEEDED. HE STATES HE GETS SAMPLES OF HIS TRESIBA AND JANUMET FROM DR. HAY'S OFFICE. I CALLED AND SPOKE WITH A NURSE AT DR. HAY'S OFFICE, SHE STATES THEY DO HAVE DOWN THAT THEY GIVE SAMPLES OF THE TRESIBA, IT WAS 10 UNITS HS AND INCREASE EVERY 3RD DAY - PATIENT REPORTS HE TAKES ABOUT 15 UNITS AT BEDTIME BUT ONLY NEEDED, HE WAS NOT ABLE TO GIVE ME SPECIFICS ON WHAT HIS BLOOD SUGAR HAS TO BE AT BEFORE HE TAKES A DOSE OF TRESIBA. NURSE ALSO STATES THEY HAVE DOWN JANUMET XR 100-1000MG BID BUT CAN NOT TELL ME THE LAST TIME THEY ACTUALLY GAVE SAMPLES. SHE STATES THEY HAVE HAD HIM ON THAT DOSE SINCE SEPTEMBER. I WENT BACK AND ASKED THE PATIENT ABOUT THIS DOSE, HE IS NOT SURE WHAT DOSE HE HAS AND STATES HE DOES NOT ALWAYS HAVE SAMPLES AVAILABLE TO HIM, WHEN HE HAS THEM HE DOES TAKE IT BID BUT HE RUNS OUT OF THEM SOMETIMES. HE STATES HE TAKES IBU OTC PRN.
--- NOTE | 2019-06-17 14:11 | NUR ---
"RD ASSESSMENT PMHx: hypercholesterolemia; HTN; amputations; DM PT INTERACTION: Pt was semi-awake and pleasant during nutrition assessment. Pt states current appetite is not good and has been this way since admit. Pt states following a regular diet at home and has no issues with chewing/swallowing food. Pt states no recent issues with n/v/c/d at this time. Note last BM was 06/16 and pt not currently on bowel regimen, per chart review. Pt states no recent wt changes. Note recent 10# wt loss x3w, per chart review. Note presence of wound on right foot, per chart review. ABNORMAL NUTRITION-RELATED LAB VALUES LOW: K 3.2; Pro 6.3; alb 2.7 HIGH: cr 1.37; alkphos 305 Est. kcal needs: 8036-2747 kcal | 20-25 kcal/kg Est. Pro needs: 125-146 g Pro | 1.2-1.4 g Pro/kg PES STATEMENT: Inadequate oral intake (NI-2.1) related to loss of appetite as evidenced by pt interview | avg PO intake 60% x2d Inadequate protein intake (NI-5.6.1) related to increased protein needs as evidenced by presence of wounds (right foot) INTERVENTION: Continue with current diet order of Regular diet. Pt may benefit from consistent CHO diet, if blood glucose levels become elevated. Add Ensure HP (vary) to meals TID. Provides 160 kcal and 16 g Pro per serving for perceived benefit to wound healing. Will continue to follow and reassess as pt needs and status change. MONITOR/EVALUATE: PO Intake; Plan of Care; Hydration Status; Weight Status; Lab Values Pio Wilson, MS, RD, LD"
[2019-06-17 16:00] VITALS: BP 146/78
[2019-06-17] MEDS: metFORMIN XR 500 MG (GLUCOPHAGE XR) TAB PO SCH (16:19)
[2019-06-17] MEDS ORDERED: TROUGH ORDER-PHARMACY XX NR (19:00)
[2019-06-17 20:00] VITALS: BP 133/69
[2019-06-17] MEDS: VANCOMYCIN 1,750 MG/NS 500 ML IVPB IV SCH ×2 (20:00)
[2019-06-17] MEDS: rOPINIRole 5 MG TAB (REQUIP) PO SCH (21:07)
[2019-06-17] MEDS: rOPINIRole 1 MG (REQUIP) TABLET PO SCH (21:12)
[2019-06-17] MEDS: BACLOFEN 10 MG (LIORESAL) TAB PO PRN (21:54)
[2019-06-17] MEDS: ONDANSETRON 4 MG/2 ML (SDV) Z0FRAN IVP PRN (21:54)
[2019-06-17 23:50] VITALS: BP 122/67
[2019-06-18] MEDS: LACTATED RINGERS 1,000 ML IV SCH ×3 (02:27→16:39)
[2019-06-18] MEDS: HYDROcodone/APAP 5 MG/325 MG (LORTAB) TAB PO PRN ×5 (03:31→21:45)
[2019-06-18] MEDS: fentaNYL INJECTION 100 MCG/2 ML AMP IVP PRN ×8 (03:32→22:42)
[2019-06-18 04:20] VITALS: BP 138/76
[2019-06-18] MEDS: CEFEPIME INJECTION 1,000 MG in WATER (STERILE) FOR INJECTION 10 ML IV SCH (05:48)
[2019-06-18] MEDS: LINAGLIPTIN (TRADJENTA) 5 MG TABLET PO SCH ×2 (05:49→16:39)
[2019-06-18] MEDS: GLIMEPIRIDE 4 MG (AMARYL) TAB PO SCH ×2 (05:49→16:39)
[2019-06-18] MEDS: metFORMIN XR 500 MG (GLUCOPHAGE XR) TAB PO SCH ×2 (05:49→16:39)
[2019-06-18] MEDS: inSUlin ASPART (NovoLOG) 1 UNIT/0.01 ML (CHARGE PER UNIT) SC SCH ×4 (05:50→20:15)
--- NOTE | 2019-06-18 07:30 | NUR ---
DR. SANTORO HERE. DRESSING CHANGE DONE BY DR. SANTORO. LARGE AMT. BRIGHT RED BLEEDING FROM SITE OF I&D AREA. DR. SANTORO PACKED WOUND WITH GAUZE DRESSING AND THEN 4 X 4'S AND KERLIX AND SONYA WRAP APPLIED. AKILAH. FAIR WITH C/O OF MUCH PAIN AT SITE.
--- NOTE | 2019-06-18 07:45 | Podiatry Progress Note ---
Standard Progress Note Progress Notes/Assess & Plan Date Seen by a Provider: Jun 18, 2019 Time Seen by a Provider: 07:38 Progress/Assessment & Plan Post op day #2 for I&D right foot. - He denies F/C/N/V. There is some foot pain. There is bleeding with dressing change today. Sterile flush with betadine wet-to-dry dressing. Pulled [place] drain. Recommend non-weight bearing right foot. Cultures are likely MSSA but not final at this time. Continue IV antibiotics. Dressing changes daily with Dakin's solution. Final Diagnosis Osteomyelitis, abscess right foot STEFANY SANTORO DPM Jun 18, 2019 07:45
[2019-06-18 07:49] VITALS: BP 132/63
[2019-06-18] MEDS: ONDANSETRON 4 MG/2 ML (SDV) Z0FRAN IVP PRN ×2 (07:59→13:03)
--- NOTE | 2019-06-18 08:30 | NUR ---
REINFORCED DRESSING TO RIGHT FOOT. LARGE ANT BLEEDING THROUGH NOTED. X 3 ABD'S AND X 2 KERLIX APPLIED TO RIGHT FOOT.
[2019-06-18] MEDS: BACLOFEN 10 MG (LIORESAL) TAB PO PRN ×2 (08:50→18:46)
[2019-06-18] MEDS: VANCOMYCIN 1,750 MG/NS 500 ML IVPB IV SCH ×2 (08:51)
--- NOTE | 2019-06-18 09:10 | NUR ---
DRESSING SATURATED WITH BRIGHT RED BLOOD. DR. SANTORO NOTIFIED. DRESSING CHANGED . PACKING REMAINS IN PLACE WITH RED DRAINAGE SATURATING IT. NO ACTIVE BLEEDING NOTED. STERILE 4 X 4'S AND KERLIX AND SONYA WRAP APPLIED.
[2019-06-18 11:00] VITALS: BP 132/72
--- NOTE | 2019-06-18 11:42 | Progress Note - Hospitalist ---
Subjective HPI/CC On Admission Date Seen by Provider: Jun 18, 2019 Time Seen by Provider: 11:37 Pt is a 43yoCM with a PMH of IDDMII, osteomyelitis and toe amputations who presented to the ER not feeling well and right foot pain. He is still quite drowsy from the OR so does not provide much history and all history is obtained from significant other at bedside and notes. Reported he felt warm but did not check his temperature to know if he had a fever. He has a history of similar presentation with osteomyelitis and has had multiple debridement and even amputations in the past. He follows with Dr Lassiter who last debrided his foot in March. He required IV Vanc for MRSA int he past as well. Per ER PA he did not look well but did not meet sepsis criteria so he was admitted for IV antibiotics and podiatric consultation. Dr Lassiter saw the patient and took him to the OR for debridement again. Subjective/Events-last exam Pt reports persistent foot pain. Worse after dressing change this morning. Focused Exam Lactate Level 06/15/19 14:45: Lactic Acid Level 1.09 Time of Focused Exam: 16:15 Objective Exam Vital Signs Vital Signs Date Time Temp Pulse Resp B/P (MAP) Pulse Ox O2 Delivery O2 Flow Rate FiO2 06/18/19 11:00 36.7 86 20 132/72 (92) 93 Room Air 06/16/19 09:20 2 Capillary Refill : Less Than 3 SecondsLess Than 3 Seconds General Appearance: No Apparent Distress, WD/WN Respiratory: Lungs Clear, No Respiratory Distress Cardiovascular: Regular Rate, Rhythm, No Murmur Neurologic/Psychiatric: Alert, Oriented x3 Results/Procedures Lab Patient resulted labs reviewed. Imaging: Reviewed Imaging Report Assessment/Plan Assessment and Plan Assess & Plan/Chief Complaint Osteomyelitis of right 5th metatarsal Abscess MSSA Bacteremia Continue on Vanc and Cefepime POD #2 s/p I&D and amputation of 5th metatarsal Appreciate podiatry assistance MSSA in blood cultures and wound culture- deescalate abx to Rocephin for once daily dosing in preparation for DC IDDMII Continue home insulin and oral medications a1c 11.0 CKD Baseline creatine around 1.2 Currently at 1.3 and stable Continue IVF Anemia Hgb 8.8- likely due to chronic disease Some is likely dilutional FOBT negative Diagnosis/Problems Diagnosis/Problems (1) Bacteremia Status: Acute (2) Cellulitis of right foot Status: Acute (3) Acute renal failure (ARF) Status: Acute Qualifiers: Acute renal failure type: unspecified Qualified Codes: N17.9 - Acute kidney failure, unspecified (4) Diabetes mellitus type II, uncontrolled Status: Acute Qualifiers: Glycemic state: with hyperglycemia Qualified Codes: E11.65 - Type 2 diabetes mellitus with hyperglycemia (5) Osteomyelitis of right foot Status: Acute Qualifiers: Osteomyelitis type: other acute Qualified Codes: M86.171 - Other acute osteomyelitis, right ankle and foot (6) Osteomyelitis due to secondary diabetes Status: Chronic (7) Normocytic anemia Status: Acute (8) Abscess of right foot Status: Acute (9) Neuropathy Status: Chronic Clinical Quality Measures DVT/VTE Risk/Contraindication: Risk Factor Score Per Nursin RFS Level Per Nursing on Admit: 3=High ARIA GABRIEL MD Jun 18, 2019 11:42
[2019-06-18] MEDS ORDERED: morphine INJ 4 MG/ML 1 ML (VIAL/SYRINGE) IVP PRN (11:45)
[2019-06-18] MEDS: cefTRIAXone 2,000 MG/SWFI 20 ML IV PUSH IV SCH ×2 (12:36)
--- NOTE | 2019-06-18 13:29 | Physical Therapy Evaluation ---
PT Evaluation-General Medical Diagnosis Admission Date Jun 15, 2019 at 17:41 Medical Diagnosis: 5th toe amputation Onset Date: Jun 15, 2019 Therapy Diagnosis Therapy Diagnosis: impaired mobility, strength, endurance Height/Weight Height (Feet): 5 Height (Inches): 10.00 Weight (Pounds): 235 Weight (Ounces): 0.0 Precautions Precautions/Isolations: Fall Prevention, Standard Precautions Weight Bear Status Right Lower Extremity: Right Non Weight Bearing Left Lower Extremity: Left Full Weight Bearing Referral Physician: Chinmay Reason for Referral: Evaluation/Treatment Medical History Pertinent Medical History: DM, HTN, Neuropathy, Smoking Additional Medical History Past Medical History Surgeries: Amputation, Orthopedic Currently Using CPAP: No Currently Using BIPAP: No Cardiac: High Cholesterol, Hypertension Neurological: Neuropathy Reproductive: No Sexually Transmitted Disease: No HIV/AIDS: No CKD Musculoskeletal: Amputee, Degenerate Disk Disease Endocrine: Diabetes, Insulin dep Loss of Vision: Denies Hearing Impairment: Denies Psychosocial: Depression Skin/Integumentary: Recent Skin Changes History of Blood Disorders: Yes (ANEMIA) Adverse Reaction to Blood Lester: No (N/A) Social History Home: Multilevel Current Living Status: Spouse Entry Into Home: Stairs Without Railing PT Steps Into Home: 10 Prior Prior Level of Function SCALE: Activities may be completed with or without assistive devices. 4-Auwdokqkzg-xbwqmlp completes the activity by him/herself with no assistance from a helper. 5-Set-up or Clean-up Assistance-helper sets up or cleans up; patient completes activity. [place] assists only prior to or following the activity. 4-Supervision or Touching Assistance-helper provides verbal cues and/or touching/steadying and/or contact guard assistance as patient completes activity. Assistance may be provided throughout the activity or intermittently. 3-Partial/Moderate Assistance-helper does LESS THAN HALF the effort. [place] lifts, holds or supports trunk or limbs, but provides less than half the effort. 2-Substantial/Maximal Assistance-helper does MORE THAN HALF the effort. [place] lifts or holds trunk or limbs and provides more than half the effort. 8-Dfmqohewh-dzgsqw does ALL the effort. Patient does none of the effort to complete the activity. Or, the assistance of 2 or more helpers is required for the patient to complete the activity. If activity was not attempted, code reason: 7-Patient Refused. 9-Not Applicable-not attempted and the patient did not perform the activity before the current illness, exacerbation or injury. 10-Not Attempted due to Environmental Limitations-(lack of equipment, weather restraints, etc.). 88-Not Attempted due to Medical Conditions or Safety Concerns. Bed Mobility: 6 Transfers (B,C,W/C): 6 Gait: 6 Stairs: 6 Indoor Mobility (Ambulation): Independent Stairs: Independent PT Evaluation-Current Subjective Patient in bed pre tx, drowsy, has been sleeping, has pain of 6/10 in right foot. Pt/Family Goals Patient BTB post tx with nurse call, phone, tray, all needs met, right foot elevated on pillow. Objective Patient Orientation: Person, Place, Situation Attachments: IV ROM/Strength ROM Lower Extremities WNL, right foot not tested Strength Lower Extremities LLE gross 5/5, RLE gross 4/5, right foot not tested Sensory Hearing: Functional Sensation Right Lower Extremit: Impaired Sensation Left Lower Extremity: Impaired Sensation Lower Extremities decreased light touch sensation in both lower extremities Transfers Roll Left to Right (QC): 6 Sit to Lying (QC): 6 Lying to Sitting/Side of Bed(Q: 6 Sit to Stand (QC): 4 Chair/Xbq-oh-Pfymm Xfer(QC): 4 Patient is independent with bed mobility and SBA with standing and transfers. Gait Does the Patient Walk?: Yes Mode of Locomotion: Walk Anticipated Mode of Locomotion: Walk Walk 10 feet (QC): 4 Distance: 15' Gait Assistive Device: FWW Comments/Gait Description Patient ambulated to the doorway and back with SBA, he is compliant with cues for NWB on the right LE. Balance Sitting Static: Normal Sitting Dynamic: Normal Standing Static: Fair Standing Dynamic: Fair Treatment RLE supine exercise x10 (AP, heel slides, quad sets) Assessment/Needs Patient has impaired mobility, strength, endurance. He was drowsy and slightly unsteady with ambulation but required no assist for balance. Rehab Potential: Fair PT Correction Goals Room Service Supervisor Goals PT Correction Goals Time Frame: Jun 25, 2019 Roll Left & Right (QC): 6 Sit to Lying (QC): 6 Lying-Sitting on Side/Bed(QC): 6 Sit to Stand (QC): 6 Chair/Oex-ma-Metgf Xfer(QC): 6 Walk 10 feet (QC): 5 Walk 50ft with 2 Turns (QC): 5 PT Plan Problem List Problem List: Activity Tolerance, Functional Strength, Safety, Balance, Gait, Transfer, Bed Mobility, ROM Treatment/Plan Treatment Plan: Continue Plan of Care Treatment Plan: Bed Mobility, Education, Functional Activity Mauricio, Functional Strength, Gait, Safety, Therapeutic Exercise, Transfers Treatment Duration: Jun 25, 2019 Frequency: 6 times per week Estimated Hrs Per Day: .25 hour per day Patient and/or Family Agrees t: Yes Safety Risks/Education Patient Education: Gait Training, Transfer Techniques, Correct Positioning, Safety Issues Teaching Recipient: Patient Teaching Methods: Demonstration, Discussion Response to Teaching: Reinforcement Needed Discharge Recommendations Plan Patient will perform bed mobility and transfer training, balance and endurance training, functional strengthening, stair training, gait training, and education, to improve functional mobility and independence at home. Time/GCodes Time In: 1304 Time Out: 1320 Total Billed Treatment Time: 16 Total Billed Treatment 1 visit JETHRO OSPINA PT Jun 18, 2019 13:29
[2019-06-18 15:44] VITALS: BP 132/72
[2019-06-18] MEDS ORDERED: fentaNYL INJECTION 100 MCG/2 ML AMP IVP PRN (15:45)
[2019-06-18] MEDS ORDERED: TROUGH ORDER-PHARMACY XX NR (19:00)
[2019-06-18] MEDS: rOPINIRole 1 MG (REQUIP) TABLET PO SCH (20:25)
[2019-06-18 20:30] VITALS: BP 140/70
[2019-06-18] MEDS: rOPINIRole 5 MG TAB (REQUIP) PO SCH (22:04)
[2019-06-19 00:10] VITALS: BP 128/73
[2019-06-19] MEDS: fentaNYL INJECTION 100 MCG/2 ML AMP IVP PRN ×8 (01:57→23:43)
[2019-06-19] MEDS: HYDROcodone/APAP 5 MG/325 MG (LORTAB) TAB PO PRN ×4 (03:45→20:23)
[2019-06-19 03:48] VITALS: BP 125/71
[2019-06-19] MEDS: inSUlin ASPART (NovoLOG) 1 UNIT/0.01 ML (CHARGE PER UNIT) SC SCH ×4 (05:15→20:43)
[2019-06-19] MEDS: LINAGLIPTIN (TRADJENTA) 5 MG TABLET PO SCH ×2 (06:39→17:37)
[2019-06-19] MEDS: GLIMEPIRIDE 4 MG (AMARYL) TAB PO SCH ×2 (06:39→17:36)
[2019-06-19] MEDS: metFORMIN XR 500 MG (GLUCOPHAGE XR) TAB PO SCH ×2 (06:39→17:37)
[2019-06-19] MEDS ORDERED: TROUGH ORDER-PHARMACY XX NR (07:00)
[2019-06-19] MEDS: LACTATED RINGERS 1,000 ML IV SCH (07:46)
--- NOTE | 2019-06-19 07:49 | Podiatry Progress Note ---
Standard Progress Note Progress Notes/Assess & Plan Date Seen by a Provider: Jun 19, 2019 Time Seen by a Provider: 07:45 Progress/Assessment & Plan Post op day #3 for I&D right foot. - He denies F/C/N/V. Right foot pain is improved. There is less bleeding with dressing change today. Sterile flush with betadine wet-to-dry dressing. Continue non-weight bearing right foot. With dressing change there was granular tissue with the deep wound, no mal-odor, no necrosis. There is significantly decreased erythema to the periwound. Continue IV antibiotics until discharge. Wound care will need to be arranged. Discussed secondary closure to the wound in the future possibly next week or as early as Monday. Final Diagnosis S/P I&D for deep abscess, right foot STEFANY SANTORO DPM Jun 19, 2019 07:49
[2019-06-19 08:00] VITALS: BP 130/71
--- NOTE | 2019-06-19 09:48 | Physical Therapy Daily Note ---
PT Daily Note-Current Subjective Pt. in bed asleep but cooperative with encouragement and education about the importance of moving and activity after surgery. Pt. rates pain in right foot at 7/10 Pain Numeric Pain Scale: 7 Location: Right Location Body Site: Foot Pain Description: Stabbing Mental Status Patient Orientation: Normal For Age Attachments: IV Transfers SCALE: Activities may be completed with or without assistive devices. 5-Ypolocrbsb-oquatwv completes the activity by him/herself with no assistance from a helper. 5-Set-up or Clean-up Assistance-helper sets up or cleans up; patient completes activity. [place] assists only prior to or following the activity. 4-Supervision or Touching Assistance-helper provides verbal cues and/or touching/steadying and/or contact guard assistance as patient completes activity. Assistance may be provided throughout the activity or intermittently. 3-Partial/Moderate Assistance-helper does LESS THAN HALF the effort. [place] lifts, holds or supports trunk or limbs, but provides less than half the effort. 2-Substantial/Maximal Assistance-helper does MORE THAN HALF the effort. [place] lifts or holds trunk or limbs and provides more than half the effort. 9-Ifcdkljpk-etxrny does ALL the effort. Patient does none of the effort to complete the activity. Or, the assistance of 2 or more helpers is required for the patient to complete the activity. If activity was not attempted, code reason: 7-Patient Refused. 9-Not Applicable-not attempted and the patient did not perform the activity before the current illness, exacerbation or injury. 10-Not Attempted due to Environmental Limitations-(lack of equipment, weather restraints, etc.). 88-Not Attempted due to Medical Conditions or Safety Concerns. all TRFs mod I to SBA Weight Bearing Right Lower Extremity: Right Non Weight Bearing Left Lower Extremity: Left Full Weight Bearing Gait Training Does the Patient Walk?: Yes Gait Assistive Device: FWW 200 ft slow CGA with assist for IV, no LOB, good management of FWW Exercises Seated Therapy Exercises: Ankle pumps, Long arc quads, Hip flexion Seated Reps: 10 Assessment Current Status: Good Progress PT Nail Specialist Goals Nail Specialist Goals PT Nail Specialist Goals Time Frame: Jun 25, 2019 Roll Left & Right (QC): 6 Sit to Lying (QC): 6 Lying-Sitting on Side/Bed(QC): 6 Sit to Stand (QC): 6 Chair/Nro-wp-Rqlqy Xfer(QC): 6 Walk 10 feet (QC): 5 Walk 50ft with 2 Turns (QC): 5 PT Plan Treatment/Plan Treatment Plan: Continue Plan of Care Treatment Plan: Bed Mobility, Education, Functional Activity Mauricio, Functional Strength, Gait, Safety, Therapeutic Exercise, Transfers Treatment Duration: Jun 25, 2019 Frequency: 6 times per week Estimated Hrs Per Day: .25 hour per day Patient and/or Family Agrees t: Yes Safety Risks/Education Patient Education: Gait Training, Transfer Techniques, Correct Positioning, Disease Process, Safety Issues Teaching Recipient: Patient Teaching Methods: Demonstration, Discussion Response to Teaching: Verbalize Understanding, Return Demonstration Time/GCodes Time In: 929 Time Out: 942 Total Billed Treatment Time: 13 Total Billed Treatment 1,GT13m ABDIAS BA ROOF PANEL HANGER Jun 19, 2019 09:48
[2019-06-19 12:00] VITALS: BP 140/72
[2019-06-19] MEDS: cefTRIAXone 2,000 MG/SWFI 20 ML IV PUSH IV SCH ×2 (12:52)
--- NOTE | 2019-06-19 13:35 | Progress Note - Hospitalist ---
Subjective HPI/CC On Admission Date Seen by Provider: Jun 19, 2019 Time Seen by Provider: 13:32 Pt is a 43yoCM with a PMH of IDDMII, osteomyelitis and toe amputations who presented to the ER not feeling well and right foot pain. He is still quite drowsy from the OR so does not provide much history and all history is obtained from significant other at bedside and notes. Reported he felt warm but did not check his temperature to know if he had a fever. He has a history of similar presentation with osteomyelitis and has had multiple debridement and even amputations in the past. He follows with Dr Lassiter who last debrided his foot in March. He required IV Vanc for MRSA int he past as well. Per ER PA he did not look well but did not meet sepsis criteria so he was admitted for IV antibiotics and podiatric consultation. Dr Lassiter saw the patient and took him to the OR for debridement again. Subjective/Events-last exam Pt reports feeling better. No new complaints other than pain. Focused Exam Time of Focused Exam: 16:15 Objective Exam Vital Signs Vital Signs Date Time Temp Pulse Resp B/P (MAP) Pulse Ox O2 Delivery O2 Flow Rate FiO2 06/19/19 08:00 Room Air 06/19/19 08:00 36.4 87 20 130/71 (90) 94 06/16/19 09:20 2 Capillary Refill : Less Than 3 SecondsLess Than 3 Seconds General Appearance: No Apparent Distress, WD/WN Respiratory: Lungs Clear, No Respiratory Distress Cardiovascular: Regular Rate, Rhythm, No Murmur Neurologic/Psychiatric: Alert, Oriented x3 Results/Procedures Lab Patient resulted labs reviewed. Imaging: Reviewed Imaging Report Assessment/Plan Assessment and Plan Assess & Plan/Chief Complaint Osteomyelitis of right 5th metatarsal Abscess MSSA Bacteremia Continue Rocephin POD #3 s/p I&D and amputation of 5th metatarsal Appreciate podiatry assistance, may need repeat surgery on Monday MSSA in blood cultures and wound culture- deescalate abx to Rocephin for once daily dosing in preparation for DC IDDMII Continue home insulin and oral medications a1c 11.0 CKD At baseline Continue IVF Anemia Hgb 8.8- likely due to chronic disease Some is likely dilutional FOBT negative Diagnosis/Problems Diagnosis/Problems (1) Bacteremia Status: Acute (2) Cellulitis of right foot Status: Acute (3) Acute renal failure (ARF) Status: Acute Qualifiers: Acute renal failure type: unspecified Qualified Codes: N17.9 - Acute kidney failure, unspecified (4) Diabetes mellitus type II, uncontrolled Status: Acute Qualifiers: Glycemic state: with hyperglycemia Qualified Codes: E11.65 - Type 2 diabetes mellitus with hyperglycemia (5) Osteomyelitis of right foot Status: Acute Qualifiers: Osteomyelitis type: other acute Qualified Codes: M86.171 - Other acute osteomyelitis, right ankle and foot (6) 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
[2019-06-19 16:03] VITALS: BP 122/61
[2019-06-19] MEDS: LACTOBACILLUS ACIDOPHILUS (PROBIOTIC) CAPSULE PO SCH (17:36)
[2019-06-19 19:50] VITALS: BP 110/53
[2019-06-19] MEDS: rOPINIRole 1 MG (REQUIP) TABLET PO SCH (20:23)
[2019-06-19] MEDS: rOPINIRole 5 MG TAB (REQUIP) PO SCH (21:33)
[2019-06-19] MEDS: BACLOFEN 10 MG (LIORESAL) TAB PO PRN (23:43)
[2019-06-20 00:20] VITALS: BP 120/64
[2019-06-20] MEDS: HYDROcodone/APAP 5 MG/325 MG (LORTAB) TAB PO PRN ×2 (01:44→06:57)
[2019-06-20] MEDS: fentaNYL INJECTION 100 MCG/2 ML AMP IVP PRN ×5 (01:45→10:24)
[2019-06-20 04:20] VITALS: BP 135/69
[2019-06-20] MEDS: inSUlin ASPART (NovoLOG) 1 UNIT/0.01 ML (CHARGE PER UNIT) SC SCH (05:52)
[2019-06-20] MEDS: LINAGLIPTIN (TRADJENTA) 5 MG TABLET PO SCH (06:56)
[2019-06-20] MEDS: metFORMIN XR 500 MG (GLUCOPHAGE XR) TAB PO SCH (06:57)
[2019-06-20] MEDS: LACTOBACILLUS ACIDOPHILUS (PROBIOTIC) CAPSULE PO SCH (06:57)
[2019-06-20] MEDS: GLIMEPIRIDE 4 MG (AMARYL) TAB PO SCH (06:57)
--- NOTE | 2019-06-20 07:50 | Podiatry Progress Note ---
Standard Progress Note Progress Notes/Assess & Plan Date Seen by a Provider: Jun 20, 2019 Time Seen by a Provider: 07:45 Progress/Assessment & Plan Post op day #4 for I&D right foot. - He denies F/C/N/V. He had less foot pain last night. No strike through bleeding to the dressing today. Sterile flush with betadine wet-to-dry dressing. There is granular tissue to the deep wound, no mal-odor, no necrosis, decreased erythema to the periwound. A/P Continue IV antibiotics until discharge. Wound care will need to be arranged in [place] or [place] daily. Continue with oral antibiotic upon discharge. Likely secondary closure to the wound in a week. Final Diagnosis Osteomyelitis, abscess, right foot STEFANY SANTORO DPM Jun 20, 2019 07:50
[2019-06-20 08:00] VITALS: BP 130/74
--- NOTE | 2019-06-20 09:43 | Physical Therapy Daily Note ---
PT Daily Note-Current Subjective Patient in bed pre tx, agrees to PT, has no complaints of pain. Appearance Patient sitting on bed post tx with nurse call, phone, tray, all needs met. Mental Status Patient Orientation: Person, Place, Situation Transfers SCALE: Activities may be completed with or without assistive devices. 4-Qzvxgeiiry-lgzduej completes the activity by him/herself with no assistance from a helper. 5-Set-up or Clean-up Assistance-helper sets up or cleans up; patient completes activity. [place] assists only prior to or following the activity. 4-Supervision or Touching Assistance-helper provides verbal cues and/or touch ing/steadying and/or contact guard assistance as patient completes activity. Assistance may be provided throughout the activity or intermittently. 3-Partial/Moderate Assistance-helper does LESS THAN HALF the effort. [place] lifts, holds or supports trunk or limbs, but provides less than half the effort. 2-Substantial/Maximal Assistance-helper does MORE THAN HALF the effort. [place] lifts or holds trunk or limbs and provides more than half the effort. 7-Jfnmlclwd-axosju does ALL the effort. Patient does none of the effort to complete the activity. Or, the assistance of 2 or more helpers is required for the patient to complete the activity. If activity was not attempted, code reason: 7-Patient Refused. 9-Not Applicable-not attempted and the patient did not perform the activity before the current illness, exacerbation or injury. 10-Not Attempted due to Environmental Limitations-(lack of equipment, weather restraints, etc.). 88-Not Attempted due to Medical Conditions or Safety Concerns. Roll Left & Right (QC): 6 Lying to Sitting/Side of Bed(Q: 6 Sit to Stand (QC): 6 Chair/Nip-bn-Elayw Xfer(QC): 6 Patient needed to use the restroom and he ambulated in there and urinated without assist and without difficulty. Weight Bearing Right Lower Extremity: Right Non Weight Bearing Left Lower Extremity: Left Full Weight Bearing Gait Training Distance: 200' Walk 10 feet (QC): 6 Walk 50 ft with 2 Turns(QC): 6 Walk 150 ft (QC): 6 Gait Assistive Device: FWW slow but steady ambulation Exercises Seated Therapy Exercises: Ankle pumps, Long arc quads, Hip flexion Seated Reps: 15 (RLE) Treatments bed mobility and transfers, ambulation, LE exercise Assessment Current Status: Fair Progress improving ambulation PT Care Home Goals Director Smb Sales Goals PT Care Home Goals Time Frame: Jun 25, 2019 Roll Left & Right (QC): 6 Sit to Lying (QC): 6 Lying-Sitting on Side/Bed(QC): 6 Sit to Stand (QC): 6 Chair/Wvc-iv-Hhdoe Xfer(QC): 6 Walk 10 feet (QC): 5 Walk 50ft with 2 Turns (QC): 5 PT Plan Problem List Problem List: Activity Tolerance, Functional Strength, Safety, Balance, Gait, Transfer Treatment/Plan Treatment Plan: Continue Plan of Care Treatment Plan: Bed Mobility, Education, Functional Activity Mauricio, Functional Strength, Gait, Safety, Therapeutic Exercise, Transfers Treatment Duration: Jun 25, 2019 Frequency: 6 times per week Estimated Hrs Per Day: .25 hour per day Patient and/or Family Agrees t: Yes Safety Risks/Education Patient Education: Gait Training, Transfer Techniques, Correct Positioning, Safety Issues Teaching Recipient: Patient Teaching Methods: Demonstration, Discussion Response to Teaching: Reinforcement Needed Time/GCodes Time In: 30 Time Out: 939 Total Billed Treatment Time: 10 Total Billed Treatment 1 visit FA JETHRO ALCOCER PT Jun 20, 2019 09:43
--- NOTE | 2019-06-20 10:46 | Discharge Summary ---
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: Chronic (7) Normocytic anemia Status: Acute (8) Abscess of right foot Status: Acute (9) Neuropathy Status: Chronic Discharge Summary Procedures/Consulations Podiatry- Dr Lassiter Discharge Physical Exam Allergies: Coded Allergies: No Known Drug Allergies (Unverified , 04/02/19) Vitals & I&Os Vital Signs Date Time Temp Pulse Resp B/P (MAP) Pulse Ox O2 Delivery O2 Flow Rate FiO2 06/20/19 11:36 06/20/19 08:00 36.0 75 18 92 Room Air 06/16/19 09:20 2 General Appearance: No Apparent Distress, Chronically ill Neurologic/Psychiatric: Alert, Oriented x3 Hospital Course Pt was admitted due to osteomyelitis. He underwent operative drainage and debridement with Dr Lassiter and was treated with IV antibiotics. Blood cultures revealed bacteremia with MSSA and he was treated with Rocephin. He was transitioned to oral keflex per sensitivities for discharge and was discharged to home with outpatient follow up on 06/22 and 06/24 for wound care with Dr Lassiter. At that time Dr Lassiter will decide about repeat surgery. He is to follow up with his PCP to follow up his diabetes as his A1c is 11. Labs (last 24 hrs) Microbiology 06/16/19 Gram Stain - Final, Complete 06/16/19 Anaerobic Culture - Final, Complete No anaerobes isolated 06/16/19 Surgical Culture - Final, Complete Staphylococcus aureus 06/15/19 Blood Culture - Final, Complete Staphylococcus aureus 06/15/19 Influenza Types A,B Antigen (LILIBETH) - Final, Complete 06/15/19 Urine Culture - Final, Complete NO GROWTH Patient resulted labs reviewed. Pending Labs Imaging: Reviewed Imaging Report Discussion & Recommendations Discharge Planning: >30 minutes discharge planning Discharge Home Medications: Active Scripts Active Keflex (Cephalexin) 500 Mg Capsule 500 Mg PO BID Acidophilus-Pectin Capsule (Lactobacillus Acidophilus/Pect) 1 Each Capsule 2 Each PO TIDWM Reported Janumet Xr 100-1,000 mg Tablet (Sitagliptin Phos/Metformin HCl) 1 Each Tbmp.24hr 1 Tab PO BID TAKES WHEN HE HAS SAMPLES AVAILABLE Advil (Ibuprofen) 200 Mg Tablet 800 Mg PO TID PRN Humalog Kwikpen (Insulin Lispro) 100 Unit/1 Ml Insuln.pen SC TIDAC Hydrocodon-Acetaminophn 10-325 (Hydrocodone/Acetaminophen) 1 Each Tablet 1 Tab PO TID PRN Gabapentin 300 Mg Capsule 300 Mg PO BID PRN Invokana (Canagliflozin) 300 Mg Tablet 300 Mg PO DAILY Tresiba Flextouch U-100 (Insulin Degludec) 100 Unit/1 Ml Insuln.pen 15 Unit SQ HS PRN Baclofen 10 Mg Tablet 10 Mg PO TID PRN Ropinirole HCl 4 Mg Tablet 4 Mg PO HS Citalopram HBr (Citalopram Hydrobromide) 20 Mg Tablet 20 Mg PO DAILY Glimepiride 4 Mg Tablet 4 Mg PO BID Instructions to patient/family Please see electronic discharge instructions given to patient. Clinical Quality Measures DVT/VTE Risk/Contraindication: Risk Factor Score Per Nursin RFS Level Per Nursing on Admit: 3=High Copy Copies To 1: RASHAD SANABRIA DO Problem Qualifiers (1) Acute renal failure (ARF): Acute renal failure type: unspecified Qualified Codes: N17.9 - Acute kidney failure, unspecified (2) Diabetes mellitus type II, uncontrolled: Glycemic state: with hyperglycemia Qualified Codes: E11.65 - Type 2 diabetes mellitus with hyperglycemia (3) Osteomyelitis of right foot: Osteomyelitis type: other acute Qualified Codes: M86.171 - Other acute osteomyelitis, right ankle and foot ARIA GABRIEL MD Jun 20, 2019 10:46
--- NOTE | 2019-06-20 11:03 | Discharge Inst-Simple/Standard ---
Discharge Inst-Standard Discharge Medications New, Converted or Re-Newed RX: Transmitted to Pharmacy Patient Instructions/Follow Up Plan of Care/Instructions/FU: Please continue to take your medications as written. Please follow up with your primary care doctor in the next week and with Dr Lassiter on Monday and Monday for wound care. Activity as Tolerated: Yes Discharge Diet: ADA Diet Return to The Hospital For: Fever, chills, inceasing pain, increasing drainage from wound, if you feel you are getting worse. Planned Outpatient Orders/Ref. Pneu Vac Indicated: Yes ARIA GABRIEL MD Jun 20, 2019 11:01
[2019-06-20] MEDS ORDERED: LACT1CAP7 PO (11:05)
[2019-06-20] MEDS ORDERED: CEPH-507 PO (11:05)
== END 2019-06-20 11:50 | disposition home or self-care (01) | DRG 617 ==
LOC: EDUNIT# 14:21 → ER 14:22 → 4TH 16:43 → OBSVTOIN 17:41
PROVIDERS: ADMIT Family Medicine; ATTEND Family Medicine
PROC: 0Y6M0Z8 Detachment at Right Foot, Complete 5th Ray, Open Approach (ICD-10-PCS; principal; 2019-06-16 07:53)
DX: E11.69 Type 2 diabetes mellitus with other specified complication (principal); M86.8X7 Other osteomyelitis, ankle and foot; L02.611 Cutaneous abscess of right foot; L03.115 Cellulitis of right lower limb; R78.81 Bacteremia; N17.9 Acute kidney failure, unspecified; E78.00 Pure hypercholesterolemia, unspecified; I12.9 Hypertensive chronic kidney disease with stage 1 through stage 4 chronic kidney disease, or unspecified chronic kidney disease; E11.40 Type 2 diabetes mellitus with diabetic neuropathy, unspecified; F32.9 Major depressive disorder, single episode, unspecified; F17.210 Nicotine dependence, cigarettes, uncomplicated; E11.22 Type 2 diabetes mellitus with diabetic chronic kidney disease; N18.9 Chronic kidney disease, unspecified; E11.65 Type 2 diabetes mellitus with hyperglycemia; D63.8 Anemia in other chronic diseases classified elsewhere; B95.61 Methicillin susceptible Staphylococcus aureus infection as the cause of diseases classified elsewhere; Z89.429 Acquired absence of other toe(s), unspecified side
CPT/HCPCS: 36415; 71045; 73630; 80053; 80202; 81000; 82274; 82728; 82962; 83036; 83540; 83605; 85025; 85027; 85610; 85730; 87040; 87070; 87075; 87077; 87088; 87186; 87205; 87804; 96361; 96365

== ENCOUNTER 2019-06-27 09:45 | Outpatient (CLI) | payer BC ==
[~2019-06-27] VITALS: Ht 180 cm; Wt 104.0 kg
[~2019-06-27 09:45] MED LIST changes: +CEPH-507 PO; +GABA-488 PO; +HYDR-3820 PO; +IBUP-30 PO; +INSU100I23 SC; +LACT1CAP7 PO; +SITA1TBM7 PO
[2019-06-28] MEDS ORDERED: CEPH500C PO (13:55)
== END 2019-06-27 10:11 | disposition home or self-care (01) ==
LOC: PREOP 09:45
PROVIDERS: ATTEND Podiatrist Foot & Ankle Surgery
DX: Z01.818 Encounter for other preprocedural examination (principal)

== ENCOUNTER 2019-08-19 09:27 | Outpatient (CLI) | payer BC ==
[~2019-08-19] VITALS: Ht 177 cm; Wt 111.0 kg
[~2019-08-19 09:27] MED LIST changes: +ACHD5005 PO; +ACHYD1T PO; +CEPH500C PO; -GLIM4TAB3 PO; +GLIM4TAB5 PO; -HYDR-3062 PO; -HYDR-3812 PO; -HYDR-3820 PO
[2019-08-19 09:40] VITALS: BP 126/83
[2019-08-19 11:22] LABS: BASOPHILS % (AUTO) 0 % (0-10); EOSINOPHILS # (AUTO) 0.2 10^3/uL (0.0-0.3); EOSINOPHILS % (AUTO) 2 % (0-10); HEMATOCRIT 25 % (40-54); HEMOGLOBIN 7.2 G/DL (13.3-17.7); LYMPHOCYTES # (AUTO) 0.7 X 10^3 (1.0-4.0); LYMPHOCYTES % (AUTO) 7 % (12-44); MEAN CORPUSCULAR HEMOGLOBIN 26 PG (25-34); MEAN CORPUSCULAR HGB CONC 29 G/DL (32-36); MEAN CORPUSCULAR VOLUME 88 FL (80-99); MEAN PLATELET VOLUME 9.4 FL (7.4-10.4); MONOCYTES # (AUTO) 0.8 X 10^3 (0.0-1.0); MONOCYTES % (AUTO) 7 % (0-12); NEUTROPHILS # (AUTO) 8.9 X 10^3 (1.8-7.8); NEUTROPHILS % (AUTO) 84 % (42-75); PLATELET COUNT 542 10^3/uL (130-400); RED CELL DISTRIBUTION WIDTH 16.8 % (10.0-14.5); WHITE BLOOD COUNT 10.7 10^3/uL (4.3-11.0)
[2019-08-19 12:05] LABS: ANISOCYTOSIS SLIGHT; EOSINOPHILS % (MANUAL) 2 %; HYPOCHROMASIA SLIGHT; LYMPHOCYTES % (MANUAL) 9 %; MICROCYTOSIS SLIGHT; MONOCYTES % (MANUAL) 6 %; NEUTROPHILS % (MANUAL) 83 %
== END 2019-08-19 11:55 | disposition home or self-care (01) ==
LOC: PREOP 09:27
PROVIDERS: ATTEND Surgery
DX: Z01.818 Encounter for other preprocedural examination (principal); Z01.812 Encounter for preprocedural laboratory examination; M86.8X7 Other osteomyelitis, ankle and foot
CPT/HCPCS: 36415; 85007; 85027; 86850; 86900; 86901; 87081

== ENCOUNTER 2019-08-23 06:15 | Inpatient (IN) | payer BC ==
[2019-08-23] VITALS (18 sets, daily range): BP systolic 82–168; BP diastolic 47–92
[~2019-08-23] VITALS: Ht 182.9 cm; Wt 111.0 kg
[2019-08-23] MEDS ORDERED: ceFAZolin 2 GM IV Premixed 50 ML IV ONE (06:45)
[2019-08-23] MEDS ORDERED: inSUlin ASPART (NovoLOG) 1 UNIT/0.01 ML (CHARGE PER UNIT) ONE (07:02)
[2019-08-23] MEDS ORDERED: inSUlin ASPART (NovoLOG) 1 UNIT/0.01 ML (CHARGE PER UNIT) IV ONE ×2 (07:15→07:45)
[2019-08-23] MEDS: LACTATED RINGERS 1,000 ML IV PRN ×2 (07:20→08:29)
[2019-08-23] MEDS ORDERED: MIDAZOLAM 2 MG/2 ML (VERSED) VIAL ONE (08:12)
[2019-08-23] MEDS ORDERED: LIDOCAINE PF 2% 5 ML (XYLOCAINE) VIAL ONE ×2 (08:12→09:09)
[2019-08-23] MEDS ORDERED: BUPIVACAINE 0.5% 30 ML (SENSORCAINE) VIAL ONE (08:12)
[2019-08-23] MEDS ORDERED: fentaNYL INJECTION 100 MCG/2 ML AMP ONE ×2 (08:38→08:59)
[2019-08-23] MEDS ORDERED: ONDANSETRON 4 MG/2 ML (SDV) Z0FRAN ONE (09:09)
[2019-08-23] MEDS ORDERED: proPOfol 200 MG/20 ML (DIPRIVAN) VIAL IV ONE (09:09)
[2019-08-23] MEDS ORDERED: BUPIVACAINE 0.25% 30 ML (SENSORCAINE) VIAL ONE (09:09)
[2019-08-23] MEDS ORDERED: ROCURONIUM 10 MG/ML 5 ML SYRINGE IV ONE (09:09)
[2019-08-23] MEDS ORDERED: SUCCINYLCHOLINE INJ 100 MG/5 ML SYR ONE (09:09)
[2019-08-23] MEDS ORDERED: SEVOFLURANE (ULTANE) 15 ML INHAL SOLN ONE ×6 (09:10→10:34)
[2019-08-23] MEDS ORDERED: HYDROmorphone 2 MG/ML VIAL (DILAUDID) ONE ×2 (09:12→11:35)
[2019-08-23] MEDS ORDERED: DEXTROSE 50% 50 ML (IMS) SYR ONE (10:21)
[2019-08-23] MEDS ORDERED: HYDROcodone/APAP 5 MG/325 MG (LORTAB) TAB PO PRN (10:30)
[2019-08-23] MEDS ORDERED: ONDANSETRON 4 MG/2 ML (SDV) Z0FRAN IV PRN (10:30)
[2019-08-23] MEDS ORDERED: morphine INJ 4 MG/ML 1 ML (VIAL/SYRINGE) IVP PRN (10:30)
--- NOTE | 2019-08-23 10:31 | Progress Note-Pre Operative ---
Pre-Operative Progress Note H&P Reviewed The H&P was reviewed, patient examined and no changes noted. Date Seen by Provider: Aug 23, 2019 Time Seen by Provider: 08:11 Date H&P Reviewed: Aug 23, 2019 Time H&P Reviewed: 08:11 Pre-Operative Diagnosis: RIGHT FOOT OSTEOMYELITIS, CHRONIC NON HEALING ULCER RIGHT FOOT LEORA HANEY DO Aug 23, 2019 10:31
--- NOTE | 2019-08-23 10:33 | Progress Note-Post Operative ---
Post-Operative Progess Note Surgeon (s)/Quotation Checker (s) Surgeon LEORA HANEY DO Quotation Checker: Dr. Cisneros Pre-Operative Diagnosis RIGHT FOOT OSTEOMYELITIS, CHRONIC NON HEALING ULCER RIGHT FOOT Post-Operative Diagnosis same Procedure & Operative Findings Date of Procedure 08/23/19 Procedure Performed/Findings right below knee amputation Anesthesia Type gen and right femoral block Estimated Blood Loss Estimated blood loss (mL): min Specimens/Packing Specimens Removed right lower extremity LEORA HANEY DO Aug 23, 2019 10:33
[2019-08-23] MEDS ORDERED: PHENYLEPHRINE 100 MCG/ML 10 ML (ANESTHESIA) SYR ONE (10:34)
[2019-08-23] MEDS: LACTATED RINGERS 1,000 ML IV SCH ×3 (10:36→22:06)
[2019-08-23] MEDS ORDERED: DEXTROSE 50% 50 ML (IMS) SYR IV ONE ×2 (10:45→12:00)
[2019-08-23] MEDS ORDERED: ONDANSETRON 4 MG/2 ML (SDV) Z0FRAN IVP PRN (10:45)
[2019-08-23] MEDS: HYDROmorphone 2 MG/ML VIAL (DILAUDID) IV ONE ×2 (11:22→13:10)
--- NOTE | 2019-08-23 14:02 | Discharge Inst-Simple/Standard ---
Discharge Inst-Standard Discharge Medications New, Converted or Re-Newed RX: RX on Chart Patient Instructions/Follow Up Plan of Care/Instructions/FU: 2 weeks Debbie Activity as Tolerated: No Discharge Diet: Regular Diet (diabetic) Other Inst to Patient Follow up Appt: Make appointment for 2 week. Instructions: No lifting greater than 10 pounds. No strenuous activity. May chair shower, no tub bath or soaking. Use incentive spirometer at home as directed. No Smoking Skin/Wound Care: Keep area clean and dry. Change bandage daily and as needed. Follow up with prosthetic rep for bacteriology professor. Symptoms to Report: Appetite Changes, Extremity Discoloration, Numbness/Tingling, Swelling Increased, Bleeding Excessive, Eyesight Changes, Pain Increased, Urine Color Change, Constipation(Persistent), Fever over 101 degree F, Pain/Pressure in chest, Urinating Difficulty, Cough Up/Vomit Blood, Heart Beat Irreg/Pounding, Pain/Pressure in jaw, Vaginal Bleeding Increase, Cramps in feet or legs, Lightheadedness, Pain/Pressure in shoulder, Diarrhea(Persistent), Memory Changes Suddenly, Questions/Concerns, Weight gain consecutive days, Dizziness/Fainting, Nausea/Vomiting, Shortness of Breath, Weight gain over 2 pounds If questions or concerns contact your physician Or seek help at emergency department. LEORA HANEY DO Aug 23, 2019 14:02
[2019-08-23] MEDS ORDERED: DOCU-143 PO (14:04)
[2019-08-23] MEDS ORDERED: HYDR-4226 PO (14:04)
[2019-08-23] MEDS ORDERED: NS IV 1000 ML 1,000 ML ONE (14:31)
--- NOTE | 2019-08-23 14:39 | Physical Therapy Progress Note ---
Therapy Progress Note Patient currently having uncontrolled pain and just out of surgery. PT will begin in DEBORAH Villafana PT Aug 23, 2019 14:39
[2019-08-23] MEDS: morphine PCA 100 MG/100 ML BAG IV PRN ×3 (14:54→17:57)
--- NOTE | 2019-08-23 15:01 | NUR ---
DR. HANEY HERE ON THE FLOOR AT THIS TIME, ORDERS FOR THIS RN TO GIVE MORPHINE 5 MG X1 NOW FROM THE PHYSICAL FITNESS TEACHER. UNABLE TO PLACE ORDER IN THE EMAR THIS RN SPOKE WITH LISA BUTLER WHO RECOMMENDS THAT THIS RN WRITE THIS ORDER/DOSAGE IN A NURSING NOTE.
[2019-08-23] MEDS: ceFAZolin INJECTION 2,000 MG in WATER (STERILE) FOR INJECTION 10 ML IV SCH (15:13)
[2019-08-23] MEDS ORDERED: ONDANSETRON 4 MG (ZOFRAN) ORAL DISSOLVE TAB PO PRN (16:30)
[2019-08-23] MEDS ORDERED: BISACODYL 10 MG SUPP (DULCOLAX) PR PRN (16:30)
[2019-08-23] MEDS ORDERED: ACETAMINOPHEN 325 MG TABLET PO PRN (16:30)
[2019-08-23] MEDS ORDERED: polyethylene glycoL POWDER 17 GM (MIRALAX) PACK PO PRN (16:30)
[2019-08-23] MEDS ORDERED: diphenhydrAMINE 25 MG TAB (BENADRYL) PO PRN (16:30)
[2019-08-23] MEDS ORDERED: MELATONIN 3 MG TABLET PO PRN (16:30)
[2019-08-23] MEDS ORDERED: ANTACID SUSP 30 ML UDC (MYLANTA) PO PRN (16:30)
--- NOTE | 2019-08-23 16:30 | NUR ---
THIS RN AGREES WITH PREVIOUS RN PHYSICAL ASSESSMENT. THIS RN WILL CONT TO MONITOR THIS PATIENT THROUGHOUT THE REMAINDER OF THIS SHIFT.
[2019-08-23] MEDS: DOCUSATE SODIUM 100 MG (COLACE) CAP PO SCH (20:53)
[2019-08-23] MEDS: rOPINIRole 1 MG (REQUIP) TABLET PO SCH (20:54)
[2019-08-23] MEDS ORDERED: NON-FORMULARY MEDICATION 1 EA EA (Ropinirole HCl 4 MG) PO SCH (21:00)
[2019-08-23] MEDS: inSUlin ASPART (NovoLOG) 1 UNIT/0.01 ML (CHARGE PER UNIT) SC SCH (21:43)
[2019-08-23] MEDS ORDERED: ceFAZolin INJECTION 2,000 MG ONE (23:38)
[2019-08-23] MEDS ORDERED: WATER (STERILE) FOR INJECTION 20 ML ONE (23:38)
[2019-08-23] MEDS ORDERED: NS IV 1000 ML 1,000 ML IV SCH (23:59)
[2019-08-24] VITALS (10 sets, daily range): BP systolic 118–158; BP diastolic 70–89
[2019-08-24] MEDS: ceFAZolin INJECTION 2,000 MG in WATER (STERILE) FOR INJECTION 10 ML IV SCH ×2
--- NOTE | 2019-08-24 | NUR ---
PT 02 SAT 81% ON RA AT THIS TIME. 2 L PER NASAL CANNULA APPLIED TO BRING SATS TO 92%. RESPIRATIONS 20. WILL CONTINUE TO MONITOR.
--- NOTE | 2019-08-24 00:07 | OPERATIVE REPORT ---
DATE OF SERVICE: 08/23/2019 PREOPERATIVE DIAGNOSIS: Right foot osteomyelitis, chronic nonhealing ulcer of the right foot Charcot joint. POSTOPERATIVE DIAGNOSIS: Right foot osteomyelitis, chronic nonhealing ulcer of the right foot Charcot joint. PROCEDURE: Right below knee amputation. ANESTHESIA: General with right femoral block. SURGEON: Leora Lewis DO STAGE RIGGER: Dr. Cisneros, assisted in retraction, dissection and closure. ESTIMATED BLOOD LOSS: Minimal. COMPLICATIONS: None. INDICATIONS: The patient is a 43-year-old male with a Charcot foot and right foot osteomyelitis with chronic nonhealing ulcer of the right foot. He has had multiple surgical interventions and also significant wound care without overall improvement. The patient was discussed with Dr. Lassiter and we both feel patient would benefit from right below knee amputation. The patient was discussed with risks and benefits of procedure and wished to proceed with procedure. Consent was signed in the chart. DESCRIPTION OF PROCEDURE: The patient was taken to the operating suite. His right lower extremity was prepped and draped in sterile fashion. Timeout was performed. A fish mouth incision was made distal to the tibial plateau, skin and subcutaneous tissue was divided. The muscle was continued to be divided until the tibia was encountered. The tibia was then dissected completely around and a bone saw was then used to transect the tibia and the tibia was shaved. The anterior surface was shaved by making an angle cut for better pressure positioning. File was then used to file the bone edges until smooth. The muscles were then continued to be divided until vascular bundles were encountered. When the vascular bundles were encountered, these were dissected around and tied off and then transected. The fibula was then dissected around proximal to where the tibia was cut and transected as well with the bone saw. A tourniquet was used during the dissection and once the tibia and the fibula were cut and the muscles were continued to be divided until the right lower extremity was able to be removed. The tourniquet was then taken down. Hemostasis was achieved. The wound was then irrigated with copious amounts of irrigation and suction. The skin flaps were then brought together for closure. Skin was then closed using vertical mattress sutures and then stapled. The stump was then washed and dried and sterile bandages were applied. The patient tolerated procedure well without any complications. He was taken to the recovery room in stable condition. Job ID: [id number] DocumentID: [id number] Dictated Date: 08/23/2019 14:28:34 Rack Puncher Date: 08/24/2019 00:05:35 Dictated By: LEORA LEWIS DO
[2019-08-24] MEDS: inSUlin ASPART (NovoLOG) 1 UNIT/0.01 ML (CHARGE PER UNIT) SC SCH ×4 (05:34→21:20)
[2019-08-24 06:46] LABS: BASOPHILS % (AUTO) 0 % (0-10); EOSINOPHILS # (AUTO) 0.2 10^3/uL (0.0-0.3); EOSINOPHILS % (AUTO) 2 % (0-10); HEMATOCRIT 23 % (40-54); LYMPHOCYTES # (AUTO) 1.3 X 10^3 (1.0-4.0); LYMPHOCYTES % (AUTO) 11 % (12-44); MEAN CORPUSCULAR HEMOGLOBIN 26 PG (25-34); MEAN CORPUSCULAR HGB CONC 29 G/DL (32-36); MEAN CORPUSCULAR VOLUME 87 FL (80-99); MEAN PLATELET VOLUME 8.6 FL (7.4-10.4); MONOCYTES # (AUTO) 1.1 X 10^3 (0.0-1.0); MONOCYTES % (AUTO) 10 % (0-12); NEUTROPHILS # (AUTO) 9.2 X 10^3 (1.8-7.8); NEUTROPHILS % (AUTO) 78 % (42-75); PLATELET COUNT 541 10^3/uL (130-400); RED CELL DISTRIBUTION WIDTH 17.4 % (10.0-14.5); WHITE BLOOD COUNT 11.9 10^3/uL (4.3-11.0)
[2019-08-24] MEDS: MAGNESIUM 1 GM/100 ML IVPB 100 ML IV SCH ×5 (07:00→13:00)
[2019-08-24] MEDS: POTASSIUM CL 10MEQ/50ML IVPB 50 ML IV SCH (07:00)
[2019-08-24] MEDS: KCL 20 MEQ TAB (K-DUR) PO SCH (07:00)
[2019-08-24 07:08] LABS: ALANINE AMINOTRANSFERASE 27 U/L (0-55); ALBUMIN 2.8 GM/DL (3.2-4.5); ALKALINE PHOSPHATASE 308 U/L (40-136); BILIRUBIN,TOTAL 0.5 MG/DL (0.1-1.0); BUN/CREATININE RATIO 11; CALCIUM 8.6 MG/DL (8.5-10.1); CARBON DIOXIDE 28 MMOL/L (21-32); CHLORIDE 98 MMOL/L (98-107); CREATININE SERUM 0.95 MG/DL (0.60-1.30); GFR ESTIMATED > 60; GLUCOSE 134 MG/DL (70-105); MAGNESIUM 1.3 MG/DL (1.6-2.4); PHOSPHORUS 2.7 MG/DL (2.3-4.7); POTASSIUM 3.7 MMOL/L (3.6-5.0); SODIUM 137 MMOL/L (135-145); TOTAL PROTEIN 7.1 GM/DL (6.4-8.2)
[2019-08-24] MEDS ORDERED: NS IV 500 ML 500 ML IV SCH (08:00)
[2019-08-24] MEDS: DOCUSATE SODIUM 100 MG (COLACE) CAP PO SCH ×2 (09:10→21:47)
--- NOTE | 2019-08-24 09:30 | NUR ---
PT STATES HIS PAIN 10/10 IN RIGHT LEG BKA, REPORTS INCREASE IN PAIN WITH USING MORPHINE CAR AUDIO INSTALLER. PT RECEIVED 10MG OXYCODONE IR AT 0910. PT REMOVED OXYGEN AND FOUND TO BE 88-89%% ON RA. HR 117. DR HANEY AT BEDSIDE AND AWARE. ORDER RECEIVED TO CHANGE CAR AUDIO INSTALLER FROM MORPHINE TO FENTANYL CAR AUDIO INSTALLER STANDARD DOSE. PT WAS PLACED ON 2L NC AND OXYGEN CAME UP TO 92%. DR HANEY ENCOURAGED PT TO WEAR SCD'S AND USE IS. THIS RN REAPPLIED SCD'S TO PT LEFT LEG.
--- NOTE | 2019-08-24 09:55 | Progress Note - Surgery ---
Subjective Date Seen by a Provider: Aug 24, 2019 Time Seen by a Provider: 09:50 Subjective/Events-last exam Pain not controlled. Not using incentive spirometer. Hits the teacher learning disabled button and says the pain increases. Refuses to wear scd. Fever over night. Denies sweats chills shortness of breath or chest pain. Objective Exam Vital Signs Date Time Temp Pulse Resp B/P (MAP) Pulse Ox O2 Delivery O2 Flow Rate FiO2 08/24/19 08:00 37.7 115 18 143/83 (103) 96 Room Air 08/24/19 05:59 37.9 08/24/19 03:49 38.4 118 20 135/75 (95) 92 Room Air 08/24/19 00:14 38.2 119 20 132/70 (90) 95 Nasal Cannula 2.00 08/23/19 21:00 Room Air 08/23/19 20:22 37.8 08/23/19 19:52 38.4 08/23/19 19:49 38.4 122 20 151/77 (101) 91 Room Air 08/23/19 17:57 18 08/23/19 17:13 18 08/23/19 17:00 36.8 102 15 168/84 (112) 93 Room Air 08/23/19 16:52 Room Air 08/23/19 14:54 22 08/23/19 14:35 36.5 105 18 149/92 (111) 94 Room Air 08/23/19 14:00 97 10 126/92 (103) 96 Room Air 08/23/19 13:12 100 Room Air 08/23/19 12:26 88 08/23/19 12:20 Nasal Cannula 2 08/23/19 12:20 36.3 18 124/74 (91) 100 Nasal Cannula 2 08/23/19 12:10 18 120/72 (88) 100 Nasal Cannula 2 08/23/19 12:05 Nasal Cannula 2 08/23/19 12:00 18 118/69 (85) 98 Nasal Cannula 2 08/23/19 11:50 Nasal Cannula 2 08/23/19 11:50 18 121/71 (88) 98 Nasal Cannula 2 08/23/19 11:40 18 115/73 (87) 94 Room Air 08/23/19 11:35 OxyMask 6 08/23/19 11:30 18 116/63 (80) 97 Room Air 08/23/19 11:20 18 96/54 (68) 100 OxyMask 6 08/23/19 11:20 OxyMask 6 08/23/19 11:10 18 83/59 (67) 100 OxyMask 6 08/23/19 11:05 OxyMask 6 08/23/19 11:00 18 84/50 (61) 100 OxyMask 6 08/23/19 10:50 OxyMask 6 08/23/19 10:50 18 86/58 (67) 100 OxyMask 6 08/23/19 10:40 18 82/54 (63) 100 OxyMask 6 08/23/19 10:35 OxyMask 6 08/23/19 10:30 18 94/47 (63) 99 OxyMask 6 08/23/19 10:19 OxyMask 6 08/23/19 10:19 36.3 16 110/58 (75) 97 OxyMask 6 I & O 08/24/19 07:00 Intake Total 2910 ml Output Total 750 ml Balance 2160 ml Capillary Refill : Less Than 3 Seconds General Appearance: No Apparent Distress (uncomfortable) HEENT: PERRL/EOMI Neck: Normal Inspection, Non Tender Respiratory: Chest Non Tender, No Accessory Muscle Use, No Respiratory Distress Cardiovascular: Tachycardia Gastrointestinal: non tender, soft, no organomegaly Extremity: Other (right bka bandage intact, left ext soft nontender) Neurologic/Psychiatric: Alert, Oriented x3, No Motor/Sensory Deficits, manager alliance II- XII Norm as Tested Skin: Normal Color, Warm/Dry Lymphatic: No Adenopathy Results Lab Laboratory Tests 08/23/19 10:25: Glucometer 49*L 08/23/19 10:46: Glucometer 79 08/23/19 11:03: Glucometer 69L 08/23/19 11:17: Glucometer 77 08/23/19 11:47: Glucometer 65L 08/23/19 12:10: Glucometer 102 08/23/19 12:26: Glucometer 88 08/23/19 12:48: Glucometer 90 08/23/19 13:04: Glucometer 105 08/23/19 13:18: Glucometer 115H 08/23/19 13:29: Glucometer 123H 08/23/19 13:45: Glucometer 120H 08/23/19 14:17: Glucometer 128H 08/23/19 16:29: Glucometer 133H 08/23/19 21:20: Glucometer 126H 08/24/19 05:21: Glucometer 148H 08/24/19 06:13: White Blood Count 11.9H, Red Blood Count 2.66L, Hemoglobin 7.0L, Hematocrit 23L, Mean Corpuscular Volume 87, Mean Corpuscular Hemoglobin 26, Mean Corpuscular Hemoglobin Concent 29L, Red Cell Distribution Width 17.4H, Platelet Count 541H, Mean Platelet Volume 8.6, Neutrophils (%) (Auto) 78H, Lymphocytes (%) (Auto) 11L , Monocytes (%) (Auto) 10, Eosinophils (%) (Auto) 2, Basophils (%) (Auto) 0, Neutrophils # (Auto) 9.2H, Lymphocytes # (Auto) 1.3, Monocytes # (Auto) 1.1H, Eosinophils # (Auto) 0.2, Basophils # (Auto) 0.0, Sodium Level 137, Potassium Level 3.7, Chloride Level 98, Carbon Dioxide Level 28, Anion Gap 11, Blood Urea Nitrogen 10, Creatinine 0.95, Estimat Glomerular Filtration Rate > 60, BUN/Creatinine Ratio 11, Glucose Level 134H, Calcium Level 8.6, Corrected Calcium 9.6, Phosphorus Level 2.7, Magnesium Level 1.3L, Total Bilirubin 0.5, Aspartate Amino Transf (AST/SGOT) 22, Alanine Aminotransferase (ALT/SGPT) 27, Alkaline Phosphatase 308H, Total Protein 7.1, Albumin 2.8L Assessment/Plan Assessment/Plan Assessment/Plan s/p right bka fever likely due to atelectasis anemia, hgb down to 7 previous 7.2 prior to surgery pain control, change to fentanyl teacher learning disabled instructed use on IS Clinical Quality Measures DVT/VTE Risk/Contraindication: Risk Factor Score Per Nursin RFS Level Per Nursing on Admit: 4+=Very High LEORA HANEY DO Aug 24, 2019 09:55
[2019-08-24] MEDS ORDERED: NS IV 1000 ML 1,000 ML IV SCH (10:02)
[2019-08-24] MEDS ORDERED: diphenhydrAMINE 50 MG/ML INJ (BENADRYL) IV PRN (10:15)
[2019-08-24] MEDS ORDERED: NALOXONE 0.4 MG/ML 1 ML (NARCAN) VIAL IV PRN (10:15)
[2019-08-24] MEDS ORDERED: METOCLOPRAMIDE INJ 10 MG/2 ML (REGLAN) IV PRN (10:15)
[2019-08-24] MEDS ORDERED: ONDANSETRON 4 MG/2 ML (SDV) Z0FRAN IV PRN (10:15)
--- NOTE | 2019-08-24 10:30 | NUR ---
60ML OF MORPHINE FROM DIRECT CASTING OPERATOR WASTED WITH Viviana LOVE
--- NOTE | 2019-08-24 10:30 | NUR ---
PT REMOVED SCD'S
--- NOTE | 2019-08-24 10:41 | Consultation - Hospitalist ---
HPI History of Present Illness: HPI/Chief Complaint Kemar Rivera is a 43-year-old male who was admitted with osteomyelitis for a right below the knee amputation. The hospitalist service has been consulted for medical comanagement. At the time of my examination, he is very uncomfortable and reports that he is in severe pain. He denies any other complaints including: Fever, chills, chest pain, shortness of breath, cough, abdominal pain, nausea, vomiting, dysuria. He takes insulin at home for his diabetes. He has been chronically on opioids. Source: patient Exam Limitations: no limitations Date Seen 08/23/19 Attending Physician Hipolito Lewis DO PCP Saeed Sanabria DO Referring Physician Date of Admission Aug 23, 2019 at 06:15 Home Medications & Allergies Home Medications Reviewed patient Home Medication Reconciliation performed by pharmacy medication reconciliations network technician and/or nursing. Patients Allergies have been reviewed. Allergies Allergies Coded Allergies No Known Drug Allergies (Unverified08/19/19) Past Brshnpz-Ahmxsn-Sdgwow Hx Past Med/Social Hx: Reviewed Nursing Past Med/Soc Hx Patient Social History Alcohol Use: Occasionally Uses Number of Drinks Today: AA Alcohol Beverage of Choice: Beer Recreational Drug Use: No Smoking Status: Current Everyday Smoker Type Used: Cigarettes 2nd Hand Smoke Exposure: Yes Physical Abuse Screen: No Sexual Abuse: No Recent Foreign Travel: No Contact w/other who traveled: No Recent Hopitalizations: Yes (JUN 2018-OSTEOMYELITIS) Recent Infectious Disease Expo: No Immunizations Up To Date Tetanus Booster (TDap): Less than 5yrs Date of Influenza Vaccine: Feb 13, 2019 Seasonal Allergies Seasonal Allergies: No Past Medical History Surgeries: Amputation, Orthopedic Currently Using CPAP: No Currently Using BIPAP: No Cardiac: High Cholesterol, Hypertension Neurological: Neuropathy Reproductive: No Sexually Transmitted Disease: No HIV/AIDS: No CKD Musculoskeletal: Amputee, Degenerate Disk Disease Endocrine: Diabetes, Insulin dep Loss of Vision: Denies Hearing Impairment: Denies Psychosocial: Depression Skin/Integumentary: Recent Skin Changes History of Blood Disorders: Yes (ANEMIA) Adverse Reaction to Blood Lester: No (N/A) Family History No Pertinent Family Hx, Cancer, Diabetes Review of Systems Constitutional: no symptoms reported EENTM: no symptoms reported Respiratory: no symptoms reported Cardiovascular: no symptoms reported Gastrointestinal: no symptoms reported Genitourinary: no symptoms reported Musculoskeletal: no symptoms reported Skin: no symptoms reported Psychiatric/Neurological: No Symptoms Reported Physical Exam Physical Exam Vital Signs Vital Signs - First Documented Capillary Refill : Less Than 3 Seconds Height, Weight, BMI Height: 5'10.00" Weight: 235lbs. 0.0oz. 106.213434yd; 33.18 BMI Method:Stated General Appearance: Moderate Distress (uncomfortable) Respiratory: Lungs Clear, Normal Breath Sounds, No Respiratory Distress Cardiovascular: Regular Rate, Rhythm, No Edema, No Murmur, Tachycardia Gastrointestinal: Normal Bowel Sounds, Non Tender, Soft Extremity: Other (right BKA with bandage in place) Neurologic/Psychiatric: Alert, No Motor/Sensory Deficits Skin: Normal Color, Warm/Dry Results Results/Procedures Labs Laboratory Tests 08/24/19 06:13 Patient resulted labs reviewed. Assessment/Plan Assessment and Plan Assess & Plan/Chief Complaint Osteomyelitis Status post BKA Underwent surgery 08/22 Continue Ancef started on morphine JOINTER OPERATOR, increase dose bowel regimen in place Incentive spirometer PT/OT Type II diabetes mellitus Levemir 5 units nightly Sliding scale insulin DVT prophylaxis: Begin pharmacologic prophylaxis once able per surgery Diagnosis/Problems Diagnosis/Problems (1) Osteomyelitis of right foot Status: Acute (2) Status post below knee amputation of right lower extremity Status: Acute (3) T2DM (type 2 diabetes mellitus) Status: Chronic Qualifiers: Diabetes mellitus director long term care insulin use: with director long term care use Diabetes noah itus complication status: with skin complications Diabetes mellitus complicat ion detail: with other skin complication Qualified Codes: E11.628 - Type 2 diabetes mellitus with other skin complications; Z79.4 - correction (current) use of insulin Clinical Quality Measures DVT/VTE Risk/Contraindication: Risk Factor Score Per Nursin RFS Level Per Nursing on Admit: 4+=Very High EDISON VENTURA MD Aug 24, 2019 10:41
[2019-08-24] MEDS: fentaNYL INJECTION 1,000 MCG in NS (IVPB) 80 ML IV SCH (10:45)
--- NOTE | 2019-08-24 10:46 | Progress Note - Hospitalist ---
Subjective HPI/CC On Admission Date Seen by Provider: Aug 24, 2019 Time Seen by Provider: 08:40 Kemar Rivera is a 43-year-old male who was admitted with osteomyelitis for a right below the knee amputation. The hospitalist service has been consulted for medical comanagement. At the time of my examination, he is very uncomfortable and reports that he is in severe pain. He denies any other complaints including: Fever, chills, chest pain, shortness of breath, cough, abdominal pain, nausea, vomiting, dysuria. He takes insulin at home for his diabetes. He has been chronically on opioids. Subjective/Events-last exam he reports continued severe pain. He says that the pain medicine is not working. He thinks the pain gets worse whenever he pushes the button on his FISHING TOOL SUPERVISOR. He has no other complaints or concerns. He denies any fevers or chills. He denies any chest pain or shortness of breath. He denies any abdominal pain, nausea, or vomiting. Objective Exam Vital Signs Vital Signs Date Time Temp Pulse Resp B/P (MAP) Pulse Ox O2 Delivery O2 Flow Rate FiO2 08/24/19 08:00 37.7 115 18 143/83 (103) 96 Nasal Cannula 2.00 Capillary Refill : Less Than 3 Seconds General Appearance: Anxious, Mild Distress Respiratory: Lungs Clear, Normal Breath Sounds, No Respiratory Distress Cardiovascular: No Edema, No Murmur, Tachycardia Gastrointestinal: Normal Bowel Sounds, Non Tender, Soft Extremity: Other (right BKA with bandage in place) Neurologic/Psychiatric: Alert, No Motor/Sensory Deficits Skin: Normal Color, Warm/Dry Results/Procedures Lab Laboratory Tests 08/24/19 06:13 Patient resulted labs reviewed. Assessment/Plan Assessment and Plan Assess & Plan/Chief Complaint Osteomyelitis Status post BKA Underwent surgery 08/22 Continue Ancef transition from morphine to fentanyl FISHING TOOL SUPERVISOR bowel regimen in place Incentive spirometer PT/OT Anemia Hemoglobin 7 this morning Transfuse 1 unit of PRBC Repeat hemoglobin tomorrow Sinus tachycardia continue IV fluids adjust pain regimen Type II diabetes mellitus Levemir 5 units nightly Sliding scale insulin DVT prophylaxis: Begin pharmacologic prophylaxis once able per surgery Diagnosis/Problems Diagnosis/Problems (1) Osteomyelitis of right foot Status: Acute (2) Status post below knee amputation of right lower extremity Status: Acute (3) T2DM (type 2 diabetes mellitus) Status: Chronic Qualifiers: Diabetes mellitus prison insulin use: with terminal carman use Diabetes mellitus complication status: with skin complications Diabetes mellitus compl ication detail: with other skin complication Qualified Codes: E11.628 - Type 2 diabetes mellitus with other skin complications; Z79.4 - rodent exterminator (current) use of insulin Clinical Quality Measures DVT/VTE Risk/Contraindication: Risk Factor Score Per Nursin RFS Level Per Nursing on Admit: 4+=Very High EDISON VENTURA MD Aug 24, 2019 10:46
[2019-08-24] MEDS: LACTATED RINGERS 1,000 ML IV SCH ×2 (11:16→21:21)
--- NOTE | 2019-08-24 12:32 | Anesthesia-General Post-Op ---
General Patient Condition Mental Status/LOC: Same as Preop Cardiovascular: Satisfactory Nausea/Vomiting: Absent Respiratory: Satisfactory Pain: Controlled Complications: Absent Post Op Complications Complications None Follow Up Care/Instructions Patient Instructions None needed. Anesthesia/Patient Condition Patient Condition Patient is doing well, no complaints, stable vital signs, no apparent adverse anesthesia problems. No complications reported per nursing. HENRIETTA PEREZ CRNA Aug 24, 2019 12:32
--- NOTE | 2019-08-24 13:49 | Physical Therapy Progress Note ---
Therapy Progress Note Attempted to evaluate patient for Physical Therapy, but patient declined on 3 separate occasions. Will resume as willing on Monday. GEOVANNY BETHEA PT Aug 24, 2019 13:49
[2019-08-24] MEDS: rOPINIRole 1 MG (REQUIP) TABLET PO SCH (21:25)
[2019-08-25 04:28] VITALS: BP 144/82
[2019-08-25 04:39] LABS: MEAN PLATELET VOLUME 8.8 FL (7.4-10.4); RED CELL DISTRIBUTION WIDTH 16.9 % (10.0-14.5); WHITE BLOOD COUNT 13.2 10^3/uL (4.3-11.0)
[2019-08-25 04:58] LABS: BUN/CREATININE RATIO 10; CALCIUM 8.8 MG/DL (8.5-10.1); CARBON DIOXIDE 27 MMOL/L (21-32); CHLORIDE 95 MMOL/L (98-107); CREATININE SERUM 0.79 MG/DL (0.60-1.30); GFR ESTIMATED > 60; GLUCOSE 210 MG/DL (70-105); MAGNESIUM 1.5 MG/DL (1.6-2.4); SODIUM 134 MMOL/L (135-145)
[2019-08-25] MEDS: POTASSIUM CL 10MEQ/50ML IVPB 50 ML IV SCH (05:01)
[2019-08-25] MEDS: KCL 20 MEQ TAB (K-DUR) PO SCH (05:01)
[2019-08-25] MEDS ORDERED: fentaNYL (OMNICELL DRIP KIT ONLY) 250 MCG/5 ML AMP ONE (05:45)
[2019-08-25] MEDS ORDERED: NS (IVPB) 100 ML ONE (05:45)
[2019-08-25] MEDS: inSUlin ASPART (NovoLOG) 1 UNIT/0.01 ML (CHARGE PER UNIT) SC SCH ×4 (06:20→21:16)
--- NOTE | 2019-08-25 06:28 | NUR ---
THIS RN ASSISTED BY BURNER HAND RN, LONI Jennings AND ICU NURSE ISHA Romero, WERE UNABLE TO UNLOCK CABINET IN MED ROOM THAT CONTAINS NARCOTICS. WE ATTEMPTED CODE THAT WE ARE GIVEN AND CABINET WOULD NOT OPEN.PT IS NOW FENTANYL CLINICAL SCIENTIST PUMP AND THE BAG MIXED BY PHARMACY WAS IN LOCKED CABINET. ASSISTANT DEPARTMENT MANAGER, [place]RI[place], NOTIFIED OF PROBLEM AND TOLD THIS NURSE DOG HAIR CLIPPER TO GO TO ICU AND HAVE BELEM VIEIRA ASSIST WITH MIXING FENTANYL TO BAG OF NS. ISHA PULLED 2 BOTTLES 250 MCG OF FENTANYL AND INJECTED IT TO 100 ML BAG OF NS. BELEM VIEIRA ASSISTED THIS RN WITH PROGRAMMING PUMP ACCORDING TO ORDER GIVEN YESTERDAY, 08/24/19, BY DR HALL. A[place]RI[place], ASSISTANT DEPARTMENT MANAGER, TOLD THIS RN TO REPORT TO DAY SHIFT REGARDING THE ISSUE.
--- NOTE | 2019-08-25 06:53 | NUR ---
THERE WAS 17 ML LEFT FROM BAG TAKEN FROM [facility] ASSOCIATE JUSTICE PUMP WHEN CHANGING IT OUT. LONI Jennings RN, VERIFIED WITH THIS NURSE DIFFUSER OPERATOR.
[2019-08-25] MEDS: MAGNESIUM 1 GM/100 ML IVPB 100 ML IV SCH ×3 (07:03→08:54)
[2019-08-25 08:00] VITALS: BP 177/84
[2019-08-25] MEDS ORDERED: POT PHOS/NA PHOS (K-PHOS NEUTRAL) PO ONE (08:00)
[2019-08-25] MEDS: DOCUSATE SODIUM 100 MG (COLACE) CAP PO SCH ×2 (11:24→20:35)
[2019-08-25] MEDS: SENNA W/DOCUSATE (SENOKOT S) TABLET PO SCH (11:25)
[2019-08-25] MEDS: LACTATED RINGERS 1,000 ML IV SCH (11:32)
[2019-08-25 12:00] VITALS: BP 152/82
--- NOTE | 2019-08-25 13:48 | Progress Note - Surgery ---
Subjective Time Seen by a Provider: 12:48 Subjective/Events-last exam Pt seen and examined, dressing taken down. Pt states the pain is getting better, he is tolerating diet and asking about going home because tomorrow they won't allow visitors. Review of Systems General: Fatigue Pulmonary: No Dyspnea, No Cough Cardiovascular: No: Chest Pain, Palpitations Gastrointestinal: No: Nausea, Vomiting Objective Exam Vital Signs Date Time Temp Pulse Resp B/P (MAP) Pulse Ox O2 Delivery O2 Flow Rate FiO2 08/25/19 12:00 37.0 106 20 152/82 (105) 96 Room Air 08/25/19 10:43 100 Room Air 08/25/19 09:00 97 Room Air 08/25/19 08:00 36.3 111 20 177/84 (115) 99 Room Air 08/25/19 06:25 95 Room Air 08/25/19 04:28 36.4 108 18 144/82 (102) 96 Room Air 08/25/19 01:15 94 Room Air 08/24/19 23:50 37.3 107 18 118/70 (86) 95 Room Air 08/24/19 21:00 94 Nasal Cannula 2.00 08/24/19 19:30 36.6 122 18 158/82 (107) 98 Room Air 2.00 08/24/19 19:06 96 Room Air 08/24/19 15:55 96 Room Air 08/24/19 15:44 37.8 112 20 154/89 (110) 92 Room Air 08/24/19 14:20 36.8 111 20 138/72 94 Room Air I & O 08/25/19 07:00 Intake Total 600 ml Output Total 2450 ml Balance -1850 ml Capillary Refill : Less Than 3 Seconds General Appearance: Anxious, Mild Distress Respiratory: Lungs Clear, Normal Breath Sounds, No Respiratory Distress Cardiovascular: Regular Rate, Rhythm, No Edema, No Murmur, Tachycardia Gastrointestinal: non tender, soft, no organomegaly Extremity: Other (right BKA looks great, no bruising, mild edema and intact) Neurologic/Psychiatric: Alert Skin: Normal Color, Warm/Dry Results Lab Laboratory Tests 08/24/19 15:37: Glucometer 246H 08/24/19 20:37: Glucometer 251H 08/25/19 03:55: White Blood Count 13.2H, Red Blood Count 3.12L, Hemoglobin 8.0L, Hematocrit 27L, Mean Corpuscular Volume 87, Mean Corpuscular Hemoglobin 26, Mean Corpuscular Hemoglobin Concent 30L, Red Cell Distribution Width 16.9H, Platelet Count 557H, Mean Platelet Volume 8.8, Sodium Level 134L, Potassium Level 4.0, Chloride Level 95L, Carbon Dioxide Level 27, Anion Gap 12, Blood Urea Nitrogen 8, Creatinine 0.79, Estimat Glomerular Filtration Rate > 60, BUN/Creatinine Ratio 10, Glucose Level 210H, Calcium Level 8.8, Phosphorus Level 2.0L, Magnesium Level 1.5L 08/25/19 11:21: Glucometer 283H Microbiology 08/23/19 MRSA Screen - Final, Complete MRSA not isolated Assessment/Plan Assessment/Plan Assessment/Plan S/P right bka Anemia - stable pain control start oral Oxycodone and decrease fentanyl manager union Pt encouraged to use IS more Clinical Quality Measures DVT/VTE Risk/Contraindication: Risk Factor Score Per Nursin RFS Level Per Nursing on Admit: 4+=Very High JAIRO HALL DO Aug 25, 2019 13:48
[2019-08-25] MEDS: fentaNYL INJECTION 1,000 MCG in NS (IVPB) 80 ML IV SCH (14:14)
--- NOTE | 2019-08-25 14:14 | NUR ---
DEMOGRAPHIC ANALYST BAG AND SETTINGS CHANGED PER DR HALL ORDERS. 60ML OF FENTANYL WASTED WITH KATE Michelle RN. 20MCG LOADING DOSE WAS NOT GIVEN ORDERED BY DR HALL. PT VERBALIZED UNDERSTANDING OF NEW SETTINGS.
[2019-08-25 15:45] VITALS: BP 155/83
[2019-08-25 20:05] VITALS: BP 145/82
[2019-08-25] MEDS: rOPINIRole 1 MG (REQUIP) TABLET PO SCH (21:08)
[2019-08-26 00:05] VITALS: BP 135/78
[2019-08-26] MEDS: LACTATED RINGERS 1,000 ML IV SCH (02:19)
[2019-08-26 04:00] VITALS: BP 156/84
[2019-08-26 05:55] LABS: BUN/CREATININE RATIO 7; CARBON DIOXIDE 28 MMOL/L (21-32); CHLORIDE 94 MMOL/L (98-107); CREATININE SERUM 0.74 MG/DL (0.60-1.30); GFR ESTIMATED > 60; GLUCOSE 201 MG/DL (70-105); MAGNESIUM 1.2 MG/DL (1.6-2.4); PHOSPHORUS 2.5 MG/DL (2.3-4.7); POTASSIUM 3.6 MMOL/L (3.6-5.0); SODIUM 134 MMOL/L (135-145)
[2019-08-26] MEDS: POTASSIUM CL 10MEQ/50ML IVPB 50 ML IV SCH (06:07)
[2019-08-26] MEDS: KCL 20 MEQ TAB (K-DUR) PO SCH (06:30)
[2019-08-26] MEDS: inSUlin ASPART (NovoLOG) 1 UNIT/0.01 ML (CHARGE PER UNIT) SC SCH ×2 (06:30→11:30)
[2019-08-26] MEDS: MAGNESIUM 1 GM/100 ML IVPB 100 ML IV SCH ×6 (06:30→10:25)
[2019-08-26 07:33] VITALS: BP 155/84
[2019-08-26] MEDS: DOCUSATE SODIUM 100 MG (COLACE) CAP PO SCH (07:55)
[2019-08-26] MEDS: SENNA W/DOCUSATE (SENOKOT S) TABLET PO SCH (07:55)
--- NOTE | 2019-08-26 10:45 | Physical Therapy Evaluation ---
PT Evaluation-General Medical Diagnosis Admission Date Aug 23, 2019 at 06:15 Medical Diagnosis: (R) BKA, (R) foot osteomyelitis Onset Date: Aug 23, 2019 Therapy Diagnosis Therapy Diagnosis: impaired mobility Height/Weight Height (Feet): 5 Height (Inches): 10.00 Weight (Pounds): 235 Weight (Ounces): 0.0 Precautions Precautions/Isolations: Fall Prevention, Standard Precautions Weight Bear Status Right Lower Extremity: Right Non Weight Bearing Left Lower Extremity: Left Weight Bearing/Tolerated Referral Reason for Referral: Evaluation/Treatment Medical History Pertinent Medical History: DM, HTN, Neuropathy, Smoking Current History Pt underwent (R) BKA and is cleared to begin ambulation training with appropriate AD. Reviewed History: Yes Social History Home: Multilevel Current Living Status: Significant Other Entry Into Home: Stairs Without Railing PT Steps Into Home: 4 PT Steps Inside Home: 10 Discussed methods for stair ascent/descent using walker or crutches. Pt felt confident that he could manage the steps with supervision from his . He states he has tried the crutches in the past. Prior Prior Level of Function SCALE: Activities may be completed with or without assistive devices. 3-Lhlupdanxc-pinkisz completes the activity by him/herself with no assistance from a helper. 5-Set-up or Clean-up Assistance-helper sets up or cleans up; patient completes activity. [place] assists only prior to or following the activity. 4-Supervision or Touching Assistance-helper provides verbal cues and/or touching/steadying and/or contact guard assistance as patient completes activity. Assistance may be provided throughout the activity or intermittently. 3-Partial/Moderate Assistance-helper does LESS THAN HALF the effort. [place] lifts, holds or supports trunk or limbs, but provides less than half the effort. 2-Substantial/Maximal Assistance-helper does MORE THAN HALF the effort. [place] lifts or holds trunk or limbs and provides more than half the effort. 5-Ddmqeuopl-diotpk does ALL the effort. Patient does none of the effort to complete the activity. Or, the assistance of 2 or more helpers is required for the patient to complete the activity. If activity was not attempted, code reason: 7-Patient Refused. 9-Not Applicable-not attempted and the patient did not perform the activity before the current illness, exacerbation or injury. 10-Not Attempted due to Environmental Limitations-(lack of equipment, weather restraints, etc.). 88-Not Attempted due to Medical Conditions or Safety Concerns. Bed Mobility: 6 Transfers (B,C,W/C): 6 Gait: 6 Stairs: 6 Indoor Mobility (Ambulation): Independent Stairs: Independent Prior Devices Use: None PT Evaluation-Current Subjective Pt reports that he is feeling much better today. Mild soreness in the medial (R) knee while at rest. Pain Numeric Pain Scale: 5-Moderate Pain Location: Right Location Body Site: Knee Pain Description: Ache, Dull Pt/Family Goals Return home with family. Objective Patient Orientation: Person, Place, Time, Situation Attachments: IV ROM/Strength ROM Upper Extremities WFL ROM Lower Extremities WFL, full (R) knee extension and (R) hip extension >10 degrees. Strength Upper Extremities WFL Strength Lower Extremities WFL Integumentary/Posture Bowel Incontinence: No Bladder Incontinence: No Neuromuscular (Tone, Coordination, Reflexes) Pt notes diminished sensation in the (L) lower leg and foot. Pt reports intact sensation in the (R) residual limb. Sensory Vision: Functional Hearing: Functional Sensation Right Upper Extremit: Intact Sensation Left Upper Extremity: Intact Sensation Right Lower Extremit: Intact Sensation Left Lower Extremity: Impaired Transfers Roll Left to Right (QC): 6 Sit to Lying (QC): 6 Lying to Sitting/Side of Bed(Q: 6 Sit to Stand (QC): 5 Chair/Wwu-nm-Srjfs Xfer(QC): 5 Gait Does the Patient Walk?: Yes Mode of Locomotion: Walk Anticipated Mode of Locomotion: Walk Walk 10 feet (QC): 5 Walk 50 ft with 2 Turns(QC): 5 Distance: 60ft Gait Assistive Device: FWW Comments/Gait Description Pt has lofstrand crutches at home and has ordered a front wheeled walker. Wheelchair Training Does the Pt Use a Wheelchair?: No Balance Sitting Static: Normal Sitting Dynamic: Normal Standing Static: Good Standing Dynamic: Good Assessment/Needs Pt was safe with ambulation, transfers, turning, and use of the walker. Rehab Potential: Good PT Short Term Goals Short Term Goals Time Frame: Aug 30, 2019 Sit to stand: 5 Chair/uzn-qj-dkwjg transfer: 5 Toilet transfer: 5 Car transfer: 5 Walk 10 feet: 5 Walk 50 feet with two turns: 5 Walk 150 feet: 5 1 step (curb): 5 4 steps: 5 12 steps: 5 PT Plan Problem List Problem List: Activity Tolerance, Safety, Gait, Transfer Treatment/Plan Treatment Plan: Continue Plan of Care Treatment Plan: Functional Activity Mauricio, Functional Strength, Gait, Safety, Therapeutic Exercise, Transfers Treatment Duration: Aug 30, 2019 Frequency: 5 times per week Estimated Hrs Per Day: .25 hour per day Patient and/or Family Agrees t: Yes Time/GCodes Time In: 1025 Time Out: 1050 Total Billed Treatment Time: 25 Total Billed Treatment 1, byron 25 GEOVANNY BETHEA PT Aug 26, 2019 10:45
[2019-08-26 12:19] VITALS: BP 143/78
--- NOTE | 2019-08-26 14:17 | NUR ---
"RD ASSESSMENT PMHx: R-BKA; hypercholesterolemia; DM; HTN; CKD PT INTERACTION: Pt was awake and pleasant during nutrition assessment. Pt states current appetite is getting better. Note pt has refused 6 meals and had consumed avg of 50% of 2 meals. per chart review. Pt states following a regular diet at home, and has no issues with chewing/swallowing food. Pt states no recent issues with n/v/c/d at this time. Note last BM was 08/24 and pt currently on bowel regimen of senna qd; and colace BID, per chart review. Pt states unsure of recent wt changes. Note recent 15# wt gain x2mon, per chart review. Pt states current DM management is difficult to manage d/t switching insurance companies. Pt states it has been better over the last few weeks. Note recent HbA1c of 11 taking on 06/15/2019 per chart review. Note pt has presence of surgical wound on right leg, following BKA procedure. ABNORMAL NUTRITION-RELATED LAB VALUES LOW: Na 134; Cl 94; BUN 5; Mg 1.5 HIGH: glu 201 Est. kcal needs: 1704-7817 kcal | 15-18 kcal/kg Est. Pro needs: 111-133 g Pro | 1.0-1.2 g Pro/kg PES STATEMENT: Inadequate oral intake (NI-2.1) related to loss of appetite as evidenced by pt interview | pt refusing meals INTERVENTION: Continue with current diet order of CHO 60g/m 1snack diet. Add Ensure HP (vary) to meals BID. Provides 160 kcal and 16 g Pro per serving for perceived benefit to wound healing. Will continue to follow and reassess as pt needs, intake, and status change. MONITOR/EVALUATE: PO Intake; Plan of Care; Hydration Status; Weight Status; Lab Values Pio Wilson, MS, RD, LD"
--- NOTE | 2019-08-26 14:34 | NUR ---
CM/SS visited with the patient for discharge planning. Plan: The patient will return home and will get an outpatient consult for a prosthetic leg fitting. ANABELA/AIDA received help and guidance from staff member Breanna on what medical records and processes were needed to complete referral. ANABELA/AIDA spoke with the agency and faxed to [phone] with Att: Shira Perkins ([phone]) or Gustavo Vega ([phone]). They verbalized they will directly contact the patient. ANABELA/SS verified the patients number as [phone]. ANABELA/SS informed the patient that the agency will contact him directly. He verbalized understanding. Per the drRosalba the patient does not need any other equipment due to them already having it at home. No other needs at this time.
--- NOTE | 2019-08-26 14:50 | NUR ---
90ML OF FENTANYL WASTED FROM LICENSED VETERINARY TECHNICIAN WITH BIBI Mark RN.
--- NOTE | 2019-08-26 15:33 | Progress Note - Surgery ---
Subjective Date Seen by a Provider: Aug 26, 2019 Time Seen by a Provider: 12:09 Subjective/Events-last exam Patient doing better. Pain controlled. Denies any new complaints. Doing exercises for right leg. Denies n/v fever sweats chills shortness of breath or chest pian. Using IS some. Objective Exam Vital Signs Date Time Temp Pulse Resp B/P (MAP) Pulse Ox O2 Delivery O2 Flow Rate FiO2 08/26/19 12:19 36.8 99 16 143/78 (99) 95 Room Air 08/26/19 08:10 97 Room Air 08/26/19 07:56 16 08/26/19 07:33 35.8 100 18 155/84 (107) 98 Room Air 08/26/19 04:00 36.4 99 16 156/84 (108) 97 Room Air 08/26/19 00:05 36.6 104 16 135/78 (97) 94 Room Air 08/25/19 21:00 97 Room Air 08/25/19 20:05 37.0 107 20 145/82 (103) 96 Room Air 08/25/19 15:45 35.6 110 20 155/83 (107) 99 Room Air I & O 08/26/19 07:00 Intake Total 2300 ml Output Total 5 ml Balance 2295 ml Capillary Refill : Less Than 3 Seconds General Appearance: No Apparent Distress HEENT: PERRL/EOMI Neck: Supple Respiratory: Chest Non Tender, No Accessory Muscle Use, No Respiratory Distress Cardiovascular: Regular Rate, Rhythm Gastrointestinal: non tender, soft, no organomegaly Extremity: Other (right BKA mild edema, no erythema, no signs of infection) Neurologic/Psychiatric: Alert, Oriented x3, Normal Mood/Affect Skin: Normal Color, Warm/Dry Lymphatic: No Adenopathy Results Lab Laboratory Tests 08/25/19 15:40: Glucometer 248H 08/25/19 21:08: Glucometer 272H 08/26/19 05:10: Sodium Level 134L, Potassium Level 3.6, Chloride Level 94L, Carbon Dioxide Level 28, Anion Gap 12, Blood Urea Nitrogen 5L, Creatinine 0.74, Estimat Glomerular Filtration Rate > 60, BUN/Creatinine Ratio 7, Glucose Level 201H, Calcium Level 9.0, Phosphorus Level 2.5, Magnesium Level 1.2L 08/26/19 10:52: Glucometer 276H 08/26/19 12:43: Lab Scanned Report Transfusion Reaction Form Microbiology 08/23/19 MRSA Screen - Final, Complete MRSA not isolated Assessment/Plan Assessment/Plan Assessment/Plan S/P right bka Anemia - stable pain controlled with oral pain medication. Patient wanting to go home. Will arrange for prosthetics rep to see patient Plan on dc home Clinical Quality Measures DVT/VTE Risk/Contraindication: Risk Factor Score Per Nursin RFS Level Per Nursing on Admit: 4+=Very High LEORA HANEY DO Aug 26, 2019 15:33
[2019-08-26 15:45] VITALS: BP 143/78
--- NOTE | 2019-08-26 17:32 | DISCHARGE SUMMARY ---
DATE OF SERVICE: 08/23/19-08/26/19 ADMITTING PHYSICIAN: Leora Lewis DO CONSULTING PHYSICIAN: Dr. Trevino ADMITTING DIAGNOSES: Osteomyelitis, right lower extremity status post right below knee amputation, type 2 diabetes. DISCHARGE DIAGNOSES: Osteomyelitis, right lower extremity status post right below knee amputation, type 2 diabetes. HOSPITAL COURSE: The patient is a 43-year-old male with osteomyelitis of the right foot Charcot joint and chronic pain that has not had any improvement. He has osteomyelitis of foot and has had multiple surgical interventions. He elected to have right below knee amputation. On 08/23/2019, the patient underwent right below knee amputation. He was admitted postoperatively for pain control and further management. The patient was admitted for pain control performed. He was then titrated to oral pain control and on 08/26/2019 to be discharged. Please see hospital discharge instructions and Please see chart for further review. Job ID: [id number] DocumentID: [id number] Dictated Date: 08/26/2019 15:38:25 Cigar Wrapper Date: 08/26/2019 17:32:01 Dictated By: LEORA LEWIS DO MTDD
== END 2019-08-26 15:45 | disposition home or self-care (01) | DRG 617 ==
LOC: 4TH 06:15 → SURG 06:16 → EDSTATUS 10:00 → ICU 12:20 → 4TH 14:20
PROVIDERS: ADMIT Surgery; ATTEND Surgery
PROC: 0Y6H0Z1 Detachment at Right Lower Leg, High, Open Approach (ICD-10-PCS; principal; 2019-08-23 09:05)
DX: E11.69 Type 2 diabetes mellitus with other specified complication (principal); E11.621 Type 2 diabetes mellitus with foot ulcer; L97.514 Non-pressure chronic ulcer of other part of right foot with necrosis of bone; E11.610 Type 2 diabetes mellitus with diabetic neuropathic arthropathy; J98.11 Atelectasis; E11.40 Type 2 diabetes mellitus with diabetic neuropathy, unspecified; D64.9 Anemia, unspecified; F17.210 Nicotine dependence, cigarettes, uncomplicated; N18.9 Chronic kidney disease, unspecified; F32.9 Major depressive disorder, single episode, unspecified; Z79.4 Long term (current) use of insulin; Z79.891 Long term (current) use of opiate analgesic
CPT/HCPCS: 36415; 80048; 80053; 82962; 83735; 84100; 85025; 85027; 86850; 86900; 86901; 86920; 87081; 94664; 94760

== ENCOUNTER 2020-01-13 09:35 | Outpatient (RCR) | payer BC ==
[~2020-01-13 09:35] MED LIST changes: +DOCU-143 PO; +HYDR-4226 PO
== END 2020-02-04 | disposition home or self-care (01) ==
PROVIDERS: ATTEND Nurse Practitioner Family
DX: Z89.511 Acquired absence of right leg below knee (principal)

== ENCOUNTER 2020-09-29 20:04 | Emergency (ER) | payer BC ==
[~2020-09-29] VITALS: Ht 177.8 cm; Wt 109.1 kg
[~2020-09-29 20:04] MED LIST changes: -LISI10TA2 PO; +LISI10TA25 PO
[2020-09-29 21:25] LABS: BASOPHILS # (AUTO) 0.1 10^3/uL (0.0-0.1); BASOPHILS % (AUTO) 0 % (0-10); EOSINOPHILS # (AUTO) 0.4 10^3/uL (0.0-0.3); EOSINOPHILS % (AUTO) 3 % (0-10); HEMATOCRIT 40 % (40-54); HEMOGLOBIN 12.5 g/dL (13.3-17.7); LYMPHOCYTES # (AUTO) 1.2 10^3/uL (1.0-4.0); LYMPHOCYTES % (AUTO) 9 % (12-44); MEAN CORPUSCULAR HEMOGLOBIN 31 pg (25-34); MEAN CORPUSCULAR HGB CONC 32 g/dL (32-36); MEAN CORPUSCULAR VOLUME 98 fL (80-99); MONOCYTES # (AUTO) 0.9 10^3/uL (0.0-1.0); MONOCYTES % (AUTO) 7 % (0-12); NEUTROPHILS # (AUTO) 11.3 10^3/uL (1.8-7.8); NEUTROPHILS % (AUTO) 81 % (42-75); PLATELET COUNT 301 10^3/uL (130-400); WHITE BLOOD COUNT 13.9 10^3/uL (4.3-11.0)
[2020-09-29 21:42] LABS: ALBUMIN 4.1 GM/DL (3.2-4.5); BILIRUBIN,TOTAL 0.4 MG/DL (0.1-1.0); CREATININE SERUM 1.64 MG/DL (0.60-1.30); POTASSIUM 3.6 MMOL/L (3.6-5.0); TOTAL PROTEIN 7.7 GM/DL (6.4-8.2)
[2020-09-29] MEDS ORDERED: cefTRIAXone FOR IV USE 2,000 MG in WATER (STERILE) FOR INJECTION 20 ML IV ONE (22:15)
--- NOTE | 2020-09-29 22:20 | ED Integumentary General ---
General Chief Complaint: Skin/Wound Problems Stated Complaint: R KNEE SWELLING/PAIN Nursing Triage Note: PT AMB TO ROOM 5 W/ CO INCREASED SWELLING, REDNESS AND PAIN IN RIGHT LOWER EXTREMITY. PT DX W/ CELLULITIS LAST WEEK. PT TAKING CEPHALEXIN. PT HAS HX OF RIGHT BELOW THE KNEE AMPUTATION. Source: patient Exam Limitations: no limitations History of Present Illness Date Seen by Provider: Sep 29, 2020 Time Seen by Provider: 21:19 Initial Comments To ER with reports of increased redness and swelling to the right thigh. He has a history of a right below the knee amputation. Yesterday he awakened with an abrasion/red bump to the medial aspect of the right knee. He was seen at [facility], they did bedside ultrasound and he states they saw "cobblestoning" but no abscess. He was given a prescription for Keflex. Throughout the course of the day today he reports increasing redness and swelling to this area. He denies fevers chills nausea or any systemic symptoms. Timing/Duration: constant Severity: moderate Location: extremities Possible Cause: no cause identified Associated Symptoms: denies symptoms Allergies and Home Medications Allergies Coded Allergies: No Known Drug Allergies (Unverified , 08/19/19) Home Medications Baclofen 10 Mg Tablet, 10 MG PO TID PRN for MUSCLE SPASMS, (Reported) Canagliflozin 300 Mg Tablet, 300 MG PO DAILY, (Reported) Citalopram Hydrobromide 20 Mg Tablet, 20 MG PO DAILY, (Reported) Docusate Sodium 100 Mg Capsule, 100 MG PO BID Prescribed by: LEORA HANEY on 08/23/19 1404 Gabapentin 300 Mg Capsule, 300 MG PO BID PRN for NEUROPATHY PAIN, (Reported) Glimepiride 4 Mg Tablet, 4 MG PO BID, (Reported) Hydrocodone/Acetaminophen 1 Each Tablet, 1-2 TAB PO Q6H Prescribed by: LEORA HANEY on 08/23/19 1404 Insulin Degludec 100 Unit/1 Ml Insuln.pen, 15 UNIT SQ HS PRN for HIGH BLOOD SUGAR, (Reported) Insulin Lispro 100 Unit/1 Ml Insuln.pen, SC TIDAC, (Reported) Ropinirole HCl 4 Mg Tablet, 4 MG PO HS, (Reported) Sitagliptin Phos/Metformin HCl 1 Each Tbmp.24hr, 1 TAB PO BID, (Reported) TAKES WHEN HE HAS SAMPLES AVAILABLE Patient Home Medication List Home Medication List Reviewed: Yes Review of Systems Review of Systems Constitutional: see HPI; No chills, No fever EENTM: see HPI Respiratory: no symptoms reported Cardiovascular: no symptoms reported Genitourinary: no symptoms reported Musculoskeletal: no symptoms reported Skin: see HPI Psychiatric/Neurological: No Symptoms Reported Endocrine: No Symptoms Reported Past Ibjvgzd-Hqblba-Nvanaf Hx Patient Social History Alcohol Use: Occasionally Uses Number of Drinks Today: AA Alcohol Beverage of Choice: Beer Smoking Status: Current Everyday Smoker Type Used: Cigarettes 2nd Hand Smoke Exposure: Yes Recent Infectious Disease Expo: No Recent Hopitalizations: Yes (JUN 2018-OSTEOMYELITIS) Immunizations Up To Date Tetanus Booster (TDap): Less than 5yrs Date of Influenza Vaccine: Feb 13, 2019 Seasonal Allergies Seasonal Allergies: No Past Medical History Surgeries: Yes (TOE AMUPTATION, RIGHT ROTATOR CUFF X2, CTR RIGHT) Amputation, Orthopedic Respiratory: No Currently Using CPAP: No Currently Using BIPAP: No Cardiac: No High Cholesterol, Hypertension Neurological: Yes Neuropathy Reproductive Disorders: No Sexually Transmitted Disease: No HIV/AIDS: No Genitourinary: No Gastrointestinal: No Musculoskeletal: Yes Amputee, Degenerate Disk Disease Endocrine: Yes Diabetes, Insulin dep HEENT: No (GLASSES/CONTACTS) Loss of Vision: Denies Hearing Impairment: Denies Cancer: No Psychosocial: Yes Depression Integumentary: Yes (DIABETIC FOOT ULCERS WITH CELLULITIS AND OSTEOMYELITIS) Recent Skin Changes Blood Disorders: Yes (ANEMIA) Adverse Reaction/Blood Tranf: No (N/A) Family Medical History No Pertinent Family Hx, Cancer, Diabetes Physical Exam Vital Signs Vital Signs - First Documented 09/29/20 20:44 Temp 37.0 Pulse 98 Resp 18 B/P (MAP) 135/83 (100) Pulse Ox 98 O2 Delivery Room Air Capillary Refill : Less Than 3 Seconds General Appearance: WD/WN, no apparent distress Neck: non-tender, full range of motion Cardiovascular: regular rate, rhythm, no murmur Respiratory: no respiratory distress, no accessory muscle use Neurologic/Psychiatric: alert, normal mood/affect, oriented x 3 Skin: normal color, warm/dry Skin Problem Character: erythema Progress/Results/Core Measures Results/Orders Lab Results Laboratory Tests Test 09/29/20 21:05 Range/Units White Blood Count 13.9 H 4.3-11.0 10^3/uL Red Blood Count 4.05 L 4.30-5.52 10^6/uL Hemoglobin 12.5 L 13.3-17.7 g/dL Hematocrit 40 40-54 % Mean Corpuscular Volume 98 80-99 fL Mean Corpuscular Hemoglobin 31 25-34 pg Mean Corpuscular Hemoglobin Concent 32 32-36 g/dL Red Cell Distribution Width 14.0 10.0-14.5 % Platelet Count 301 130-400 10^3/uL Mean Platelet Volume 10.0 9.0-12.2 fL Immature Granulocyte % (Auto) 1 % Neutrophils (%) (Auto) 81 H 42-75 % Lymphocytes (%) (Auto) 9 L 12-44 % Monocytes (%) (Auto) 7 0-12 % Eosinophils (%) (Auto) 3 0-10 % Basophils (%) (Auto) 0 0-10 % Neutrophils # (Auto) 11.3 H 1.8-7.8 10^3/uL Lymphocytes # (Auto) 1.2 1.0-4.0 10^3/uL Monocytes # (Auto) 0.9 0.0-1.0 10^3/uL Eosinophils # (Auto) 0.4 H 0.0-0.3 10^3/uL Basophils # (Auto) 0.1 0.0-0.1 10^3/uL Immature Granulocyte # (Auto) 0.1 0.0-0.1 10^3/uL Sodium Level 142 135-145 MMOL/L Potassium Level 3.6 3.6-5.0 MMOL/L Chloride Level 100 98-107 MMOL/L Carbon Dioxide Level 27 21-32 MMOL/L Anion Gap 15 H 5-14 MMOL/L Blood Urea Nitrogen 24 H 7-18 MG/DL Creatinine 1.64 H 0.60-1.30 MG/DL Estimat Glomerular Filtration Rate 46 BUN/Creatinine Ratio 15 Glucose Level 78 70-105 MG/DL Lactic Acid Level 0.91 0.50-2.00 MMOL/L Calcium Level 10.0 8.5-10.1 MG/DL Corrected Calcium 9.9 8.5-10.1 MG/DL Total Bilirubin 0.4 0.1-1.0 MG/DL Aspartate Amino Transf (AST/SGOT) 29 5-34 U/L Alanine Aminotransferase (ALT/SGPT) 26 0-55 U/L Alkaline Phosphatase 58 40-136 U/L Total Protein 7.7 6.4-8.2 GM/DL Albumin 4.1 3.2-4.5 GM/DL My Orders Orders - RACHEL PANIAGUA APRN Cbc With Automated Diff (09/29/20 20:55) Comprehensive Metabolic Panel (09/29/20 20:55) Ed Iv/Invasive Line Start (09/29/20 20:55) Blood Culture (09/29/20 20:55) Lactic Acid Analyzer (09/29/20 20:55) Vital Signs/I&O 09/29/20 20:44 Temp 37.0 Pulse 98 Resp 18 B/P (MAP) 135/83 (100) Pulse Ox 98 O2 Delivery Room Air Blood Pressure Mean: 100 Departure Communication (Admissions) 2219-There is a large area of erythema to the right knee and medial right thigh. He is afebrile with a normal lactic acid. I did discuss with him that he technically meets sepsis criteria given the leukocytosis, the tachycardia and the source of infection. I recommended hospitalization for IV antibiotics. He states "I really cant stay in the hospital". He would like to have a dose of IV antibiotics here in the emergency room. He does agree to sign a refusal of services form. Discussed with him that this could result in disability or worsening of condition. He agrees to return for any fevers chills worsening symptoms and to continue his Keflex antibiotics. Impression Primary Impression: Cellulitis of right leg Disposition: HOME, SELF-CARE Condition: Stable Departure-Patient Inst. Decision time for Depature: 22:19 Referrals: RASHAD HAY DO (PCP/Family) Primary Care Physician Patient Instructions: Cellulitis (Skin Infection), Adult ED Add. Discharge Instructions: 1. Continue the antibiotics. Return to ER for any fevers chills worsening redness worsening swelling or any concerns. Call your primary care provider tomorrow to make an appointment to be seen this week for recheck. All discharge instructions reviewed with patient and/or family. Voiced understanding. RACHEL PANIAGUA APRN Sep 29, 2020 22:19
[2020-09-29 22:50] VITALS: BP 102/59
== END 2020-09-29 22:53 | disposition home or self-care (01) ==
LOC: EDUNIT# 20:04 → ER 20:06
DX: L03.115 Cellulitis of right lower limb (principal); I10 Essential (primary) hypertension; E11.9 Type 2 diabetes mellitus without complications; F32.9 Major depressive disorder, single episode, unspecified; F17.210 Nicotine dependence, cigarettes, uncomplicated; Z79.4 Long term (current) use of insulin
CPT/HCPCS: 36415; 80053; 83605; 85025; 87040

== ENCOUNTER 2020-10-16 17:49 | Observation (INO) | payer BC ==
[~2020-10-16] VITALS: Ht 180 cm; Wt 108.0 kg
[2020-10-16] MEDS ORDERED: PIPERACILLIN SODIUM/TAZOBACTAM 4.5 GM in NS (IVPB) 100 ML IV ONE (18:15)
[2020-10-16] MEDS ORDERED: VANCOMYCIN INJECTION 1,000 MG in NS (IVPB) 250 ML IV SCH (18:15)
--- NOTE | 2020-10-16 18:31 | ED Lower Extremity ---
General Chief Complaint: Skin/Wound Problems Stated Complaint: R KNEE REDNESS/SWELLING Nursing Triage Note: PT PRESENTS TO ED VIA WC WITH C/O RIGHT KNEE SWELLING, PAIN, REDNESS. HE REPORTS THIS STARTED 3 WEEKS AGO- WAS PUT ON ORAL ANTIBIOTICS. HE REPORTS THAT HIS KNEE WAS 'GETTING BETTER' AND NOW HE FEELS LIKE THE INFECTION IS BACK. Nursing Sepsis Screen: No Definite Risk Source: patient, old records History of Present Illness Date Seen by Provider: October 16, 2020 Time Seen by Provider: 18:10 Initial Comments PT ARRIVES VIA POV FROM HOME, IN HIS OWN WHEELCHAIR C/O RIGHT KNEE PAIN, REDNESS AND SWELLING SYMPTOMS BEGAN AT LEAST 3 WEEKS AGO--STARTED A "SPOT" OR SORE ON HIS KNEE, THAT PROGRESSIVELY GOT WORSE PT WAS SEEN HERE 09/29/20 FOR THIS PROBLEM. HAD BEEN AT [facility] THAT DAY OR THE DAY BEFORE--PT HAD REPORTED AT THAT TIME THAT SYMPTOMS HAD BEEN GOING ON FOR A WEEK. PT WAS PRESCRIBED KEFLEX AT [facility], WHICH HE TOOK FOR 10 DAYS, AND COMPLETED 10 DAYS AGO IT WAS ADVISED ON HIS ER VISIT HERE THAT HE NEEDED TO BE ADMITTED AND HE REFUSED AND SIGNED OUT AMA/REFUSAL OF SERVICES PT STATES IT WAS GETTING BETTER, THEN STARTED GETTING WORSE A COUPLE OF DAYS AGO PT STATES HE SAW [facility]AY EARLY THIS MORNING FOR THIS PROBLEM. HE STATES HE WAS GIVEN A PRESCRIPTION FOR DILAUDID, AND TOLD TO GO TO ER. THEREFORE, PT PRESENTS TONIGHT. PT IS ALSO PRESCRIBED HYDROCODONE ON A REGULAR BASIS PT DENIES FEVER/SWEATS/CHILLS PT IS DIABETIC--HAS BEEN ON INSULIN IN THE PAST, AND IS PRESCRIBED IT, INCLUDING TRESIBA AND HUMALOG, BUT STATES HE DOES NOT TAKE IT AND HAS NOT "FOR YEARS" . PT IS PRESCRIBED JANUMET AND GLIMEPIRIDE HAS NOT CHECKED HIS BLOOD SUGAR TODAY, AND DOES NOT ROUTINELY CHECK IT PT STATES "I HAVE A DOZEN MEDICATIONS I'M SUPPOSED TO TAKE BUT I DON'T KNOW WHAT THEY ARE OR WHAT THEY'RE FOR" PT WITH A VERY LONG HISTORY OF NON-COMPLIANCE PT HAD RIGHT BKA 08/23/[address] HANEY, DUE TO CHRONIC NON- HEALING DIABETIC FOOT ULCERS, CHRONIC WOUND INFECTIONS AND CHARCOT FOOT. PT DENIES ANY COVID-19 SYMPTOMS OR KNOWN EXPOSURE TO COVID-19 AND NO SICK CONTACTS PT STATES HE HAS RECEIVED BOTH COVID-19 VACCINATIONS PCP: DR. HAY/[facility] Allergies and Home Medications Allergies Coded Allergies: No Known Drug Allergies (Unverified , 08/19/19) Home Medications Baclofen 10 Mg Tablet, 10 MG PO TID PRN for MUSCLE SPASMS, (Reported) Canagliflozin 300 Mg Tablet, 300 MG PO DAILY, (Reported) Citalopram Hydrobromide 20 Mg Tablet, 20 MG PO DAILY, (Reported) Docusate Sodium 100 Mg Capsule, 100 MG PO BID Prescribed by: LEORA HANEY on 08/23/19 1404 Gabapentin 300 Mg Capsule, 300 MG PO BID PRN for NEUROPATHY PAIN, (Reported) Glimepiride 4 Mg Tablet, 4 MG PO BID, (Reported) Hydrocodone/Acetaminophen 1 Each Tablet, 1-2 TAB PO Q6H Prescribed by: LEORA HANEY on 08/23/19 1404 Insulin Degludec 100 Unit/1 Ml Insuln.pen, 15 UNIT SQ HS PRN for HIGH BLOOD SUGAR, (Reported) Insulin Lispro 100 Unit/1 Ml Insuln.pen, SC TIDAC, (Reported) Ropinirole HCl 4 Mg Tablet, 4 MG PO HS, (Reported) Sitagliptin Phos/Metformin HCl 1 Each Tbmp.24hr, 1 TAB PO BID, (Reported) TAKES WHEN HE HAS SAMPLES AVAILABLE Patient Home Medication List Home Medication List Reviewed: Yes Review of Systems Constitutional: no symptoms reported Musculoskeletal: see HPI Skin: see HPI Past Prigwxv-Pgenvz-Btusio Hx Past Med/Social Hx: Reviewed and Corrections made Patient Social History Alcohol Use: Denies Use Number of Drinks Today: AA Alcohol Beverage of Choice: Beer Smoking Status: Current Everyday Smoker Type Used: Cigarettes 2nd Hand Smoke Exposure: Yes Recent Infectious Disease Expo: No Recent Hopitalizations: No Immunizations Up To Date Tetanus Booster (TDap): Less than 5yrs Date of Influenza Vaccine: Feb 13, 2019 Seasonal Allergies Seasonal Allergies: No Past Medical History Surgeries: Yes (TOE AMUPTATION, RIGHT ROTATOR CUFF X2, CTR RIGHT) Amputation, Orthopedic Respiratory: No Currently Using CPAP: No Currently Using BIPAP: No Cardiac: No High Cholesterol, Hypertension Neurological: Yes ("PHANTOM PAINS" OF RIGHT BKA) Neuropathy Reproductive Disorders: No Sexually Transmitted Disease: No HIV/AIDS: No Genitourinary: No Gastrointestinal: No Musculoskeletal: Yes (RESTLESS LEG;CHRONIC NECK & SHOULDER PAIN; R BKA/MULT SURGERIES R FOOT ) Amputee, Degenerate Disk Disease, Chronic Back Pain Endocrine: Yes Diabetes, Insulin dep HEENT: No (GLASSES/CONTACTS) Loss of Vision: Denies Hearing Impairment: Denies Cancer: No Psychosocial: Yes Depression Integumentary: Yes (DIABETIC FOOT ULCERS WITH CELLULITIS AND OSTEOMYELITIS) Recent Skin Changes Blood Disorders: Yes (ANEMIA) Adverse Reaction/Blood Tranf: No (N/A) Family Medical History No Pertinent Family Hx, Cancer, Diabetes PAST SURGICAL HISTORY: -MULTIPLE SURGERIES, DEBRIDEMENTS OF RIGHT FOOT DUE TO CHRONIC DIABETIC FOOT ULCERS, FOOT INFECTIONS, CHARCOT FOOT, OSTEOMYELITIS; -2014--PARTIAL AMPUTATION OF RIGHT 3RD TOE -03/2018--AMPUTATION OF RIGHT GREAT TOE AND PART OF FIRST METATARSAL -PARTIAL AMPUTATION OF RIGHT 4TH TOE -MULTIPLE DEBRIDEMENTS, I&D'S OF RIGHT FOOT -06/15/19--AMPUTATION RIGHT 5TH TOE AND METATARSAL -08/23/19--RIGHT BKA FOR OSTEOMYELITIS OF RIGHT FOOT AND LEG -RIGHT ROTATOR CUFF REPAIR X 2 IN 2018 -RIGHT CARPAL TUNNEL RELEASE Physical Exam Vital Signs Vital Signs - First Documented 10/16/20 17:57 Temp 36.8 Pulse 105 Resp 20 B/P (MAP) 131/68 (89) Pulse Ox 97 O2 Delivery Room Air Capillary Refill : Less Than 3 Seconds Height, Weight, BMI Height: 5'10.00" Weight: 235lbs. 0.0oz. 106.310697ys; 33.00 BMI Method:Stated General Appearance: WD/WN, no apparent distress, other (KEEPS EYES CLOSED AT ALL TIMES. VERY FLAT AFFECT. ) Cardiovascular: no murmur, tachycardia (RATE AROUND 100) Respiratory: normal breath sounds Knees: right knee other (RIGHT BKA--SCABBED WOUND TO STUMP IS INTACT WITHOUT SIGNS OF INFECTION AT SURGICAL SITE. MEDIAL ASPECT OF RIGHT KNEE WITH 14 X 14 CM AREA OF WARMTH, TENDERNESS, ERYTHEMA, AND INDURATION. NO OPEN WOUNDS. NO FLUCTUANCE. NO PUSTULES OR SORES. NO STREAKS. ) Neurologic/Psychiatric: alert, oriented x 3; No motor weakness; sensory deficit (TO LEFT FOOT AND LOWER LEG), other (VERY FLAT AFFECT) Skin: warm/dry, other ( ABOVE) Progress/Results/Core Measures Results/Orders Lab Results Laboratory Tests Test 10/16/20 18:18 Range/Units White Blood Count 18.7 H 4.3-11.0 10^3/uL Red Blood Count 4.18 L 4.30-5.52 10^6/uL Hemoglobin 12.8 L 13.3-17.7 g/dL Hematocrit 40 40-54 % Mean Corpuscular Volume 95 80-99 fL Mean Corpuscular Hemoglobin 31 25-34 pg Mean Corpuscular Hemoglobin Concent 32 32-36 g/dL Red Cell Distribution Width 14.2 10.0-14.5 % Platelet Count 434 H 130-400 10^3/uL Mean Platelet Volume 9.7 9.0-12.2 fL Immature Granulocyte % (Auto) 0 % Neutrophils (%) (Auto) 87 H 42-75 % Lymphocytes (%) (Auto) 4 L 12-44 % Monocytes (%) (Auto) 6 0-12 % Eosinophils (%) (Auto) 1 0-10 % Basophils (%) (Auto) 1 0-10 % Neutrophils # (Auto) 16.4 H 1.8-7.8 10^3/uL Lymphocytes # (Auto) 0.8 L 1.0-4.0 10^3/uL Monocytes # (Auto) 1.1 H 0.0-1.0 10^3/uL Eosinophils # (Auto) 0.3 0.0-0.3 10^3/uL Basophils # (Auto) 0.1 0.0-0.1 10^3/uL Immature Granulocyte # (Auto) 0.1 0.0-0.1 10^3/uL Neutrophils % (Manual) 87 % Lymphocytes % (Manual) 5 % Monocytes % (Manual) 6 % Eosinophils % (Manual) 1 % Basophils % (Manual) 1 % Band Neutrophils 0 % Blood Morphology Comment NORMAL Erythrocyte Sedimentation Rate 81 H 0-15 MM/HR Sodium Level 136 135-145 MMOL/L Potassium Level 4.1 3.6-5.0 MMOL/L Chloride Level 97 L 98-107 MMOL/L Carbon Dioxide Level 26 21-32 MMOL/L Anion Gap 13 5-14 MMOL/L Blood Urea Nitrogen 38 H 7-18 MG/DL Creatinine 1.77 H 0.60-1.30 MG/DL Estimat Glomerular Filtration Rate 42 BUN/Creatinine Ratio 21 Glucose Level 165 H 70-105 MG/DL Lactic Acid Level 0.90 0.50-2.00 MMOL/L Calcium Level 10.4 H 8.5-10.1 MG/DL Corrected Calcium 10.2 H 8.5-10.1 MG/DL Total Bilirubin 0.7 0.1-1.0 MG/DL Aspartate Amino Transf (AST/SGOT) 20 5-34 U/L Alanine Aminotransferase (ALT/SGPT) 17 0-55 U/L Alkaline Phosphatase 58 40-136 U/L C-Reactive Protein High Sensitivity 25.62 H 0.00-0.50 MG/DL Total Protein 8.6 H 6.4-8.2 GM/DL Albumin 4.2 3.2-4.5 GM/DL Procalcitonin 0.35 H <0.10 NG/ML My Orders Orders - DILSHAD MCCOY DO Ed Iv/Invasive Line Start (10/16/20 18:15) Cbc With Automated Diff (10/16/20 18:15) Comprehensive Metabolic Panel (10/16/20 18:15) Hs C Reactive Protein (10/16/20 18:15) Lactic Acid Analyzer (10/16/20 18:15) Procalcitonin (Pct) (10/16/20 18:15) Blood Culture (10/16/20 18:15) Erythrocyte Sedimentation Rate (10/16/20 18:15) Knee, Right, 3 Views (10/16/20 18:15) Ct Extremity Lower Right Wo (10/16/20 18:15) Piperacillin Sodium/Tazobactam (Zosyn Vi (10/16/20 18:15) Vancomycin Injection (Vancomycin Injecti (10/16/20 18:15) Manual Differential (10/16/20 18:18) Vancomycin Injection (Vancomycin Injecti (10/16/20 18:45) Ed Iv/Invasive Line Start (10/16/20 19:28) Ns Iv 1000 Ml (Sodium Chloride 0.9%) (10/16/20 19:30) Medications Given in ED Current Medications Medications Dose Ordered Sig/Nohemy Route Start Time Stop Time Status Last Admin Dose Admin Piperacillin Sod/ Tazobactam Sod 4.5 gm/Sodium Chloride 100 ml @ 200 mls/hr ONCE ONCE IV 10/16/20 18:15 10/16/20 18:44 DC 10/16/20 19:00 200 MLS/HR Vancomycin HCl 2000 mg/Sodium Chloride 520 ml @ 260 mls/hr ONCE ONCE IV 10/16/20 18:45 10/16/20 20:44 DC 10/16/20 19:36 260 MLS/HR Vital Signs/I&O 10/16/20 17:57 Temp 36.8 Pulse 105 Resp 20 B/P (MAP) 131/68 (89) Pulse Ox 97 O2 Delivery Room Air Blood Pressure Mean: 89 Progress Progress Note : Progress Note GIVEN IV FLUIDS, AND ZOSYN AND VANCOMYCIN ALSO GAVE FENTANYL FOR PAIN FOCUS EXAM AT 1919--UNCHANGED FROM INITIAL EXAM. NO DETERIORATION IN PT'S CONDITION DURING ER STAY Diagnostic Imaging Comments LEFT KNEE XRAYS--PER RADIOLOGIST REPORT AT 1899 IMPRESSION: 1. Mgzod-qtm-[id number] amputation. Rather extensive edema suggested about the lower leg and over the stump. No abnormal gas collection. No jian bony erosion. CT RIGHT KNEE---PER RADIOLOGIST REPORT AT 1931 IMPRESSION: 1. Pabwj-xha-hoxw amputation. Rather extensive edema suggested about the lower leg and over the stump. No abnormal gas collection. No jian bony erosion. Reviewed: Reviewed by Me Departure Communication (Admissions) 1929--SPOKE WITH DR. VENTURA, HOSPITALIST. ACCEPTS PT FOR ADMIT Impression Primary Impression: Sepsis Additional Impressions: Cellulitis of right knee S/P RIGHT BKA FOR OSTEOMYELITIS Non-compliance Renal insufficiency T2DM (type 2 diabetes mellitus) Failure of outpatient treatment Disposition: ADMITTED INPATIENT Condition: Stable Admissions Decision to Admit Reason: Admit from ER (General) Decision to Admit/Date: October 16, 2020 Time/Decision to Admit Time: 19:30 Departure-Patient Inst. Referrals: RASHAD HAY DO (PCP/Family) Primary Care Physician DILSHAD MCCOY DO October 16, 2020 18:31
[2020-10-16 18:33] LABS: BASOPHILS # (AUTO) 0.1 10^3/uL (0.0-0.1); BASOPHILS % (AUTO) 1 % (0-10); EOSINOPHILS # (AUTO) 0.3 10^3/uL (0.0-0.3); EOSINOPHILS % (AUTO) 1 % (0-10); HEMATOCRIT 40 % (40-54); HEMOGLOBIN 12.8 g/dL (13.3-17.7); LYMPHOCYTES # (AUTO) 0.8 10^3/uL (1.0-4.0); LYMPHOCYTES % (AUTO) 4 % (12-44); MEAN CORPUSCULAR HEMOGLOBIN 31 pg (25-34); MEAN CORPUSCULAR HGB CONC 32 g/dL (32-36); MEAN CORPUSCULAR VOLUME 95 fL (80-99); MEAN PLATELET VOLUME 9.7 fL (9.0-12.2); MONOCYTES # (AUTO) 1.1 10^3/uL (0.0-1.0); MONOCYTES % (AUTO) 6 % (0-12); NEUTROPHILS # (AUTO) 16.4 10^3/uL (1.8-7.8); NEUTROPHILS % (AUTO) 87 % (42-75); PLATELET COUNT 434 10^3/uL (130-400); WHITE BLOOD COUNT 18.7 10^3/uL (4.3-11.0)
[2020-10-16 18:43] LABS: ALBUMIN 4.2 GM/DL (3.2-4.5); POTASSIUM 4.1 MMOL/L (3.6-5.0)
[2020-10-16 18:45] LABS: CALCIUM 10.4 MG/DL (8.5-10.1)
[2020-10-16] MEDS ORDERED: VANCOMYCIN 2000 MG/NS 500 ML IVPB IV ONE ×2 (18:45)
[2020-10-16 18:46] LABS: TOTAL PROTEIN 8.6 GM/DL (6.4-8.2)
[2020-10-16 18:48] LABS: BILIRUBIN,TOTAL 0.7 MG/DL (0.1-1.0)
[2020-10-16 18:49] LABS: CREATININE SERUM 1.77 MG/DL (0.60-1.30); ERYTHROCYTE SEDIMENTATION RATE 81 MM/HR (0-15)
[2020-10-16 18:52] LABS: BAND NEUTROPHILS 0 %; BASOPHILS % (MANUAL) 1 %; EOSINOPHILS % (MANUAL) 1 %; LYMPHOCYTES % (MANUAL) 5 %; MONOCYTES % (MANUAL) 6 %; NEUTROPHILS % (MANUAL) 87 %
[2020-10-16 18:53] LABS: RBC MORPH NORMAL
--- NOTE | 2020-10-16 18:58 | Diagnostic Imaging Report ---
INDICATION: knee pain TECHNIQUE: 3 views of the right knee CORRELATION STUDY: None FINDINGS: Postoperative changes of qwsue-iqw-vdwh amputation. There does appear to be some soft tissue swelling over the lower thigh, knee and stump area. No abnormal gas collection. The resection margins appear to be fairly well-defined without jian erosion or destruction. The visualized portion of the knee demonstrates chondrocalcinosis particularly medially with mild joint space narrowing. IMPRESSION: 1. Ogrwo-inu-atok amputation. Rather extensive edema suggested about the lower leg and over the stump. No abnormal gas collection. No jian bony erosion. Dictated by: Dictated on workstation # [id number]
--- NOTE | 2020-10-16 19:28 | Diagnostic Imaging Report ---
PROCEDURE: CT right lower extremity without contrast. TECHNIQUE: Axially acquired CT was obtained through the right lower extremity without intravenous contrast. Coronal and sagittal reformations were also performed. Auto Exposure Controls were utilized during the CT exam to meet ALARA standards for radiation dose reduction. INDICATION: Knee infection There are no prior CT examinations available for comparison. The plain film examination of the right knee performed in conjunction with the study did show that there had been a ntukd-aph-uvnu amputation with extensive edema about the lower leg over the stump. There is no jian bony erosion identified to suggest osteomyelitis, however. On this exam, there is again evidence of diffuse edema/inflammation of the soft tissues of the knee joint and the remaining right lower extremity. There is no sign of bone destruction to indicate osteomyelitis, however. No other acute bony abnormality is appreciated. However, if clinical concern regarding osteomyelitis persists, then MRI would be recommended for further study. IMPRESSION: There is diffuse edema/inflammation of the soft tissues about the knee joint and the remaining portion of the right lower extremity. There is no sign of bone destruction to indicate osteomyelitis, however. Recommendations as above. Dictated by: Dictated on workstation # [id number]
[2020-10-16] MEDS ORDERED: NS IV 1000 ML 1,000 ML IV SCH (19:30)
[2020-10-16] MEDS ORDERED: fentaNYL INJ 100 MCG/2 ML AMP IVP ONE (19:45)
[2020-10-16] MEDS ORDERED: ACETAMINOPHEN 500 MG TAB (TYLENOL) PO PRN (21:45)
[2020-10-16] MEDS: NS IV 1000 ML 1,000 ML IV SCH (21:52)
[2020-10-16] MEDS: fentaNYL INJ 100 MCG/2 ML AMP IV PRN (22:44)
[2020-10-16 23:01] VITALS: BP 132/75
[2020-10-16] MEDS ORDERED: PIPERACILLIN/TAZO 4.5 GM VIAL (ZOSYN) IV ONE (23:38)
[2020-10-16] MEDS ORDERED: NS (IVPB) 100 ML ONE (23:39)
[2020-10-17] MEDS: PIPERACILLIN/TAZO 4.5 GM/NS 100 ML IV SCH ×4 (00:25→07:55)
[2020-10-17] MEDS: fentaNYL INJ 100 MCG/2 ML AMP IV PRN ×4 (02:00→09:07)
[2020-10-17] MEDS: NS IV 1000 ML 1,000 ML IV SCH ×3 (02:06→09:30)
[2020-10-17 04:51] VITALS: BP 132/74
[2020-10-17 06:09] LABS: BASOPHILS # (AUTO) 0.1 10^3/uL (0.0-0.1); BASOPHILS % (AUTO) 0 % (0-10); EOSINOPHILS # (AUTO) 0.2 10^3/uL (0.0-0.3); EOSINOPHILS % (AUTO) 1 % (0-10); HEMATOCRIT 34 % (40-54); HEMOGLOBIN 10.8 g/dL (13.3-17.7); LYMPHOCYTES # (AUTO) 0.6 10^3/uL (1.0-4.0); LYMPHOCYTES % (AUTO) 4 % (12-44); MEAN CORPUSCULAR HEMOGLOBIN 31 pg (25-34); MEAN CORPUSCULAR HGB CONC 32 g/dL (32-36); MEAN CORPUSCULAR VOLUME 96 fL (80-99); MEAN PLATELET VOLUME 9.9 fL (9.0-12.2); MONOCYTES % (AUTO) 6 % (0-12); NEUTROPHILS # (AUTO) 15.2 10^3/uL (1.8-7.8); NEUTROPHILS % (AUTO) 89 % (42-75); PLATELET COUNT 399 10^3/uL (130-400); WHITE BLOOD COUNT 17.1 10^3/uL (4.3-11.0)
[2020-10-17 06:11] LABS: ALBUMIN 3.4 GM/DL (3.2-4.5)
[2020-10-17 06:12] LABS: POTASSIUM 4.1 MMOL/L (3.6-5.0)
[2020-10-17 06:13] LABS: CALCIUM 8.7 MG/DL (8.5-10.1)
[2020-10-17 06:14] LABS: TOTAL PROTEIN 6.9 GM/DL (6.4-8.2)
[2020-10-17 06:16] LABS: BILIRUBIN,TOTAL 0.6 MG/DL (0.1-1.0)
[2020-10-17 06:18] LABS: CREATININE SERUM 1.32 MG/DL (0.60-1.30)
[2020-10-17] MEDS: inSUlin ASPART (NovoLOG) 1 UNIT/0.01 ML (CHARGE PER UNIT) SC SCH ×2 (06:25→11:00)
[2020-10-17] MEDS ORDERED: VANCOMYCIN 1 GM/NS 250 ML IVPB IV SCH ×2 (08:00)
[2020-10-17 08:06] VITALS: BP 132/74
[2020-10-17] MEDS ORDERED: SULF1TAB35 PO (11:01)
[2020-10-17] MEDS ORDERED: AMOX-358 PO (11:01)
[2020-10-17 11:14] VITALS: BP 116/65
--- NOTE | 2020-10-17 19:50 | Discharge Summary ---
Discharge Summary Hospital Course Problems/Dx: (1) Cellulitis of right knee Status: Acute (2) Sepsis Status: Acute (3) T2DM (type 2 diabetes mellitus) Status: Chronic Hospital Course Date of Admission: October 16, 2020 at 19:30 Admission Diagnosis : Sepsis due to cellulitis Family Physician/Provider: Rashad Sanabria DO Date of Discharge: 10/17/20 Discharge Diagnosis: Sepsis due to cellulitis Hospital Course: Kemar Rivera is a 44 year old male with PMH T2DM s/p right BKA who was admitted with sepsis due to right thigh cellulitis. He was treated with IV antibiotics and his celluliits improved. Imaging showed no evidence of abscess or osteomyelitis. He was transitioned to oral antibiotics and should complete a two week course of antibiotics as an outpatient. He should follow up with his PCP early next week. He was instructed to return with any worsening of his cellulitis. He was discharged home in stable condition. Labs and Pending Lab Test: Laboratory Tests 10/17/20 01:59: Glucometer 147H 10/17/20 06:00: White Blood Count 17.1H, Red Blood Count 3.51L, Hemoglobin 10.8L, Hematocrit 34L , Mean Corpuscular Volume 96, Mean Corpuscular Hemoglobin 31, Mean Corpuscular Hemoglobin Concent 32, Red Cell Distribution Width 14.0, Platelet Count 399, Mean Platelet Volume 9.9, Immature Granulocyte % (Auto) 1, Neutrophils (%) (Auto) 89H, Lymphocytes (%) (Auto) 4L, Monocytes (%) (Auto) 6, Eosinophils (%) (Auto) 1, Basophils (%) (Auto) 0, Neutrophils # (Auto) 15.2H, Lymphocytes # (Auto) 0.6L, Monocytes # (Auto) 1.0, Eosinophils # (Auto) 0.2, Basophils # (Auto) 0.1, Immature Granulocyte # (Auto) 0.1, Sodium Level 135, Potassium Level 4.1, Chloride Level 102, Carbon Dioxide Level 20L, Anion Gap 13, Blood Urea Nitrogen 33H, Creatinine 1.32H, Estimat Glomerular Filtration Rate 59, BUN/Creatinine Ratio 25, Glucose Level 161H, Calcium Level 8.7, Corrected Calcium 9.2, Total Bilirubin 0.6, Aspartate Amino Transf (AST/SGOT) 35H, Alanine Aminotransferase (ALT/SGPT) 25, Alkaline Phosphatase 55, Total Protein 6.9, Albumin 3.4 Microbiology 10/16/20 Blood Culture - Preliminary, Resulted No growth Home Meds Active Augmentin 875-125 Tablet (Amoxicillin/Potassium Clav) 1 Each Tablet 1 Each PO BID 14 Days Bactrim Ds Tablet (Sulfamethoxazole/Trimethoprim) 1 Each Tablet 1 Each PO BID 14 Days Colace (Docusate Sodium) 100 Mg Capsule 100 Mg PO BID Hydrocodone/Acetaminophen 5 MG/325 MG TAB (Hydrocodone/Acetaminophen) 1 Each Tablet 1-2 Tab PO Q6H MDD 10 TABS 7 Days Reported Janumet Xr 100-1,000 mg Tablet (Sitagliptin Phos/Metformin HCl) 1 Each Tbmp.24hr 1 Tab PO BID TAKES WHEN HE HAS SAMPLES AVAILABLE Humalog Kwikpen (Insulin Lispro) 100 Unit/1 Ml Insuln.pen SC TIDAC Gabapentin 300 Mg Capsule 300 Mg PO BID PRN Invokana (Canagliflozin) 300 Mg Tablet 300 Mg PO DAILY Tresiba Flextouch U-100 (Insulin Degludec) 100 Unit/1 Ml Insuln.pen 15 Unit SQ HS PRN Baclofen 10 Mg Tablet 10 Mg PO TID PRN Ropinirole HCl 4 Mg Tablet 4 Mg PO HS Citalopram HBr (Citalopram Hydrobromide) 20 Mg Tablet 20 Mg PO DAILY Glimepiride 4 Mg Tablet 4 Mg PO BID Assessment/Pt Instructions Take medications as prescribed. Follow up with your PCP. Return with worsening symptoms. Discharge Planning: <30 minutes discharge planning Discharge Instructions Discharge Diet: ADA Diet Activity as Tolerated: Yes Discharge Physical Examination Vital Signs Vital Signs Date Time Temp Pulse Resp B/P (MAP) Pulse Ox O2 Delivery O2 Flow Rate FiO2 10/17/20 11:14 36.2 103 20 116/65 (82) 96 Room Air General Appearance: No Apparent Distress, WD/WN HEENT: PERRL/EOMI, Pharynx Normal Respiratory: Lungs Clear, Normal Breath Sounds, No Respiratory Distress Cardiovascular: Regular Rate, Rhythm, No Murmur Gastrointestinal: Normal Bowel Sounds, Non Tender, Soft Extremity: Other (right BKA, right medial thigh erythema/warmth/swelling ~10 cm diameter) Skin: Warm/Dry, Erythema (right medial thigh) Neurologic/Psychiatric: Alert, Oriented x3, No Motor/Sensory Deficits, Depressed Affect Allergies: Coded Allergies: No Known Drug Allergies (Unverified , 08/19/19) Copy Copies To 1: RASHAD SANABRIA DO Discharge Summary Date of Admission October 16, 2020 at 19:30 Date of Discharge October 17, 2020 at 11:45 Discharge Date: October 17, 2020 Discharge Time: 11:45 Admission Diagnosis Sepsis due to cellulitis Discharge Diagnosis (1) Sepsis Status: Acute (2) Cellulitis of right knee Status: Acute (3) T2DM (type 2 diabetes mellitus) Status: Chronic EDISON VENTURA MD October 17, 2020 19:50
== END 2020-10-17 11:45 | disposition home or self-care (01) ==
LOC: EDUNIT# 17:49 → ER 17:51 → 4TH 19:30 → INTOOBSV 19:30
PROVIDERS: ADMIT Internal Medicine; ATTEND Internal Medicine
DX: A41.89 Other specified sepsis (principal); L03.115 Cellulitis of right lower limb; E11.40 Type 2 diabetes mellitus with diabetic neuropathy, unspecified; I10 Essential (primary) hypertension; E78.00 Pure hypercholesterolemia, unspecified; M19.90 Unspecified osteoarthritis, unspecified site; G89.29 Other chronic pain; M54.9 Dorsalgia, unspecified; N28.9 Disorder of kidney and ureter, unspecified; F17.210 Nicotine dependence, cigarettes, uncomplicated; F32.9 Major depressive disorder, single episode, unspecified; Z89.511 Acquired absence of right leg below knee; Z79.4 Long term (current) use of insulin; Z79.899 Other long term (current) drug therapy; Z89.421 Acquired absence of other right toe(s); Z91.14 Patient's other noncompliance with medication regimen
CPT/HCPCS: 73562; 73700; 80053 ×2; 82947; 83605; 84145; 85007; 85025; 85027; 85652; 86141; 87040; 99284; G0378; 36415

== ENCOUNTER → 2021-09-06 | Outpatient (CLI) | payer BC ==
[~2021-09-06] MED LIST changes: -SULF1TAB35 PO; +SULF1TAB38 PO
== END ==
LOC: WOUNDCARE 08:41
PROVIDERS: ATTEND Family Medicine
DX: E11.621 Type 2 diabetes mellitus with foot ulcer (principal); L97.522 Non-pressure chronic ulcer of other part of left foot with fat layer exposed; B96.5 Pseudomonas (aeruginosa) (mallei) (pseudomallei) as the cause of diseases classified elsewhere; E11.65 Type 2 diabetes mellitus with hyperglycemia; E11.43 Type 2 diabetes mellitus with diabetic autonomic (poly)neuropathy
CPT/HCPCS: A6197; G0463; 99214

== ENCOUNTER → 2021-09-13 | Outpatient (CLI) | payer BC ==
[~2021-09-13] MED LIST changes: +GADOTERATE 0.5 MMOL/ML (CLARISCAN) 20 ML VIAL IV ONE
--- NOTE | 2021-09-13 09:42 | Diagnostic Imaging Report ---
Exam: MRI left foot without and with intravenous contrast. Date: September 13, 2021. Indication: 45-year-old male, left foot ulcer. Evaluation for osteomyelitis and/or abscess. Comparison: None. Technique: Multiple pre and postcontrast MRI sequences of the left foot were obtained. Findings: The visualized portions of the posterior flexor tendons, anterior extensor tendons, and peroneal tendons are intact. The visualized portions of the plantar fascia are intact. There is abnormal signal within the volar soft tissues at the level of the fourth metatarsal phalangeal joint which is near marker denoting area of focal concern. This may relate to site of soft tissue ulcer. There is abnormal signal in the soft tissues which does extend near the bone although does not definitely directly contact the bone. There is no identified focal fluid collection or abscess. There is no T1 marrow signal loss, enhancement, or abnormal edema to suggest osteomyelitis. The additional bone marrow signal is also unremarkable. There is moderate fatty muscle atrophy diffusely likely reflecting polyneuropathy. The joint spaces are well preserved. There is no joint effusion. Impression: 1. Soft tissue ulcer volarly located in the region of the fourth metatarsal phalangeal joint without identified focal fluid collection or abscess. 2. No evidence of osteomyelitis myelitis. 3. No evidence of tenosynovitis or septic arthritis. 4. Moderate generalized fatty atrophy of the visualized foot musculature most consistent with polyneuropathy. Dictated by: Dictated on workstation # [id number]
== END ==
LOC: RAD 08:00
PROVIDERS: ATTEND Podiatrist Foot & Ankle Surgery
DX: L97.529 Non-pressure chronic ulcer of other part of left foot with unspecified severity (principal); M62.571 Muscle wasting and atrophy, not elsewhere classified, right ankle and foot; S91.302A Unspecified open wound, left foot, initial encounter
CPT/HCPCS: 73720

== ENCOUNTER → 2021-09-15 | Outpatient (CLI) | payer BC ==
[~2021-09-15] MED LIST changes: -GADOTERATE 0.5 MMOL/ML (CLARISCAN) 20 ML VIAL IV ONE
== END ==
LOC: WOUNDCARE 15:20
PROVIDERS: ATTEND Family Medicine
DX: E11.622 Type 2 diabetes mellitus with other skin ulcer (principal); L97.522 Non-pressure chronic ulcer of other part of left foot with fat layer exposed; B96.5 Pseudomonas (aeruginosa) (mallei) (pseudomallei) as the cause of diseases classified elsewhere; E11.65 Type 2 diabetes mellitus with hyperglycemia; E11.43 Type 2 diabetes mellitus with diabetic autonomic (poly)neuropathy; E11.52 Type 2 diabetes mellitus with diabetic peripheral angiopathy with gangrene
CPT/HCPCS: 11042; G0463

== ENCOUNTER → 2021-09-22 | Outpatient (CLI) | payer BC | LOC: WOUNDCARE 15:11 | PROVIDERS: ATTEND Family Medicine | DX: E11.621 Type 2 diabetes mellitus with foot ulcer (principal); L97.522 Non-pressure chronic ulcer of other part of left foot with fat layer exposed; B96.5 Pseudomonas (aeruginosa) (mallei) (pseudomallei) as the cause of diseases classified elsewhere; E11.65 Type 2 diabetes mellitus with hyperglycemia; E11.43 Type 2 diabetes mellitus with diabetic autonomic (poly)neuropathy; I96 Gangrene, not elsewhere classified | CPT/HCPCS: 11042; G0463 ==

== ENCOUNTER 2021-09-29 16:08 | Outpatient (RCR) | payer BC ==
[2021-09-13 11:05] VITALS: BP 128/76
[2021-09-20 06:05] VITALS: BP 112/73
[2021-09-27 06:21] VITALS: BP 121/88
[~2021-09-29] VITALS: Ht 180 cm; Wt 108.0 kg
[~2021-09-29 16:08] MED LIST changes: +MEROPENEM 1,000 MG/NS 100 ML IVPB IV SCH
[2021-09-29 16:28] VITALS: BP 121/80
== END 2021-09-29 16:28 | disposition home or self-care (01) ==
LOC: SDC 16:08
PROVIDERS: ATTEND Family Medicine
DX: E11.621 Type 2 diabetes mellitus with foot ulcer (principal); L97.522 Non-pressure chronic ulcer of other part of left foot with fat layer exposed; B96.5 Pseudomonas (aeruginosa) (mallei) (pseudomallei) as the cause of diseases classified elsewhere; E11.65 Type 2 diabetes mellitus with hyperglycemia; E11.43 Type 2 diabetes mellitus with diabetic autonomic (poly)neuropathy
CPT/HCPCS: 36569; 76937; 96365; C1751; 99211

== ENCOUNTER → 2021-09-29 | Outpatient (CLI) | payer BC | LOC: WOUNDCARE 14:57 | PROVIDERS: ATTEND Family Medicine | DX: L97.522 Non-pressure chronic ulcer of other part of left foot with fat layer exposed (principal); E11.621 Type 2 diabetes mellitus with foot ulcer; E11.65 Type 2 diabetes mellitus with hyperglycemia; E11.43 Type 2 diabetes mellitus with diabetic autonomic (poly)neuropathy; E11.52 Type 2 diabetes mellitus with diabetic peripheral angiopathy with gangrene | CPT/HCPCS: 11042; G0463 ==